=== PATIENT | male | born 1945 | race Caucasian/White ===

== ENCOUNTER → 2017-08-04 | Outpatient (CLI) | payer MEDICARE ==
--- NOTE | 2017-08-04 14:46 | CT ---
EXAMINATION TYPE: CT cervical spine wo con DATE OF EXAM: 08/04/2017 COMPARISON: 01/04/2016 HISTORY: Cervicalgia CT DLP: 1116 mGycm. Automated Exposure Control for Dose Reduction was Utilized. TECHNIQUE: CT scan of the cervical spine is obtained without contrast, axial images are obtained, sa gittal and coronal reformatted images are also reviewed. FINDINGS: Anterior cervical fusion device is in place from the C5-C7 vertebral levels with interverte bral disc spacer also seen at C4-C5. There is partial osseous bridging and fusion at these levels and straightening of usual cervical lordosis. Multilevel uncovertebral hypertrophy and mild facet arthro johnson are seen. There is no evidence of acute fracture or malalignment of the cervical spine. No prev ertebral soft tissue swelling is noted. At C2-C3 there is a left paracentral disc herniation creating mild spinal canal stenosis. No neural f oraminal narrowing. At C3-C4 there is uncovertebral hypertrophy and facet arthropathy creating moderate left neural loyd inal narrowing. Broad-based disc bulge also narrows the ventral subarachnoid space creating mild spin al canal stenosis. Right neuroforamen is patent. At C4-C5 the spinal canal is partially obscured by spray artifact from the intervertebral disc spacer uncovertebral hypertrophy and facet arthropathy are seen although the spinal canal and neural forame n appear grossly patent. At C5-C6 and C6-C7 there is moderate left and mild right neural foraminal narrowing from uncovertebra l hypertrophy and facet arthropathy. Spinal canal is somewhat limited secondary to postoperative rush ge but there appears to be mild spinal canal stenosis. At C7-T1 there is no gross evidence of final canal stenosis. Mild bilateral neural foraminal narrowin g is seen as a result of uncovertebral hypertrophy. IMPRESSION: 1. Postsurgical fusion of the cervical spine with no hardware fracture or new malalignment. 2. Left paracentral disc herniation at C2-C3 creating mild spinal canal stenosis. 3. Moderate degenerative disc disease of the cervical spine creating variable degrees of neural loyd inal stenosis and spinal canal stenosis as described above.
== END | disposition home or self-care (01) ==
LOC: RADCTMAIN 14:10
PROVIDERS: ATTEND Psychiatry & Neurology Neurology
DX: M54.2 Cervicalgia (principal); M48.02 Spinal stenosis, cervical region; M50.31 Other cervical disc degeneration, high cervical region
CPT/HCPCS: 72125

== ENCOUNTER → 2017-10-24 | Outpatient (CLI) | payer MEDICARE ==
--- NOTE | 2017-10-24 17:16 | PN ---
PROGRESS NOTE SLEEP CENTER PROGRESS NOTE: This is a 72-year-old male patient who is coming in for advice regarding GE treatment. The patient was diagnosed having obstructive sleep apnea back in 2014. At that time he was diagnosed having severe GE, and based on the sleep study the patient was found to have an AHI of 65. The patient was given CPAP at a pressure of 14 cm of water. Note that he failed to show up for a compliancy check, and I have not seen this patient since then. After using the CPAP for a few months, the patient quit the treatment, as the treatment was becoming uncomfortable. He was using a Simplus full-face mask and he was having leaks around the mask. Over the past 3 years the patient has become more symptomatic. He is having oozy moments and he is dropping things and has become forgetful, sleepy during the day and quite somnolent. His [place] score is 22. He is going to bed around 8:30 p.m., waking up at 5:30 a.m. in the morning. He is snoring excessively. He stops breathing. He wakes up choking and gasping for air. He has nocturia and dry mouth. For all these reasons, the patient is coming back for further advice. Obviously he will need to go back on his CPAP machine. His comorbidities include obesity, diabetes mellitus, coronary artery disease, previous DE, hypertension, peripheral neuropathy, restless legs syndrome, anxiety, depression and history of skin cancer that has been resected. As for his past surgical history, he has had cardiac catheterization with stenting, appendectomy, cervical fusion, right foot surgery. DRUG ALLERGIES: NOT KNOWN. OUTPATIENT MEDICATION LIST: 1. Aspirin 81 daily. 2. Lisinopril 20 daily. 3. Metoprolol 25 mg b.i.d. 4. Neurontin 300 mg 3 times a day. 5. Pamelor 1 tablet a day at bedtime. 6. Flexeril 5 mg at bedtime. 7. Zoloft 100 mg p.o. daily. 8. Lipitor 40 daily. 9. Triamterene twice a day. 10.Metformin 500 mg twice a day. 11.Glipizide 1 tablet a day. REVIEW OF SYSTEMS: Twelve-point review of systems was done. Positive findings are all mentioned above in the history of present illness. PHYSICAL EXAMINATION: BP is 124/70, pulse 74, respirations 16, temperature 97.8, saturation 94% on room air. Height is 5 feet 10 inches, weighs 291. Neck size is 20-3/4 inches. GENERAL APPEARANCE: Obese, calm, comfortable. Head is atraumatic, normocephalic. Neck is short, supple. Crowding in the posterior pharynx. There is no goiter or neck mass. LUNGS: Diminished breath sounds bilaterally. HEART: Sounds are regular rate and rhythm. Normal S1, S2. No S3. No murmurs. ABDOMEN: Obese, soft, nontender. No organomegaly. EXTREMITIES: No edema. No cyanosis or clubbing. NEUROLOGIC: Alert and oriented x3. No focal neurological deficits. PSYCHIATRIC: Appropriate mood and affect. SKIN: Negative for any wounds or ulceration. IMPRESSION: 1. Severe symptomatic obstructive sleep apnea. The patient has had difficulties with his CPAP at a pressure of 14 and currently he is coming in being quite symptomatic from his GE treatment, as the patient has not received the treatment for the past 3 years. His baseline AHI is 65. His CPAP titration pressure was 14. 2. Morbid obesity with a body mass index of 41.1. The patient has lost some weight since his original diagnosis with GE. 3. Excessive daytime sleepiness. [place] score 22. 4. Diabetes. 5. Hypertension. 6. Coronary artery disease. 7. Anxiety/depression. 8. Peripheral neuropathy. 9. Restless leg syndrome. PLAN: 1. Encourage further weight loss. 2. Reviewed the CPAP titration back in 2014. Based on that, I will lower the CPAP pressure down to 12 cm of water. I also gave the patient an AirFit F20 large-size full-face mask with a short-term followup to assess his clinical response. Will consider CPAP titration if he fails treatment. Will continue to follow. MMODL / IJN: [id number] /
== END | disposition home or self-care (01) ==
LOC: SLEEP 14:23
PROVIDERS: ATTEND Internal Medicine Critical Care Medicine
DX: G47.33 Obstructive sleep apnea (adult) (pediatric) (principal); E66.01 Morbid (severe) obesity due to excess calories; E11.9 Type 2 diabetes mellitus without complications; I10 Essential (primary) hypertension; I25.10 Atherosclerotic heart disease of native coronary artery without angina pectoris; F41.9 Anxiety disorder, unspecified; F32.9 Major depressive disorder, single episode, unspecified; G62.9 Polyneuropathy, unspecified; G25.81 Restless legs syndrome; Z68.41 Body mass index [BMI] 40.0-44.9, adult; Z99.89 Dependence on other enabling machines and devices; Z79.82 Long term (current) use of aspirin; Z79.899 Other long term (current) drug therapy; Z79.84 Long term (current) use of oral hypoglycemic drugs
CPT/HCPCS: 99211

== ENCOUNTER → 2017-12-12 | Outpatient (CLI) | payer MEDICARE ==
--- NOTE | 2017-12-12 19:02 | PN ---
PROGRESS NOTE This is a 72-year-old male patient coming in for a compliancy evaluation regarding obstructive sleep apnea. The patient was diagnosed having severe obstructive sleep apnea with AHI of 65 and the patient was offered a CPAP pressure of 14 cm of water. During his last visit I made some adjustments. I lowered the CPAP pressure down to 12 cm of water. The patient seems to be much more compliant at this point in time, and he is using the AirFit F20 full-face mask. He is doing well. He is averaging around 8.6 hours of CPAP use per night. His leak factor 28 L/minute. His AHI while on treatment is down to 0.2. No complaints. He is benefitting from treatment. No nocturnal chest pain. No nocturnal shortness of breath. No nocturnal snoring. PHYSICAL EXAMINATION: BP is 110/66, pulse 83, respirations 18, temperature 97.9, saturation 95% on room air. Weight is 290. Height is 5 feet 10 inches and BMI is 41.6. [place] score is 20. GENERAL APPEARANCE: Calm, comfortable. Head is atraumatic, normocephalic. Neck is supple. No JVD. No goiter or neck mass. LUNGS: Clear to auscultation. Heart sounds are regular rate and rhythm. Normal S1, S2. No S3, S4. No murmurs. Abdomen is soft, nontender. No organomegaly. EXTREMITIES: No edema. No cyanosis or clubbing. Neurologically alert and oriented x3. There is no focal neurological deficit. IMPRESSION: 1. Severe obstructive sleep apnea, currently on CPAP at a pressure of 12. Baseline AHI is 65. 2. Hypersomnia, recovered. 3. Morbid obesity. 4. Diabetes. 5. Hypertension. 6. Coronary artery disease. 7. Chronic anxiety/depression. 8. Peripheral neuropathy. 9. Restless leg syndrome. PLAN: 1. Continue CPAP therapy at the same level of pressure. 2. Keep the patient on an AirFit F20 full-face mask. 3. See me back in a year's time, earlier if needed. The treatment is successful for now. No need for any further adjustments at this point in time. MMODL / IJN: [id number] /
== END | disposition home or self-care (01) ==
LOC: SLEEP 13:14
PROVIDERS: ATTEND Internal Medicine Critical Care Medicine
DX: G47.33 Obstructive sleep apnea (adult) (pediatric) (principal); G25.81 Restless legs syndrome; E66.01 Morbid (severe) obesity due to excess calories; I10 Essential (primary) hypertension; I25.10 Atherosclerotic heart disease of native coronary artery without angina pectoris; F41.9 Anxiety disorder, unspecified; F32.9 Major depressive disorder, single episode, unspecified; E11.42 Type 2 diabetes mellitus with diabetic polyneuropathy; Z68.41 Body mass index [BMI] 40.0-44.9, adult; Z99.89 Dependence on other enabling machines and devices

== ENCOUNTER 2018-02-28 07:45 | Day surgery (SDC) | payer MEDICARE ==
[2018-02-23 14:42] VITALS: BMI 41.5
[~2018-02-28 07:45] MED LIST: DEXAMETHASONE SOD PHOSPHATE 10 MG/ML 1 ML VIAL IV ONE; HYDROmorphone 0.5 MG/0.5 ML SYRINGE IVP PRN; LACTATED RINGERS 1,000 ML IV SCH; LIDOCAINE 1% 20 ML VIAL (10MG/ML) FOR IV START INTRADERMA PRN; ONDANSETRON 4 MG/2 ML VIAL IVP ONE; SCOPOLAMINE 1.5MG/72HR PATCH TRANSDERM ONE
[2018-02-28] MEDS ORDERED: LACTATED RINGERS 1,000 ML IV ONE (07:56)
[2018-02-28 08:11] VITALS: TEMP 97.4
[2018-02-28 08:28] LABS: Glucose,Whole Blood 148 mg/dL (75-99)
[2018-02-28] MEDS ORDERED: PROPOFOL 10 MG/ML 20 ML VIAL IV ONE (08:32)
[2018-02-28] MEDS ORDERED: LIDOCAINE 1% INJ 10MG/ML (20 ML MDV) ONE (08:32)
--- NOTE | 2018-02-28 08:35 | P.GSHP ---
History of Present Illness H&P Date: 02/28/18 Chief Complaint: Colon cancer screening Patient here today for colonoscopy. Last colonoscopy over 5 years ago. Personal history of colon polyps. Patient has no bowel related symptoms. No family history colon cancer. Past Medical History Past Medical History: Cancer, Diabetes Mellitus, Hyperlipidemia, Hypertension, Myocardial Infarction (SD) Additional Past Medical History / Comment(s): RLS. SKIN CANCER ON BACK Last Myocardial Infarction Date:: 2002 History of Any Multi-Drug Resistant Organisms: None Reported Past Surgical History: Appendectomy, Heart Catheterization With Stent, Orthopedic Surgery Additional Past Surgical History / Comment(s): COLONOSCOPY, BILAT CATARACTS, RT ROTATOR CUFF REPAIR, RT EYE SX, BOWEL SX AT AGE 6, RT FOOT FUSION, CERVICAL FUSION X 2, SKIN CANCER ON BACK REMOVED Past Anesthesia/Blood Transfusion Reactions: Motion Sickness Date of Last Stent Placement:: 2002, 2012 Smoking Status: Never smoker - Past Family History Father Family Medical History: Cancer Sister(s) Family Medical History: Cancer Medications and Allergies Home Medications Medication Instructions Recorded Confirmed Type Aspirin EC [Ecotrin Low Dose] 81 mg PO DAILY 02/23/18 02/28/18 History Atorvastatin [Lipitor] 40 mg PO HS 02/23/18 02/28/18 History Cetirizine HCl [Zyrtec] 10 mg PO DAILY PRN 02/23/18 02/28/18 History Cholecalciferol (Vitamin D3) 2,000 unit PO DAILY 02/23/18 02/28/18 History [Vitamin D3] Cyclobenzaprine [Flexeril] 5 mg PO HS 02/23/18 02/28/18 History Gabapentin [Neurontin] 300 mg PO TID 02/23/18 02/28/18 History Insulin Glargine/Lixisenatide 60 units SQ DAILY 02/23/18 02/28/18 History [Soliqua 100 Unit-33 Mcg/ml Pen] Lisinopril 20 mg PO DAILY 02/23/18 02/28/18 History Nitroglycerin Sl Tabs [Nitrostat] 0.4 mg SL DIRECTED PRN 02/23/18 02/23/18 History Nortriptyline [Pamelor] 50 mg PO HS 02/23/18 02/28/18 History Pramipexole [Mirapex] 0.5 mg PO BID 02/23/18 02/28/18 History Pramipexole [Mirapex] 1 mg PO HS 02/23/18 02/28/18 History Sertraline [Zoloft] 100 mg PO DAILY 02/23/18 02/28/18 History Triamterene-Hctz 37.5-25Mg 1 tab PO DAILY 02/23/18 02/28/18 History [Maxzide 37.5-25] glipiZIDE [Glucotrol] 5 mg PO AC-BRKFST 02/23/18 02/28/18 History metFORMIN HCL [Glucophage] 500 mg PO BID 02/23/18 02/28/18 History Metoprolol Tartrate 25 mg PO BID 02/28/18 02/28/18 History Allergies Allergy/AdvReac Type Severity Reaction Status Date / Time No Known Allergies Allergy Verified 02/28/18 07:57 Surgical - Exam Vital Signs Temp Pulse Resp BP Pulse Ox 97.4 F L 73 16 127/76 93 L 02/28/18 08:09 02/28/18 08:09 02/28/18 08:09 02/28/18 08:09 02/28/18 08:09 Physical exam: General: Well-developed, well-nourished HEENT: Normocephalic, sclerae nonicteric Abdomen: Nontender, nondistended Extremities: No edema Neuro: Alert and oriented Assessment and Plan (1) Colon cancer screening Narrative/Plan: Will proceed with colonoscopy at this time Current Visit: Yes Status: Acute Code(s): Z12.11 - ENCOUNTER FOR SCREENING FOR MALIGNANT NEOPLASM OF COLON SNOMED Code(s): 816024930
--- NOTE | 2018-02-28 08:49 | P.PCN ---
Date of Procedure: 02/28/18 Procedure(s) Performed: PREOPERATIVE DIAGNOSIS: Colon cancer screening, history of polyps POSTOPERATIVE DIAGNOSIS: Mild diverticulosis PROCEDURE: Colonoscopy ANESTHESIA: MAC SURGEON: Heriberto Esquivel M.D. SPECIMENS: None ENDOSCOPIC PROCEDURE: The patient was placed on the endoscopy table in the left decubitus position. The Olympus colonoscope was inserted into the anus and passed under direct visualization to the base of the cecum. The appendiceal orifice was visualized. From that point the scope was slowly withdrawn inspecting all surfaces carefully. There were no neoplastic inflammatory or polypoid lesions throughout the cecum, ascending, transverse, descending, sigmoid and rectum. There was mild diverticulosis noted in the left colon. Digital rectal examination was normal. The patient was taken to the recovery room in stable condition per anesthesia guidelines. RECOMMENDATIONS: Increase fiber. Follow-up colonoscopy 5 years
[2018-02-28 09:09] VITALS: BP 105/64; PULSE 71; RESP 18
== END 2018-02-28 09:44 | disposition home or self-care (01) ==
LOC: ORWHC2ENDO 07:45
PROVIDERS: ATTEND Surgery
DX: Z12.11 Encounter for screening for malignant neoplasm of colon (principal); K57.30 Diverticulosis of large intestine without perforation or abscess without bleeding; Z86.010 Personal history of colon polyps; E11.9 Type 2 diabetes mellitus without complications; E78.5 Hyperlipidemia, unspecified; I10 Essential (primary) hypertension; G25.81 Restless legs syndrome; I25.119 Atherosclerotic heart disease of native coronary artery with unspecified angina pectoris; F32.9 Major depressive disorder, single episode, unspecified; G47.33 Obstructive sleep apnea (adult) (pediatric); K21.9 Gastro-esophageal reflux disease without esophagitis; I25.2 Old myocardial infarction; Z95.5 Presence of coronary angioplasty implant and graft; Z99.89 Dependence on other enabling machines and devices; Z79.82 Long term (current) use of aspirin; Z79.4 Long term (current) use of insulin; Z79.899 Other long term (current) drug therapy; Z85.828 Personal history of other malignant neoplasm of skin; Z98.1 Arthrodesis status
CPT/HCPCS: J2001; J2704; G0105

== ENCOUNTER → 2018-05-29 | Outpatient (CLI) | payer MEDICARE ==
--- NOTE | 2018-05-29 18:05 | PN ---
PROGRESS NOTE Placido is 72. He is coming in for a routine compliance check. The patient was diagnosed having obstructive sleep apnea, severe, with an AHI of 65, and the patient was offered CPAP therapy. The patient started on APAP, minimum of 10, maximum pressure of 16. He is using an AirFit F30 full-face mask. On today's evaluation, the patient reports marked improvement in his sleep quality. He is benefitting from the treatment. He is waking up much more refreshed and alert during the day. I checked his compliance data and I see some room for improvement. The patient has been averaging about 3.8 hours of CPAP use per night. His CPAP use for more than 4 hours is 16/30 and his average CPAP pressure is around 11.9 with a leak factor of 2 L/minutes. His AHI while on treatment is down to 1.4. No new complaints. He is very content and happy, although I see only limited hours of CPAP use per night. REVIEW OF SYSTEMS: Twelve-point review of systems was done. CONSTITUTIONAL: Negative for any weight gain or weight loss. No fever, chills or night sweats. No change in appetite. No sinus disease, nasal congestion or post-nasal drainage or sinus infection. No sore throat. No neck pain or stiffness. No cough, sputum production, chest tightness or wheezing. No angina or palpitation. No heartburn. No nausea, vomiting or diarrhea. No gaseous abdominal distention of flatus. No frequency or urgency. No falls. No skin rashes or ulcerations. No polyuria or polydipsia. No history of any motor vehicle accident because of feeling drowsy or sleepy. Overall his sleep quality is improved, and the patient, as mentioned, is feeling more energetic. He has no need to take any naps during the day. No sleep paralysis. No hallucinations. No restlessness in the lower extremities. PHYSICAL EXAMINATION: BP is 123/66, pulse 81, respirations 16, temperature 98.0. Weight 295. Saturation 96% on room air. GENERAL APPEARANCE: Calm, comfortable. Head is atraumatic, normocephalic. NECK: Supple. Mallampati class IV. There is no goiter or neck masses. LUNGS: Clear to auscultation. Heart sounds are regular rate and rhythm. Normal S1, S2. No S3, S4. No murmurs. ABDOMEN: Soft, nontender. No organomegaly. EXTREMITIES: No edema. No cyanosis or clubbing. Neurologically alert and oriented x3. No focal neurological deficits. PSYCHIATRIC: Negative for anxiety or depression. SKIN: Negative for any wounds or ulceration. IMPRESSION: 1. Symptomatic obstructive sleep apnea, severe, with an apnea/hypopnea index of 65, currently on APAP. 2. Morbid obesity. BMI of 41. 3. Hypersomnia. [place] score of 22. 4. Diabetes mellitus. 5. Hypertension. 6. Coronary artery disease. 7. Restless legs syndrome. 8. Peripheral neuropathy. 9. Chronic anxiety/depression. PLAN: 1. Encourage weight loss. 2. Continue APAP at the same level of pressure, minimum of 10, maximum of 16. 3. Despite his limited number of hours of APAP use, the patient is benefiting from the treatment. I would encourage him to increase his APAP use to at least 4 hours per night. He needs to be achieving more than 70% of the time, 4 hours or APAP use or more. He was made aware of this so that he can meet insurance guidelines. I am confident that the patient will be achieving this goal over the next month. He was offered a [employer]Wear full-face mask, medium size, which he likes and he was willing to use. He will contact me back if this is the mask of choice for him. I will encourage CPAP use. He will see me back in a year's time in followup, earlier if needed. MICHAEL / MARNIE: [id number] /
== END ==
LOC: SLEEP 14:24
PROVIDERS: ATTEND Internal Medicine Critical Care Medicine
DX: G47.33 Obstructive sleep apnea (adult) (pediatric) (principal); E66.01 Morbid (severe) obesity due to excess calories; E11.9 Type 2 diabetes mellitus without complications; I10 Essential (primary) hypertension; I25.10 Atherosclerotic heart disease of native coronary artery without angina pectoris; G62.9 Polyneuropathy, unspecified; F41.9 Anxiety disorder, unspecified; F32.9 Major depressive disorder, single episode, unspecified; G25.81 Restless legs syndrome; Z99.89 Dependence on other enabling machines and devices; Z68.41 Body mass index [BMI] 40.0-44.9, adult

== ENCOUNTER 2018-10-09 16:00 | Emergency (ER) | payer MEDICARE ==
[2018-10-09 16:10] VITALS: TEMP 98
[2018-10-09] MEDS ORDERED: SODIUM CHLORIDE 0.9% 1,000 ML IV ONE (16:29)
[2018-10-09] MEDS ORDERED: ONDANSETRON 4 MG/2 ML VIAL IVP STA (16:29)
--- NOTE | 2018-10-09 16:36 | ED ---
General Adult HPI - General Chief complaint: Weakness Stated complaint: WEAKNESS Time Seen by Provider: 10/09/18 16:13 Source: patient Mode of arrival: ambulatory Limitations: no limitations - History of Present Illness Initial comments: 72 yoM presenting with generalized malaise. He states yesterday he had a tooth pulled. He states they use local anesthesia for the extraction. Denies using Benzocaine. That evening he began to feel run down and more short of breath with minimal exertion. He states that he has a history of using a nebulizer PRN for s hortness of breath but denies a formal diagnoses of COPD. He denies any F/C, chest pain. He states he had a loose bowel movement this morning and feels mildly nauseous. Last colonoscopy was last month and was unremarkable. No history of inflammatory bowel diseases. He did not have another loose bowel movement today. - Related Data Home Medications Medication Instructions Recorded Confirmed Aspirin EC [Ecotrin Low Dose] 81 mg PO DAILY 02/23/18 10/09/18 Atorvastatin [Lipitor] 40 mg PO HS 02/23/18 10/09/18 Cetirizine HCl [Zyrtec] 10 mg PO DAILY PRN 02/23/18 10/09/18 Cyclobenzaprine [Flexeril] 5 mg PO HS 02/23/18 10/09/18 Insulin Glargine/Lixisenatide 60 units SQ DAILY 02/23/18 10/09/18 [Soliqua 100 Unit-33 Mcg/ml Pen] Lisinopril 20 mg PO DAILY 02/23/18 10/09/18 Nitroglycerin Sl Tabs [Nitrostat] 0.4 mg SL DIRECTED PRN 02/23/18 10/09/18 Nortriptyline [Pamelor] 50 mg PO HS 02/23/18 10/09/18 Pramipexole [Mirapex] 0.5 mg PO BID@0900,1700 02/23/18 10/09/18 Pramipexole [Mirapex] 1 mg PO HS 02/23/18 10/09/18 Sertraline [Zoloft] 100 mg PO DAILY 02/23/18 10/09/18 metFORMIN HCL [Glucophage] 500 mg PO BID 02/23/18 10/09/18 Metoprolol Tartrate 25 mg PO BID 02/28/18 10/09/18 Gabapentin [Neurontin] 400 mg PO TID 10/09/18 10/09/18 HYDROcodone/APAP 7.5-325MG [[place] 1 tab PO Q6HR PRN 10/09/18 10/09/18 7.5-325] INSULIN LISPRO (humaLOG) [humaLOG] 12 unit SQ AC-TID 10/09/18 10/09/18 Triamterene-Hctz 37.5-25Mg 1 tab PO BID 10/09/18 10/09/18 [Maxzide 37.5-25] Allergies Allergy/AdvReac Type Severity Reaction Status Date / Time Mushroom Allergy Diarrhea Verified 10/09/18 17:05 Review of Systems ROS Statement: Those systems with pertinent positive or pertinent negative responses have been documented in the HPI. Review of Systems Constitutional: Denies fever, chills. Positive malaise. Eyes: Denies change in vision, Denies pain Ears, nose, mouth, throat: Denies headaches, Denies sore throat Cardiovascular: Denies chest pain. Denies palpitations Respiratory: Positivve shortness of breath, Denies cough Gastrointestinal: Positive abdominal pain. Positive nausea. Denies vomiting, diarrhea. Genitourinary: Denies hematuria, Denies infections Musculoskeletal: Denies pain, Denies swelling Integumentary: Denies rash Neurological: Denies headache, focal weakness, focal numbness Psychiatric: Denies anxiety, Denies depression Hematologic/Lymphatic: Denies easy bleeding or bruising ROS Other: All systems not noted in ROS Statement are negative. Past Medical History Past Medical History: Cancer, Diabetes Mellitus, Hyperlipidemia, Hypertension, Myocardial Infarction ([place]) Additional Past Medical History / Comment(s): RLS. SKIN CANCER ON BACK Last Myocardial Infarction Date:: 2002 History of Any Multi-Drug Resistant Organisms: None Reported Past Surgical History: Appendectomy, Heart Catheterization With Stent, Orthopedic Surgery Additional Past Surgical History / Comment(s): COLONOSCOPY, BILAT CATARACTS, RT ROTATOR CUFF REPAIR, RT EYE SX, BOWEL SX AT AGE 6, RT FOOT FUSION, CERVICAL FUSION X 2, SKIN CANCER ON BACK REMOVED Past Anesthesia/Blood Transfusion Reactions: Motion Sickness Date of Last Stent Placement:: 2002, 2012 Past Psychological History: Anxiety Smoking Status: Never smoker - Past Family History Father Family Medical History: Cancer Sister(s) Family Medical History: Cancer General Exam - General Exam Comments Initial Comments: General: Awake, alert, No acute Distress HENT: Normocephalic. Atraumatic. Tooth 24 absent without any purulent drainage from site, surrounding erythema, or oropharyngeal swelling. Eyes: PERRL. EOMI. No scleral icterus. No injected conjunctiva Neck: Full ROM Chest/Lungs: Clear to auscultation bilaterally. No wheezing, rhonchi, or rales Cardiac: Regular rate, rhythm. No murmurs or rubs Abdomen/GI: Soft, nontender, nondistended. No rebound, guarding, or rigidity. Musculoskeletal: Full ROM Skin: Warm, dry, intact Neurologic: A/Ox3, no weakness, no sensory deficit, no abnormal gait, no coordination deficit Limitations: no limitations Course Vital Signs 10/09/18 10/09/18 10/09/18 16:07 18:14 20:59 Temperature 98.0 F Pulse Rate 72 84 79 Respiratory 16 18 Rate Blood Pressure 94/55 103/61 O2 Sat by Pulse 96 99 Oximetry 10/09/18 10/09/18 10/09/18 21:08 21:13 21:59 Temperature 98.0 F Pulse Rate 80 87 87 Respiratory 18 18 Rate Blood Pressure 112/66 132/67 O2 Sat by Pulse 97 97 Oximetry EKG Findings - EKG Comments: EKG Findings:: EKG shows normal sinus rhythm at a rate of 74 bpm. ID interval 162 ms. QRS duration 94 ms. QT/QTC 370/[address] segment elevation, depression. No prolonged QT/QTc or ID interval. No dysrythmia noted. Medical Decision Making - Medical Decision Making 72-year-old male presenting with generalized malaise. Initial exam the patient is awake, alert, no acute distress. VSS. Patient has no signs of oropharyngeal infection at the area of extraction. He is well-appearing and well-hydrated. He denied any chest pain or shortness of breath. He states he has felt this way before and uses DuoNeb's to relieve his symptoms. While in the department the patient was given breathing treatments and stated that he felt improved. Monitored for a period time no worsening of his symptoms. The remainder his l aboratory workup is imaging was negative for acute process. His unlikely that his malaise is secondary to any cardiac process. No focal neuro deficit to suggest a stroke. He had no headache or vision changes to warrant a head CT. A this time the patient is stable for outpatient follow up with his primary care physician. He was told to use his DuoNeb's every 4-6 hours for the next 2 days needed.No further emergent workup indicated. The patient was given return to ED instructions. They were instructed to follow up with their primary care provider. Stable for discharge at this time. - Lab Data Result diagrams: 10/09/18 17:04 10/09/18 17:04 Lab Results 10/09/18 10/09/18 10/09/18 Range/Units 17:04 17:04 17:04 WBC 11.5 H (3.8-10.6) k/uL RBC 4.60 (4.30-5.90) m/uL Hgb 13.5 (13.0-17.5) gm/dL Hct 41.8 (39.0-53.0) % MCV 90.8 (80.0-100.0) fL MCH 29.5 (25.0-35.0) pg MCHC 32.4 (31.0-37.0) g/dL RDW 14.0 (11.5-15.5) % Plt Count 220 (150-450) k/uL Neutrophils % 85 % Lymphocytes % 6 % Monocytes % 5 % Eosinophils % 1 % Basophils % 0 % Neutrophils # 9.8 H (1.3-7.7) k/uL Lymphocytes # 0.7 L (1.0-4.8) k/uL Monocytes # 0.6 (0-1.0) k/uL Eosinophils # 0.1 (0-0.7) k/uL Basophils # 0.0 (0-0.2) k/uL D-Dimer (<0.60) mg/L FEU VBG pH 7.35 (7.31-7.41) VBG pCO2 50 (37-51) mmHg VBG HCO3 27 (24-28) mmol/L Sodium 135 L (137-145) mmol/L Potassium 4.3 (3.5-5.1) mmol/L Chloride 100 (98-107) mmol/L Carbon Dioxide 25 (22-30) mmol/L Anion Gap 10 mmol/L BUN 50 H (9-20) mg/dL Creatinine 1.24 (0.66-1.25) mg/dL Est GFR (CKD-EPI)AfAm 68 (>60 ml/min/1.73 sqM) Est GFR (CKD-EPI)NonAf 59 (>60 ml/min/1.73 sqM) Glucose 136 H (74-99) mg/dL POC Glucose (mg/dL) (75-99) mg/dL POC Glu [employer] ID Plasma Lactic Acid Rafael (0.7-2.0) mmol/L Calcium 8.7 (8.4-10.2) mg/dL Total Bilirubin 0.7 (0.2-1.3) mg/dL Conjugated Bilirubin 0.0 (0.0-0.3) mg/dL Unconjugated Bilirubin 0.5 (0.0-1.1) mg/dL Delta Bilirubin 0.2 (0.0-0.2) mg/dL AST 34 (17-59) U/L ALT 36 (21-72) U/L Alkaline Phosphatase 101 (38-126) U/L Troponin I (0.000-0.034) ng/mL NT-Pro-B Natriuret Pep pg/mL Total Protein 6.2 L (6.3-8.2) g/dL Albumin 3.5 (3.5-5.0) g/dL Lipase 94 (23-300) U/L Urine Color Urine Appearance (Clear) Urine pH (5.0-8.0) Ur Specific [place] (1.001-1.035) Urine Protein (Negative) Urine Glucose (UA) (Negative) Urine Ketones (Negative) Urine Blood (Negative) Urine Nitrite (Negative) Urine Bilirubin (Negative) Urine Urobilinogen (<2.0) mg/dL Ur Leukocyte Esterase (Negative) 10/09/18 10/09/18 10/09/18 Range/Units 17:04 17:04 17:04 WBC (3.8-10.6) k/uL RBC (4.30-5.90) m/uL Hgb (13.0-17.5) gm/dL Hct (39.0-53.0) % MCV (80.0-100.0) fL MCH (25.0-35.0) pg MCHC (31.0-37.0) g/dL RDW (11.5-15.5) % Plt Count (150-450) k/uL Neutrophils % % Lymphocytes % % Monocytes % % Eosinophils % % Basophils % % Neutrophils # (1.3-7.7) k/uL Lymphocytes # (1.0-4.8) k/uL Monocytes # (0-1.0) k/uL Eosinophils # (0-0.7) k/uL Basophils # (0-0.2) k/uL D-Dimer 1.50 H (<0.60) mg/L FEU VBG pH (7.31-7.41) VBG pCO2 (37-51) mmHg VBG HCO3 (24-28) mmol/L Sodium (137-145) mmol/L Potassium (3.5-5.1) mmol/L Chloride (98-107) mmol/L Carbon Dioxide (22-30) mmol/L Anion Gap mmol/L BUN (9-20) mg/dL Creatinine (0.66-1.25) mg/dL Est GFR (CKD-EPI)AfAm (>60 ml/min/1.73 sqM) Est GFR (CKD-EPI)NonAf (>60 ml/min/1.73 sqM) Glucose (74-99) mg/dL POC Glucose (mg/dL) (75-99) mg/dL POC Glu [employer] ID Plasma Lactic Acid Rafael 1.2 (0.7-2.0) mmol/L Calcium (8.4-10.2) mg/dL Total Bilirubin (0.2-1.3) mg/dL Conjugated Bilirubin (0.0-0.3) mg/dL Unconjugated Bilirubin (0.0-1.1) mg/dL Delta Bilirubin (0.0-0.2) mg/dL AST (17-59) U/L ALT (21-72) U/L Alkaline Phosphatase (38-126) U/L Troponin I (0.000-0.034) ng/mL NT-Pro-B Natriuret Pep 174 pg/mL Total Protein (6.3-8.2) g/dL Albumin (3.5-5.0) g/dL Lipase (23-300) U/L Urine Color Urine Appearance (Clear) Urine pH (5.0-8.0) Ur Specific [place] (1.001-1.035) Urine Protein (Negative) Urine Glucose (UA) (Negative) Urine Ketones (Negative) Urine Blood (Negative) Urine Nitrite (Negative) Urine Bilirubin (Negative) Urine Urobilinogen (<2.0) mg/dL Ur Leukocyte Esterase (Negative) 10/09/18 10/09/18 10/09/18 Range/Units 17:04 19:03 Unknown WBC (3.8-10.6) k/uL RBC (4.30-5.90) m/uL Hgb (13.0-17.5) gm/dL Hct (39.0-53.0) % MCV (80.0-100.0) fL MCH (25.0-35.0) pg MCHC (31.0-37.0) g/dL RDW (11.5-15.5) % Plt Count (150-450) k/uL Neutrophils % % Lymphocytes % % Monocytes % % Eosinophils % % Basophils % % Neutrophils # (1.3-7.7) k/uL Lymphocytes # (1.0-4.8) k/uL Monocytes # (0-1.0) k/uL Eosinophils # (0-0.7) k/uL Basophils # (0-0.2) k/uL D-Dimer (<0.60) mg/L FEU VBG pH (7.31-7.41) VBG pCO2 (37-51) mmHg VBG HCO3 (24-28) mmol/L Sodium (137-145) mmol/L Potassium (3.5-5.1) mmol/L Chloride (98-107) mmol/L Carbon Dioxide (22-30) mmol/L Anion Gap mmol/L BUN (9-20) mg/dL Creatinine (0.66-1.25) mg/dL Est GFR (CKD-EPI)AfAm (>60 ml/min/1.73 sqM) Est GFR (CKD-EPI)NonAf (>60 ml/min/1.73 sqM) Glucose (74-99) mg/dL POC Glucose (mg/dL) 132 H (75-99) mg/dL POC Glu [employer] ID Raissa Aquino Plasma Lactic Acid Rafael (0.7-2.0) mmol/L Calcium (8.4-10.2) mg/dL Total Bilirubin (0.2-1.3) mg/dL Conjugated Bilirubin (0.0-0.3) mg/dL Unconjugated Bilirubin (0.0-1.1) mg/dL Delta Bilirubin (0.0-0.2) mg/dL AST (17-59) U/L ALT (21-72) U/L Alkaline Phosphatase (38-126) U/L Troponin I <0.012 (0.000-0.034) ng/mL NT-Pro-B Natriuret Pep pg/mL Total Protein (6.3-8.2) g/dL Albumin (3.5-5.0) g/dL Lipase (23-300) U/L Urine Color Yellow Urine Appearance Clear (Clear) Urine pH 5.5 (5.0-8.0) Ur Specific [place] 1.021 (1.001-1.035) Urine Protein Trace H (Negative) Urine Glucose (UA) Negative (Negative) Urine Ketones Negative (Negative) Urine Blood Negative (Negative) Urine Nitrite Negative (Negative) Urine Bilirubin Negative (Negative) Urine Urobilinogen <2.0 (<2.0) mg/dL Ur Leukocyte Esterase Negative (Negative) Disposition Clinical Impression: Malaise and fatigue Disposition: HOME SELF-CARE Condition: Good Instructions (If sedation given, give patient instructions): Weakness (ED), Fatigue (ED) Additional Instructions: use your nebulizer machine every 4 hours for the next 2 days. Is patient prescribed a controlled substance at d/c from ED?: No Referrals: Akiko Lynch MD [Primary Care Provider] - 1-2 days
[2018-10-09 17:16] LABS: VBG PH 7.35 (7.31-7.41)
[2018-10-09 17:21] LABS: Basophils % (A) 0 %; Eosinophils # (A) 0.1 k/uL (0-0.7); Eosinophils % (A) 1 %; HCT 41.8 % (39.0-53.0); HGB 13.5 gm/dL (13.0-17.5); Lymphocytes # (A) 0.7 k/uL (1.0-4.8); Lymphocytes % (A) 6 %; MCH 29.5 pg (25.0-35.0); MCHC 32.4 g/dL (31.0-37.0); MCV 90.8 fL (80.0-100.0); Mean Platelet Volume 7.2; Monocytes # (A) 0.6 k/uL (0-1.0); Monocytes % (A) 5 %; Neutrophils # (A) 9.8 k/uL (1.3-7.7); Neutrophils % (A) 85 %; Platelet Count 220 k/uL (150-450); WBC 11.5 k/uL (3.8-10.6)
[2018-10-09 17:27] LABS: Appearance,Urine Clear (Clear); Bilirubin,Urine Negative (Negative); Blood,Urine Negative (Negative); Color,Urine Yellow; Glucose,Urine (UA) Negative (Negative); Ketones,Urine Negative (Negative); Leukocyte Esterase,Urine Negative (Negative); Nitrite,Urine Negative (Negative); PH, Urine 5.5 (5.0-8.0); Protein,Urine Trace (Negative); Specific Gravity,Urine 1.021 (1.001-1.035); Urobilinogen,Urine <2.0 mg/dL (<2.0)
[2018-10-09 17:28] LABS: Albumin 3.5 g/dL (3.5-5.0); Bilirubin, Delta 0.2 mg/dL (0.0-0.2); Bilirubin,Unconjugated 0.5 mg/dL (0.0-1.1); Calcium 8.7 mg/dL (8.4-10.2); Potassium 4.3 mmol/L (3.5-5.1); Total Bilirubin 0.7 mg/dL (0.2-1.3); Total Protein 6.2 g/dL (6.3-8.2)
--- NOTE | 2018-10-09 17:37 | XR ---
EXAMINATION TYPE: XR chest 1V portable DATE OF EXAM: 10/09/2018 COMPARISON: 02/10/2016 HISTORY: Pain TECHNIQUE: Single frontal view of the chest is obtained. FINDINGS: Postsurgical change overlying the cervical spine. The heart is enlarged. There are subsegm ental changes at the left lung base. No pneumothorax. IMPRESSION: 1. Limitation with regard to the left lung base. Remaining portions of the lungs are clear. 2. Cardiomegaly.
--- NOTE | 2018-10-09 18:14 | CT ---
EXAMINATION TYPE: CT chest angio for PE DATE OF EXAM: 10/09/2018 COMPARISON: 10/15/2010 HISTORY: Shortness of breath after tooth pulled yesterday. CT DLP: 702.5 mGycm Automated exposure control for dose reduction was used. CONTRAST: CT Chest for pulmonary embolism performed with with IV Contrast, patient injected with 80 mL of Isovu e 370. FINDINGS: Postsurgical changes overlying the cervical spine. Biapical pleural thickening. Emphysemato us changes are noted. Subsegmental consolidation seen bilaterally most typical of atelectasis. No ple ural effusion. No pneumothorax. Aorta of normal caliber with mild atherosclerotic changes. Pulmonary arteries enhance normally with no diagnostic evidence of pulmonary embolism. Hypertrophic and degenerative change of the spine with slight curvature noted. Trace amount of fluid is seen in the upper mediastinum posteriorly. This is a nonspecific finding. IMPRESSION: 1. No diagnostic evidence of pulmonary embolism 2. COPD 3. Basilar atelectasis favored over infiltrate correlate clinically
[2018-10-09 18:15] VITALS: RESP 18
[2018-10-09 19:05] LABS: Glucose,Whole Blood 132 mg/dL (75-99)
[2018-10-09] MEDS ORDERED: IPRATROPIUM-ALBUTEROL 3 ML NEB INHALATION STA (19:26)
[2018-10-09 21:14] VITALS: PULSE 87
[2018-10-09 22:02] VITALS: BP 132/67
== END 2018-10-09 22:02 | disposition home or self-care (01) ==
LOC: EC 16:00
DX: R53.81 Other malaise (principal); R53.83 Other fatigue; K08.409 Partial loss of teeth, unspecified cause, unspecified class; R06.02 Shortness of breath; R11.0 Nausea; R19.5 Other fecal abnormalities; E11.9 Type 2 diabetes mellitus without complications; E78.5 Hyperlipidemia, unspecified; I10 Essential (primary) hypertension; I25.2 Old myocardial infarction; G25.81 Restless legs syndrome; F41.9 Anxiety disorder, unspecified; Z91.018 Allergy to other foods; Z79.4 Long term (current) use of insulin; Z79.82 Long term (current) use of aspirin; Z79.899 Other long term (current) drug therapy; Z85.828 Personal history of other malignant neoplasm of skin; Z95.5 Presence of coronary angioplasty implant and graft; Z90.49 Acquired absence of other specified parts of digestive tract; Z98.890 Other specified postprocedural states
CPT/HCPCS: 99285; 96374; 96361; 36415; 94640; 93005; 85379; 83880; 80048; 80076; 82803; 83605; 83690; 84484; 85025; 81003; 71045; 71275; J2405; Q9967

== ENCOUNTER 2018-10-12 12:42 | Inpatient (IN) | payer MEDICARE ==
[2018-10-12] MEDS ORDERED: SODIUM CHLORIDE 0.9% 1,000 ML IV ONE (13:20)
[2018-10-12] MEDS ORDERED: KETOROLAC 30 MG/ML 1 ML VIAL IVP STA (13:45)
[2018-10-12 14:08] LABS: Basophils % (A) 0 %; Eosinophils # (A) 0.3 k/uL (0-0.7); Eosinophils % (A) 1 %; HCT 36.5 % (39.0-53.0); HGB 11.8 gm/dL (13.0-17.5); Lymphocytes # (A) 0.9 k/uL (1.0-4.8); Lymphocytes % (A) 4 %; MCH 29.2 pg (25.0-35.0); MCHC 32.3 g/dL (31.0-37.0); MCV 90.3 fL (80.0-100.0); Mean Platelet Volume 7.1; Monocytes # (A) 1.2 k/uL (0-1.0); Monocytes % (A) 6 %; Neutrophils # (A) 18.2 k/uL (1.3-7.7); Neutrophils % (A) 86 %; Platelet Count 244 k/uL (150-450); RBC 4.04 m/uL (4.30-5.90); RDW 13.9 % (11.5-15.5); WBC 21.1 k/uL (3.8-10.6)
--- NOTE | 2018-10-12 14:12 | ED ---
ENT HPI - General Source: patient, RN notes reviewed Mode of arrival: wheelchair Limitations: no limitations <Marcus Acharya - Last Filed: 10/12/18 15:20> <Elliott Marte - Last Filed: 10/12/18 16:55> - General Chief complaint: Dental/Oral Stated complaint: needs IV abx Time Seen by Provider: 10/12/18 13:06 - History of Present Illness Initial comments: This a 72-year-old male presents emergency Department chief complaint of dental infection. Patient states her tooth pulled on Monday states his been on antibiotics last few days and states that he follow-up with dentist today who advised him to emergency from for IV antibiotics. They stated he had a seizure severe infection of his jaw. Patient states she has not felt well recently was recent emergency from for evaluation but states that swallowing was not this bad. Patient states that he has no other complaints other than discomfort in his jaw and neck region. (Marcus Acharya) - Related Data Home Medications Medication Instructions Recorded Confirmed Aspirin EC [Ecotrin Low Dose] 81 mg PO DAILY@0900 02/23/18 10/12/18 Atorvastatin [Lipitor] 40 mg PO HS@209902/23/18 10/12/18 Cetirizine HCl [Zyrtec] 10 mg PO DAILY PRN 02/23/18 10/12/18 Cyclobenzaprine [Flexeril] 5 mg PO HS@209902/23/18 10/12/18 Insulin Glargine/Lixisenatide 60 units SQ DAILY 02/23/18 10/12/18 [[place] 100 Unit-33 Mcg/ml Pen] Lisinopril 20 mg PO DAILY@0900 02/23/18 10/12/18 Nitroglycerin Sl Tabs [Nitrostat] 0.4 mg SL Q5M PRN 02/23/18 10/12/18 Nortriptyline [Pamelor] 50 mg PO HS@209902/23/18 10/12/18 Pramipexole [Mirapex] 0.5 mg PO BID@0900,1700 02/23/18 10/12/18 Pramipexole [Mirapex] 1 mg PO HS 02/23/18 10/12/18 Sertraline [Zoloft] 100 mg PO DAILY@0900 02/23/18 10/12/18 metFORMIN HCL [Glucophage] 500 mg PO BID@0900,1700 02/23/18 10/12/18 Metoprolol Tartrate 25 mg PO BID@0900,2100 02/28/18 10/12/18 Gabapentin [Neurontin] 400 mg PO TID@0900,1700,2100 10/09/18 10/12/18 HYDROcodone/APAP 7.5-325MG [[place] 1 tab PO Q6HR PRN 10/09/18 10/12/18 7.5-325] Clobetasol Propionate [Temovate 1 applic TOPICAL DAILY PRN 10/12/18 10/12/18 0.05% Cream] Insulin Aspart (Niacinamide) 10 unit SQ AC-TID 10/12/18 10/12/18 [Fiasp 100 Unit/ml Flextouch] Ipratropium-Albuterol Nebulize 3 ml INHALATION RT-QID PRN 10/12/18 10/12/18 [Duoneb 0.5 mg-3 mg/3 ml Soln] Nystatin 100,000Unit/gm Cream 1 applic TOPICAL DAILY PRN 10/12/18 10/12/18 [Mycostatin Cream] Sf 5000 Plus 1.1% Flouride 1 applic PO BID PRN 10/12/18 10/12/18 Tamsulosin [Flomax] 0.4 mg PO DAILY@0900 10/12/18 10/12/18 Triamcinolone 0.5% Cream [Kenalog 1 applic TOPICAL DAILY PRN 10/12/18 10/12/18 0.5% Cream] Triamterene-Hctz 37.5-25Mg 1 cap PO BID@0900,1700 10/12/18 10/12/18 [Dyazide 37.5-25 Capsule] Allergies Allergy/AdvReac Type Severity Reaction Status Date / Time Mushroom Allergy Diarrhea Verified 10/12/18 15:59 Review of Systems ROS Other: All systems not noted in ROS Statement are negative. <Marcus Acharya - Last Filed: 10/12/18 15:20> ROS Other: All systems not noted in ROS Statement are negative. <Elliott Marte - Last Filed: 10/12/18 16:55> ROS Statement: Those systems with pertinent positive or pertinent negative responses have been documented in the HPI. Past Medical History Past Medical History: Cancer, Diabetes Mellitus, Hyperlipidemia, Hypertension, Myocardial Infarction ([place]) Additional Past Medical History / Comment(s): RLS. SKIN CANCER ON BACK Last Myocardial Infarction Date:: 2002 History of Any Multi-Drug Resistant Organisms: None Reported Past Surgical History: Appendectomy, Heart Catheterization With Stent, Orthopedic Surgery Additional Past Surgical History / Comment(s): COLONOSCOPY, BILAT CATARACTS, RT ROTATOR CUFF REPAIR, RT EYE SX, BOWEL SX AT AGE 6, RT FOOT FUSION, CERVICAL FUSION X 2, SKIN CANCER ON BACK REMOVED Past Anesthesia/Blood Transfusion Reactions: Motion Sickness Date of Last Stent Placement:: 2002, 2012 Past Psychological History: Anxiety Smoking Status: Never smoker Past Alcohol Use History: None Reported Past Drug Use History: None Reported - Past Family History Father Family Medical History: Cancer Sister(s) Family Medical History: Cancer <Marcus Acharya - Last Filed: 10/12/18 15:20> General Exam Limitations: no limitations General appearance: alert, in no apparent distress Head exam: Present: atraumatic, normocephalic, normal inspection Eye exam: Present: normal appearance, PERRL, EOMI. Absent: scleral icterus, conjunctival injection, periorbital swelling ENT exam: Present: mucous membranes moist. Absent: normal exam, normal oropharynx (Recent tooth extraction and no lower front, moderate swelling noted of the chin in submandibular region) Neck exam: Present: normal inspection. Absent: tenderness, meningismus, lymphadenopathy Respiratory exam: Present: normal lung sounds bilaterally. Absent: respiratory distress, wheezes, rales, rhonchi, stridor Cardiovascular Exam: Present: regular rate, normal rhythm, normal heart sounds. Absent: systolic murmur, diastolic murmur, rubs, gallop, clicks <Marcus Acharya - Last Filed: 10/12/18 15:20> Course <Elliott Marte - Last Filed: 10/12/18 16:55> Vital Signs 10/12/18 10/12/18 13:01 16:50 Temperature 99.2 F 99.4 F Pulse Rate 90 93 Respiratory 18 16 Rate Blood Pressure 83/50 104/61 O2 Sat by Pulse 95 Oximetry - Reevaluation(s) Reevaluation #1: 10/12/18 16:53 PA supervision: I proceeded [id number] evaluation the patient was sent from his dentist office for evaluation of facial cellulitis status post tooth extraction. Patient does have evidence of cellulitis CAT scan shows no definite abscess. Case is discussed with Dr. Blackburn was on consult. Patient will be continued on Unasyn. Dr. Cervantes is the admitting physician (Elliott Marte) Medical Decision Making - Lab Data Result diagrams: 10/12/18 13:45 10/12/18 13:45 <Marcus Acharya - Last Filed: 10/12/18 15:20> - Lab Data Result diagrams: 10/12/18 13:45 10/12/18 13:45 <Elliott Marte - Last Filed: 10/12/18 16:55> - Medical Decision Making 72-year-old male present emergency from it for dental infection. Patient has facial cellulitis and dental infection. Patient was started on Unasyn. Patient be admitted for IV antibiotics, oral surgery evaluation. (Marcus Acharya) - Lab Data Lab Results 10/12/18 10/12/18 10/12/18 Range/Units 13:45 13:45 13:45 WBC 21.1 H (3.8-10.6) k/uL RBC 4.04 L (4.30-5.90) m/uL Hgb 11.8 L (13.0-17.5) gm/dL Hct 36.5 L (39.0-53.0) % MCV 90.3 (80.0-100.0) fL MCH 29.2 (25.0-35.0) pg MCHC 32.3 (31.0-37.0) g/dL RDW 13.9 (11.5-15.5) % Plt Count 244 (150-450) k/uL Neutrophils % 86 % Lymphocytes % 4 % Monocytes % 6 % Eosinophils % 1 % Basophils % 0 % Neutrophils # 18.2 H (1.3-7.7) k/uL Lymphocytes # 0.9 L (1.0-4.8) k/uL Monocytes # 1.2 H (0-1.0) k/uL Eosinophils # 0.3 (0-0.7) k/uL Basophils # 0.0 (0-0.2) k/uL Sodium 132 L (137-145) mmol/L Potassium 4.3 (3.5-5.1) mmol/L Chloride 98 (98-107) mmol/L Carbon Dioxide 24 (22-30) mmol/L Anion Gap 10 mmol/L BUN 44 H (9-20) mg/dL Creatinine 1.25 (0.66-1.25) mg/dL Est GFR (CKD-EPI)AfAm 68 (>60 ml/min/1.73 sqM) Est GFR (CKD-EPI)NonAf 58 (>60 ml/min/1.73 sqM) Glucose 111 H (74-99) mg/dL Plasma Lactic Acid Rafael 1.0 (0.7-2.0) mmol/L Calcium 8.7 (8.4-10.2) mg/dL Total Bilirubin 0.9 (0.2-1.3) mg/dL AST 33 (17-59) U/L ALT 28 (21-72) U/L Alkaline Phosphatase 104 (38-126) U/L Total Protein 5.9 L (6.3-8.2) g/dL Albumin 3.1 L (3.5-5.0) g/dL Disposition <Marcus Acharya - Last Filed: 10/12/18 15:20> <Elliott Marte - Last Filed: 10/12/18 16:55> Clinical Impression: Facial cellulitis, Dental infection Disposition: ADMITTED IP TO THIS HOSP Condition: Fair Referrals: Akiko Lynch MD [Primary Care Provider] - 1-2 days
[2018-10-12 14:21] LABS: Albumin 3.1 g/dL (3.5-5.0); Calcium 8.7 mg/dL (8.4-10.2); Potassium 4.3 mmol/L (3.5-5.1); Total Bilirubin 0.9 mg/dL (0.2-1.3); Total Protein 5.9 g/dL (6.3-8.2)
[2018-10-12] MEDS ORDERED: AMPICILLIN-SULBACTAM 3 GM in SODIUM CHLORIDE 0.9% 100 ML IVPB STA (14:42)
--- NOTE | 2018-10-12 15:11 | CT ---
EXAMINATION TYPE: CT soft tissue neck w con DATE OF EXAM: 10/12/2018 2:53 PM COMPARISON: Prior CT chest 10/09/2018 HISTORY: Chin swelling. CT DLP: 538.1 mGycm Automated exposure control for dose reduction was used. CONTRAST: CT scan of the neck is performed following with IV Contrast, patient injected with 80 mL of Isovue 30 0. Axial images are obtained, coronal and sagittal reformatted images are reviewed. FINDINGS: Emphysematous changes are present at the lung apices. Airway: No gross abnormality seen. At the tonsil pillars there is calcification on the left likely du e to chronic infection. Parotid/submandibular glands: No gross abnormality seen. Carotid/Vascular Structures: Adjacent to the left subclavian artery origin posteriorly there is a foc us of low attenuation measuring approximately 4 x 2 x 5.1 cm Osseous Structures: Patient shows anterior cervical fusion and discectomy change at C5-C7, there is i ntervertebral disc device between the C4-C5 vertebral bodies. There is degenerative disc change. Reve rsal the normal cervical lordosis. Spinal curvature. Other: There is edema within the soft tissues anterior to the mandible. IMPRESSION: Indeterminate low-attenuation in the posterior superior mediastinum could possibly repre sent fluid and was seen on prior chest CT. Correlate for cellulitis, no focal abscess along the ayaan ible. Additional findings above.
[2018-10-12] MEDS ORDERED: NALOXONE 0.4 MG/ML 1 ML VIAL IV PRN (15:21)
[2018-10-12] MEDS ORDERED: IBUPROFEN 400 MG TAB PO PRN (15:21)
[2018-10-12] MEDS ORDERED: ACETAMINOPHEN TAB 325 MG TAB PO PRN (15:21)
[2018-10-12] MEDS ORDERED: HYDROcodone/APAP 5-325MG 1 EACH TAB PO PRN (15:21)
[2018-10-12] MEDS ORDERED: ONDANSETRON 4 MG/2 ML VIAL IVP PRN (17:50)
[2018-10-12] MEDS ORDERED: MORPHINE SULFATE 4 MG/ML SYRINGE IV PRN (17:50)
[2018-10-12] MEDS ORDERED: MELATONIN 3 MG TABLET PO PRN (17:50)
[2018-10-12] MEDS ORDERED: CLOBETASOL PROP 0.05% CR 15GM TOPICAL PRN (17:52)
[2018-10-12] MEDS ORDERED: TRIAMCINOLONE ACET 0.5% CREAM 15 GM TUBE TOPICAL PRN (17:52)
[2018-10-12] MEDS ORDERED: LORATADINE 10 MG TAB PO PRN (17:52)
[2018-10-12] MEDS ORDERED: NYSTATIN 100,000UNIT/GM CREAM 30 GM TUBE TOPICAL PRN (17:52)
--- NOTE | 2018-10-12 17:55 | P.HPIM ---
History of Present Illness H&P Date: 10/12/18 Chief Complaint: facial swelling Patient is a 72-year-old male with a past medical history of hypertension, diabetes, dyslipidemia, BPH, and coronary artery disease who presented to the emergency department at the direction of his dentist Dr. An due to increased facial swelling. He had a tooth pulled on Monday and noticed some increased facial swelling on Monday presented to the ER was discharged home. Saw his dentist the next day and was placed on an antibiotic. Swelling got worse today and he went back to the dentist. He denies any injections of antibiotics for aspiration of the infected area by the dentist. In the ER here he underwent an extensive evaluation. On arrival he was found to be slightly hypotensive with a blood pressure of 83/58. Initial laboratory analysis was remarkable for white blood cell count of 21.1 and a sodium of 132. He underwent a CT soft tissue of the neck which showed fluid collection behind the left lewis bclavian. He was started on Unasyn and IV fluids. Arrangements were made for admission. Patient seen and examined at bedside in the emergency department. He recounts the above story is seeing his dentist. He reports significant swelling of his lower jaw on midline into the right. It is worse with chewing more movement and better with rest. He has been taking his antibiotics regularly. He reports decreased eating due to pain. He denies any difficulty in swallowing, difficulty with chewing, and difficulty controlling saliva. He denies any chills, fevers, or riders at home. He is not having any shortness of breath. He denies a sore throat. He does report a frontal headache. He denies any vision changes. He does have lower extremity edema which is chronic in nature per him and the . Review of Systems Pertinent positives and negatives as discussed in HPI, a complete review of systems was performed and all other systems are negative. Past Medical History Past Medical History: Coronary Artery Disease (CAD), Cancer, Diabetes Mellitus, Hyperlipidemia, Hypertension, Myocardial Infarction ([place]) Additional Past Medical History / Comment(s): RLS. 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 BPH. GERD Last Myocardial Infarction Date:: 2002 History of Any Multi-Drug Resistant Organisms: None Reported Past Surgical History: Appendectomy, Heart Catheterization With Stent, Orthopedic Surgery Additional Past Surgical History / Comment(s): COLONOSCOPY, BILAT CATARACTS, RT ROTATOR CUFF REPAIR, RT EYE SX, BOWEL SX AT AGE 6, RT FOOT FUSION, CERVICAL FUSION X 2, SKIN CANCER ON BACK REMOVED Past Anesthesia/Blood Transfusion Reactions: Motion Sickness Date of Last Stent Placement:: 2002, 2012 Past Psychological History: Anxiety Smoking Status: Never smoker Past Alcohol Use History: None Reported Past Drug Use History: None Reported Additional History: Lives with his uses a cane at baseline - Past Family History Father Family Medical History: Cancer Sister(s) Family Medical History: Cancer Medications and Allergies Home Medications Medication Instructions Recorded Confirmed Type Aspirin EC [Ecotrin Low Dose] 81 mg PO DAILY@0900 02/23/18 10/12/18 History Atorvastatin [Lipitor] 40 mg PO HS@209902/23/18 10/12/18 History Cetirizine HCl [Zyrtec] 10 mg PO DAILY PRN 02/23/18 10/12/18 History Cyclobenzaprine [Flexeril] 5 mg PO HS@209902/23/18 10/12/18 History Insulin Glargine/Lixisenatide 60 units SQ DAILY 02/23/18 10/12/18 History [Soliqua 100 Unit-33 Mcg/ml Pen] Lisinopril 20 mg PO DAILY@0900 02/23/18 10/12/18 History Nitroglycerin Sl Tabs [Nitrostat] 0.4 mg SL Q5M PRN 02/23/18 10/12/18 History Nortriptyline [Pamelor] 50 mg PO HS@209902/23/18 10/12/18 History Pramipexole [Mirapex] 0.5 mg PO BID@0900,1700 02/23/18 10/12/18 History Pramipexole [Mirapex] 1 mg PO HS 02/23/18 10/12/18 History Sertraline [Zoloft] 100 mg PO DAILY@0900 02/23/18 10/12/18 History metFORMIN HCL [Glucophage] 500 mg PO BID@0900,1700 02/23/18 10/12/18 History Metoprolol Tartrate 25 mg PO BID@0900,2100 02/28/18 10/12/18 History Gabapentin [Neurontin] 400 mg PO TID@0900,1700,209910/09/18 10/12/18 History HYDROcodone/APAP 7.5-325MG [[place] 1 tab PO Q6HR PRN 10/09/18 10/12/18 History 7.5-325] Clobetasol Propionate [Temovate 1 applic TOPICAL DAILY PRN 10/12/18 10/12/18 History 0.05% Cream] Insulin Aspart (Niacinamide) 10 unit SQ AC-TID 10/12/18 10/12/18 History [Fiasp 100 Unit/ml Flextouch] Ipratropium-Albuterol Nebulize 3 ml INHALATION RT-QID PRN 10/12/18 10/12/18 History [Duoneb 0.5 mg-3 mg/3 ml Soln] Nystatin 100,000Unit/gm Cream 1 applic TOPICAL DAILY PRN 10/12/18 10/12/18 History [Mycostatin Cream] Sf 5000 Plus 1.1% Flouride 1 applic PO BID PRN 10/12/18 10/12/18 History Tamsulosin [Flomax] 0.4 mg PO DAILY@0900 10/12/18 10/12/18 History Triamcinolone 0.5% Cream [Kenalog 1 applic TOPICAL DAILY PRN 10/12/18 10/12/18 History 0.5% Cream] Triamterene-Hctz 37.5-25Mg 1 cap PO BID@0900,1700 10/12/18 10/12/18 History [Dyazide 37.5-25 Capsule] Allergies Allergy/AdvReac Type Severity Reaction Status Date / Time Mushroom Allergy Diarrhea Verified 10/12/18 15:59 Physical Exam Osteopathic Statement: *. No significant issues noted on an osteopathic structural exam other than those noted in the History and Physical/Consult. Vitals: Vital Signs Temp Pulse Resp BP Pulse Ox 10/12/18 16:50 99.4 F 93 16 104/61 10/12/18 13:01 99.2 F 90 18 83/50 95 Intake and Output 10/12/18 10/12/18 10/12/18 06:59 14:59 22:59 Other: Weight 131.542 kg General: Ill-appearing, no distress, appears at stated age, obese Derm: Erythematous, of chin no unusual rashes/lesions no unusual ecchymoses, warm, dry Head: atraumatic, normocephalic, swelling and edema of chin with surrounding erythema Eyes: EOMI, no lid lag, anicteric sclera, pupils equal round reactive to light ENT: Nose and ears atraumatic, no thrush, no pharyngeal erythema Neck: No thyromegaly, no cervical lymphadenopathy, trachea midline, supple Mouth: no lip lesion, mucus membranes moist Cardiovascular: S1S2 reg, no murmur, positive posterior tibial pulse bilateral, 1+ edema, capillary refill less than 2 seconds Lungs: CTA bilateral, no rhonchi, no rales , no accessory muscle use Abdominal: soft, nontender to palpation, no guarding, no appreciable organomegaly, normal bowel sounds Ext: no gross muscle atrophy, muscle strength 5 out of 5 in all 4 extremities grossly, no contractures, Neuro: CN II-XI grossly intact, light touch intact all 4 extremities, finger to nose within normal limits, Psych: Alert, oriented, appropriate affect Results CBC & Chem 7: 10/12/18 13:45 10/12/18 13:45 Labs: Abnormal Lab Results - Last 24 Hours (Table) 10/12/18 10/12/18 Range/Units 13:45 13:45 WBC 21.1 H (3.8-10.6) k/uL RBC 4.04 L (4.30-5.90) m/uL Hgb 11.8 L (13.0-17.5) gm/dL Hct 36.5 L (39.0-53.0) % Neutrophils # 18.2 H (1.3-7.7) k/uL Lymphocytes # 0.9 L (1.0-4.8) k/uL Monocytes # 1.2 H (0-1.0) k/uL Sodium 132 L (137-145) mmol/L BUN 44 H (9-20) mg/dL Glucose 111 H (74-99) mg/dL Total Protein 5.9 L (6.3-8.2) g/dL Albumin 3.1 L (3.5-5.0) g/dL Thrombosis Risk Factor Assmnt - DVT/VTE Prophylaxis DVT/VTE Prophylaxis: Pharmacologic Prophylaxis ordered - Choose All That Apply Each Factor Represents 1 point: Obesity (BMI >25), Sepsis (< 1month), Swollen legs (current) Each Risk Factor Represents 2 Points: Age 61-74 years Thrombosis Risk Factor Assessment Total Risk Factor Score: 5 Thrombosis Risk Factor Assessment Level: High Risk Assessment and Plan Assessment: Dental infection with surrounding facial cellulitis with sepsis -Concern for possible [place] angina. Patient is not having any difficulty with swelling in the roof of his mouth or taking out his tongue -Continue with Unasyn -OMFS consult -Pain control -Nothing by mouth after midnight in case need for surgical drainage -Blood cultures -IV fluids Diabetes mellitus type 2 -Short acting, long-acting, and sliding scale insulin -Check A1c -Follow blood sugars -Hold metformin Hypertension, controlled and low currently -Hold metoprolol and lisinopril, continue with triamterene hydrochlorothiazide secondary Kallie Diaz edema -Follow blood pressures Dyslipidemia -Statin therapy BPH -Flomax Coronary artery disease -Continue with aspirin, statin -Continue outpatient follow-up The patient is admitted with an anticipated greater than 2 midnight stay for evaluation of facial cellulitis. Surrogate decision-maker: CODE STATUS: full, no prolonged mechanical ventilation DVT prophylaxis: Heparin Discussed with: patient, family, nursing, ED provider- asked them to notify OMFS Anticipated discharge date: 2-[address]: home A total of 70 minutes was spent on the care of this complex patient more than 50% of the time was spent in counseling and care coordination.
[2018-10-12] MEDS: SODIUM CHLORIDE 0.9% 1,000 ML IV SCH (18:20)
[2018-10-12] MEDS: HYDROcodone/APAP 7.5-325MG 1 EACH TAB PO PRN (18:20)
[2018-10-12] MEDS: IPRATROPIUM-ALBUTEROL 3 ML NEB INHALATION PRN (18:54)
[2018-10-12 20:14] LABS: Glucose,Whole Blood 137 mg/dL (75-99)
[2018-10-12] MEDS: INSULIN ASPART (NovoLOG) 100 UNIT/ML VIAL SQ SCH (20:35)
[2018-10-12] MEDS ORDERED: methylPREDNISolone SOD SUCCI 125 MG/2 ML VIAL IV STA (20:52)
[2018-10-12] MEDS ORDERED: diphenhydrAMINE 50 MG/ML 1 ML VIAL IVP STA (20:52)
[2018-10-12] MEDS: CYCLOBENZAPRINE 5 MG TAB PO SCH (22:36)
[2018-10-12] MEDS: GABAPENTIN 400 MG CAP PO SCH (22:36)
[2018-10-12] MEDS: NORTRIPTYLINE 25 MG CAP PO SCH (22:36)
[2018-10-12] MEDS: ATORVASTATIN 40 MG TAB PO SCH (22:36)
[2018-10-12] MEDS: PRAMIPEXOLE 0.5 MG TAB PO SCH (22:36)
[2018-10-12] MEDS: AMPICILLIN-SULBACTAM 3 GM in SODIUM CHLORIDE 0.9% 100 ML IVPB SCH (22:37)
[2018-10-12] MEDS: PANTOPRAZOLE 40 MG/10 ML VIAL IVP SCH (22:37)
[2018-10-12] MEDS: HEPARIN SODIUM,PORCINE 5,000 UNIT/ML 1 ML VIAL SQ SCH (23:04)
[2018-10-13] MEDS: AMPICILLIN-SULBACTAM 3 GM in SODIUM CHLORIDE 0.9% 100 ML IVPB SCH ×3 (05:36→21:52)
[2018-10-13] MEDS: SODIUM CHLORIDE 0.9% 1,000 ML IV SCH ×3 (05:36→21:52)
[2018-10-13 06:53] LABS: HCT 39.8 % (39.0-53.0); HGB 12.2 gm/dL (13.0-17.5); MCH 28.7 pg (25.0-35.0); MCHC 30.7 g/dL (31.0-37.0); MCV 93.5 fL (80.0-100.0); Mean Platelet Volume 7.4; Platelet Count 286 k/uL (150-450); RBC 4.25 m/uL (4.30-5.90); RDW 14.4 % (11.5-15.5); WBC 24.6 k/uL (3.8-10.6)
[2018-10-13 07:06] LABS: Glucose,Whole Blood 215 mg/dL (75-99)
[2018-10-13 07:19] LABS: Calcium 8.4 mg/dL (8.4-10.2); Potassium 4.8 mmol/L (3.5-5.1)
[2018-10-13] MEDS: INSULIN ASPART (NovoLOG) 100 UNIT/ML VIAL SQ SCH ×6 (07:27→20:25)
[2018-10-13] MEDS: GABAPENTIN 400 MG CAP PO SCH ×3 (07:28→20:24)
[2018-10-13] MEDS: HEPARIN SODIUM,PORCINE 5,000 UNIT/ML 1 ML VIAL SQ SCH ×3 (07:28→23:14)
[2018-10-13] MEDS: SERTRALINE 100 MG TAB PO SCH (07:29)
[2018-10-13] MEDS: PRAMIPEXOLE 0.5 MG TAB PO SCH ×3 (07:29→20:24)
[2018-10-13] MEDS: PANTOPRAZOLE 40 MG/10 ML VIAL IVP SCH (07:29)
[2018-10-13] MEDS: TRIAMTERENE-HCTZ 37.5-25MG 1 EACH CAP PO SCH ×2 (07:30→16:13)
[2018-10-13] MEDS ORDERED: INSULIN ASPART (NovoLOG) 100 UNIT/ML VIAL SQ SCH (07:30)
[2018-10-13] MEDS: TAMSULOSIN 0.4 MG CAP.ER.24H PO SCH (07:30)
[2018-10-13] MEDS: HYDROcodone/APAP 7.5-325MG 1 EACH TAB PO PRN ×2 (07:44→16:37)
[2018-10-13] MEDS ORDERED: [UNRECOGNIZED DRUG - OTHER] SQ SCH (09:00)
[2018-10-13] MEDS: INSULIN DETEMIR (LEVEMIR) 100 UNIT/ML SYR SQ SCH (10:39)
[2018-10-13] MEDS ORDERED: VANCOMYCIN IV PER PHARMACY 1 EACH MISC MISCELLANE PRN (11:35)
[2018-10-13] MEDS ORDERED: DEXAMETHASONE SOD PHOSPHATE 4 MG/ML 1 ML VIAL IV PRN (11:36)
--- NOTE | 2018-10-13 11:43 | P.PN ---
Subjective Progress Note Date: 10/13/18 Principal diagnosis: facial pain and swelling Patient is a 72-year-old male with a past medical history of hypertension, diabetes, dyslipidemia, BPH, and coronary artery disease who presented to the emergency department at the direction of his dentist Dr. Sung due to increased facial swelling. He had a tooth pulled on Monday and noticed some increased facial swelling on Monday presented to the ER was discharged home. Saw his dentist the next day and was placed on an antibiotic. Swelling got worse today and he went back to the dentist. He denies any injections of antibiotics or aspiration of the infected area by the dentist. In the ER here he underwent an extensive evaluation. On arrival he was found to be slightly hypotensive with a blood pressure of 83/58. Initial laboratory analysis was remarkable for white blood cell count of 21.1 and a sodium of 132. He underwent a CT soft tissue of the neck which showed fluid collection behind the left subclavian. He was started on Unasyn and IV fluids. Arrangements were made for admission. Facial surgery was consulted. He was continued on unasyn. Patient seen and examined at bedside. He reports that his facial swelling is slightly better on the one side, still no difficulty with swallowing or drooling. No shortness of breath. No nausea or vomiting. Had some loose stools. Objective - Vital Signs Vital signs: Vital Signs Temp 98.5 F 10/13/18 07:00 Pulse 73 10/13/18 07:00 Resp 16 10/13/18 07:00 BP 152/61 10/13/18 07:00 Pulse Ox 93 L 10/13/18 07:27 Intake & Output 10/12/18 10/13/18 10/13/18 18:59 06:59 18:59 Intake Total 180 1100 240 Output Total 1200 Balance 180 -100 240 Weight 131.542 kg Intake: Intake, IV Titration 1100 Amount Ampicillin-Sulbactam 3 gm 200 In Sodium Chloride 0.9% 100 ml @ 200 mls/hr IVPB Q8H JAMSHID Rx#:[id number] Sodium Chloride 0.9% 1, 900 000 ml @ 125 mls/hr IV . Q8H JAMSHID Rx#:[id number] Oral 180 240 Output: Urine 1200 - Exam General: Ill-appearing, no distress, appears at stated age, obese Derm: warm, dry Head: atraumatic, normocephalic, swelling over chair and greater on right than left with erythema and warmth, no swelling over her anterior neck, no palpable cervical lymphadenopathy Eyes: EOMI, no lid lag, anicteric sclera Mouth: no lip lesion, mucus membranes moist Cardiovascular: S1S2 reg, no murmur, positive posterior tibial pulse bilateral, Lungs: Decreased breath sounds bilateral, no rhonchi, no rales , no accessory muscle use Abdominal: soft, nontender to palpation, no guarding, no appreciable organomegaly Ext: no gross muscle atrophy, 1+ edema bilateral lower extremities, no contractures Neuro: CN II-XI grossly intact, no focal neuro deficits Psych: Alert, oriented, appropriate affect - Labs CBC & Chem 7: 10/13/18 06:21 10/13/18 06:21 Labs: Abnormal Lab Results - Last 24 Hours (Table) 10/12/18 10/12/18 10/12/18 Range/Units 13:45 13:45 20:13 WBC 21.1 H (3.8-10.6) k/uL RBC 4.04 L (4.30-5.90) m/uL Hgb 11.8 L (13.0-17.5) gm/dL Hct 36.5 L (39.0-53.0) % MCHC (31.0-37.0) g/dL Neutrophils # 18.2 H (1.3-7.7) k/uL Lymphocytes # 0.9 L (1.0-4.8) k/uL Monocytes # 1.2 H (0-1.0) k/uL Sodium 132 L (137-145) mmol/L BUN 44 H (9-20) mg/dL Glucose 111 H (74-99) mg/dL POC Glucose (mg/dL) 137 H (75-99) mg/dL Total Protein 5.9 L (6.3-8.2) g/dL Albumin 3.1 L (3.5-5.0) g/dL 10/13/18 10/13/18 10/13/18 Range/Units 06:21 06:21 07:05 WBC 24.6 H (3.8-10.6) k/uL RBC 4.25 L (4.30-5.90) m/uL Hgb 12.2 L (13.0-17.5) gm/dL Hct (39.0-53.0) % MCHC 30.7 L (31.0-37.0) g/dL Neutrophils # (1.3-7.7) k/uL Lymphocytes # (1.0-4.8) k/uL Monocytes # (0-1.0) k/uL Sodium 134 L (137-145) mmol/L BUN 35 H (9-20) mg/dL Glucose 234 H (74-99) mg/dL POC Glucose (mg/dL) 215 H (75-99) mg/dL Total Protein (6.3-8.2) g/dL Albumin (3.5-5.0) g/dL Assessment and Plan Assessment: Dental infection with surrounding facial cellulitis with sepsis -Continue with Unasyn, discussed with oral surgery will add vancomycin for MRSA coverage -Pain control -Blood cultures pending -IV fluids -Await infectious disease consultation -Start Decadron Diabetes mellitus type 2 with hyperglycemia -Short acting, long-acting, and sliding scale insulin -A1c pending -Follow blood sugars -Hold metformin Hypertension, increasing -Hold lisinopril, resume metoprolol, continue with triamterene hydrochlorothiazide secondary lower extremity edema -Follow blood pressures Dyslipidemia -Statin therapy BPH -Flomax Coronary artery disease -Continue with aspirin, statin -Continue outpatient follow-up Morbid obesity, BMI 41.6 - structured outpatient weight loss DVT prophylaxis: Heparin Discussed with: patient, nursing, Dr. Blackburn Anticipated discharge date: 2-[address]: home A total of 35 minutes was spent on the care of this complex patient more than 50% of the time was spent in counseling and care coordination.
[2018-10-13 11:45] LABS: Glucose,Whole Blood 248 mg/dL (75-99)
[2018-10-13] MEDS: LACTOBACILLUS ACIDOPH & BULGAR 1 EACH PACKET PO SCH ×3 (12:48→21:52)
[2018-10-13] MEDS ORDERED: VANCOMYCIN 2,250 MG in SODIUM CHLORIDE 0.9% 500 ML 500 ML IVPB ONE (13:00)
--- NOTE | 2018-10-13 14:08 | P.GSCN ---
History of Present Illness Consult date: 10/13/18 Reason for Consult: Evaluate dental abscess in the patient's chin History of present illness: Patient is a 72-year-old male with a past medical history of hypertension, diabetes, dyslipidemia, BPH, and coronary artery disease who pres ented to the emergency department at the direction of his dentist Dr. Sung due to increased facial swelling. He had a tooth pulled on Monday and noticed some increased facial swelling on Monday presented to the ER was discharged home. Saw his dentist the next day and was placed on an Penicillin. Swelling got worse Monday he went back to the dentist. He denies any injections of antibiotics or aspiration of the infected area by the dentist. In the ER here he underwent an extensive evaluation. On arrival he was found to be slightly hypotensive with a blood pressure of 83/58. Initial laboratory analysis was remarkable for white blood cell count of 21.1 and a sodium of 132. He underwent a CT soft tissue of the neck which showed fluid collection behind the left subclavian. He was started on Unasyn and IV fluids. Arrangements were made for admission. Oral surgery was consulted. He was continued on unasyn. Patient seen and examined at bedside. He reports that his facial swelling is slightly better on the one side, still no difficulty with swallowing or drooling. No shortness of breath. No pain and near the extraction. Denies any numbness in the chin or lip Review of Systems see HPI Past Medical History Past Medical History: Coronary Artery Disease (CAD), Cancer, Diabetes Mellitus, Hyperlipidemia, Hypertension, Myocardial Infarction ([place]) Additional Past Medical History / Comment(s): RLS. 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 BPH. GERD Last Myocardial Infarction Date:: 2002 History of Any Multi-Drug Resistant Organisms: None Reported Past Surgical History: Appendectomy, Heart Catheterization With Stent, Orthopedic Surgery Additional Past Surgical History / Comment(s): COLONOSCOPY, BILAT CATARACTS, RT ROTATOR CUFF REPAIR, RT EYE SX, BOWEL SX AT AGE 6, RT FOOT FUSION, CERVICAL FUSION X 2, SKIN CANCER ON BACK REMOVED Past Anesthesia/Blood Transfusion Reactions: Motion Sickness Date of Last Stent Placement:: 2002, 2012 Past Psychological History: Anxiety Smoking Status: Never smoker Past Alcohol Use History: None Reported Past Drug Use History: None Reported - Past Family History Father Family Medical History: Cancer Sister(s) Family Medical History: Cancer Medications and Allergies Home Medications Medication Instructions Recorded Confirmed Type Aspirin EC [Ecotrin Low Dose] 81 mg PO DAILY@0900 02/23/18 10/12/18 History Atorvastatin [Lipitor] 40 mg PO HS@209902/23/18 10/12/18 History Cetirizine HCl [Zyrtec] 10 mg PO DAILY PRN 02/23/18 10/12/18 History Cyclobenzaprine [Flexeril] 5 mg PO HS@209902/23/18 10/12/18 History Insulin Glargine/Lixisenatide 60 units SQ DAILY 02/23/18 10/12/18 History [Soliqua 100 Unit-33 Mcg/ml Pen] Lisinopril 20 mg PO DAILY@0900 02/23/18 10/12/18 History Nitroglycerin Sl Tabs [Nitrostat] 0.4 mg SL Q5M PRN 02/23/18 10/12/18 History Nortriptyline [Pamelor] 50 mg PO HS@209902/23/18 10/12/18 History Pramipexole [Mirapex] 0.5 mg PO BID@0900,1700 02/23/18 10/12/18 History Pramipexole [Mirapex] 1 mg PO HS 02/23/18 10/12/18 History Sertraline [Zoloft] 100 mg PO DAILY@0900 02/23/18 10/12/18 History metFORMIN HCL [Glucophage] 500 mg PO BID@0900,1700 02/23/18 10/12/18 History Metoprolol Tartrate 25 mg PO BID@0900,209902/28/18 10/12/18 History Gabapentin [Neurontin] 400 mg PO TID@0900,1700,2100 10/09/18 10/12/18 History HYDROcodone/APAP 7.5-325MG [[place] 1 tab PO Q6HR PRN 10/09/18 10/12/18 History 7.5-325] Clobetasol Propionate [Temovate 1 applic TOPICAL DAILY PRN 10/12/18 10/12/18 History 0.05% Cream] Insulin Aspart (Niacinamide) 10 unit SQ AC-TID 10/12/18 10/12/18 History [Fiasp 100 Unit/ml Flextouch] Ipratropium-Albuterol Nebulize 3 ml INHALATION RT-QID PRN 10/12/18 10/12/18 Hist ory [Duoneb 0.5 mg-3 mg/3 ml Soln] Nystatin 100,000Unit/gm Cream 1 applic TOPICAL DAILY PRN 10/12/18 10/12/18 History [Mycostatin Cream] Sf 5000 Plus 1.1% Flouride 1 applic PO BID PRN 10/12/18 10/12/18 History Tamsulosin [Flomax] 0.4 mg PO DAILY@0900 10/12/18 10/12/18 History Triamcinolone 0.5% Cream [Kenalog 1 applic TOPICAL DAILY PRN 10/12/18 10/12/18 History 0.5% Cream] Triamterene-Hctz 37.5-25Mg 1 cap PO BID@0900,1700 10/12/18 10/12/18 History [Dyazide 37.5-25 Capsule] Allergies Allergy/AdvReac Type Severity Reaction Status Date / Time Mushroom Allergy Diarrhea Verified 10/12/18 15:59 Surgical - Exam Vital Signs Temp Pulse Resp BP Pulse Ox 99.2 F 90 18 83/50 95 10/12/18 13:01 10/12/18 13:01 10/12/18 13:01 10/12/18 13:01 10/12/18 13:01 Patient has a erythematous swelling on the chin slightly more swollen on the right than the left. Extending from the lower lip to the right commissure down past the mental glossal angle of the chin of the left chin anterior to the commissure by approximately 1 cm. He reports this is slightly improved from yesterday. No floor of mouth swelling or lymphadenopathy noted. No skin wounds. No ingrown hairs. No bug bites.. There is no focal fluctuance palpable and the swelling still appears to be cellulitic at this time. Results - Labs 10/13/18 06:21 10/13/18 06:21 Abnormal Lab Results - Last 24 Hours (Table) 10/12/18 10/12/18 10/12/18 Range/Units 13:45 13:45 20:13 WBC 21.1 H (3.8-10.6) k/uL RBC 4.04 L (4.30-5.90) m/uL Hgb 11.8 L (13.0-17.5) gm/dL Hct 36.5 L (39.0-53.0) % MCHC (31.0-37.0) g/dL Neutrophils # 18.2 H (1.3-7.7) k/uL Lymphocytes # 0.9 L (1.0-4.8) k/uL Monocytes # 1.2 H (0-1.0) k/uL Sodium 132 L (137-145) mmol/L BUN 44 H (9-20) mg/dL Glucose 111 H (74-99) mg/dL POC Glucose (mg/dL) 137 H (75-99) mg/dL Total Protein 5.9 L (6.3-8.2) g/dL Albumin 3.1 L (3.5-5.0) g/dL 10/13/18 10/13/18 10/13/18 Range/Units 06:21 06:21 07:05 WBC 24.6 H (3.8-10.6) k/uL RBC 4.25 L (4.30-5.90) m/uL Hgb 12.2 L (13.0-17.5) gm/dL Hct (39.0-53.0) % MCHC 30.7 L (31.0-37.0) g/dL Neutrophils # (1.3-7.7) k/uL Lymphocytes # (1.0-4.8) k/uL Monocytes # (0-1.0) k/uL Sodium 134 L (137-145) mmol/L BUN 35 H (9-20) mg/dL Glucose 234 H (74-99) mg/dL POC Glucose (mg/dL) 215 H (75-99) mg/dL Total Protein (6.3-8.2) g/dL Albumin (3.5-5.0) g/dL 10/13/18 Range/Units 11:42 WBC (3.8-10.6) k/uL RBC (4.30-5.90) m/uL Hgb (13.0-17.5) gm/dL Hct (39.0-53.0) % MCHC (31.0-37.0) g/dL Neutrophils # (1.3-7.7) k/uL Lymphocytes # (1.0-4.8) k/uL Monocytes # (0-1.0) k/uL Sodium (137-145) mmol/L BUN (9-20) mg/dL Glucose (74-99) mg/dL POC Glucose (mg/dL) 248 H (75-99) mg/dL Total Protein (6.3-8.2) g/dL Albumin (3.5-5.0) g/dL Diabetes panel 10/12/18 10/13/18 Range/Units 13:45 06:21 Sodium 132 L 134 L (137-145) mmol/L Potassium 4.3 4.8 (3.5-5.1) mmol/L Chloride 98 100 (98-107) mmol/L Carbon Dioxide 24 25 (22-30) mmol/L BUN 44 H 35 H (9-20) mg/dL Creatinine 1.25 1.16 (0.66-1.25) mg/dL Glucose 111 H 234 H (74-99) mg/dL Calcium 8.7 8.4 (8.4-10.2) mg/dL AST 33 (17-59) U/L ALT 28 (21-72) U/L Alkaline Phosphatase 104 (38-126) U/L Total Protein 5.9 L (6.3-8.2) g/dL Albumin 3.1 L (3.5-5.0) g/dL Calcium panel 10/12/18 10/13/18 Range/Units 13:45 06:21 Calcium 8.7 8.4 (8.4-10.2) mg/dL Albumin 3.1 L (3.5-5.0) g/dL Pituitary panel 10/12/18 10/13/18 Range/Units 13:45 06:21 Sodium 132 L 134 L (137-145) mmol/L Potassium 4.3 4.8 (3.5-5.1) mmol/L Chloride 98 100 (98-107) mmol/L Carbon Dioxide 24 25 (22-30) mmol/L BUN 44 H 35 H (9-20) mg/dL Creatinine 1.25 1.16 (0.66-1.25) mg/dL Glucose 111 H 234 H (74-99) mg/dL Calcium 8.7 8.4 (8.4-10.2) mg/dL Adrenal panel 10/12/18 10/13/18 Range/Units 13:45 06:21 Sodium 132 L 134 L (137-145) mmol/L Potassium 4.3 4.8 (3.5-5.1) mmol/L Chloride 98 100 (98-107) mmol/L Carbon Dioxide 24 25 (22-30) mmol/L BUN 44 H 35 H (9-20) mg/dL Creatinine 1.25 1.16 (0.66-1.25) mg/dL Glucose 111 H 234 H (74-99) mg/dL Calcium 8.7 8.4 (8.4-10.2) mg/dL Total Bilirubin 0.9 (0.2-1.3) mg/dL AST 33 (17-59) U/L ALT 28 (21-72) U/L Alkaline Phosphatase 104 (38-126) U/L Total Protein 5.9 L (6.3-8.2) g/dL Albumin 3.1 L (3.5-5.0) g/dL - Imaging Additional studies: Soft tissue neck CT reviewed Assessment and Plan Assessment: cellulitic abscess of the chin. Due to the timing of the tooth extraction and the presentation of the abscess, the tooth is the most likely culprit but the presentation does appear similar to staph infection of the skin possibly MRSA related. Plan: Continue current antibiotic therapy with possible empiric addition of MRSA coverage. Agree with infectious disease consult. Steroids to assist with comfort and swelling. Culture any fluctuance if it presents. Time with Patient: Greater than 30
[2018-10-13] MEDS: DEXAMETHASONE SOD PHOSPHATE 4 MG/ML 1 ML VIAL IV SCH ×3 (14:19→23:14)
[2018-10-13 16:57] LABS: Glucose,Whole Blood 209 mg/dL (75-99)
[2018-10-13] MEDS: IPRATROPIUM-ALBUTEROL 3 ML NEB INHALATION PRN (17:41)
[2018-10-13 19:30] LABS: Hemoglobin A1C 8.2 % (4.0-6.0)
[2018-10-13 20:08] LABS: Glucose,Whole Blood 201 mg/dL (75-99)
[2018-10-13] MEDS: CYCLOBENZAPRINE 5 MG TAB PO SCH (20:24)
[2018-10-13] MEDS: NORTRIPTYLINE 25 MG CAP PO SCH (20:24)
[2018-10-13] MEDS: ATORVASTATIN 40 MG TAB PO SCH (20:24)
--- NOTE | 2018-10-13 21:49 | P.CONS ---
History of Present Illness - Reason for Consult Consult date: 10/13/18 - Chief Complaint Swelling to the jaw - History of Present Illness 72-year-old male who is having difficulties recently with the lower jaw related to an infected tooth. He relates about 5 days ago he was seen by his dentist the tooth was extracted. Since the site of infection was removed the patient was not placed on antibiotic therapy and was given [id number] analgesics for some control of pain. The next day the patient had developed some increasing swelling and pain or discomfort lower jaw as well as the chin. He was seen by his dentist and placed on penicillin, 2 with the first dose then 1 every 6 hours. Over the next 48 hours he had very little improvement and was again seen by the dentist. There was now a significant increase in the amount of difficulty with the lower jaw and the chin. The patient was directed to hospital. He is undergone imaging studies that Kevin evidence of any significant abscess but have the extensive swelling to the region. He has been seen by oral surgery with no evidence of any significant intraoral abscess or mandibular abscess or infection. For the significant cellulitis to the face the chin consult was requested. The patient did have fever and chill is feeling slightly better this afternoon. Does have discomfort and difficulty with eating but is not having any difficulty swallowing. She does not have any drooling. He denies any sensation of constriction into his throat while he is swallowing. He is having no significant discomfort into his neck. Review of Systems HEENT:Denies headache or acute visual change. Denies sinus Discomforts. As per the HPI is having the difficulty with the tooth extraction in the pain and swelling to the chin. Lungs: Denies significant shortness of breath, cough, sputum production, or hemoptysis. Cardiovascular: Denies significant shortness of breath, chest pain, chest wall pain, orthopnea, dyspnea on exertion, syncope Gastrointestinal:Denies nausea, vomiting, diarrhea, constipation, hematemesis, melena, hematochezia. No no significant change of bowel habit noticed. Musculoskeletal: denies significant myalgias or arthralgias. No new joint swelling. Denies new back pain. Skin: Denies new rash or lesions. No new ulcers or wounds are related.. Neuro: Denies headache or visual change. Denies any new onset weakness or difficulty with ambulation. Denies falls or seizures. Psychiatric:Denies anxiety or depression. Endocrine: Denies significant fatigue, denies significant weight loss or weight gain. Past Medical History Past Medical History: Coronary Artery Disease (CAD), Cancer, Diabetes Mellitus, Hyperlipidemia, Hypertension, Myocardial Infarction (HI) Additional Past Medical History / Comment(s): RLS. 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 BPH. GERD Last Myocardial Infarction Date:: 2002 History of Any Multi-Drug Resistant Organisms: None Reported Past Surgical History: Appendectomy, Heart Catheterization With Stent, Orthopedic Surgery Additional Past Surgical History / Comment(s): COLONOSCOPY, BILAT CATARACTS, RT ROTATOR CUFF REPAIR, RT EYE SX, BOWEL SX AT AGE 6, RT FOOT FUSION, CERVICAL FUSION X 2, SKIN CANCER ON BACK REMOVED Past Anesthesia/Blood Transfusion Reactions: Motion Sickness Date of Last Stent Placement:: 2012 Past Psychological History: Anxiety Additional Psychological History / Comment(s): and lives with his and family home. Is not a current tobacco smokerand alcohol use. Retired director engineering. No recent international travel. No illnesses while in service. No animals in the home Smoking Status: Never smoker Past Alcohol Use History: None Reported Past Drug Use History: None Reported - Past Family History Father Family Medical History: Cancer Sister(s) Family Medical History: Cancer Medications and Allergies Home Medications and Allergies Comment(s): Current Medications Acetaminophen (Tylenol Tab) 650 mg PO Q6HR PRN PRN Reason: Mild Pain or Fever > 100.5 Hydrocodone Bitart/Acetaminophen ([place] 7.5-325) 1 each PO Q6HR PRN PRN Reason: Pain Last Admin: 10/13/18 16:37 Dose: 1 each Documented by: Albuterol/Ipratropium (Duoneb 0.5 Mg-3 Mg/3 Ml Soln) 3 ml INHALATION RT-QID PRN PRN Reason: Shortness Of Breath Last Admin: 10/13/18 17:41 Dose: 3 ml Documented by: Atorvastatin Calcium (Lipitor) 40 mg PO HS@2100 [facility] Last Admin: 10/13/18 20:24 Dose: 40 mg Documented by: Clobetasol Propionate (Temovate) 1 applic TOPICAL DAILY PRN PRN Reason: Skin Irritation Cyclobenzaprine HCl (Flexeril) 5 mg PO HS@2100 [facility] Last Admin: 10/13/18 20:24 Dose: 5 mg Documented by: Dexamethasone Sodium Phosphate (Decadron) 4 mg IV Q6HR [facility] Last Admin: 10/13/18 17:55 Dose: 4 mg Documented by: Gabapentin (Neurontin) 400 mg PO TID@0900,1700,2100 [facility] Last Admin: 10/13/18 20:24 Dose: 400 mg Documented by: Heparin Sodium (Porcine) (Heparin) 5,000 unit SQ Q8HR [facility] Last Admin: 10/13/18 16:13 Dose: 5,000 unit Documented by: Ampicillin Sodium/Sulbactam (Sodium 3 gm/ Sodium Chloride) 100 mls @ 200 mls/hr IVPB Q8H [facility] Last Admin: 10/13/18 16:14 Dose: 200 mls/hr Documented by: Sodium Chloride (Saline 0.9%) 1,000 mls @ 125 mls/hr IV .Q8H [facility] Last Admin: 10/13/18 11:09 Dose: Not Given Documented by: Vancomycin HCl 2,000 mg/ (Sodium Chloride) 500 mls @ 167 mls/hr IVPB Q16H [facility] Ibuprofen (Motrin) 400 mg PO Q6HR PRN PRN Reason: Mild Pain or Fever > 100.5 Last Admin: 10/12/18 22:36 Dose: 400 mg Documented by: Insulin Aspart (Novolog) 0 unit SQ ACHS [facility]; Protocol Last Admin: 10/13/18 20:25 Dose: 4 unit Documented by: Insulin Aspart (Novolog) 14 unit SQ AC-TID [facility] Last Admin: 10/13/18 17:41 Dose: 14 unit Documented by: Insulin Detemir (Levemir) 60 unit SQ DAILY@0700 [facility] Last Admin: 10/13/18 10:39 Dose: 60 unit Documented by: Lactobacillus Acidoph/Bulgaricus (Lactinex) 1 each PO QID [facility] Last Admin: 10/13/18 17:55 Dose: 1 each Documented by: Loratadine (Claritin) 10 mg PO DAILY PRN PRN Reason: allergies Melatonin (Melatonin) 3 mg PO HS PRN PRN Reason: Insomnia Morphine Sulfate (Morphine Sulfate (Inj)) 4 mg IV Q4HR PRN PRN Reason: Severe Pain Naloxone HCl (Narcan) 0.2 mg IV Q2M PRN PRN Reason: Opioid Reversal Nortriptyline HCl (Pamelor) 50 mg PO HS@2100 [facility] Last Admin: 10/13/18 20:24 Dose: 50 mg Documented by: Nystatin (Mycostatin Cream) 1 applic TOPICAL DAILY PRN PRN Reason: Skin Irritation Ondansetron HCl (Zofran) 4 mg IVP Q8HR PRN PRN Reason: Nausea And Vomiting Pantoprazole Sodium (Protonix) 40 mg IVP DAILY [facility] Last Admin: 10/13/18 07:29 Dose: 40 mg Documented by: Pramipexole Dihydrochloride (Mirapex) 0.5 mg PO BID@0900,1700 [facility] Last Admin: 10/13/18 16:13 Dose: 0.5 mg Documented by: Pramipexole Dihydrochloride (Mirapex) 1 mg PO [facility] Last Admin: 10/13/18 20:24 Dose: 1 mg Documented by: Sertraline HCl (Zoloft) 100 mg PO DAILY@0900 [facility] Last Admin: 10/13/18 07:29 Dose: 100 mg Documented by: Tamsulosin HCl (Flomax) 0.4 mg PO DAILY@0900 [facility] Last Admin: 10/13/18 07:30 Dose: 0.4 mg Documented by: Triamcinolone Acetonide (Kenalog 0.5% Cream) 1 applic TOPICAL DAILY PRN PRN Reason: Skin Irritation Triamterene/HCTZ (Dyazide) 1 each PO BID@0900,1700 [facility] Last Admin: 10/13/18 16:13 Dose: 1 each Documented by: Home Medications Medication Instructions Recorded Confirmed Type Aspirin EC [Ecotrin Low Dose] 81 mg PO DAILY@0900 02/23/18 10/12/18 History Atorvastatin [Lipitor] 40 mg PO @209902/23/18 10/12/18 History Cetirizine HCl [Zyrtec] 10 mg PO DAILY PRN 02/23/18 10/12/18 History Cyclobenzaprine [Flexeril] 5 mg PO @209902/23/18 10/12/18 History Insulin Glargine/Lixisenatide 60 units SQ DAILY 02/23/18 10/12/18 History [Soliqua 100 Unit-33 Mcg/ml Pen] Lisinopril 20 mg PO DAILY@0900 02/23/18 10/12/18 History Nitroglycerin Sl Tabs [Nitrostat] 0.4 mg SL Q5M PRN 02/23/18 10/12/18 History Nortriptyline [Pamelor] 50 mg PO HS@2100 02/23/18 10/12/18 History Pramipexole [Mirapex] 0.5 mg PO BID@0900,1700 02/23/18 10/12/18 History Pramipexole [Mirapex] 1 mg PO HS 02/23/18 10/12/18 History Sertraline [Zoloft] 100 mg PO DAILY@0900 02/23/18 10/12/18 History metFORMIN HCL [Glucophage] 500 mg PO BID@0900,1700 02/23/18 10/12/18 History Metoprolol Tartrate 25 mg PO BID@0900,2100 02/28/18 10/12/18 History Gabapentin [Neurontin] 400 mg PO TID@0900,1700,2100 10/09/18 10/12/18 History HYDROcodone/APAP 7.5-325MG [[place] 1 tab PO Q6HR PRN 10/09/18 10/12/18 History 7.5-325] Clobetasol Propionate [Temovate 1 applic TOPICAL DAILY PRN 10/12/18 10/12/18 History 0.05% Cream] Insulin Aspart (Niacinamide) 10 unit SQ AC-TID 10/12/18 10/12/18 History [Fiasp 100 Unit/ml Flextouch] Ipratropium-Albuterol Nebulize 3 ml INHALATION RT-QID PRN 10/12/18 10/12/18 History [Duoneb 0.5 mg-3 mg/3 ml Soln] Nystatin 100,000Unit/gm Cream 1 applic TOPICAL DAILY PRN 10/12/18 10/12/18 H istory [Mycostatin Cream] Sf 5000 Plus 1.1% Flouride 1 applic PO BID PRN 10/12/18 10/12/18 History Tamsulosin [Flomax] 0.4 mg PO DAILY@0900 10/12/18 10/12/18 History Triamcinolone 0.5% Cream [Kenalog 1 applic TOPICAL DAILY PRN 10/12/18 10/12/18 History 0.5% Cream] Triamterene-Hctz 37.5-25Mg 1 cap PO BID@0900,1700 10/12/18 10/12/18 History [Dyazide 37.5-25 Capsule] Allergies Allergy/AdvReac Type Severity Reaction Status Date / Time Mushroom Allergy Diarrhea Verified 10/12/18 15:59 Physical Exam Vitals: Vital Signs Temp Pulse Pulse Resp BP BP Pulse Ox 10/13/18 19:20 98.2 F 79 20 106/58 96 10/13/18 17:52 73 16 10/13/18 17:42 71 16 10/13/18 15:00 98.2 F 82 16 109/66 91 L 10/13/18 07:27 93 L 10/13/18 07:00 98.5 F 73 16 152/61 95 10/13/18 01:30 98.7 F 77 20 98/59 92 L Intake and Output 10/13/18 10/13/18 10/13/18 06:59 14:59 22:59 Intake Total 1100 480 Output Total 800 Balance 300 480 Intake: Intake, IV Titration 1100 Amount Ampicillin-Sulbactam 3 gm 200 In Sodium Chloride 0.9% 100 ml @ 200 mls/hr IVPB Q8H [facility] Rx#:[id number] Sodium Chloride 0.9% 1, 900 000 ml @ 125 mls/hr IV . Q8H [facility] Rx#:[id number] Oral 480 Output: Urine 800 Other: # Voids 3 HEENT: Anicteric conjunctiva are pink and moist nasal mucosa grossly intact without significant lesions, the REVEALS evidence of the recently extracted tooth lower jaw middle position without expressible purulence is being seen. There is no thrush cavity. There is some minimal swelling to the lower lip but there is much more impressive swelling to the chin in the tissue in that region. There is mild warmth and erythema to this tissue. It is quite tender to touch. It is not fluctuant but it is somewhat firm in nature. There is evidence of minimal tenderness to the neck but there is no palpable mass. There is minimal shotty lymphadenopathy in the neck no large nodes are noted. Parotid glands are nontender. Neck: The neck is supple without significant thyromegaly. Lungs: Good bilateral air entry without significant crackles or wheezing. There is no significant bronchial sounds. There is no egophony or dullness. Heart: Regular rate and rhythm with an audible S1-S2, no S3 no S4. There is no significant murmur click or rub, PMI was nondisplaced. Abdomen: Positive bowel sounds soft and nontender without palpable masses or organomegaly. There was no guarding or rebound. Extremities: The upper extremities have excellent pulses they are symmetric, no significant petechiae or telangiectasia. No splinter hemorrhages were noted. The lower extremities are free from significant edema. The peripheral pulses were 2+ and symmetric. Neuro: Awake alert oriented to person place and time. There are no acute new gross focal sensory motor deficits. Results CBC & Chem 7: 10/13/18 06:21 10/13/18 06:21 Labs: Abnormal Lab Results - Last 24 Hours (Table) 10/13/18 10/13/18 10/13/18 Range/Units 06:21 06:21 06:21 WBC 24.6 H (3.8-10.6) k/uL RBC 4.25 L (4.30-5.90) m/uL Hgb 12.2 L (13.0-17.5) gm/dL MCHC 30.7 L (31.0-37.0) g/dL Sodium 134 L (137-145) mmol/L BUN 35 H (9-20) mg/dL Glucose 234 H (74-99) mg/dL POC Glucose (mg/dL) (75-99) mg/dL Hemoglobin A1c 8.2 H (4.0-6.0) % 10/13/18 10/13/18 10/13/18 Range/Units 07:05 11:42 16:55 WBC (3.8-10.6) k/uL RBC (4.30-5.90) m/uL Hgb (13.0-17.5) gm/dL MCHC (31.0-37.0) g/dL Sodium (137-145) mmol/L BUN (9-20) mg/dL Glucose (74-99) mg/dL POC Glucose (mg/dL) 215 H 248 H 209 H (75-99) mg/dL Hemoglobin A1c (4.0-6.0) % 10/13/18 Range/Units 20:06 WBC (3.8-10.6) k/uL RBC (4.30-5.90) m/uL Hgb (13.0-17.5) gm/dL MCHC (31.0-37.0) g/dL Sodium (137-145) mmol/L BUN (9-20) mg/dL Glucose (74-99) mg/dL POC Glucose (mg/dL) 201 H (75-99) mg/dL Hemoglobin A1c (4.0-6.0) % Microbiology - Last 24 Hours (Table) 10/12/18 13:45 Blood Culture - Preliminary Blood No Growth after 24 hours Laboratory Results WBC 24.6 k/uL (3.8-10.6) H 10/13/18 06:21 RBC 4.25 m/uL (4.30-5.90) L 10/13/18 06:21 Hgb 12.2 gm/dL (13.0-17.5) L 10/13/18 06:21 Hct 39.8 % (39.0-53.0) 10/13/18 06:21 MCV 93.5 fL (80.0-100.0) 10/13/18 06:21 MCH 28.7 pg (25.0-35.0) 10/13/18 06:21 MCHC 30.7 g/dL (31.0-37.0) L 10/13/18 06:21 RDW 14.4 % (11.5-15.5) 10/13/18 06:21 Plt Count 286 k/uL (150-450) 10/13/18 06:21 Neutrophils % 86 % 10/12/18 13:45 Lymphocytes % 4 % 10/12/18 13:45 Monocytes % 6 % 10/12/18 13:45 Eosinophils % 1 % 10/12/18 13:45 Basophils % 0 % 10/12/18 13:45 Neutrophils # 18.2 k/uL (1.3-7.7) H 10/12/18 13:45 Lymphocytes # 0.9 k/uL (1.0-4.8) L 10/12/18 13:45 Monocytes # 1.2 k/uL (0-1.0) H 10/12/18 13:45 Eosinophils # 0.3 k/uL (0-0.7) 10/12/18 13:45 Basophils # 0.0 k/uL (0-0.2) 10/12/18 13:45 Sodium 134 mmol/L (137-145) L 10/13/18 06:21 Potassium 4.8 mmol/L (3.5-5.1) 10/13/18 06:21 Chloride 100 mmol/L (98-107) 10/13/18 06:21 Carbon Dioxide 25 mmol/L (22-30) 10/13/18 06:21 Anion Gap 9 mmol/L 10/13/18 06:21 BUN 35 mg/dL (9-20) H 10/13/18 06:21 Creatinine 1.16 mg/dL (0.66-1.25) 10/13/18 06:21 Est GFR (CKD-EPI)AfAm 74 (>60 ml/min/1.73 sqM) 10/13/18 06:21 Est GFR (CKD-EPI)NonAf 64 (>60 ml/min/1.73 sqM) 10/13/18 06:21 Glucose 234 mg/dL (74-99) H 10/13/18 06:21 POC Glucose (mg/dL) 201 mg/dL (75-99) H 10/13/18 20:06 POC Glu [employer] Marketing Manager ID May Evans 10/13/18 20:[address] Glu mg/dL 189 10/13/18 06:21 Hemoglobin A1c 8.2 % (4.0-6.0) H 10/13/18 06:21 Plasma Lactic Acid Rafael 1.0 mmol/L (0.7-2.0) 10/12/18 13:45 Calcium 8.4 mg/dL (8.4-10.2) 10/13/18 06:21 Total Bilirubin 0.9 mg/dL (0.2-1.3) 10/12/18 13:45 AST 33 U/L (17-59) 10/12/18 13:45 ALT 28 U/L (21-72) 10/12/18 13:45 Alkaline Phosphatase 104 U/L (38-126) 10/12/18 13:45 Total Protein 5.9 g/dL (6.3-8.2) L 10/12/18 13:45 Albumin 3.1 g/dL (3.5-5.0) L 10/12/18 13:45 Microbiology 10/12/18 13:45 Blood Blood Culture - Preliminary No Growth after [address] Scan - head: report reviewed (Soft tissue swelling without abscess seen no bony infection noted) Assessment and Plan (1) Facial cellulitis Narrative/Plan: 72-year-old male who has a history of recent difficulty in his oral cavity and had an infected tooth. The tooth was extracted and it was felt the patient would rapidly recover. However sure thereafter the patient had difficulties with some infection at the site was placed on oral antibiotic therapy with penicillin. Despite antibiotic therapy and some local care the patient had no skin obtained improvement and constantly was sent to hospital for further inte rvention. Patient is evidence of an extensive cellulitis to his chin and it is not appear to be a direct connection to the oral cavity. There does not appear to be an oral abscess and there is not appear to be any infection in the bony structure of the jaw at this time. With the oral infection Unasyn was initiated and because this is more of a skin and soft tissue difficulty case is discussed with the hospitalist and vancomycin is added. Local wound care to be applied to the chin by applying some antibiotic ointment to try to soften the skin. It is likely in the next short period of time the phlegmon that is present we'll organize and will require incision and drainage. Patient is offered warm or cool compresses for his discomfort he can use him as he sees fit. Leukocytosis is related to the significant infection of the chin. And will be monitored. Multivitamin is added to his regimen. Current Visit: Yes Status: Acute Code(s): L03.211 - CELLULITIS OF FACE SNOMED Code(s): 056161680 (2) Dental infection Current Visit: Yes Status: Acute Code(s): K04.7 - PERIAPICAL ABSCESS WITHOUT SINUS SNOMED Code(s): 741419331 (3) Leukocytosis Current Visit: Yes Status: Acute Code(s): D72.829 - ELEVATED WHITE BLOOD CELL COUNT, UNSPECIFIED SNOMED Code(s): 751522706
[2018-10-14] MEDS: VANCOMYCIN 2,000 MG in SODIUM CHLORIDE 0.9% 500 ML 500 ML IVPB SCH ×2 (06:08→20:02)
[2018-10-14] MEDS: AMPICILLIN-SULBACTAM 3 GM in SODIUM CHLORIDE 0.9% 100 ML IVPB SCH ×3 (06:08→23:59)
[2018-10-14] MEDS: DEXAMETHASONE SOD PHOSPHATE 4 MG/ML 1 ML VIAL IV SCH ×3 (06:09→17:54)
[2018-10-14] MEDS: SODIUM CHLORIDE 0.9% 1,000 ML IV SCH ×4 (06:14→18:01)
[2018-10-14 06:56] LABS: Glucose,Whole Blood 193 mg/dL (75-99)
[2018-10-14 07:47] LABS: HGB 12.6 gm/dL (13.0-17.5); MCH 29.6 pg (25.0-35.0); MCHC 31.5 g/dL (31.0-37.0); MCV 94.1 fL (80.0-100.0); Mean Platelet Volume 7.7; Platelet Count 324 k/uL (150-450); RBC 4.25 m/uL (4.30-5.90); RDW 14.5 % (11.5-15.5); WBC 27.8 k/uL (3.8-10.6)
[2018-10-14 08:16] LABS: Calcium 8.9 mg/dL (8.4-10.2); Magnesium 2.5 mg/dL (1.6-2.3); Potassium 5.1 mmol/L (3.5-5.1)
[2018-10-14] MEDS: INSULIN DETEMIR (LEVEMIR) 100 UNIT/ML SYR SQ SCH (08:18)
[2018-10-14] MEDS: INSULIN ASPART (NovoLOG) 100 UNIT/ML VIAL SQ SCH ×7 (08:19→21:13)
[2018-10-14] MEDS: SERTRALINE 100 MG TAB PO SCH (08:19)
[2018-10-14] MEDS: GABAPENTIN 400 MG CAP PO SCH ×3 (08:19→20:04)
[2018-10-14] MEDS: HEPARIN SODIUM,PORCINE 5,000 UNIT/ML 1 ML VIAL SQ SCH ×2 (08:19→15:08)
[2018-10-14] MEDS: MULTIVITAMINS, THERA 1 EACH TAB PO SCH (08:19)
[2018-10-14] MEDS: TAMSULOSIN 0.4 MG CAP.ER.24H PO SCH (08:19)
[2018-10-14] MEDS: PANTOPRAZOLE 40 MG/10 ML VIAL IVP SCH (08:20)
[2018-10-14] MEDS: LACTOBACILLUS ACIDOPH & BULGAR 1 EACH PACKET PO SCH ×3 (08:20→17:52)
[2018-10-14] MEDS: PRAMIPEXOLE 0.5 MG TAB PO SCH ×3 (08:20→20:02)
[2018-10-14] MEDS: TRIAMTERENE-HCTZ 37.5-25MG 1 EACH CAP PO SCH ×2 (08:20→17:53)
[2018-10-14 11:48] LABS: Glucose,Whole Blood 120 mg/dL (75-99)
[2018-10-14] MEDS: HYDROcodone/APAP 7.5-325MG 1 EACH TAB PO PRN (12:28)
--- NOTE | 2018-10-14 13:40 | P.PN ---
Subjective Progress Note Date: 10/14/18 Principal diagnosis: Abscess anterior mandible Patient is a 72-year-old male with a past medical history of hypertension, diabetes, dyslipidemia, BPH, and coronary artery disease who presented to the emergency department at the direction of his dentist Dr. Sung due to increased facial swelling. He had a tooth pulled on Monday and noticed some increased facial swelling on Monday presented to the ER was discharged home. Saw his dentist the next day and was placed on an Penicillin. Swelling got worse Monday he went back to the dentist. He denies any injections of antibiotics or aspiration of the infected area by the dentist. Patient has been on IV antibiotics on the hospital. Infectious diseases on consult. and 2 sons at the bedside. Family and patient agree that the swelling has become more localized to the anterior mandible minimal swelling anywhere else. Objective - Vital Signs Vital signs: Vital Signs Temp 97.8 F 10/14/18 09:16 Pulse 64 10/14/18 07:40 Resp 17 10/14/18 07:40 BP 103/63 10/14/18 07:40 Pulse Ox 95 10/14/18 07:40 Intake & Output 10/13/18 10/14/18 10/14/18 18:59 06:59 18:59 Intake Total 480 740 240 Balance 480 740 240 Intake: Oral 480 740 240 Other: # Voids 3 2 3 # Bowel Movements 2 - Exam Patient has 1 cm thick by 3 cm along the chin portion of the mandible. The swelling appears to be confined to the chin area. Denies numbness. Upon intraoral exam and palpation spontaneous released proximately 10 mL of dark yellow very foul odor pus into the left vestibule near the canine tooth. This was cultured both aerobic and anaerobically. A 3 cm by half a centimeter Nu Gauze packing was placed into the open fistula in an effort to maintain patency and encourage further drainage. - Labs CBC & Chem 7: 10/14/18 07:06 10/14/18 07:06 Labs: Abnormal Lab Results - Last 24 Hours (Table) 10/13/18 10/13/18 10/13/18 Range/Units 06:21 16:55 20:06 WBC (3.8-10.6) k/uL RBC (4.30-5.90) m/uL Hgb (13.0-17.5) gm/dL Chloride (98-107) mmol/L Carbon Dioxide (22-30) mmol/L BUN (9-20) mg/dL Creatinine (0.66-1.25) mg/dL Glucose (74-99) mg/dL POC Glucose (mg/dL) 209 H 201 H (75-99) mg/dL Hemoglobin A1c 8.2 H (4.0-6.0) % Magnesium (1.6-2.3) mg/dL 10/14/18 10/14/18 10/14/18 Range/Units 06:55 07:06 07:06 WBC 27.8 H (3.8-10.6) k/uL RBC 4.25 L (4.30-5.90) m/uL Hgb 12.6 L (13.0-17.5) gm/dL Chloride 108 H (98-107) mmol/L Carbon Dioxide 20 L (22-30) mmol/L BUN 49 H (9-20) mg/dL Creatinine 1.29 H (0.66-1.25) mg/dL Glucose 191 H (74-99) mg/dL POC Glucose (mg/dL) 193 H (75-99) mg/dL Hemoglobin A1c (4.0-6.0) % Magnesium 2.5 H (1.6-2.3) mg/dL 10/14/18 Range/Units 11:46 WBC (3.8-10.6) k/uL RBC (4.30-5.90) m/uL Hgb (13.0-17.5) gm/dL Chloride (98-107) mmol/L Carbon Dioxide (22-30) mmol/L BUN (9-20) mg/dL Creatinine (0.66-1.25) mg/dL Glucose (74-99) mg/dL POC Glucose (mg/dL) 120 H (75-99) mg/dL Hemoglobin A1c (4.0-6.0) % Magnesium (1.6-2.3) mg/dL Microbiology - Last 24 Hours (Table) 10/12/18 13:45 Blood Culture - Preliminary Blood No Growth after 24 hours Assessment and Plan Assessment: Mandibular abscess that spontaneously draining. Plan: Packing into the anterior fistula should maintain patency and encourage further drainage. Recommend heat to the chin. Time with Patient: Less than 30
--- NOTE | 2018-10-14 15:51 | P.PN ---
Subjective Progress Note Date: 10/14/18 Patient reports that he is feeling slightly better as his pulse is coming out from his the right jaw and the pressure is improving. Patient denies fever or chills, shortness of breath, palpitation, diaphoresis, nausea, vomiting, constipation, and denies rest of the review system. Patient stated that he is not drinking enough fluid as he was supposed to. In review of labs noted patient white blood count is getting higher despite of treatment and today it is 27,000. Patient is currently on Unasyn and vancomycin. Patient BUN is 49 creatinine 1.29 which is worse from before. Patient's C. diff toxin was done on liquid stools which came back negative. Nurses report no other issues with him. Objective - Vital Signs Vital signs: Vital Signs Temp 98.9 F 10/14/18 14:46 Pulse 95 10/14/18 14:47 Resp 17 10/14/18 14:47 BP 120/66 10/14/18 14:46 Pulse Ox 93 L 10/14/18 14:46 Intake & Output 10/13/18 10/14/18 10/14/18 18:59 06:59 18:59 Intake Total 480 740 240 Balance 480 740 240 Intake: Oral 480 740 240 Other: Voiding Method Urinal # Voids 3 2 3 # Bowel Movements 2 - Constitutional General appearance: Present: cooperative, no acute distress - EENT EENT Comment(s): Patient is a swelling of the right lower jaw some erythema is noted no point tenderness detected. No fluctuation noted. On mouth examination patient does have some pus coming out from the affected tooth area. - Neck Neck: Present: normal ROM. Absent: lymphadenopathy, rigidity, stridor - Respiratory Respiratory: bilateral: CTA, negative: rales, rhonchi, wheezing - Cardiovascular Rhythm: regular Heart sounds: normal: S1, S2 Abnormal Heart Sounds: Absent: systolic murmur, diastolic murmur, S3 Gallop, S4 Gallop - Gastrointestinal General gastrointestinal: Present: normal bowel sounds, soft. Absent: dist ended, rigid, tenderness - Neurologic Neurologic: Present: CNII-XII intact. Absent: focal deficits - Psychiatric Psychiatric: Present: A&O x's 3, appropriate affect, intact judgment & insight - Allied health notes Allied health notes reviewed: nursing - Labs CBC & Chem 7: 10/14/18 07:06 10/14/18 07:06 Labs: Abnormal Lab Results - Last 24 Hours (Table) 10/13/18 10/13/18 10/13/18 Range/Units 06:21 16:55 20:06 WBC (3.8-10.6) k/uL RBC (4.30-5.90) m/uL Hgb (13.0-17.5) gm/dL Chloride (98-107) mmol/L Carbon Dioxide (22-30) mmol/L BUN (9-20) mg/dL Creatinine (0.66-1.25) mg/dL Glucose (74-99) mg/dL POC Glucose (mg/dL) 209 H 201 H (75-99) mg/dL Hemoglobin A1c 8.2 H (4.0-6.0) % Magnesium (1.6-2.3) mg/dL 10/14/18 10/14/18 10/14/18 Range/Units 06:55 07:06 07:06 WBC 27.8 H (3.8-10.6) k/uL RBC 4.25 L (4.30-5.90) m/uL Hgb 12.6 L (13.0-17.5) gm/dL Chloride 108 H (98-107) mmol/L Carbon Dioxide 20 L (22-30) mmol/L BUN 49 H (9-20) mg/dL Creatinine 1.29 H (0.66-1.25) mg/dL Glucose 191 H (74-99) mg/dL POC Glucose (mg/dL) 193 H (75-99) mg/dL Hemoglobin A1c (4.0-6.0) % Magnesium 2.5 H (1.6-2.3) mg/dL 10/14/18 Range/Units 11:46 WBC (3.8-10.6) k/uL RBC (4.30-5.90) m/uL Hgb (13.0-17.5) gm/dL Chloride (98-107) mmol/L Carbon Dioxide (22-30) mmol/L BUN (9-20) mg/dL Creatinine (0.66-1.25) mg/dL Glucose (74-99) mg/dL POC Glucose (mg/dL) 120 H (75-99) mg/dL Hemoglobin A1c (4.0-6.0) % Magnesium (1.6-2.3) mg/dL Microbiology - Last 24 Hours (Table) 10/12/18 13:45 Blood Culture - Preliminary Blood No Growth after 24 hours Assessment and Plan (1) Dehydration Current Visit: Yes Status: Acute Priority: High Code(s): E86.0 - DEHYDRATION SNOMED Code(s): 27876233 (2) Dental infection Current Visit: Yes Status: Acute Priority: High Code(s): K04.7 - PERIAPICAL ABSCESS WITHOUT SINUS SNOMED Code(s): 934899885 (3) Facial cellulitis Current Visit: Yes Status: Acute Priority: High Code(s): L03.211 - CELLULITIS OF FACE SNOMED Code(s): 641984406 (4) Leukocytosis Current Visit: Yes Status: Acute Priority: High Code(s): D72.829 - ELEVATED WHITE BLOOD CELL COUNT, UNSPECIFIED SNOMED Code(s): 182536403 (5) Malaise and fatigue Current Visit: Yes Status: Acute Priority: High Code(s): R53.81 - OTHER MALAISE; R53.83 - OTHER FATIGUE SNOMED Code(s): 709025070 Plan: Patient medication were reviewed and I will continue the current medication as it is including antibiotics. Patient will be given IV hydration with the 100 mL/h and day district I's and O's will be monitored for next 24 hours, basic panel will be checked in the morning and if patient to start making good urine and renal function improved than it will be continued as it is otherwise we will consult nephrology in the morning for further evaluation and management of his renal failure. I will check CBC in the morning and reassess him after abscess drainage today that might improve white blood counts. Patient's renal function will be monitored. And white blood count will be monitored via CBC assessment and morning. Time with Patient: Less than 30
[2018-10-14] MEDS ORDERED: MINERAL OIL-WHITE PETROLATUM 120 GM JAR TOPICAL PRN (16:03)
[2018-10-14 16:56] LABS: Glucose,Whole Blood 109 mg/dL (75-99)
[2018-10-14] MEDS: NORTRIPTYLINE 25 MG CAP PO SCH (20:02)
[2018-10-14] MEDS: CYCLOBENZAPRINE 5 MG TAB PO SCH (20:03)
[2018-10-14] MEDS: ATORVASTATIN 40 MG TAB PO SCH (20:03)
[2018-10-14 20:58] LABS: Glucose,Whole Blood 173 mg/dL (75-99)
--- NOTE | 2018-10-14 22:53 | P.PN ---
Subjective Progress Note Date: 10/14/18 72-year-old male who is having difficulties recently with the lower jaw related to an infected tooth. He relates about 5 days ago he was seen by his dentist the tooth was extracted. Since the site of infection was removed the patient was not placed on antibiotic therapy and was given [id number] analgesics for some control of pain. The next day the patient had developed some increasing swelling and pain or discomfort lower jaw as well as the chin. He was seen by his dentist and placed on penicillin, 2 with the first dose then 1 every 6 hours. Over the next 48 hours he had very little improvement and was again seen by the dentist. There was now a significant increase in the amount of difficulty with the lower jaw and the chin. The patient was directed to hospital. He is undergone imaging studies that Kevin evidence of any significant abscess but have the extensive swelling to the region. He has been seen by oral surgery with no evidence of any significant intraoral abscess or mandibular abscess or infection. For the significant cellulitis to the face the chin consult was requested. The patient did have fever and chill is feeling slightly better this afternoon. Does have discomfort and difficulty with eating but is not having any difficulty swallowing. he does not have any drooling. He denies any sensation of constriction into his throat while he is swallowing. He is having no significant discomfort into his neck. 10/14/2018 the patient has had some improvement today. The patient was seen by the surgeon and there appeared to be a small opening that formed and surgeon helped open is a bit further. Since appointment tenders. A copious amount of the grossly purulent and distinctly foul drainage from the site in the oral cavity to the left lower aspect. Since the drainage has been occurring the fullness to the chin, swelling to the chin warmth and redness of the children have all been improving. Objective - Vital Signs Vital signs: Vital Signs Temp 98.1 F 10/14/18 19:47 Pulse 75 10/14/18 19:47 Resp 20 10/14/18 21:21 BP 138/57 10/14/18 19:47 Pulse Ox 96 10/14/18 19:47 Intake & Output 10/14/18 10/14/18 10/15/18 06:59 18:59 06:59 Intake Total 740 720 Output Total 475 Balance 740 245 Intake: Oral 740 720 Output: Urine 475 Other: Voiding Method Urinal Urinal # Voids 2 3 0 # Bowel Movements 2 - Exam HEENT: Anicteric conjunctiva are pink and moist nasal mucosa grossly intact without significant lesions, the REVEALS evidence of the recently extracted too th lower jaw middle position without expressible purulence t that site, however on the inner aspect of the lower lip at the lowest aspect of the gumline this draining a copious amount of very foul purulent material. There is no thrush cavity. There is some minimal swelling to the lower lip but there is much more impressive swelling to the chin in the tissue in that region. There is mild warmth and erythema to this tissue. It is quite tender to touch. It is not fluctuant but it is somewhat firm in nature. There is evidence of minimal tenderness to the neck but there is no palpable mass. There is minimal shotty lymphadenopathy in the neck no large nodes are noted. Parotid glands are non tender. Neck: The neck is supple without significant thyromegaly. Lungs: Good bilateral air entry without significant crackles or wheezing. There is no significant bronchial sounds. There is no egophony or dullness. Heart: Regular rate and rhythm with an audible S1-S2, no S3 no S4. There is no significant murmur click or rub, PMI was nondisplaced. Abdomen: Positive bowel sounds soft and nontender without palpable masses or organomegaly. There was no guarding or rebound. Extremities: The upper extremities have excellent pulses they are symmetric, no significant petechiae or telangiectasia. No splinter hemorrhages were noted. The lower extremities are free from significant edema. The peripheral pulses were 2+ and symmetric. Neuro: Awake alert oriented to person place and time. There are no acute new gross focal sensory motor deficits. - Labs CBC & Chem 7: 10/14/18 07:06 10/14/18 07:06 Labs: Abnormal Lab Results - Last 24 Hours (Table) 10/14/18 10/14/18 10/14/18 Range/Units 06:55 07:06 07:06 WBC 27.8 H (3.8-10.6) k/uL RBC 4.25 L (4.30-5.90) m/uL Hgb 12.6 L (13.0-17.5) gm/dL Chloride 108 H (98-107) mmol/L Carbon Dioxide 20 L (22-30) mmol/L BUN 49 H (9-20) mg/dL Creatinine 1.29 H (0.66-1.25) mg/dL Glucose 191 H (74-99) mg/dL POC Glucose (mg/dL) 193 H (75-99) mg/dL Magnesium 2.5 H (1.6-2.3) mg/dL 10/14/18 10/14/18 10/14/18 Range/Units 11:46 16:55 20:56 WBC (3.8-10.6) k/uL RBC (4.30-5.90) m/uL Hgb (13.0-17.5) gm/dL Chloride (98-107) mmol/L Carbon Dioxide (22-30) mmol/L BUN (9-20) mg/dL Creatinine (0.66-1.25) mg/dL Glucose (74-99) mg/dL POC Glucose (mg/dL) 120 H 109 H 173 H (75-99) mg/dL Magnesium (1.6-2.3) mg/dL Microbiology - Last 24 Hours (Table) 10/14/18 13:17 Anaerobic Culture - Preliminary Mouth 10/14/18 13:17 Wound Culture - Preliminary Mouth 10/12/18 13:45 Blood Culture - Preliminary Blood No Growth after 48 hours Laboratory Results WBC 27.8 k/uL (3.8-10.6) H 10/14/18 07:06 RBC 4.25 m/uL (4.30-5.90) L 10/14/18 07:06 Hgb 12.6 gm/dL (13.0-17.5) L 10/14/18 07:06 Hct 40.0 % (39.0-53.0) 10/14/18 07:06 MCV 94.1 fL (80.0-100.0) 10/14/18 07:06 MCH 29.6 pg (25.0-35.0) 10/14/18 07:06 MCHC 31.5 g/dL (31.0-37.0) 10/14/18 07:06 RDW 14.5 % (11.5-15.5) 10/14/18 07:06 Plt Count 324 k/uL (150-450) 10/14/18 07:06 Neutrophils % 86 % 10/12/18 13:45 Lymphocytes % 4 % 10/12/18 13:45 Monocytes % 6 % 10/12/18 13:45 Eosinophils % 1 % 10/12/18 13:45 Basophils % 0 % 10/12/18 13:45 Neutrophils # 18.2 k/uL (1.3-7.7) H 10/12/18 13:45 Lymphocytes # 0.9 k/uL (1.0-4.8) L 10/12/18 13:45 Monocytes # 1.2 k/uL (0-1.0) H 10/12/18 13:45 Eosinophils # 0.3 k/uL (0-0.7) 10/12/18 13:45 Basophils # 0.0 k/uL (0-0.2) 10/12/18 13:45 Sodium 140 mmol/L (137-145) 10/14/18 07:06 Potassium 5.1 mmol/L (3.5-5.1) 10/14/18 07:06 Chloride 108 mmol/L (98-107) H 10/14/18 07:06 Carbon Dioxide 20 mmol/L (22-30) L 10/14/18 07:06 Anion Gap 12 mmol/L 10/14/18 07:06 BUN 49 mg/dL (9-20) H 10/14/18 07:06 Creatinine 1.29 mg/dL (0.66-1.25) H 10/14/18 07:06 Est GFR (CKD-EPI)AfAm 65 (>60 ml/min/1.73 sqM) 10/14/18 07:06 Est GFR (CKD-EPI)NonAf 56 (>60 ml/min/1.73 sqM) 10/14/18 07:06 Glucose 191 mg/dL (74-99) H 10/14/18 07:06 POC Glucose (mg/dL) 173 mg/dL (75-99) H 10/14/18 20:56 POC Glu Survey [employer] TOBY May Evans 10/14/18 20:[address] Glu mg/dL 189 10/13/18 06:21 Hemoglobin A1c 8.2 % (4.0-6.0) H 10/13/18 06:21 Plasma Lactic Acid Rafael 1.0 mmol/L (0.7-2.0) 10/12/18 13:45 Calcium 8.9 mg/dL (8.4-10.2) 10/14/18 07:06 Magnesium 2.5 mg/dL (1.6-2.3) H 10/14/18 07:06 Total Bilirubin 0.9 mg/dL (0.2-1.3) 10/12/18 13:45 AST 33 U/L (17-59) 10/12/18 13:45 ALT 28 U/L (21-72) 10/12/18 13:45 Alkaline Phosphatase 104 U/L (38-126) 10/12/18 13:45 Total Protein 5.9 g/dL (6.3-8.2) L 10/12/18 13:45 Albumin 3.1 g/dL (3.5-5.0) L 10/12/18 13:45 C. difficile (EIA) Intrp Negative (Negative) 10/14/18 13:11 Microbiology 10/14/18 13:17 Mouth Anaerobic Culture - Preliminary 10/14/18 13:17 Mouth Wound Culture - Preliminary 10/12/18 13:45 Blood Blood Culture - Preliminary No Growth after 48 hours Assessment and Plan (1) Facial cellulitis Narrative/Plan: 72-year-old male who has a history of recent difficulty in his oral cavity and had an infected tooth. The tooth was extracted and it was felt the patient would rapidly recover. However sure thereafter the patient had difficulties with some infection at the site was placed on oral antibiotic therapy with penicillin. Despite antibiotic therapy and some local care the patient had no skin obtained improvement and constantly was sent to hospital for further intervention. Patient is evidence of an extensive cellulitis to his chin and it is not appear to be a direct connection to the oral cavity. There does not appear to be an oral abscess and there is not appear to be any infection in the bony structure of the jaw at this time. With the oral infection Unasyn was initiated and because this is more of a skin and soft tissue difficulty case is discussed with the hospitalist and vancomycin is added. Local wound care to be applied to the chin by applying some antibiotic ointment to try to soften the skin. It is likely in the next short period of time the phlegmon that is present we'll organize and will require incision and drainage. Patient is offered warm or cool compresses for his discomfort he can use him as he sees fit. Leukocytosis is related to the significant infection of the chin. And will be monitored. Multivitamin is added to his regimen. 10/14/2018 the patient is now showing some improvement since there has been a spontaneous opening in the oral cavity. This allowed drainage of the grossly purulent material that is quite putrid in nature. Highly likely to be a staphylococcal infection since staph is a odor free infection usually. The polymicrobial and anaerobic nature of oral-based infections are often quite putrid in nature and consistent with the current findings. Fortunately with the drainage is allowed a significant reduction of swelling firmness and tenderness to the chin. Patient is continue to manipulate the chin to have the drainage continued to occur. He has to spit out the drainage the past as well as abilities. He is eating chewing and swallowing without difficulty. We'll continue with the antibiotic therapy of Unasyn and follow with the oral surgeon also. Current Visit: Yes Status: Acute Priority: High Code(s): L03.211 - CELLULITIS OF FACE SNOMED Code(s): 623605088 (2) Dental infection Current Visit: Yes Status: Acute Priority: High Code(s): K04.7 - PERIAPICAL ABSCESS WITHOUT SINUS SNOMED Code(s): 896904182 (3) Leukocytosis Current Visit: Yes Status: Acute Priority: High Code(s): D72.829 - ELEVATED WHITE BLOOD CELL COUNT, UNSPECIFIED SNOMED Code(s): 481407133
[2018-10-15] MEDS: HEPARIN SODIUM,PORCINE 5,000 UNIT/ML 1 ML VIAL SQ SCH ×3 (00:02→15:34)
[2018-10-15] MEDS: LACTOBACILLUS ACIDOPH & BULGAR 1 EACH PACKET PO SCH ×5 (00:02→21:22)
[2018-10-15] MEDS: DEXAMETHASONE SOD PHOSPHATE 4 MG/ML 1 ML VIAL IV SCH ×5 (00:02→23:28)
[2018-10-15] MEDS: SODIUM CHLORIDE 0.9% 1,000 ML IV SCH ×3 (00:03→19:31)
[2018-10-15] MEDS: AMPICILLIN-SULBACTAM 3 GM in SODIUM CHLORIDE 0.9% 100 ML IVPB SCH ×3 (05:38→21:21)
[2018-10-15 07:01] LABS: Glucose,Whole Blood 69 mg/dL (75-99)
[2018-10-15 07:15] LABS: Calcium 8.6 mg/dL (8.4-10.2); Potassium 4.8 mmol/L (3.5-5.1)
[2018-10-15 07:21] LABS: Glucose,Whole Blood 74 mg/dL (75-99)
[2018-10-15] MEDS: INSULIN ASPART (NovoLOG) 100 UNIT/ML VIAL SQ SCH ×7 (07:30→21:21)
[2018-10-15] MEDS: IPRATROPIUM-ALBUTEROL 3 ML NEB INHALATION PRN ×4 (08:17→21:03)
[2018-10-15] MEDS: GABAPENTIN 400 MG CAP PO SCH ×3 (08:18→21:21)
[2018-10-15] MEDS: PANTOPRAZOLE 40 MG/10 ML VIAL IVP SCH (08:18)
[2018-10-15] MEDS: SERTRALINE 100 MG TAB PO SCH (08:18)
[2018-10-15] MEDS: TRIAMTERENE-HCTZ 37.5-25MG 1 EACH CAP PO SCH ×2 (08:18→17:04)
[2018-10-15] MEDS: PRAMIPEXOLE 0.5 MG TAB PO SCH ×3 (08:18→21:21)
[2018-10-15] MEDS: MULTIVITAMINS, THERA 1 EACH TAB PO SCH (08:18)
[2018-10-15] MEDS: TAMSULOSIN 0.4 MG CAP.ER.24H PO SCH (08:19)
[2018-10-15] MEDS: INSULIN DETEMIR (LEVEMIR) 100 UNIT/ML SYR SQ SCH (10:19)
[2018-10-15] MEDS ORDERED: INSULIN DETEMIR (LEVEMIR) 100 UNIT/ML SYR SQ ONE (11:00)
[2018-10-15 11:40] LABS: Glucose,Whole Blood 145 mg/dL (75-99)
[2018-10-15] MEDS: VANCOMYCIN 2,000 MG in SODIUM CHLORIDE 0.9% 500 ML 500 ML IVPB SCH (11:57)
[2018-10-15] MEDS: HYDROcodone/APAP 7.5-325MG 1 EACH TAB PO PRN ×2 (14:14→19:34)
--- NOTE | 2018-10-15 15:22 | P.PN ---
Subjective Progress Note Date: 10/15/18 Patient reports that he still have some brownish to yellowish foul smelling and bad tasting secretions coming out from the right lower jaw area, although it has improved as compared to yesterday. Patient denies fever, chills, cough, phlegm production. Stated that he is able to take food more easily and his right side of the face swelling is much improved with improvement in the jaw movement. Patient requested prescription of insulin needles at the time of discharge as he ran out of it. Objective - Vital Signs Vital signs: Vital Signs Temp 97.5 F L 10/15/18 06:35 Pulse 76 10/15/18 11:32 Resp 20 10/15/18 06:35 BP 110/68 10/15/18 06:35 Pulse Ox 97 10/15/18 06:35 Intake & Output 10/14/18 10/15/18 10/15/18 18:59 06:59 18:59 Intake Total 720 1100 Output Total 475 1400 1225 Balance 245 -300 -1225 Intake: Intake, IV Titration 1000 Amount Ampicillin-Sulbactam 3 gm 100 In Sodium Chloride 0.9% 100 ml @ 200 mls/hr IVPB Q8H [facility] Rx#:[id number] Sodium Chloride 0.9% 1, 400 000 ml @ 100 mls/hr IV . Q10H [facility] Rx#:[id number] Vancomycin 2,000 mg In 500 Sodium Chloride 0.9% 500 ml 500 ml @ 167 mls/hr IVPB Q16H J[facility] Rx#: [id number] Oral 720 100 Output: Urine 475 1400 1225 Other: Voiding Method Urinal Urinal # Voids 3 0 # Bowel Movements 2 - Constitutional General appearance: Present: cooperative, no acute distress - EENT EENT Comment(s): Minimal swelling of the right lower jaw area is noted with minimum tenderness but some erythema is still present. No loculated fluid were palpated around that affected area. Eyes: Present: EOMI, normal appearance ENT: Present: hearing grossly normal, NA/AT - Neck Neck: Present: normal ROM. Absent: lymphadenopathy, rigidity - Respiratory Respiratory: bilateral: CTA, negative: rales, rhonchi, wheezing - Cardiovascular Rhythm: regular Heart sounds: normal: S1, S2 Abnormal Heart Sounds: Absent: systolic murmur, diastolic murmur, S3 Gallop, S4 Gallop - Gastrointestinal General gastrointestinal: Present: normal bowel sounds, soft. Absent: distended, rigid, tenderness - Neurologic Neurologic: Present: CNII-XII intact. Absent: focal deficits - Psychiatric Psychiatric: Present: A&O x's 3, appropriate affect, intact judgment & insight - Allied health notes Allied health notes reviewed: nursing - Labs CBC & Chem 7: 10/14/18 07:06 10/15/18 06:20 Labs: Abnormal Lab Results - Last 24 Hours (Table) 10/14/18 10/14/18 10/15/18 Range/Units 16:55 20:56 06:20 BUN 45 H (9-20) mg/dL Glucose 64 L (74-99) mg/dL POC Glucose (mg/dL) 109 H 173 H (75-99) mg/dL 10/15/18 10/15/18 10/15/18 Range/Units 06:41 07:19 11:39 BUN (9-20) mg/dL Glucose (74-99) mg/dL POC Glucose (mg/dL) 69 L 74 L 145 H (75-99) mg/dL Microbiology - Last 24 Hours (Table) 10/14/18 13:17 Gram Stain - Preliminary Mouth Wound Culture - Preliminary 10/14/18 13:17 Anaerobic Culture - Preliminary Mouth 10/12/18 13:45 Blood Culture - Preliminary Blood No Growth after 48 hours Assessment and Plan (1) Dehydration Current Visit: Yes Status: Acute Priority: High Code(s): E86.0 - D EHYDRATION SNOMED Code(s): 01432019 (2) Dental infection Current Visit: Yes Status: Acute Priority: High Code(s): K04.7 - PERIAPICAL ABSCESS WITHOUT SINUS SNOMED Code(s): 344751097 (3) Facial cellulitis Current Visit: Yes Status: Acute Priority: High Code(s): L03.211 - CELLULITIS OF FACE SNOMED Code(s): 284720595 (4) Leukocytosis Current Visit: Yes Status: Acute Priority: High Code(s): D72.829 - ELEVATED WHITE BLOOD CELL COUNT, UNSPECIFIED SNOMED Code(s): 620356951 (5) Malaise and fatigue Current Visit: Yes Status: Acute Priority: High Code(s): R53.81 - OTHER MALAISE; R53.83 - OTHER FATIGUE SNOMED Code(s): 128880327 Plan: Patient's infection is getting better will continue IV Unasyn for now and will discuss with Dr. Ji regarding conversion to oral antibiotics at the time of discharge. Patient white count was high will check CBC now and in the morning. Patient renal function has been stable I will continue to monitor him closely I will check basic panel in the morning. Patient blood sugar was running low this morning and insulin dose was decreased to insulin Glargine 40 units SQ daily. Patient sliding scale will be continued. Patient schedule insulin Aspart dose will also be decreased. Patient will need prescription of insulin needles at the time of discharge. Possible discharge in next 24-48 hours. Proceed Time with Patient: Less than 30
[2018-10-15 15:27] LABS: Basophils % (A) 0 %; Eosinophils # (A) 0.1 k/uL (0-0.7); Eosinophils % (A) 0 %; HCT 37.6 % (39.0-53.0); HGB 12.1 gm/dL (13.0-17.5); Hypochromasia Moderate; Lymphocytes # (A) 1.1 k/uL (1.0-4.8); Lymphocytes % (A) 6 %; MCH 30.2 pg (25.0-35.0); MCHC 32.2 g/dL (31.0-37.0); MCV 93.9 fL (80.0-100.0); Monocytes # (A) 1.1 k/uL (0-1.0); Monocytes % (A) 6 %; Neutrophils # (A) 14.7 k/uL (1.3-7.7); Neutrophils % (A) 86 %; Platelet Count 331 k/uL (150-450); RBC 4.01 m/uL (4.30-5.90); RDW 13.9 % (11.5-15.5); WBC 17.2 k/uL (3.8-10.6)
[2018-10-15 17:35] LABS: Glucose,Whole Blood 128 mg/dL (75-99)
--- NOTE | 2018-10-15 18:38 | P.PN ---
Progress Note - Text Progress Note Date: 10/15/18 Patient up in bed resting comfortably noted to be taking orals without difficulty. Reports that the swelling is gone down on the rest of his face. I did note that there is still some swelling on the right mandible. Patient reports that the packing came out of the spontaneous fistula intraorally. On exam there was no discharge and the suspicion was still open. Replaced the packing intraorally. Palpated the swelling and appear fluctuant on palpation but when I firmly pushed on it I got another 3-4 mL of light brown watery discharge with the same fetid odor. Recommend that the patient manipulate his swelling himself every [address] to place heat on it every 6 hours.
[2018-10-15 20:50] LABS: Glucose,Whole Blood 178 mg/dL (75-99)
[2018-10-15] MEDS: NORTRIPTYLINE 25 MG CAP PO SCH (21:21)
[2018-10-15] MEDS: CYCLOBENZAPRINE 5 MG TAB PO SCH (21:21)
[2018-10-15] MEDS: ATORVASTATIN 40 MG TAB PO SCH (21:21)
[2018-10-16] MEDS: HEPARIN SODIUM,PORCINE 5,000 UNIT/ML 1 ML VIAL SQ SCH ×4 (00:16→23:27)
[2018-10-16] MEDS: AMPICILLIN-SULBACTAM 3 GM in SODIUM CHLORIDE 0.9% 100 ML IVPB SCH ×3 (05:35→21:35)
[2018-10-16] MEDS: VANCOMYCIN 2,000 MG in SODIUM CHLORIDE 0.9% 500 ML 500 ML IVPB SCH ×2 (05:35→21:36)
[2018-10-16] MEDS: SODIUM CHLORIDE 0.9% 1,000 ML IV SCH ×2 (05:38→17:04)
[2018-10-16] MEDS: DEXAMETHASONE SOD PHOSPHATE 4 MG/ML 1 ML VIAL IV SCH ×4 (05:38→23:25)
[2018-10-16 06:41] LABS: Glucose,Whole Blood 92 mg/dL (75-99)
[2018-10-16] MEDS ORDERED: INSULIN DETEMIR (LEVEMIR) 100 UNIT/ML SYR SQ SCH ×2 (07:00)
[2018-10-16] MEDS: INSULIN ASPART (NovoLOG) 100 UNIT/ML VIAL SQ SCH ×7 (07:10→21:31)
[2018-10-16] MEDS: INSULIN DETEMIR (LEVEMIR) 100 UNIT/ML SYR SQ SCH (07:27)
[2018-10-16] MEDS: PANTOPRAZOLE 40 MG TABLET PO SCH (07:28)
[2018-10-16] MEDS: LACTOBACILLUS ACIDOPH & BULGAR 1 EACH PACKET PO SCH ×4 (07:28→21:36)
[2018-10-16] MEDS: GABAPENTIN 400 MG CAP PO SCH ×3 (07:28→21:36)
[2018-10-16] MEDS: PRAMIPEXOLE 0.5 MG TAB PO SCH ×3 (07:29→21:36)
[2018-10-16] MEDS: TRIAMTERENE-HCTZ 37.5-25MG 1 EACH CAP PO SCH ×2 (07:29→17:07)
[2018-10-16] MEDS: SERTRALINE 100 MG TAB PO SCH (07:29)
[2018-10-16] MEDS: TAMSULOSIN 0.4 MG CAP.ER.24H PO SCH (07:29)
[2018-10-16] MEDS: IPRATROPIUM-ALBUTEROL 3 ML NEB INHALATION PRN ×3 (07:30→18:56)
[2018-10-16 07:51] LABS: Basophils # (A) 0.1 k/uL (0-0.2); Basophils % (A) 1 %; Eosinophils # (A) 0.1 k/uL (0-0.7); Eosinophils % (A) 1 %; HCT 38.9 % (39.0-53.0); HGB 12.4 gm/dL (13.0-17.5); Hypochromasia Slight; Lymphocytes # (A) 1.5 k/uL (1.0-4.8); Lymphocytes % (A) 14 %; MCH 29.8 pg (25.0-35.0); Mean Platelet Volume 7.2; Monocytes # (A) 0.7 k/uL (0-1.0); Monocytes % (A) 7 %; Neutrophils # (A) 8.3 k/uL (1.3-7.7); Neutrophils % (A) 77 %; Platelet Count 363 k/uL (150-450); RBC 4.18 m/uL (4.30-5.90); WBC 10.8 k/uL (3.8-10.6)
[2018-10-16 07:55] LABS: Calcium 8.3 mg/dL (8.4-10.2); Potassium 4.2 mmol/L (3.5-5.1)
[2018-10-16] MEDS: HYDROcodone/APAP 7.5-325MG 1 EACH TAB PO PRN (11:25)
[2018-10-16 11:30] LABS: Glucose,Whole Blood 139 mg/dL (75-99)
[2018-10-16] MEDS ORDERED: MORPHINE ORAL SOLN 10 MG/5 ML CUP PO PRN (12:40)
[2018-10-16] MEDS ORDERED: LIDOCAINE 2%-EPI 1:100,000 20 ML VIAL ONE (13:00)
--- NOTE | 2018-10-16 13:13 | P.PCN ---
Date of Procedure: 10/16/18 Preoperative Diagnosis: Abscess of the chin Postoperative Diagnosis: Abcess Chin Procedure(s) Performed: Extraoral incision and drainage Implants: 2 quarter-inch Mustapha drains Anesthesia: local Surgeon: Isaías Blackburn Estimated Blood Loss (ml): 5 Urine output (ml): 0 Pathology: none sent Condition: stable Disposition: no change Indications for Procedure: Patient is a 72-year-old male with a past medical history of hypertension, diabetes, dyslipidemia, BPH, and coronary artery disease who presented to the emergency department at the direction of his dentist Dr. Sung due to increased facial swelling. He had a tooth pulled on Monday and noticed some increased facial swelling on Monday presented to the ER was discharged home. Saw his dentist the next day and was placed on an Penicillin. Swelling got worse Monday he went back to the dentist. He denies any injections of antibiotics or aspiration of the infected area by the dentist. His hospital course involved multimodal IV antibiotic therapy with some spontaneous draining intraorally. Unfortunately the spontaneous draining was not sufficient in order to allow for the swelling in his chin to go down. In fact on exam this morning it was noted that the swelling on the right to the chin and increased slightly. The decision was made to perform an bedside extraoral incision and drainage. Operative Findings: none Description of Procedure: After obtaining consent including but not limited to bleeding pain infection swelling need for additional procedures patient was prepped and draped in the usual fashion for extraoral incision and drainage. 15 mL of 2% lidocaine with epinephrine was administered into the area. And after waiting appropriate time a 1 cm incision was made on the midline underneath the mental cervical fold and blunt dissection was used to go up to the left and the right side of the patient's mandible in the chin area. Approximately 5 mL of pus was then expressed from the right side and 2 mL of posterolateral left side. It was noted that there is too separate loculations on either side of the mentalis muscle. A 2 inch by quarter-inch Mustapha drain was placed into each area and sutured to the skin separately. The instructions given to the nurse included heat and dressing changes.
[2018-10-16 16:04] LABS: Glucose,Whole Blood 214 mg/dL (75-99)
--- NOTE | 2018-10-16 16:27 | P.PN ---
Subjective Progress Note Date: 10/16/18 Patient reported that his pain and due to abscess is getting better. She underwent local incision and drainage on both sides under the mental area and day from the right side 5 mL plus was drained and from the left side 2 mL pus was drained and bilateral Mustapha drain was placed by the ENT and patient will be continued on IV antibiotics for now. Patient states overall he is feeling better day by day. Patient denies fever, chills, headache, dizziness, chest pain, palpitation and denies rest of the review system. Objective - Vital Signs Vital signs: Vital Signs Temp 98.7 F 10/16/18 14:09 Pulse 61 10/16/18 14:09 Resp 16 10/16/18 14:09 BP 115/64 10/16/18 14:09 Pulse Ox 94 L 10/16/18 14:09 Intake & Output 10/15/18 10/16/18 10/16/18 18:59 06:59 18:59 Intake Total 1214 Output Total 1600 Balance -386 Intake: Oral 1214 Output: Urine 1600 Other: Voiding Method Urinal - Constitutional General appearance: Present: cooperative, no acute distress - Neck Details: Mustapha drain is in place and local areas dressed and covered with disposable mask. Neck: Present: normal ROM. Absent: rigidity, stridor - Respiratory Respiratory: bilateral: CTA, negative: rales, rhonchi, wheezing - Cardiovascular Rhythm: regular Heart sounds: normal: S1, S2 Abnormal Heart Sounds: Absent: systolic murmur, diastolic murmur, S3 Gallop, S4 Gallop - Gastrointestinal General gastrointestinal: Present: normal bowel sounds, soft. Absent: distended, rigid, tenderness - Psychiatric Psychiatric: Present: A&O x's 3, appropriate affect - Allied health notes Allied health notes reviewed: nursing - Labs CBC & Chem 7: 10/16/18 06:50 10/16/18 06:50 Labs: Abnormal Lab Results - Last 24 Hours (Table) 10/15/18 10/15/18 10/16/18 Range/Units 17:33 20:49 06:50 WBC 10.8 H (3.8-10.6) k/uL RBC 4.18 L (4.30-5.90) m/uL Hgb 12.4 L (13.0-17.5) gm/dL Hct 38.9 L (39.0-53.0) % Neutrophils # 8.3 H (1.3-7.7) k/uL BUN (9-20) mg/dL POC Glucose (mg/dL) 128 H 178 H (75-99) mg/dL Calcium (8.4-10.2) mg/dL 10/16/18 10/16/18 10/16/18 Range/Units 06:50 11:28 16:03 WBC (3.8-10.6) k/uL RBC (4.30-5.90) m/uL Hgb (13.0-17.5) gm/dL Hct (39.0-53.0) % Neutrophils # (1.3-7.7) k/uL BUN 33 H (9-20) mg/dL POC Glucose (mg/dL) 139 H 214 H (75-99) mg/dL Calcium 8.3 L (8.4-10.2) mg/dL Microbiology - Last 24 Hours (Table) 10/12/18 13:45 Blood Culture - Preliminary Blood No Growth after 96 hours 10/14/18 13:17 Gram Stain - Final Mouth Wound Culture - Final 10/14/18 13:17 Anaerobic Culture - Preliminary Mouth Farideh albicans Assessment and Plan (1) Dehydration Current Visit: Yes Status: Acute Priority: High Code(s): E86.0 - DEHYDRATION SNOMED Code(s): 90010341 (2) Dental infection Current Visit: Yes Status: Acute Priority: High Code(s): K04.7 - PERIAPICAL ABSCESS WITHOUT SINUS SNOMED Code(s): 158578626 (3) Facial cellulitis Current Visit: Yes Status: Acute Priority: High Code(s): L03.211 - CELLULITIS OF FACE SNOMED Code(s): 403578674 (4) Leukocytosis Current Visit: Yes Status: Acute Priority: High Code(s): D72.829 - ELEVATED WHITE BLOOD CELL COUNT, UNSPECIFIED SNOMED Code(s): 355141295 (5) Malaise and fatigue Current Visit: Yes Status: Acute Priority: High Code(s): R53.81 - OTHER MALAISE; R53.83 - OTHER FATIGUE SNOMED Code(s): 040216253 Plan: Overall patient condition is improving he is afebrile for more than 24 hours he is the feeling better clinically is improving I will continue IV antibiotics for the 24-hour as patient just had surgical procedure done and there once more stable and divided scan be changed to oral and he could be discharged home in next 24-48 hours. Patient will be needing follow-up with infectious disease and ENT specialist along with his PCP. Noted that patient has Farideh oral cultures positive not sure its contamination from oral colonization or a true culture. We'll check with infectious disease Dr. Ji about these reports. The fact that patient is clinically improving with antibiotics and not with antifungal more point towards the presence of bacterial infection and abscess rather than fungal infection. Although patient has incision and drainage done earlier today but culture and sensitivity was not performed. We will continue to monitor c linical status and follow patient's response to the antibiotics clinically. Time with Patient: Less than 30
[2018-10-16] MEDS ORDERED: VANCOMYCIN TROUGH DUE 1 EACH MISC MISCELLANE ONE (20:00)
[2018-10-16 21:21] LABS: Glucose,Whole Blood 122 mg/dL (75-99)
[2018-10-16] MEDS: CYCLOBENZAPRINE 5 MG TAB PO SCH (21:36)
[2018-10-16] MEDS: NORTRIPTYLINE 25 MG CAP PO SCH (21:36)
[2018-10-16] MEDS: ATORVASTATIN 40 MG TAB PO SCH (21:36)
[2018-10-17] MEDS: HYDROcodone/APAP 7.5-325MG 1 EACH TAB PO PRN ×2 (01:59→18:15)
[2018-10-17] MEDS: SODIUM CHLORIDE 0.9% 1,000 ML IV SCH ×3 (03:00→23:43)
[2018-10-17] MEDS: DEXAMETHASONE SOD PHOSPHATE 4 MG/ML 1 ML VIAL IV SCH ×2 (05:35→14:33)
[2018-10-17] MEDS: AMPICILLIN-SULBACTAM 3 GM in SODIUM CHLORIDE 0.9% 100 ML IVPB SCH ×3 (05:36→22:32)
[2018-10-17 06:36] LABS: Glucose,Whole Blood 154 mg/dL (75-99)
[2018-10-17] MEDS: INSULIN DETEMIR (LEVEMIR) 100 UNIT/ML SYR SQ SCH (07:28)
[2018-10-17] MEDS: INSULIN ASPART (NovoLOG) 100 UNIT/ML VIAL SQ SCH ×7 (07:28→22:10)
[2018-10-17] MEDS: HEPARIN SODIUM,PORCINE 5,000 UNIT/ML 1 ML VIAL SQ SCH ×2 (07:29→17:44)
[2018-10-17] MEDS: IPRATROPIUM-ALBUTEROL 3 ML NEB INHALATION PRN ×3 (08:07→21:11)
[2018-10-17] MEDS: LACTOBACILLUS ACIDOPH & BULGAR 1 EACH PACKET PO SCH ×4 (09:55→22:13)
[2018-10-17] MEDS: MULTIVITAMINS, THERA 1 EACH TAB PO SCH (09:55)
[2018-10-17] MEDS: PRAMIPEXOLE 0.5 MG TAB PO SCH ×3 (09:55→22:14)
[2018-10-17] MEDS: TAMSULOSIN 0.4 MG CAP.ER.24H PO SCH (09:55)
[2018-10-17] MEDS: PANTOPRAZOLE 40 MG TABLET PO SCH (09:55)
[2018-10-17] MEDS: SERTRALINE 100 MG TAB PO SCH (09:55)
[2018-10-17] MEDS: GABAPENTIN 400 MG CAP PO SCH ×3 (09:55→22:14)
[2018-10-17] MEDS: TRIAMTERENE-HCTZ 37.5-25MG 1 EACH CAP PO SCH ×2 (09:56→17:46)
[2018-10-17 11:58] LABS: Glucose,Whole Blood 112 mg/dL (75-99)
[2018-10-17] MEDS ORDERED: VANCOMYCIN 1,750 MG in SODIUM CHLORIDE 0.9% 500 ML 500 ML IVPB SCH (13:00)
--- NOTE | 2018-10-17 13:34 | P.PN ---
Progress Note - Text Progress Note Date: 10/17/18 Patient up in bed watching TV comfortable no apparent distress. Reports eating and drinking well. took shower without difficulty. Looked at old drain dressing and still had significant output as of noon today. Soft tissue swelling greatly reduced in the chin area. Intraoral drain had fallen out. Patient opening his mouth well without difficulty. Drain still in place and sutured to skin. Cultures reviewed normal oral cecilia as well as Farideh. Irrigated wounds wounds with saline and peroxide. Assessment abscess resolving, continued drainage output. Recommend heat every 6 hours and dressing changes when necessary If the patient discharged can be seen in the office for drain removal.
[2018-10-17] MEDS ORDERED: FLUCONAZOLE 100 MG TAB PO ONE (13:38)
--- NOTE | 2018-10-17 13:41 | P.PN ---
Subjective Progress Note Date: 10/17/18 Principal diagnosis: Dental abscess Patient was seen and examined. No acute events overnight. Patient reports minimal drainage from the drain placed by ENT. Patient denies any difficulty swallowing or shortness of breath. He denies any chest pain, or palpitations. No nausea or vomiting. No fever or chills. Objective - Vital Signs Vital signs: Vital Signs Temp 97.8 F 10/17/18 07:00 Pulse 76 10/17/18 12:35 Resp 15 10/17/18 07:00 BP 130/69 10/17/18 07:00 Pulse Ox 97 10/17/18 07:00 Intake & Output 10/16/18 10/17/18 10/17/18 18:59 06:59 18:59 Intake Total 236 Balance 236 Intake: Oral 236 Other: Voiding Method Toilet Toilet Urinal Urinal - Exam General: [non toxic], [no distress], [appears at stated age] Derm: [warm], [dry] Head: [atraumatic], [normocephalic], [symmetric] Eyes: [EOMI], [no lid lag], [anicteric sclera] Mouth: Drain in place, tenderness to palpation over the chin and submental area with surrounding erythema Cardiovascular: [S1S2 reg], [no murmur], [positive DP pulse bilateral] Lungs: [CTA bilateral], [no rhonchi, no rales] , [no accessory muscle use] Ext: [no gross muscle atrophy], [no edema], [no contractures] Neuro: [no focal neuro deficits] Psych: [Alert], [oriented], [appropriate affect] - Labs CBC & Chem 7: 10/16/18 06:50 10/16/18 06:50 Labs: Abnormal Lab Results - Last 24 Hours (Table) 10/16/18 10/16/18 10/17/18 Range/Units 16:03 21:20 06:34 POC Glucose (mg/dL) 214 H 122 H 154 H (75-99) mg/dL 10/17/18 Range/Units 11:57 POC Glucose (mg/dL) 112 H (75-99) mg/dL Microbiology - Last 24 Hours (Table) 10/12/18 13:45 Blood Culture - Preliminary Blood No Growth after 96 hours 10/14/18 13:17 Gram Stain - Final Mouth Wound Culture - Final 10/14/18 13:17 Anaerobic Culture - Preliminary Mouth Farideh albicans Assessment and Plan Assessment: Dental infection with surrounding facial cellulitis, sepsis resolved Prerenal azotemia, improving Type 2 diabetes mellitus Hypertension Hyperlipidemia BPH CAD Repeat I&D performed 10/16/[address] shows facial cellulitis and no abscess. Plans: We'll follow ENT recommendations. ID consulted for antibiotic choice. Continue vancomycin and Unasyn in the meantime. Discontinue Decadron at this time. Tylenol as needed for fever. Tylenol or morphine as needed for pain. Start Diflucan. BUN improving. Likely secondary to dehydration. Plans: Encourage hydration by mouth. Repeat BMP within 3 days. [id number] glucose 112. Plans: Insulin sliding scale. Regular checks. Hypoglycemic precautions. BP 115/64. Plans: On lisinopril and metoprolol at home. Hold while in house due to hypotension. Plans: Continue Lipitor. Plans: Continue Flomax. Plans: Continue Lipitor and aspirin. Discussed with Dr. Blackburn, plans to leave drain and one more day for reevaluation tomorrow while cultures are pending. Patient shows considerable improvement. We'll follow ID and ENT recommendations regarding antibiotic choice and any further surgical intervention regarding facial cellulitis. Plans on DC in 1-2 days.
[2018-10-17 16:51] LABS: Glucose,Whole Blood 121 mg/dL (75-99)
[2018-10-17 20:52] LABS: Glucose,Whole Blood 131 mg/dL (75-99)
[2018-10-17] MEDS: ATORVASTATIN 40 MG TAB PO SCH (22:13)
[2018-10-17] MEDS: NORTRIPTYLINE 25 MG CAP PO SCH (22:13)
[2018-10-17] MEDS: CYCLOBENZAPRINE 5 MG TAB PO SCH (22:14)
--- NOTE | 2018-10-17 22:49 | P.PN ---
Subjective Progress Note Date: 10/17/18 72-year-old male who is having difficulties recently with the lower jaw related to an infected tooth. He relates about 5 days ago he was seen by his dentist the tooth was extracted. Since the site of infection was removed the patient was not placed on antibiotic therapy and was given [id number] analgesics for some control of pain. The next day the patient had developed some increasing swelling and pain or discomfort lower jaw as well as the chin. He was seen by his dentist and placed on penicillin, 2 with the first dose then 1 every 6 hours. Over the next 48 hours he had very little improvement and was again seen by the dentist. There was now a significant increase in the amount of difficulty with the lower jaw and the chin. The patient was directed to hospital. He is undergone imaging studies that Kevin evidence of any significant abscess but have the extensive swelling to the region. He has been seen by oral surgery with no evidence of any significant intraoral abscess or mandibular abscess or infection. For the significant cellulitis to the face the chin consult was requested. The patient did have fever and chill is feeling slightly better this afternoon. Does have discomfort and difficulty with eating but is not having any difficulty swallowing. he does not have any drooling. He denies any sensation of constriction into his throat while he is swallowing. He is having no significant discomfort into his neck. 10/14/2018 the patient has had some improvement today. The patient was seen by the surgeon and there appeared to be a small opening that formed and surgeon helped open is a bit further. Since appointment tenders. A copious amount of the grossly purulent and distinctly foul drainage from the site in the oral cavity to the left lower aspect. Since the drainage has been occurring the fullness to the chin, swelling to the chin warmth and redness of the children have all been improving. 10/17/2018 since last being seen the patient has been evaluated by oral surgery and a incision and drainage and [place] drain was placed. This is now allowed further drainage of the significant amount of purulent material from within the tissue to the chin and lower jaw area. With drainage and antibiotic therapy there is no marked improvement of the swelling and tenderness. The putrid nature is starting to resolve. Objective - Vital Signs Vital signs: Vital Signs Temp 97.9 F 10/17/18 19:11 Pulse 64 10/17/18 21:29 Resp 17 08/07/19 19:11 BP 149/75 10/17/18 19:11 Pulse Ox 95 10/17/18 21:12 Intake & Output 10/17/18 10/17/18 10/18/18 06:59 18:59 06:59 Intake Total 894 Balance 894 Intake: Oral 894 Other: Voiding Method Toilet Toilet Toilet Urinal Urinal Urinal # Voids 2 2 - Exam HEENT: Anicteric conjunctiva are pink and moist nasal mucosa grossly intact without significant lesions, the REVEALS evidence of the recently extracted tooth lower jaw middle position without expressible purulence t that site, however on the inner aspect of the lower lip at the lowest aspect of the gumline this draining a copious amount of very foul purulent material. There is no thrush cavity. There is some minimal swelling to the lower lip but there is much more impressive swelling to the chin in the tissue in that region. There is mild warmth and erythema to this tissue. It is quite tender to touch. It is not fluctuant but it is somewhat firm in nature. There is evidence of minimal tenderness to the neck but there is no palpable mass. There is minimal shotty lymphadenopathy in the neck no large nodes are noted. Parotid glands are nontender. Neck: The neck is supple without significant thyromegaly. Lungs: Good bilateral air entry without significant crackles or wheezing. There is no significant bronchial sounds. There is no egophony or dullness. Heart: Regular rate and rhythm with an audible S1-S2, no S3 no S4. There is no significant murmur click or rub, PMI was nondisplaced. Abdomen: Positive bowel sounds soft and nontender without palpable masses or organomegaly. There was no guarding or rebound. Extremities: The upper extremities have excellent pulses they are symmetric, no significant petechiae or telangiectasia. No splinter hemorrhages were noted. The lower extremities are free from significant edema. The peripheral pulses were 2+ and symmetric. Neuro: Awake alert oriented to person place and time. There are no acute new gross focal sensory motor deficits. - Labs CBC & Chem 7: 10/16/18 06:50 10/16/18 06:50 Labs: Abnormal Lab Results - Last 24 Hours (Table) 10/17/18 10/17/18 10/17/18 Range/Units 06:34 11:57 16:50 POC Glucose (mg/dL) 154 H 112 H 121 H (75-99) mg/dL 10/17/18 Range/Units 20:50 POC Glucose (mg/dL) 131 H (75-99) mg/dL Microbiology - Last 24 Hours (Table) 10/12/18 13:45 Blood Culture - Preliminary Blood No Growth after 120 hours 10/14/18 13:17 Anaerobic Culture - Preliminary Mouth Anaerobic Gm Negative Bacilli Anaerobic Gm Negative Bacilli#2 Farideh albicans Laboratory Results WBC 10.8 k/uL (3.8-10.6) H 10/16/18 06:50 RBC 4.18 m/uL (4.30-5.90) L 10/16/18 06:50 Hgb 12.4 gm/dL (13.0-17.5) L 10/16/18 06:50 Hct 38.9 % (39.0-53.0) L 10/16/18 06:50 MCV 93.0 fL (80.0-100.0) 10/16/18 06:50 MCH 29.8 pg (25.0-35.0) 10/16/18 06:50 MCHC 32.0 g/dL (31.0-37.0) 10/16/18 06:50 RDW 14.0 % (11.5-15.5) 10/16/18 06:50 Plt Count 363 k/uL (150-450) 10/16/18 06:50 Neutrophils % 77 % 10/16/18 06:50 Lymphocytes % 14 % 10/16/18 06:50 Monocytes % 7 % 10/16/18 06:50 Eosinophils % 1 % 10/16/18 06:50 Basophils % 1 % 10/16/18 06:50 Neutrophils # 8.3 k/uL (1.3-7.7) H 10/16/18 06:50 Lymphocytes # 1.5 k/uL (1.0-4.8) 10/16/18 06:50 Monocytes # 0.7 k/uL (0-1.0) 10/16/18 06:50 Eosinophils # 0.1 k/uL (0-0.7) 10/16/18 06:50 Basophils # 0.1 k/uL (0-0.2) 10/16/18 06:50 Hypochromasia Slight 10/16/18 06:50 Sodium 139 mmol/L (137-145) 10/16/18 06:50 Potassium 4.2 mmol/L (3.5-5.1) 10/16/18 06:50 Chloride 102 mmol/L (98-107) 10/16/18 06:50 Carbon Dioxide 28 mmol/L (22-30) 10/16/18 06:50 Anion Gap 9 mmol/L 10/16/18 06:50 BUN 33 mg/dL (9-20) H 10/16/18 06:50 Creatinine 1.19 mg/dL (0.66-1.25) 10/16/18 06:50 Est GFR (CKD-EPI)AfAm 71 (>60 ml/min/1.73 sqM) 10/16/18 06:50 Est GFR (CKD-EPI)NonAf 62 (>60 ml/min/1.73 sqM) 10/16/18 06:50 Glucose 95 mg/dL (74-99) 10/16/18 06:50 POC Glucose (mg/dL) 131 mg/dL (75-99) H 10/17/18 20:50 POC Glu Lockstitch Cup Setter ID Elliott Serrato 10/17/18 20:[address] Glu mg/dL 189 10/13/18 06:21 Hemoglobin A1c 8.2 % (4.0-6.0) H 10/13/18 06:21 Plasma Lactic Acid Rafael 1.0 mmol/L (0.7-2.0) 10/12/18 13:45 Calcium 8.3 mg/dL (8.4-10.2) L 10/16/18 06:50 Magnesium 2.5 mg/dL (1.6-2.3) H 10/14/18 07:06 Total Bilirubin 0.9 mg/dL (0.2-1.3) 10/12/18 13:45 AST 33 U/L (17-59) 10/12/18 13:45 ALT 28 U/L (21-72) 10/12/18 13:45 Alkaline Phosphatase 104 U/L (38-126) 10/12/18 13:45 Total Protein 5.9 g/dL (6.3-8.2) L 10/12/18 13:45 Albumin 3.1 g/dL (3.5-5.0) L 10/12/18 13:45 Vancomycin Trough 16.9 ug/mL 10/16/18 20:14 C. difficile (EIA) Intrp Negative (Negative) 10/14/18 13:11 Microbiology 10/12/18 13:45 Blood Blood Culture - Preliminary No Growth after 120 hours 10/14/18 13:17 Mouth Anaerobic Culture - Preliminary Anaerobic Gm Negative Bacilli Anaerobic Gm Negative Bacilli#2 Farideh albicans 10/14/18 13:17 Mouth Gram Stain - Final 10/14/18 13:17 Mouth Wound Culture - Final Assessment and Plan (1) Facial cellulitis Narrative/Plan: 72-year-old male who has a history of recent difficulty in his oral cavity and had an infected tooth. The tooth was extracted and it was felt the patient would rapidly recover. However sure thereafter the patient had difficulties with some infection at the site was placed on oral antibiotic therapy with penicillin. Despite antibiotic therapy and some local care the patient had no skin obtained improvement and constantly was sent to hospital for further intervention. Patient is evidence of an extensive cellulitis to his chin and it is not appear to be a direct connection to the oral cavity. There does not appear to be an oral abscess and there is not appear to be any infection in the bony structure of the jaw at this time. With the oral infection Unasyn was initiated and because this is more of a skin and soft tissue difficulty case is discussed with the hospitalist and vancomycin is added. Local wound care to be applied to the chin by applying some antibiotic ointment to try to soften the skin. It is likely in the next short period of time the phlegmon that is present we'll organize and will require incision and drainage. Patient is offered warm or cool compresses for his discomfort he can use him as he sees fit. Leukocytosis is related to the significant infection of the chin. And will be monitored. Multivitamin is added to his regimen. 10/14/2018 the patient is now showing some improvement since there has been a spontaneous opening in the oral cavity. This allowed drainage of the grossly purulent material that is quite putrid in nature. Highly likely to be a staphylococcal infection since staph is a odor free infection usually. The polymicrobial and anaerobic nature of oral-based infections are often quite putrid in nature and consistent with the current findings. Fortunately with the drainage is allowed a significant reduction of swelling firmness and tenderness to the chin. Patient is continue to manipulate the chin to have the drainage continued to occur. He has to spit out the drainage the past as well as abili ties. He is eating chewing and swallowing without difficulty. We'll continue with the antibiotic therapy of Unasyn and follow with the oral surgeon also. 10/17/2018 the patient has had now further improvement status post incision and drainage and Mustapha drain placement to the lower chin and jaw area. With manipulation there is still drainage of a result amount of seropurulent material, it is now much less putrid in nature. With manipulation the drainage allows for the reduction in the swelling to the chin area. He is eating without difficulties. Continuous high-protein diet and antibiotic therapy. Drain removal when oral surgery believes it is safe. Current Visit: Yes Status: Acute Priority: High Code(s): L03.211 - CELLULITIS OF FACE SNOMED Code(s): 439466091 (2) Dental infection Current Visit: Yes Status: Acute Priority: High Code(s): K04.7 - PERIAPICAL ABSCESS WITHOUT SINUS SNOMED Code(s): 995133078 (3) Leukocytosis Current Visit: Yes Status: Acute Priority: High Code(s): D72.829 - ELEVATED WHITE BLOOD CELL COUNT, UNSPECIFIED SNOMED Code(s): 005989959
[2018-10-18] MEDS: HEPARIN SODIUM,PORCINE 5,000 UNIT/ML 1 ML VIAL SQ SCH ×3 (00:30→14:48)
[2018-10-18] MEDS: AMPICILLIN-SULBACTAM 3 GM in SODIUM CHLORIDE 0.9% 100 ML IVPB SCH ×3 (05:12→22:04)
[2018-10-18 06:41] LABS: Glucose,Whole Blood 113 mg/dL (75-99)
[2018-10-18] MEDS: INSULIN ASPART (NovoLOG) 100 UNIT/ML VIAL SQ SCH ×7 (06:44→20:18)
[2018-10-18] MEDS: INSULIN DETEMIR (LEVEMIR) 100 UNIT/ML SYR SQ SCH (06:48)
[2018-10-18] MEDS: IPRATROPIUM-ALBUTEROL 3 ML NEB INHALATION PRN ×4 (08:11→18:58)
[2018-10-18] MEDS: PANTOPRAZOLE 40 MG TABLET PO SCH (08:30)
[2018-10-18] MEDS: TAMSULOSIN 0.4 MG CAP.ER.24H PO SCH (08:30)
[2018-10-18] MEDS: TRIAMTERENE-HCTZ 37.5-25MG 1 EACH CAP PO SCH ×2 (08:30→17:46)
[2018-10-18] MEDS: LACTOBACILLUS ACIDOPH & BULGAR 1 EACH PACKET PO SCH ×4 (08:30→20:17)
[2018-10-18] MEDS: FLUCONAZOLE 100 MG TAB PO SCH (08:30)
[2018-10-18] MEDS: MULTIVITAMINS, THERA 1 EACH TAB PO SCH (08:30)
[2018-10-18] MEDS: PRAMIPEXOLE 0.5 MG TAB PO SCH ×3 (08:30→20:18)
[2018-10-18] MEDS: SERTRALINE 100 MG TAB PO SCH (08:30)
[2018-10-18] MEDS: GABAPENTIN 400 MG CAP PO SCH ×3 (08:30→20:17)
[2018-10-18] MEDS: SODIUM CHLORIDE 0.9% 1,000 ML IV SCH ×2 (08:31→20:13)
[2018-10-18 08:52] LABS: Basophils # (A) 0.1 k/uL (0-0.2); Basophils % (A) 1 %; Eosinophils # (A) 0.4 k/uL (0-0.7); Eosinophils % (A) 4 %; HCT 41.5 % (39.0-53.0); HGB 12.8 gm/dL (13.0-17.5); Hypochromasia Slight; Lymphocytes # (A) 1.9 k/uL (1.0-4.8); Lymphocytes % (A) 18 %; MCH 28.6 pg (25.0-35.0); MCHC 30.7 g/dL (31.0-37.0); MCV 93.1 fL (80.0-100.0); Mean Platelet Volume 6.6; Monocytes # (A) 0.5 k/uL (0-1.0); Monocytes % (A) 4 %; Neutrophils # (A) 7.7 k/uL (1.3-7.7); Neutrophils % (A) 72 %; Platelet Count 351 k/uL (150-450); RBC 4.46 m/uL (4.30-5.90); RDW 14.1 % (11.5-15.5); WBC 10.7 k/uL (3.8-10.6)
[2018-10-18 09:42] LABS: Albumin 3.1 g/dL (3.5-5.0); Calcium 8.6 mg/dL (8.4-10.2); Potassium 4.6 mmol/L (3.5-5.1); Total Bilirubin 0.4 mg/dL (0.2-1.3)
[2018-10-18 12:10] LABS: Glucose,Whole Blood 108 mg/dL (75-99)
--- NOTE | 2018-10-18 13:50 | P.PN ---
Progress Note - Text Progress Note Date: 10/18/18 Patient up in chair resting comfortably. Easily arousable and states that he is feeling much better. Upon exam the chin swelling has improved markedly as has the foul order. The drains are still putting out approximately 5-10 mL over the course of the last 6 hours. This seemed a bit high to remove them at this time. Assessment facial cellulitis and dental abscess. Plan due to the continued output from the drains. No removal of the drains at this time. I did irrigate the drains with 20 mL of saline mixed with peroxide. And redressed the wound. I recommend drain removal tomorrow. If discharge the patient's drains can be removed in the office and we're in the office until 12:00 on Monday.
[2018-10-18] MEDS ORDERED: VANCOMYCIN 1,750 MG in SODIUM CHLORIDE 0.9% 500 ML 500 ML IVPB SCH (15:00)
--- NOTE | 2018-10-18 15:22 | P.PN ---
Subjective Progress Note Date: 10/18/18 Patient seen and examined at bedside, reports some coughing but denies any shortness of breath, still has a Mustapha drain in reported and some drainage but states that it is not as swollen and that the amount has diminished. Afebrile overnight Objective - Vital Signs Vital signs: Vital Signs Temp 98.8 F 10/18/18 14:33 Pulse 59 L 10/18/18 14:33 Resp 16 10/18/18 14:33 BP 134/77 10/18/18 14:33 Pulse Ox 96 10/18/18 14:33 Intake & Output 10/17/18 10/18/18 10/18/18 18:59 06:59 18:59 Intake Total 894 776 Balance 894 776 Intake: Oral 894 776 Other: Voiding Method Toilet Toilet Toilet Urinal Urinal Urinal # Voids 2 2 - Exam Constitutional: No acute distress, conversant, pleasant Eyes: Anicteric sclerae, moist conjunctiva, no lid-lag, PERRLA ENMT: NC/AT,Oropharynx clear, no erythema, exudates Neck:Supple, FROM, no masses, or JVD, No carotid bruits; No thyromegaly Lungs: Clear to auscultation, Clear to percussion, Normal respiratory effort, no accessory muscle use Cardiovascular: Heart regular in rate and rhythm, No murmurs, gallops, or rubs no peripheral edema Abdominal: Soft Nontender, nom distended, no guarding, no rebound or rigidity, Normoactive bowel sounds No hepatomegaly, No splenomegaly, No palpable mass No abdominal wall hernia noted Skin: Mustapha drain and chin tenderness to palpation of the chin and submental area with surrounding erythema Extremities:No digital cyanosis No clubbing, Pedal pulses intact and symmetrical Radial pulses intact and symmetrical Normal gait and station, No calf tenderness Psychiatric: Alert and oriented to person, place and time, Appropriate affect Intact judgement Neuro: Muscles Strength 5/5 in all 4 extremities, Sensation to light touch grossly present throughout, Cranial nerves II-XII grossly intact. No focal sensory deficits - Labs CBC & Chem 7: 10/18/18 08:14 10/18/18 08:14 Labs: Abnormal Lab Results - Last 24 Hours (Table) 10/17/18 10/17/18 10/18/18 Range/Units 16:50 20:50 06:39 WBC (3.8-10.6) k/uL Hgb (13.0-17.5) gm/dL MCHC (31.0-37.0) g/dL BUN (9-20) mg/dL Glucose (74-99) mg/dL POC Glucose (mg/dL) 121 H 131 H 113 H (75-99) mg/dL ALT (21-72) U/L Alkaline Phosphatase (38-126) U/L Total Protein (6.3-8.2) g/dL Albumin (3.5-5.0) g/dL 10/18/18 10/18/18 10/18/18 Range/Units 08:14 08:14 12:09 WBC 10.7 H (3.8-10.6) k/uL Hgb 12.8 L (13.0-17.5) gm/dL MCHC 30.7 L (31.0-37.0) g/dL BUN 22 H (9-20) mg/dL Glucose 137 H (74-99) mg/dL POC Glucose (mg/dL) 108 H (75-99) mg/dL ALT 73 H (21-72) U/L Alkaline Phosphatase 128 H (38-126) U/L Total Protein 6.0 L (6.3-8.2) g/dL Albumin 3.1 L (3.5-5.0) g/dL Microbiology - Last 24 Hours (Table) 10/14/18 13:17 Anaerobic Culture - Final Mouth Anaerobic Gm Negative Bacilli Anaerobic Gm Negative Bacilli#2 Farideh albicans 10/12/18 13:45 Blood Culture - Preliminary Blood No Growth after 120 hours Assessment and Plan (1) Sepsis Narrative/Plan: * Secondary to facial cultures cellulitis and dental infection/ abscess * Patient continues to be afebrile leukocytosis continues to trend down was 21 on admission and there is currently down to 10.7 * Appreciate ID recommendations patient's continues on Unasyn and vancomycin Current Visit: Yes Status: Resolved Code(s): A41.9 - SEPSIS, UNSPECIFIED ORGANISM SNOMED Code(s): 69492376 (2) Cellulitis and abscess of face Narrative/Plan: * Treatment as above * We'll have patient seen by ENT Mustapha drain placed continues to have some purulent malodorous output * Planning to remove drain tomorrow Current Visit: Yes Status: Acute Code(s): L03.211 - CELLULITIS OF FACE; L02.01 - CUTANEOUS ABSCESS OF FACE SNOMED Code(s): 760304089 (3) Dental infection Current Visit: Yes Status: Acute Priority: High Code(s): K04.7 - PERIAPICAL ABSCESS WITHOUT SINUS SNOMED Code(s): 208086953 (4) Essential hypertension Narrative/Plan: * Blood pressure stable and controlled * continue home regimen Current Visit: Yes Status: Chronic Code(s): I10 - ESSENTIAL (PRIMARY) HYPERTENSION SNOMED Code(s): 05946281 (5) Type 2 diabetes mellitus with hyperglycemia Narrative/Plan: * Blood sugars appear relatively stable continue current insulin regimen * Continue Levemir 40 units subcu daily and NovoLog 10 units subcu every before meals with correctional scale insulin coverage Current Visit: Yes Status: Acute Code(s): E11.65 - TYPE 2 DIABETES MELLITUS WITH HYPERGLYCEMIA SNOMED Code(s): 833896578163675 Plan: Disposition * Patient doing well * anticipated discharge tomorrow * continue to follow
[2018-10-18 16:16] LABS: Glucose,Whole Blood 143 mg/dL (75-99)
[2018-10-18 20:11] LABS: Glucose,Whole Blood 110 mg/dL (75-99)
[2018-10-18] MEDS: NORTRIPTYLINE 25 MG CAP PO SCH (20:17)
[2018-10-18] MEDS: ATORVASTATIN 40 MG TAB PO SCH (20:17)
[2018-10-18] MEDS: CYCLOBENZAPRINE 5 MG TAB PO SCH (20:17)
[2018-10-18] MEDS: HYDROcodone/APAP 7.5-325MG 1 EACH TAB PO PRN (20:22)
[2018-10-18] MEDS ORDERED: ERTAPENEM 1 GM VIAL IM SCH ×2 (21:15→22:30)
[2018-10-18] MEDS ORDERED: ERTAPENEM 1 GM in SODIUM CHLORIDE 0.9% 50 ML IVPB SCH (22:00)
[2018-10-19] MEDS: HEPARIN SODIUM,PORCINE 5,000 UNIT/ML 1 ML VIAL SQ SCH ×2 (00:26→07:39)
[2018-10-19] MEDS: SODIUM CHLORIDE 0.9% 1,000 ML IV SCH (00:28)
[2018-10-19 04:25] VITALS: RESP 18
[2018-10-19 07:07] LABS: Glucose,Whole Blood 173 mg/dL (75-99)
[2018-10-19] MEDS: IPRATROPIUM-ALBUTEROL 3 ML NEB INHALATION PRN ×2 (07:07→12:52)
[2018-10-19] MEDS: INSULIN ASPART (NovoLOG) 100 UNIT/ML VIAL SQ SCH ×4 (07:38→12:18)
[2018-10-19] MEDS: TAMSULOSIN 0.4 MG CAP.ER.24H PO SCH (07:39)
[2018-10-19] MEDS: TRIAMTERENE-HCTZ 37.5-25MG 1 EACH CAP PO SCH (07:39)
[2018-10-19] MEDS: FLUCONAZOLE 100 MG TAB PO SCH (07:39)
[2018-10-19] MEDS: INSULIN DETEMIR (LEVEMIR) 100 UNIT/ML SYR SQ SCH (07:39)
[2018-10-19] MEDS: GABAPENTIN 400 MG CAP PO SCH (07:40)
[2018-10-19] MEDS: LACTOBACILLUS ACIDOPH & BULGAR 1 EACH PACKET PO SCH (07:40)
[2018-10-19] MEDS: SERTRALINE 100 MG TAB PO SCH (07:40)
[2018-10-19] MEDS: MULTIVITAMINS, THERA 1 EACH TAB PO SCH (07:40)
[2018-10-19] MEDS: PANTOPRAZOLE 40 MG TABLET PO SCH (07:40)
[2018-10-19] MEDS: PRAMIPEXOLE 0.5 MG TAB PO SCH (07:40)
--- NOTE | 2018-10-19 08:09 | P.PN ---
Progress Note - Text Progress Note Date: 10/19/18 Patient's up in bed watching TV. Tolerating meals without difficulty. Recently lost IV access with inability to restart. Patient's been receiving antibiotic via the IM route. Patient reports one dressing knife changer the night, he has retained the pad, minimal discharge from the drains overnight. No intraoral fistula noted. Maximum incisal opening within normal limits. Cultures reviewed with gram-negative organisms present as well as Farideh. White count continues to trending down. Assessment cellulitis and abscess of face is improving. Dental infection has improved. Plan due to the decreased output from the extraoral drains and his children plan to remove the drains. Patient should follow-up beginning to middle of next week in my office. Any questions or concerns please reconsult.
[2018-10-19 08:10] VITALS: BP 142/70; TEMP 98.1
[2018-10-19 11:20] VITALS: BMI 41.5
[2018-10-19 11:51] LABS: Glucose,Whole Blood 133 mg/dL (75-99)
[2018-10-19 13:02] VITALS: PULSE 80
--- NOTE | 2018-10-19 13:19 | P.DS ---
Providers Date of admission: 10/12/18 16:53 Expected date of discharge: 10/19/18 Attending physician: Mathew Brooks MD Consults: 10/12/18 15:21 Consult Physician Routine Consulting Provider: Isaías Blackburn Consult Reason/Comments: Dental infection Do you want consulting provider notified?: Yes 10/13/18 10:02 Consult Physician Routine Consulting Provider: Chi Ji Consult Reason/Comments: facial cellulitis, sepsis Do you want consulting provider notified?: Yes Primary care physician: Akiko Lynch - Discharge Diagnosis(es) (1) Sepsis Current Visit: Yes Status: Resolved (2) Cellulitis and abscess of face Current Visit: Yes Status: Acute (3) Dental infection Current Visit: Yes Status: Acute Priority: High (4) Essential hypertension Current Visit: Yes Status: Chronic (5) Type 2 diabetes mellitus with hyperglycemia Current Visit: Yes Status: Acute Hospital Course: The patient is a 73-year-old obese male that was admitted with sepsis due to facial cellulitis and abscess secondary to a dental infection after presenting with a history of lower jaw pain secondary to infected tooth and after being seen by his dentist and placed on penicillin. On admission the patient was noted to have a severe leukocytosis and that got as high as 27.8 and the patient was initiated on empiric IV antibiotic therapy with Unasyn and vancomycin, ENT was consulted and Dr. Blackburn performed extraoral I&D in placed a Mustapha drain, wound cultures indicated anaerobic gram-negative bacilli and Farideh. The patient continued to have some purulent putrid drainage from his drain which progressively improved and the drain was removed after no intraoral fistula was noted. The patient was subsequently discharged home in stable condition with antibiotics per ID recommendations. This discharge process took approximately 35 minutes. Focused exam derm: Resolving erythema without any significant drainage, improvement of facial cellulitis and abscess Patient Condition at Discharge: Good Plan - Discharge Summary Discharge Rx Participant: Yes New Discharge Prescriptions: New Amoxic-Pot Clav 875-125Mg [Augmentin 875-125] 1 tab PO Q12HR #28 tablet Continue Nortriptyline [Pamelor] 50 mg PO HS@2100 Cyclobenzaprine [Flexeril] 5 mg PO HS@2100 Cetirizine HCl [Zyrtec] 10 mg PO DAILY PRN PRN Reason: allergies Sertraline [Zoloft] 100 mg PO DAILY@0900 Pramipexole [Mirapex] 0.5 mg PO BID@0900,1700 Pramipexole [Mirapex] 1 mg PO HS metFORMIN HCL [Glucophage] 500 mg PO BID@0900,1700 Lisinopril 20 mg PO DAILY@0900 Atorvastatin [Lipitor] 40 mg PO HS@2100 Aspirin EC [Ecotrin Low Dose] 81 mg PO DAILY@0900 Nitroglycerin Sl Tabs [Nitrostat] 0.4 mg SL Q5M PRN PRN Reason: Chest Pain Insulin Glargine/Lixisenatide [Soliqua 100 Unit-33 Mcg/ml Pen] 60 units SQ DAILY Metoprolol Tartrate 25 mg PO BID@0900,2100 Gabapentin [Neurontin] 400 mg PO TID@0900,1700,2099 HYDROcodone/APAP 7.5-325MG [[place] 7.5-325] 1 tab PO Q6HR PRN PRN Reason: Pain Tamsulosin [Flomax] 0.4 mg PO DAILY@0900 Triamcinolone 0.5% Cream [Kenalog 0.5% Cream] 1 applic TOPICAL DAILY PRN PRN Reason: Skin Irritation Nystatin 100,000Unit/gm Cream [Mycostatin Cream] 1 applic TOPICAL DAILY PRN PRN Reason: Skin Irritation Ipratropium-Albuterol Nebulize [Duoneb 0.5 mg-3 mg/3 ml Soln] 3 ml INHALATION RT-QID PRN PRN Reason: Shortness Of Breath Clobetasol Propionate [Temovate 0.05% Cream] 1 applic TOPICAL DAILY PRN PRN Reason: Skin Irritation Insulin Aspart (Niacinamide) [Fiasp 100 Unit/ml Flextouch] 10 unit SQ AC-TID Triamterene-Hctz 37.5-25Mg [Dyazide 37.5-25 Capsule] 1 cap PO BID@0900,1700 Sf 5000 Plus 1.1% Flouride 1 applic PO BID PRN PRN Reason: CAVITIES Discharge Medication List Aspirin EC [Ecotrin Low Dose] 81 mg PO DAILY@0900 02/23/18 [History] Atorvastatin [Lipitor] 40 mg PO HS@2100 02/23/18 [History] Cetirizine HCl [Zyrtec] 10 mg PO DAILY PRN 02/23/18 [History] Cyclobenzaprine [Flexeril] 5 mg PO HS@209902/23/18 [History] Insulin Glargine/Lixisenatide [Soliqua 100 Unit-33 Mcg/ml Pen] 60 units SQ DAILY 02/23/18 [History] Lisinopril 20 mg PO DAILY@0900 02/23/18 [History] Nitroglycerin Sl Tabs [Nitrostat] 0.4 mg SL Q5M PRN 02/23/18 [History] Nortriptyline [Pamelor] 50 mg PO HS@209902/23/18 [History] Pramipexole [Mirapex] 0.5 mg PO BID@0900,1700 02/23/18 [History] Pramipexole [Mirapex] 1 mg PO HS 02/23/18 [History] Sertraline [Zoloft] 100 mg PO DAILY@0900 02/23/18 [History] metFORMIN HCL [Glucophage] 500 mg PO BID@0900,1700 02/23/18 [History] Metoprolol Tartrate 25 mg PO BID@0900,209902/28/18 [History] Gabapentin [Neurontin] 400 mg PO TID@0900,1700,209910/09/18 [History] HYDROcodone/APAP 7.5-325MG [[place] 7.5-325] 1 tab PO Q6HR PRN 10/09/18 [History] Clobetasol Propionate [Temovate 0.05% Cream] 1 applic TOPICAL DAILY PRN 10/12/18 [History] Insulin Aspart (Niacinamide) [Fiasp 100 Unit/ml Flextouch] 10 unit SQ AC-TID 10/12/18 [History] Ipratropium-Albuterol Nebulize [Duoneb 0.5 mg-3 mg/3 ml Soln] 3 ml INHALATION RT-QID PRN 10/12/18 [History] Nystatin 100,000Unit/gm Cream [Mycostatin Cream] 1 applic TOPICAL DAILY PRN 10/12/18 [History] Sf 5000 Plus 1.1% Flouride 1 applic PO BID PRN 10/12/18 [History] Tamsulosin [Flomax] 0.4 mg PO DAILY@0900 10/12/18 [History] Triamcinolone 0.5% Cream [Kenalog 0.5% Cream] 1 applic TOPICAL DAILY PRN 10/12/18 [History] Triamterene-Hctz 37.5-25Mg [Dyazide 37.5-25 Capsule] 1 cap PO BID@0900,1700 10/12/18 [History] Amoxic-Pot Clav 875-125Mg [Augmentin 875-125] 1 tab PO Q12HR #28 tablet 10/19/18 [Rx] Follow up Appointment(s)/Referral(s): Isaías Blackburn DDS [STAFF PHYSICIAN] - 10/22/18 9:45 am () [facility], [NON-STAFF] - Akiko Lynch MD [Primary Care Provider] - 1-2 days Discharge Disposition: HOME WITH HOME HEALTH SERVICES
== END 2018-10-19 13:55 | disposition home health service (06) | DRG 872 ==
LOC: EC 12:42 → 4SSUR 16:53
PROVIDERS: ADMIT Internal Medicine; ATTEND Internal Medicine
PROC: 0J9100Z Drainage of Face Subcutaneous Tissue and Fascia with Drainage Device, Open Approach (ICD-10-PCS; principal; 2018-10-16)
DX: A41.9 Sepsis, unspecified organism (principal); Z68.41 Body mass index [BMI] 40.0-44.9, adult; L02.01 Cutaneous abscess of face; L03.211 Cellulitis of face; E11.65 Type 2 diabetes mellitus with hyperglycemia; E66.01 Morbid (severe) obesity due to excess calories; E78.5 Hyperlipidemia, unspecified; E86.0 Dehydration; F41.9 Anxiety disorder, unspecified; G25.81 Restless legs syndrome; I10 Essential (primary) hypertension; I25.10 Atherosclerotic heart disease of native coronary artery without angina pectoris; I25.2 Old myocardial infarction; K04.7 Periapical abscess without sinus; K21.9 Gastro-esophageal reflux disease without esophagitis; M27.2 Inflammatory conditions of jaws; N40.0 Benign prostatic hyperplasia without lower urinary tract symptoms; Z79.4 Long term (current) use of insulin; Z79.82 Long term (current) use of aspirin; Z79.899 Other long term (current) drug therapy; Z85.828 Personal history of other malignant neoplasm of skin; Z79.891 Long term (current) use of opiate analgesic; Z91.018 Allergy to other foods; Z95.5 Presence of coronary angioplasty implant and graft; Z98.42 Cataract extraction status, left eye; Z98.41 Cataract extraction status, right eye; Z98.1 Arthrodesis status
CPT/HCPCS: 36415; 70491; 71045; 71275; 80048; 80053; 80076; 80202; 81003; 82803; 83036; 83605; 83690; 83735; 83880; 84484; 85025; 85027; 85379; 87040; 87070; 87075; 87205; 87324; 93005; 94640; 94660; 94760; 96361; 96365; 96374; 96375; 99284; 99285

== ENCOUNTER 2018-10-27 14:05 | Emergency (ER) | payer MEDICARE ==
[2018-10-27 14:17] VITALS: RESP 18
--- NOTE | 2018-10-27 15:37 | XR ---
EXAMINATION TYPE: XR foot complete RT DATE OF EXAM: 10/27/2018 COMPARISON: 07/05/2011 HISTORY: Pain TECHNIQUE: 3 views FINDINGS: There are multiple screws at the talonavicular joint. There are healing fractures of the di stal second and third metatarsals with callus formation. Fracture lines are still visible. There is p lantar calcaneal spurring. There is small Achilles calcaneal spur. I see no acute fracture. There is mild soft tissue swelling of the forefoot. IMPRESSION: Healing distal second and third metatarsal fractures. Previous surgery at the talonavicul ar joint. Joint spaces still visible. Hypertrophic spurring at the talonavicular joint has progressed compared to old exam. No definite evidence of osteomyelitis.
--- NOTE | 2018-10-27 15:38 | XR ---
EXAMINATION TYPE: XR ankle complete RT DATE OF EXAM: 10/27/2018 COMPARISON: NONE HISTORY: Pain TECHNIQUE: 3 views FINDINGS: Ankle mortise is anatomic. I see no fracture nor dislocation. There is some calcaneal spurr ing. There is fusion surgery at the talonavicular joint with sclerosis and spur formation. Joint spac es still visible. IMPRESSION: Previous surgery. No fracture seen. Mild soft tissue swelling around the ankle.
--- NOTE | 2018-10-27 15:46 | ED ---
General Adult HPI - General Chief complaint: Dizziness Stated complaint: Foot injury Time Seen by Provider: 10/27/18 14:28 Source: patient Mode of arrival: ambulatory Limitations: no limitations - History of Present Illness Initial comments: Patient is 73-year-old diabetic male presents to the emergency Department with a chief complaint of bruising around the toe. Patient reports last night he was in the garage when he pulled out a toolbox and lightheaded and caused him to drop the box on his right foot. Patient denies loss of consciousness at time of incident. Patient reports limited sensation in bilateral feet due to his diabetic neuropathy. Patient states that he developed edema in the right foot after the incident but denies any erythema. Patient is concerned about the ecchymosis surrounding the first MTP joint. Patient reports minimal pain. Patient had a diabetic ulcer on the tip of the right hallux that has been healing without problems. Patient is seen by a home nurse 3 times a week for wound check. Patient denies calf tenderness bilaterally. Patient reports orthostatic hypotension and states that is his baseline. Patient denies any chest pain, chest tightness, shortness of breath, dizziness or lightheadedness. Patient uses a potassium sparing diuretic. - Related Data Home Medications Medication Instructions Recorded Confirmed Aspirin EC [Ecotrin Low Dose] 81 mg PO DAILY@0900 02/23/18 10/12/18 Atorvastatin [Lipitor] 40 mg PO HS@2100 02/23/18 10/12/18 Cetirizine HCl [Zyrtec] 10 mg PO DAILY PRN 02/23/18 10/12/18 Cyclobenzaprine [Flexeril] 5 mg PO HS@209902/23/18 10/12/18 Insulin Glargine/Lixisenatide 60 units SQ DAILY 02/23/18 10/12/18 [Soliqua 100 Unit-33 Mcg/ml Pen] Lisinopril 20 mg PO DAILY@0900 02/23/18 10/12/18 Nitroglycerin Sl Tabs [Nitrostat] 0.4 mg SL Q5M PRN 02/23/18 10/12/18 Nortriptyline [Pamelor] 50 mg PO HS@2100 02/23/18 10/12/18 Pramipexole [Mirapex] 0.5 mg PO BID@0900,1700 02/23/18 10/12/18 Pramipexole [Mirapex] 1 mg PO HS 02/23/18 10/12/18 Sertraline [Zoloft] 100 mg PO DAILY@0900 02/23/18 10/12/18 metFORMIN HCL [Glucophage] 500 mg PO BID@0900,1700 02/23/18 10/12/18 Metoprolol Tartrate 25 mg PO BID@0900,2100 02/28/18 10/12/18 Gabapentin [Neurontin] 400 mg PO TID@0900,1700,2100 10/09/18 10/12/18 HYDROcodone/APAP 7.5-325MG [[place] 1 tab PO Q6HR PRN 10/09/18 10/12/18 7.5-325] Clobetasol Propionate [Temovate 1 applic TOPICAL DAILY PRN 10/12/18 10/12/18 0.05% Cream] Insulin Aspart (Niacinamide) 10 unit SQ AC-TID 10/12/18 10/12/18 [Fiasp 100 Unit/ml Flextouch] Ipratropium-Albuterol Nebulize 3 ml INHALATION RT-QID PRN 10/12/18 10/12/18 [Duoneb 0.5 mg-3 mg/3 ml Soln] Nystatin 100,000Unit/gm Cream 1 applic TOPICAL DAILY PRN 10/12/18 10/12/18 [Mycostatin Cream] Sf 5000 Plus 1.1% Flouride 1 applic PO BID PRN 10/12/18 10/12/18 Tamsulosin [Flomax] 0.4 mg PO DAILY@0900 10/12/18 10/12/18 Triamcinolone 0.5% Cream [Kenalog 1 applic TOPICAL DAILY PRN 10/12/18 10/12/18 0.5% Cream] Triamterene-Hctz 37.5-25Mg 1 cap PO BID@0900,1700 10/12/18 10/12/18 [Dyazide 37.5-25 Capsule] Previous Rx's Medication Instructions Recorded Amoxic-Pot Clav 875-125Mg 1 tab PO Q12HR #28 tablet 10/19/18 [Augmentin 875-125] Allergies Allergy/AdvReac Type Severity Reaction Status Date / Time Mushroom Allergy Diarrhea Verified 10/27/18 14:11 Review of Systems ROS Statement: Those systems with pertinent positive or pertinent negative responses have been documented in the HPI. ROS Other: All systems not noted in ROS Statement are negative. Past Medical History Past Medical History: Coronary Artery Disease (CAD), Cancer, Diabetes Mellitus, Hyperlipidemia, Hypertension, Myocardial Infarction (NH) Additional Past Medical History / Comment(s): RLS. 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 BPH. GERD Last Myocardial Infarction Date:: 2002 History of Any Multi-Drug Resistant Organisms: None Reported Past Surgical History: Appendectomy, Heart Catheterization With Stent, Orthopedic Surgery Additional Past Surgical History / Comment(s): COLONOSCOPY, BILAT CATARACTS, RT ROTATOR CUFF REPAIR, RT EYE SX, BOWEL SX AT AGE 6, RT FOOT FUSION, CERVICAL FUSION X 2, SKIN CANCER ON BACK REMOVED Past Anesthesia/Blood Transfusion Reactions: Motion Sickness Date of Last Stent Placement:: 2002, 2012 Past Psychological History: Anxiety Smoking Status: Never smoker Past Alcohol Use History: None Reported Past Drug Use History: None Reported - Past Family History Father Family Medical History: Cancer Sister(s) Family Medical History: Cancer General Exam Limitations: no limitations General appearance: alert, in no apparent distress Head exam: Present: atraumatic, normocephalic, normal inspection Eye exam: Present: normal appearance, PERRL, EOMI Pupils: Present: normal accommodation ENT exam: Present: normal exam, mucous membranes moist, normal external ear exam Neck exam: Present: normal inspection Respiratory exam: Present: normal lung sounds bilaterally Cardiovascular Exam: Present: regular rate, normal rhythm, normal heart sounds Extremities exam: Present: normal capillary refill (+2 dorsalis pedis and posterior tibialis bilaterally), pedal edema (+1). Absent: normal inspection (Right foot and ankle swelling. Ecchymosis on the first right MTP joint. Healing abrasion on the distal end of the first right hallux.), full ROM (Limited range of motion due to previous procedure), tenderness, calf tenderness Back exam: Present: normal inspection, full ROM Neurological exam: Present: alert, oriented X3 Psychiatric exam: Present: normal affect, normal mood Skin exam: Present: warm, intact, normal color Course Vital Signs 10/27/18 14:12 Temperature 98.1 F Pulse Rate 81 Respiratory 18 Rate Blood Pressure 101/67 O2 Sat by Pulse 96 Oximetry Medical Decision Making - Medical Decision Making Patient is a 73-year-old male presenting to emergency Department with a chief complaint of bruising around the big toe. X-ray of the ankle is indicative of a previous procedure. X-ray of the foot is indicative of a healing distal second and third metatarsal fractures. Hypertrophic spurring at the talonavicular joint has progressed compared to an old exam. In this point I will suspicion for DVT. Patient does not appear to have an infection of the foot. The ecchymosis is most likely due trauma to the foot caused by the toolbox that fell on it. Patient advised to follow-up with his linux kernel engineer. Strict return parameters were thoroughly discussed the patient was understanding and agreeable. Case discussed with physician. Disposition Clinical Impression: Traumatic ecchymosis of toe of right foot Disposition: HOME SELF-CARE Condition: Stable Instructions (If sedation given, give patient instructions): Crush Injury (ED) Additional Instructions: Please follow up with a linux kernel engineer. Please follow-up with your health care coordinator regarding the dizzy spells. Please return to emergency department if the symptoms worsen. Is patient prescribed a controlled substance at d/c from ED?: No Referrals: Akiko Lynch MD [Primary Care Provider] - 1-2 days Time of Disposition: 16:40
[2018-10-27 16:54] VITALS: BP 113/63; PULSE 70; TEMP 98.2
== END 2018-10-27 16:54 | disposition home or self-care (01) ==
LOC: EC 14:05
DX: S90.111A Contusion of right great toe without damage to nail, initial encounter (principal); R42 Dizziness and giddiness; I25.10 Atherosclerotic heart disease of native coronary artery without angina pectoris; I10 Essential (primary) hypertension; I25.2 Old myocardial infarction; E78.5 Hyperlipidemia, unspecified; F41.9 Anxiety disorder, unspecified; E11.40 Type 2 diabetes mellitus with diabetic neuropathy, unspecified; Z79.4 Long term (current) use of insulin; Z79.82 Long term (current) use of aspirin; Z79.899 Other long term (current) drug therapy; Z91.018 Allergy to other foods; Z85.828 Personal history of other malignant neoplasm of skin; Z95.5 Presence of coronary angioplasty implant and graft; W20.8XXA Other cause of strike by thrown, projected or falling object, initial encounter; Y92.59 Other trade areas as the place of occurrence of the external cause
CPT/HCPCS: 99284

== ENCOUNTER → 2018-11-02 | Outpatient (CLI) | payer MEDICARE ==
[2018-11-02 15:36] LABS: Basophils % (A) 0 %; Eosinophils # (A) 0.4 k/uL (0-0.7); Eosinophils % (A) 6 %; HGB 13.6 gm/dL (13.0-17.5); Lymphocytes # (A) 1.3 k/uL (1.0-4.8); Lymphocytes % (A) 19 %; MCH 28.8 pg (25.0-35.0); MCHC 31.7 g/dL (31.0-37.0); MCV 91.1 fL (80.0-100.0); Mean Platelet Volume 7.2; Monocytes # (A) 0.4 k/uL (0-1.0); Monocytes % (A) 6 %; Neutrophils # (A) 4.5 k/uL (1.3-7.7); Neutrophils % (A) 67 %; Platelet Count 265 k/uL (150-450); RBC 4.73 m/uL (4.30-5.90); RDW 14.4 % (11.5-15.5); WBC 6.6 k/uL (3.8-10.6)
[2018-11-02 16:52] LABS: Erythrocyte Sedimentation Rate 30 mm/hr (0-15)
[2018-11-02 23:23] LABS: Rheumatoid Factor 5 IU/mL (0-15)
[2018-11-02 23:34] LABS: C Reactive Protein 1.1 mg/dL (0.0-0.8); Uric Acid 6.1 mg/dL (3.7-8.7)
== END | disposition home or self-care (01) ==
LOC: LABWHC1 15:11
PROVIDERS: ATTEND Podiatrist Foot & Ankle Surgery
DX: M10.9 Gout, unspecified (principal); B99.9 Unspecified infectious disease
CPT/HCPCS: 36415; 84550; 85025; 85652; 86038; 86140; 86431

== ENCOUNTER 2018-12-13 14:06 | Emergency (ER) | payer MEDICARE ==
[2018-12-13 14:13] VITALS: TEMP 97.8
[2018-12-13] MEDS ORDERED: SODIUM CHLORIDE 0.9% 1,000 ML IV STA (14:23)
--- NOTE | 2018-12-13 14:39 | ED ---
General Adult HPI - General Chief complaint: Abdominal Pain Stated complaint: Flank pain Time Seen by Provider: 12/13/18 14:16 Source: patient, RN notes reviewed, old records reviewed Mode of arrival: ambulatory Limitations: no limitations - History of Present Illness Initial comments: 73-year-old male patient in the chief complaint of 3 days of left flank pain. Patient was that this pain has been waxing and waning for 3 days. Describes it as a sharp pain. Patient works at a has at times radiated down into his left lower quadrant region. Patient denies any hematuria, denies any urinary symptoms. Patient denies any other complaints at this time. Denies any fevers chills, symptoms of infection. Systemic: Pt denies fatigue, fever/chills, rash. Pt denies weakness, night sweats, weight loss. Neuro: Pt denies headache, visual disturbances, syncope or pre-syncope. HEENT: Pt denies ocular discharge or irritation, otalgia, rhinorrhea, pharyngiti s or notable lymphadenopathy. Cardiopulmonary: Pt denies chest pain, SOB, heart palpitations, dyspnea on exertion. Abdominal/GI: Pt denies abdominal pain, n/v/d. : Pt denies dysuria, burning w/ urination, frequency/urgency. Denies new onset urinary or bowel incontinence. MSK: Pt denies loss of strength or function in extremities. Neuro: Pt denies new onset weakness, paresthesias. - Related Data Home Medications Medication Instructions Recorded Confirmed Aspirin EC [Ecotrin Low Dose] 81 mg PO DAILY@0900 02/23/18 10/12/18 Atorvastatin [Lipitor] 40 mg PO HS@209902/23/18 10/12/18 Cetirizine HCl [Zyrtec] 10 mg PO DAILY PRN 02/23/18 10/12/18 Cyclobenzaprine [Flexeril] 5 mg PO HS@2100 02/23/18 10/12/18 Insulin Glargine/Lixisenatide 60 units SQ DAILY 02/23/18 10/12/18 [[place] 100 Unit-33 Mcg/ml Pen] Lisinopril 20 mg PO DAILY@0900 02/23/18 10/12/18 Nitroglycerin Sl Tabs [Nitrostat] 0.4 mg SL Q5M PRN 02/23/18 10/12/18 Nortriptyline [Pamelor] 50 mg PO HS@209902/23/18 10/12/18 Pramipexole [Mirapex] 0.5 mg PO BID@0900,1700 02/23/18 10/12/18 Pramipexole [Mirapex] 1 mg PO HS 02/23/18 10/12/18 Sertraline [Zoloft] 100 mg PO DAILY@0900 02/23/18 10/12/18 metFORMIN HCL [Glucophage] 500 mg PO BID@0900,1700 02/23/18 10/12/18 Metoprolol Tartrate 25 mg PO BID@0900,2100 02/28/18 10/12/18 Gabapentin [Neurontin] 400 mg PO TID@0900,1700,209910/09/18 10/12/18 HYDROcodone/APAP 7.5-325MG [[place] 1 tab PO Q6HR PRN 10/09/18 10/12/18 7.5-325] Clobetasol Propionate [Temovate 1 applic TOPICAL DAILY PRN 10/12/18 10/12/18 0.05% Cream] Insulin Aspart (Niacinamide) 10 unit SQ AC-TID 10/12/18 10/12/18 [Fiasp 100 Unit/ml Flextouch] Ipratropium-Albuterol Nebulize 3 ml INHALATION RT-QID PRN 10/12/18 10/12/18 [Duoneb 0.5 mg-3 mg/3 ml Soln] Nystatin 100,000Unit/gm Cream 1 applic TOPICAL DAILY PRN 10/12/18 10/12/18 [Mycostatin Cream] Sf 5000 Plus 1.1% Flouride 1 applic PO BID PRN 10/12/18 10/12/18 Tamsulosin [Flomax] 0.4 mg PO DAILY@0900 10/12/18 10/12/18 Triamcinolone 0.5% Cream [Kenalog 1 applic TOPICAL DAILY PRN 10/12/18 10/12/18 0.5% Cream] Triamterene-Hctz 37.5-25Mg 1 cap PO BID@0900,1700 10/12/18 10/12/18 [Dyazide 37.5-25 Capsule] Previous Rx's Medication Instructions Recorded Amoxic-Pot Clav 875-125Mg 1 tab PO Q12HR #28 tablet 10/19/18 [Augmentin 875-125] Allergies Allergy/AdvReac Type Severity Reaction Status Date / Time Mushroom Allergy Diarrhea Verified 12/13/18 14:13 Review of Systems ROS Statement: Those systems with pertinent positive or pertinent negative responses have been documented in the HPI. ROS Other: All systems not noted in ROS Statement are negative. Past Medical History Past Medical History: Coronary Artery Disease (CAD), Cancer, Diabetes Mellitus, Hyperlipidemia, Hypertension, Myocardial Infarction ([place]) Additional Past Medical History / Comment(s): RLS. 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 BPH. GERD Last Myocardial Infarction Date:: 2002 History of Any Multi-Drug Resistant Organisms: None Reported Past Surgical History: Appendectomy, Heart Catheterization With Stent, Orthopedic Surgery Additional Past Surgical History / Comment(s): COLONOSCOPY, BILAT CATARACTS, RT ROTATOR CUFF REPAIR, RT EYE SX, BOWEL SX AT AGE 6, RT FOOT FUSION, CERVICAL FUSION X 2, SKIN CANCER ON BACK REMOVED Past Anesthesia/Blood Transfusion Reactions: Motion Sickness Date of Last Stent Placement:: 2002, 2012 Past Psychological History: Anxiety Smoking Status: Never smoker Past Alcohol Use History: None Reported Past Drug Use History: None Reported - Past Family History Father Family Medical History: Cancer Sister(s) Family Medical History: Cancer General Exam - General Exam Comments Initial Comments: Constitutional: NAD, AOX3, Pt has pleasant affect. HEENT: NC/AT, trachea midline, neck supple, no lymphadenopathy. Posterior pharynx non erythematous, without exudates. External ears appear normal, without discharge. Mucous membranes moist. Eyes PERRLA, EOM intact. There is no scleral icterus. No pallor noted. Cardiopulmonary: RRR, no murmurs, rubs or gallops, no JVD noted. Lungs CTAB in anterior and posterior stern. No peripheral edema. Abdominal exam: Abdomen soft and non-distended. Abdomen non-tender to palpation in all 4 quadrants. Bowel sounds active in LLQ. No hepatosplenomegaly. No ecchymosis. Left lower flank region mildly tender to palpation. No CVA tenderness bilaterally. Neuro: CN II-XII grossly intact. No nuchal rigidity. No raccon eyes, no huerta sign, no hemotympanum. No cervical spinal tenderness. MSK: No posterior calf tenderness bilaterally, homans sign negative bilaterally. Posterior tibialis and radial pulse +2 bilaterally. Sensation intact in upper and lower extremities. Full active ROM in upper and lower extremities, 5/5 stregnth. Limitations: no limitations Course Vital Signs 12/13/18 14:11 Temperature 97.8 F Pulse Rate 75 Respiratory 20 Rate Blood Pressure 118/80 O2 Sat by Pulse 99 Oximetry Medical Decision Making - Medical Decision Making 73-year-old male patient in the chief complaint of 3 days of left flank pain. Patient was that this pain has been waxing and waning for 3 days. Describes it as a sharp pain. Patient works at a has at times radiated down into his left lower quadrant region. Patient denies any hematuria, denies any urinary symptoms. Patient denies any other complaints at this time. Denies any fevers chills, symptoms of infection. Patient will signs stable, afebrile. Physical exam displayed: Abdomen soft and non-distended. Abdomen non-tender to palpation in all 4 quadrants. Bowel sounds active in LLQ. No hepatosplenomegaly. No ecchymosis. Left lower flank region mildly tender to palpation. No CVA tenderness bilaterally. Investigations revealed mild hyperglycemia, otherwise non-impressive. Lactic acid 1.7. CT abdomen and pelvis without contrast did not display any nephrolithiasis or hydronephrosis. The reticulosis without diverticulitis. Mild. Umbilical fat stranding and subcutaneous, correlate for possible cellulitis. Moderate to severe sequential bladder wall thickening may represent chronic bilateral hypertrophy or cystitis. Hepatomegaly. Patient not have any cellulitic changes on the abdomen region. He is reproducible by twisting motions, likely muscular in nature. Patient will discharge, please, Motrin for pain. Patient will follow with primary care provider for no acute CT findings. Will return to ER if condition worsens. Case discussed with Dr. Clemente. - Lab Data Result diagrams: 12/13/18 14:47 12/13/18 14:47 Lab Results 12/13/18 12/13/18 12/13/18 Range/Units 14:47 14:47 14:47 WBC 8.2 (3.8-10.6) k/uL RBC 4.68 (4.30-5.90) m/uL Hgb 13.8 (13.0-17.5) gm/dL Hct 42.5 (39.0-53.0) % MCV 90.9 (80.0-100.0) fL MCH 29.5 (25.0-35.0) pg MCHC 32.4 (31.0-37.0) g/dL RDW 14.2 (11.5-15.5) % Plt Count 144 L (150-450) k/uL Neutrophils % 74 % Lymphocytes % 15 % Monocytes % 6 % Eosinophils % 4 % Basophils % 1 % Neutrophils # 6.1 (1.3-7.7) k/uL Lymphocytes # 1.3 (1.0-4.8) k/uL Monocytes # 0.5 (0-1.0) k/uL Eosinophils # 0.3 (0-0.7) k/uL Basophils # 0.0 (0-0.2) k/uL Sodium 136 L (137-145) mmol/L Potassium 4.3 (3.5-5.1) mmol/L Chloride 99 (98-107) mmol/L Carbon Dioxide 26 (22-30) mmol/L Anion Gap 11 mmol/L BUN 20 (9-20) mg/dL Creatinine 0.83 (0.66-1.25) mg/dL Est GFR (CKD-EPI)AfAm >90 (>60 ml/min/1.73 sqM) Est GFR (CKD-EPI)NonAf 89 (>60 ml/min/1.73 sqM) Glucose 268 H (74-99) mg/dL Plasma Lactic Acid Rafael 1.7 (0.7-2.0) mmol/L Calcium 9.1 (8.4-10.2) mg/dL Total Bilirubin 0.4 (0.2-1.3) mg/dL AST 26 (17-59) U/L ALT 29 (21-72) U/L Alkaline Phosphatase 130 H (38-126) U/L Total Protein 6.6 (6.3-8.2) g/dL Albumin 3.7 (3.5-5.0) g/dL Lipase 114 (23-300) U/L Urine Color Urine Appearance (Clear) Urine pH (5.0-8.0) Ur Specific [place] (1.001-1.035) Urine Protein (Negative) Urine Glucose (UA) (Negative) Urine Ketones (Negative) Urine Blood (Negative) Urine Nitrite (Negative) Urine Bilirubin (Negative) Urine Urobilinogen (<2.0) mg/dL Ur Leukocyte Esterase (Negative) 12/13/18 Range/Units 14:47 WBC (3.8-10.6) k/uL RBC (4.30-5.90) m/uL Hgb (13.0-17.5) gm/dL Hct (39.0-53.0) % MCV (80.0-100.0) fL MCH (25.0-35.0) pg MCHC (31.0-37.0) g/dL RDW (11.5-15.5) % Plt Count (150-450) k/uL Neutrophils % % Lymphocytes % % Monocytes % % Eosinophils % % Basophils % % Neutrophils # (1.3-7.7) k/uL Lymphocytes # (1.0-4.8) k/uL Monocytes # (0-1.0) k/uL Eosinophils # (0-0.7) k/uL Basophils # (0-0.2) k/uL Sodium (137-145) mmol/L Potassium (3.5-5.1) mmol/L Chloride (98-107) mmol/L Carbon Dioxide (22-30) mmol/L Anion Gap mmol/L BUN (9-20) mg/dL Creatinine (0.66-1.25) mg/dL Est GFR (CKD-EPI)AfAm (>60 ml/min/1.73 sqM) Est GFR (CKD-EPI)NonAf (>60 ml/min/1.73 sqM) Glucose (74-99) mg/dL Plasma Lactic Acid Rafael (0.7-2.0) mmol/L Calcium (8.4-10.2) mg/dL Total Bilirubin (0.2-1.3) mg/dL AST (17-59) U/L ALT (21-72) U/L Alkaline Phosphatase (38-126) U/L Total Protein (6.3-8.2) g/dL Albumin (3.5-5.0) g/dL Lipase (23-300) U/L Urine Color Light Yellow Urine Appearance Clear (Clear) Urine pH 6.5 (5.0-8.0) Ur Specific [place] 1.009 (1.001-1.035) Urine Protein Negative (Negative) Urine Glucose (UA) 3+ H (Negative) Urine Ketones Negative (Negative) Urine Blood Negative (Negative) Urine Nitrite Negative (Negative) Urine Bilirubin Negative (Negative) Urine Urobilinogen <2.0 (<2.0) mg/dL Ur Leukocyte Esterase Negative (Negative) Disposition Clinical Impression: Flank pain Disposition: HOME SELF-CARE Condition: Stable Instructions (If sedation given, give patient instructions): Flank Pain (ED) Additional Instructions: Patient to adhere to previously discussed treatment plan and will take medication(s) as directed. Patient to follow up with PCP in 1-2 days. Patient to return to ED if symptoms do not improve. Follow-up with primary care provider tomorrow. Return to ER immediately if condition worsens in any way. Is patient prescribed a controlled substance at d/c from ED?: No Referrals: Akiko Lynch MD [Primary Care Provider] - 1-2 days
[2018-12-13 14:58] LABS: Appearance,Urine Clear (Clear); Bilirubin,Urine Negative (Negative); Blood,Urine Negative (Negative); Color,Urine Light Yellow; Ketones,Urine Negative (Negative); Leukocyte Esterase,Urine Negative (Negative); Nitrite,Urine Negative (Negative); PH, Urine 6.5 (5.0-8.0); Protein,Urine Negative (Negative); Specific Gravity,Urine 1.009 (1.001-1.035); Urobilinogen,Urine <2.0 mg/dL (<2.0)
[2018-12-13 15:09] LABS: ALT 29 U/L (21-72); AST 26 U/L (17-59); African American GFR (CKD) >90 (>60 ml/min/1.73 sqM); Albumin 3.7 g/dL (3.5-5.0); Alkaline Phosphatase 130 U/L (38-126); Anion Gap 11 mmol/L; Blood Urea Nitrogen 20 mg/dL (9-20); Calcium 9.1 mg/dL (8.4-10.2); Carbon Dioxide 26 mmol/L (22-30); Chloride 99 mmol/L (98-107); Glucose 268 mg/dL (74-99); Potassium 4.3 mmol/L (3.5-5.1); Sodium 136 mmol/L (137-145); Total Bilirubin 0.4 mg/dL (0.2-1.3); Total Protein 6.6 g/dL (6.3-8.2)
[2018-12-13 15:17] LABS: Basophils % (A) 1 %; Eosinophils # (A) 0.3 k/uL (0-0.7); Eosinophils % (A) 4 %; HCT 42.5 % (39.0-53.0); HGB 13.8 gm/dL (13.0-17.5); Lymphocytes # (A) 1.3 k/uL (1.0-4.8); Lymphocytes % (A) 15 %; MCH 29.5 pg (25.0-35.0); MCHC 32.4 g/dL (31.0-37.0); MCV 90.9 fL (80.0-100.0); Mean Platelet Volume 7.5; Monocytes # (A) 0.5 k/uL (0-1.0); Monocytes % (A) 6 %; Neutrophils # (A) 6.1 k/uL (1.3-7.7); Neutrophils % (A) 74 %; Platelet Count 144 k/uL (150-450); RBC 4.68 m/uL (4.30-5.90); RDW 14.2 % (11.5-15.5); WBC 8.2 k/uL (3.8-10.6)
[2018-12-13 15:22] LABS: Glucose,Urine (UA) 3+ (Negative)
--- NOTE | 2018-12-13 16:15 | CT ---
EXAMINATION TYPE: CT abdomen pelvis wo con DATE OF EXAM: 12/13/2018 COMPARISON: None HISTORY: 73-year-old male Left sided flank pain CT DLP: 1284 mGycm. Automated exposure control for dose reduction was used. TECHNIQUE: Contiguous axial scanning of the abdomen and pelvis without IV contrast. Coronal and sagit padmini reconstructions performed. FINDINGS: Heart upper limits of normal in size without pericardial effusion. Coronary vessel calcifications are present. Some patchy density basilar right middle lobe and inferior lingula likely atelectasis or scarring. No pleural effusion. Liver enlarged at 19.9 cm. Noncontrast appearance of the liver, gallbladder, adrenal glands, kidneys, spleen with anterior splenules, and pancreas show no gross abnormality. Mild/moderate atherosclerotic calcifications abdominal aorta and iliac arteries. Mild periumbilical fat stranding within the subcutaneous adipose. Kidneys show no nephrolithiasis or hydronephrosis. No dilated small bowel, free fluid, or free air. No mesenteric or retroperitoneal lymphadenopathy. Mild to moderate stool. Proximal sigmoid diverticulosis. Moderate to severe circumferential wall thickening of the bladder. Prostate gland measures 5.1 cm wid e. No abnormal fluid collection in the pelvis. Skeletal mildly enlarged external iliac chain lymph no renay measure up to 1.1 cm, probably reactive/post inflammatory. Bones: Mild degenerative changes at the hips. Moderate to advanced degenerative disc disease througho ut the lumbar spine. Facet arthropathy lower lumbar spine. No osseous destructive process. IMPRESSION: 1. No nephrolithiasis or hydronephrosis. 2. Proximal sigmoid diverticulosis without evidence for acute diverticulitis. 3. Mild periumbilical fat stranding within the subcutaneous adipose. Correlate for possible cellulit is. 4. Moderate to severe circumferential bladder wall thickening may represent chronic bladder wall hyp ertrophy or cystitis. 5. Hepatomegaly (19.9 cm).
[2018-12-13 17:01] VITALS: BP 147/82; PULSE 81; RESP 16
== END 2018-12-13 17:01 | disposition home or self-care (01) ==
LOC: EC 14:06
DX: R10.32 Left lower quadrant pain (principal); E11.65 Type 2 diabetes mellitus with hyperglycemia; N32.89 Other specified disorders of bladder; R16.0 Hepatomegaly, not elsewhere classified; I25.10 Atherosclerotic heart disease of native coronary artery without angina pectoris; E78.5 Hyperlipidemia, unspecified; I10 Essential (primary) hypertension; K21.9 Gastro-esophageal reflux disease without esophagitis; I25.2 Old myocardial infarction; N40.0 Benign prostatic hyperplasia without lower urinary tract symptoms; F41.9 Anxiety disorder, unspecified; Z91.018 Allergy to other foods; Z79.4 Long term (current) use of insulin; Z79.82 Long term (current) use of aspirin; Z79.899 Other long term (current) drug therapy; Z85.828 Personal history of other malignant neoplasm of skin; Z90.49 Acquired absence of other specified parts of digestive tract; Z95.5 Presence of coronary angioplasty implant and graft; Z98.890 Other specified postprocedural states
CPT/HCPCS: 36415; 74176; 80053; 81003; 83605; 83690; 85025; 96360; 99284

== ENCOUNTER → 2019-01-22 | Outpatient (CLI) | payer MEDICARE ==
--- NOTE | 2019-01-23 07:22 | US ---
EXAMINATION TYPE: US carotid duplex BILAT DATE OF EXAM: 01/22/2019 COMPARISON: No previous ultrasound CLINICAL HISTORY: R42 Dizziness, Altered mental status R41.82. Dizziness, altered mental status. HTN. Previous smoker. EXAM MEASUREMENTS: RIGHT: Peak Systolic Velocity (PSV) cm/sec ----- Right CCA: 101.1 ----- Right ICA: 122.1 ----- Right ECA: 123.7 ICA/CCA ratio: 1.2 RIGHT: End Diastole cm/sec ----- Right CCA: 20.4 ----- Right ICA: 20.4 ----- Right ECA: 22.0 LEFT: Peak Systolic Velocity (PSV) cm/sec ----- Left CCA: 90.1 ----- Left ICA: 81.0 ----- Left ECA: 141.0 ICA/CCA ratio: 0.9 LEFT: End Diastole cm/sec ----- Left CCA: 22.8 ----- Left ICA: 29.2 ----- Left ECA: 21.5 VERTEBRALS (direction of flow): Right Vertebral: Antegrade Left Vertebral: Antegrade Rhythm: Normal Elevated velocity left ECA. Intimal thickening seen bilaterally. Minimal hyperechoic plaque seen bila teral carotid bifurcations and left CCA. Nonenlarged lymph node seen of the right neck measurin.3 x 0.7 x 0.4 cm. IMPRESSION: Peak systolic velocity within the right internal carotid artery approaches criteria for 50-69% stenos is however criteria are not met at this time and overall there is no hemodynamically significant sten osis within either internal carotid artery or common carotid artery. Elevated velocity is seen within the left external carotid artery suggesting mild degree stenosis (50-69%). Criteria for Assigning % of Stenosis / Diameter reduction (Estimation based on the indirect measurements of the internal carotid artery velocities (ICA PSV). 1. Normal (no stenosis)=ICA PSV < 125 cm/s: ratio < 2.0: ICA EDV<40 cm/s. 2. Less than 50% stenosis=ICA PSV < 125 cm/s: ratio < 2.0: ICA EDV<40 cm/s. 3. 50 to 69% stenosis=ICA PSV of 125 to 230 cm/s: ration 2.0 ? 4.0: ICA EDV 40-100 cm/s. 4. Greater than 70% stenosis to near occlusion= ICA PSV > 230 cm/s: ratio > 4.0: ICA EDV > 100 cm/s. 5. Near occlusion= ICA PSV velocities may be low or undetectable: variable ratio and ICA EDV. 6. Total occlusion=unable to detect flow.
== END | disposition home or self-care (01) ==
LOC: RADUSMAIN 17:57
PROVIDERS: ATTEND Psychiatry & Neurology Neurology
DX: I65.23 Occlusion and stenosis of bilateral carotid arteries (principal)
CPT/HCPCS: 93880

== ENCOUNTER → 2020-04-01 | Outpatient (CLI) | payer MEDICARE ==
--- NOTE | 2020-04-02 07:22 | US ---
EXAMINATION TYPE: US venous doppler duplex LE LT DATE OF EXAM: 04/01/2020 5:00 PM COMPARISON: NONE CLINICAL HISTORY: R22.42 swelling, M79.662 Left leg. Left leg swelling SIDE PERFORMED: Left TECHNIQUE: The lower extremity deep venous system is examined utilizing real time linear array sonog corazon with graded compression, doppler sonography and color-flow sonography. VESSELS IMAGED: Common Femoral Vein Deep Femoral Vein Greater Saphenous Vein * Femoral Vein Popliteal Vein Small Saphenous Vein * Proximal Calf Veins (* superficial vessels) Left Leg: Appears negative for DVT IMPRESSION: 1. Left lower extremity ultrasound negative for deep venous thrombosis.
== END | disposition home or self-care (01) ==
LOC: RADUSWWP 16:40
PROVIDERS: ATTEND Internal Medicine
DX: R22.42 Localized swelling, mass and lump, left lower limb (principal)

== ENCOUNTER → 2020-12-12 | Outpatient (CLI) | payer MEDICARE ==
--- NOTE | 2020-12-12 12:14 | XR ---
EXAMINATION TYPE: XR lumbar spine with bend/flex DATE OF EXAM: 12/12/2020 CLINICAL HISTORY: Low back pain and lower extremity numbness TECHNIQUE: Frontal, lateral, flexion and extension lateral, and oblique images of the lumbar spine ar e obtained. COMPARISON: Lumbar spine x-ray December 05, 2016 FINDINGS: There are 5 lumbar type vertebral bodies redemonstrated. Persistent slight dextroconvex sc oliosis centered lower lumbar spine. Loss of normal lumbar lordosis on lateral images similar to prio r. Slight grade 1 retrolisthesis L5 on S1 with moderate disc space narrowing and anterior spurring si milar to prior. Mild to moderate disc space narrowing and moderate anterior spurring L2-L3 level rede monstrated. Moderate anterior spurring L1-L2 level again seen. Dynamic images show limited flexion wi thout more prominent subluxation or disc space narrowing at any lumbar level. Oblique images appear w ithin normal limits. Overlying insulin pump is suspected. Additional mild/moderate multilevel lateral spurring again seen. [id number] vascular calcification of the overlying abdominal aorta redemo nstrated IMPRESSION: As above. No significant change from prior.
--- NOTE | 2020-12-12 12:16 | XR ---
EXAMINATION TYPE: XR cervical spine w flex/ext DATE OF EXAM: 12/12/2020 TECHNIQUE: Frontal, lateral, dynamic flexion and extension lateral, oblique, swimmers, and open mouth view of the cervical spine are obtained. HISTORY: M54.2 M54.5 COMPARISON: CT cervical spine August 04, 2017 FINDINGS: The cervical spine is not well visualized in lower cervical levels due to large body habit us even on swimmer's view. There is redemonstration anterior fusion plate with ossific fusion C5-C7 l evels. There is additional fixating change C4-C5 level. Some ossific fusion at this level is present. Vertebral body heights and disc space heights above C4 level are satisfactory. Dynamic images show l imited flexion without focal subluxation in the upper cervical spine. C1-C2 articulation remains sati sfactory on the open mouth frontal view. Overlying soft tissue is unremarkable. IMPRESSION: As above. No significant change from 2018 CT.
== END | disposition home or self-care (01) ==
LOC: RADXRMAIN 11:09
PROVIDERS: ATTEND Psychiatry & Neurology Pain Medicine
DX: M41.86 Other forms of scoliosis, lumbar region (principal); M51.36 Other intervertebral disc degeneration, lumbar region; M43.5X2 Other recurrent vertebral dislocation, cervical region
CPT/HCPCS: 72052; 72114

== ENCOUNTER → 2021-05-04 | Outpatient (CLI) | payer MEDICARE ==
--- NOTE | 2021-05-04 17:30 | US ---
EXAMINATION TYPE: US venous doppler duplex LE LT DATE OF EXAM: 05/04/2021 5:12 PM COMPARISON: 2020 CLINICAL HISTORY: M79.662 R22.42. Left leg swelling and pain SIDE PERFORMED: Left TECHNIQUE: The lower extremity deep venous system is examined utilizing real time linear array sonog corazon with graded compression, doppler sonography and color-flow sonography. VESSELS IMAGED: Common Femoral Vein Deep Femoral Vein Greater Saphenous Vein * Femoral Vein Popliteal Vein Small Saphenous Vein * Proximal Calf Veins (* superficial vessels) Left Leg: Negative for DVTGrayscale, color doppler, spectral doppler imaging performed of the deep v eins of the lower extremities. There is normal flow, compressibility, vascular waveforms. IMPRESSION: No evidence of deep vein thrombosis of the left lower extremity.
== END | disposition home or self-care (01) ==
LOC: RADUSWWP 16:56
PROVIDERS: ATTEND Internal Medicine
DX: M79.662 Pain in left lower leg (principal); R22.42 Localized swelling, mass and lump, left lower limb

== ENCOUNTER → 2021-05-24 | Outpatient (CLI) | payer MEDICARE ==
--- NOTE | 2021-05-24 15:32 | XR ---
EXAMINATION TYPE: XR ankle complete LT DATE OF EXAM: 05/24/2021 COMPARISON: NONE HISTORY: Pain TECHNIQUE: 3 views of the left ankle are submitted for evaluation. FINDINGS: There is no evidence for fracture or dislocation. Ankle mortise is intact. There is evidenc e of soft tissue swelling both medially and laterally. IMPRESSION: 1. No evidence for acute fracture.
== END | disposition home or self-care (01) ==
LOC: LABWHC1 13:39
PROVIDERS: ATTEND Internal Medicine
DX: H53.2 Diplopia (principal)
CPT/HCPCS: 36415

== ENCOUNTER → 2021-06-22 | Outpatient (CLI) | payer MEDICARE ==
--- NOTE | 2021-06-24 06:29 | MR ---
EXAMINATION TYPE: MR ankle LT wo con DATE OF EXAM: 06/22/2021 COMPARISON: None HISTORY: Left ankle pain and swelling for 2 months Multiplanar multi echo imaging of the left ankle without contrast. The Achilles tendon is intact. Plantar fascia is intact. Ankle mortise is anatomic. There is extensiv e subcutaneous edema around the lower leg and ankle. The talus appears intact. The medial and lateral collateral ligaments are intact. Subtalar joint is intact. No evidence of focal bone destruction. No evidence of a fracture. There is small plantar calcaneal spurring. The medial and lateral flexor ten dons appear intact. IMPRESSION: Mild calcaneal spurring. No evidence of ligament or tendon tear. No fracture seen. Subcutaneous edema around the leg and ankle.
== END | disposition home or self-care (01) ==
LOC: RADMRIMAIN 14:24
PROVIDERS: ATTEND Internal Medicine
DX: M77.32 Calcaneal spur, left foot (principal); R60.0 Localized edema

== ENCOUNTER 2022-06-01 12:52 | Observation (INO) | payer MEDICARE, OTHER ==
[2022-06-01] MEDS ORDERED: SODIUM CHLORIDE 0.9% 1,000 ML IV STA (13:20)
[2022-06-01 13:43] LABS: HGB 17.9 gm/dL (13.0-17.5); MCH 29.6 pg (25.0-35.0); MCHC 31.5 g/dL (31.0-37.0); MCV 93.8 fL (80.0-100.0); Mean Platelet Volume 8.3; Platelet Count 230 k/uL (150-450); RBC 6.05 m/uL (4.30-5.90); RDW 13.5 % (11.5-15.5)
[2022-06-01 13:58] LABS: HCT 56.8 % (39.0-53.0)
[2022-06-01] MEDS ORDERED: SODIUM CHLORIDE 0.9% 1,000 ML IV ONE (14:09)
--- NOTE | 2022-06-01 14:13 | ED ---
General Adult HPI - General Chief complaint: Weakness Stated complaint: weakness Time Seen by Provider: 06/01/22 12:58 Source: patient, EMS, RN notes reviewed, old records reviewed Mode of arrival: EMS Limitations: no limitations - History of Present Illness Initial comments: 36-year-old male presenting from home for evaluation of vomiting, diarrhea, ge neralized weakness. Patient states over the past 24 hours she's had multiple episodes of vomiting followed by diarrhea. No chest pain or abdominal pain. No fever. With these episodes has come weakness and he required assistance by paramedics. He had been noted to have a blood pressure of 90 systolic. - Related Data Home Medications Medication Instructions Recorded Confirmed Aspirin EC [Ecotrin Low Dose] 81 mg PO DAILY@0900 02/23/18 10/12/18 Atorvastatin [Lipitor] 40 mg PO HS@2100 02/23/18 10/12/18 Cetirizine HCl [Zyrtec] 10 mg PO DAILY PRN 02/23/18 10/12/18 Cyclobenzaprine [Flexeril] 5 mg PO HS@2100 02/23/18 10/12/18 Insulin Glargine/Lixisenatide 60 units SQ DAILY 02/23/18 10/12/18 [Soliqua 100 Unit-33 Mcg/ml Pen] Nitroglycerin Sl Tabs [Nitrostat] 0.4 mg SL Q5M PRN 02/23/18 10/12/18 Nortriptyline [Pamelor] 50 mg PO HS@2100 02/23/18 10/12/18 Pramipexole [Mirapex] 0.5 mg PO BID@0900,1700 02/23/18 10/12/18 Pramipexole [Mirapex] 1 mg PO HS 02/23/18 10/12/18 Sertraline [Zoloft] 100 mg PO DAILY@0900 02/23/18 10/12/18 lisinopriL 20 mg PO DAILY@0900 02/23/18 10/12/18 metFORMIN HCL [Glucophage] 500 mg PO BID@0900,1700 02/23/18 10/12/18 Metoprolol Tartrate 25 mg PO BID@0900,2100 02/28/18 10/12/18 Gabapentin [Neurontin] 400 mg PO TID@0900,1700,2100 10/09/18 10/12/18 HYDROcodone/APAP 7.5-325MG [[place] 1 tab PO Q6HR PRN 10/09/18 10/12/18 7.5-325] Clobetasol Propionate [Temovate 1 applic TOPICAL DAILY PRN 10/12/18 10/12/18 0.05% Cream] Insulin Aspart (Niacinamide) 10 unit SQ AC-TID 10/12/18 10/12/18 [Fiasp 100 Unit/ml Flextouch Pen] Ipratropium-Albuterol Nebulize 3 ml INHALATION RT-QID PRN 10/12/18 10/12/18 [Duoneb 0.5 mg-3 mg/3 ml Soln] Nystatin 100,000Unit/gm Cream 1 applic TOPICAL DAILY PRN 10/12/18 10/12/18 [Mycostatin Cream] Sf 5000 Plus 1.1% Flouride 1 applic PO BID PRN 10/12/18 10/12/18 Tamsulosin [Flomax] 0.4 mg PO DAILY@0900 10/12/18 10/12/18 Triamcinolone 0.5% Cream [Kenalog 1 applic TOPICAL DAILY PRN 10/12/18 10/12/18 0.5% Cream] Triamterene-Hctz 37.5-25Mg 1 cap PO BID@0900,1700 10/12/18 10/12/18 [Dyazide 37.5-25 Capsule] Previous Rx's Medication Instructions Recorded Amoxic-Pot Clav 875-125Mg 1 tab PO Q12HR #28 tablet 10/19/18 [Augmentin 875-125] Allergies Allergy/AdvReac Type Severity Reaction Status Date / Time Mushroom Allergy Diarrhea Verified 12/13/18 14:13 Review of Systems ROS Statement: Those systems with pertinent positive or pertinent negative responses have been documented in the HPI. ROS Other: All systems not noted in ROS Statement are negative. Past Medical History Past Medical History: Coronary Artery Disease (CAD), Cancer, Diabetes Mellitus, Hyperlipidemia, Hypertension, Myocardial Infarction (AL) Additional Past Medical History / Comment(s): RLS. 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 BPH. GERD Last Myocardial Infarction Date:: 2002 History of Any Multi-Drug Resistant Organisms: None Reported Past Surgical History: Appendectomy, Heart Catheterization With Stent, Orthopedic Surgery Additional Past Surgical History / Comment(s): COLONOSCOPY, BILAT CATARACTS, RT ROTATOR CUFF REPAIR, RT EYE SX, BOWEL SX AT AGE 6, RT FOOT FUSION, CERVICAL FUSION X 2, SKIN CANCER ON BACK REMOVED Past Anesthesia/Blood Transfusion Reactions: Motion Sickness Date of Last Stent Placement:: 2002, 2012 Past Psychological History: Anxiety Past Alcohol Use History: None Reported Past Drug Use History: None Reported - Past Family History Father Family Medical History: Cancer Sister(s) Family Medical History: Cancer General Exam General appearance: alert, in no apparent distress Head exam: Present: atraumatic, normocephalic Eye exam: Present: normal appearance, PERRL ENT exam: Present: mucous membranes dry Neck exam: Present: normal inspection Respiratory exam: Present: normal lung sounds bilaterally. Absent: respiratory distress, wheezes Cardiovascular Exam: Present: regular rate, normal rhythm GI/Abdominal exam: Present: soft, distended. Absent: tenderness, guarding, rebound Extremities exam: Present: normal inspection, normal capillary refill Neurological exam: Present: alert, oriented X3, CN II-XII intact. Absent: motor sensory deficit Psychiatric exam: Present: normal affect, normal mood Skin exam: Present: warm, dry, intact. Absent: cyanosis, diaphoretic Course Vital Signs 06/01/22 06/01/22 06/01/22 13:46 14:26 14:42 Pulse Rate 84 91 91 Respiratory 18 18 14 Rate Blood Pressure 93/60 106/63 106/63 O2 Sat by Pulse 95 96 98 Oximetry EKG Findings - EKG Comments: EKG Findings:: EKG: Sinus rhythm rate of 78, [place] interval 168, QRS duration 84, QTC [address] segment elevation. Medical Decision Making - Medical Decision Making Was pt. sent in by a medical professional or institution (, PA, RELIGIOUS HEALER, urgent care, hospital, or halfway...) When possible be specific @ -No Did you speak to anyone other than the patient for history (EMS, parent, family, police, friend...)? What history was obtained from this source @ -Spoke to paramedics Did you review nursing and triage notes (agree or disagree)? Why? @ -I reviewed and agree with nursing and triage notes Were old charts reviewed (outside hosp., previous admission, EMS record, old EKG, old radiological studies, urgent care reports/EKG's, halfway records)? Report findings @ -Reviewed previous visits and laboratory testing Differential Diagnosis (chest pain, altered mental status, abdominal pain women, abdominal pain men, vaginal bleeding, weakness, fever, dyspnea, syncope, headache, dizziness, GI bleed, back pain, seizure, CVA, palpatations, mental health, musculoskeletal)? @ -Differential Weakness: Hypoglycemia, shock, sepsis, hyponatremia, anemia, infection, AL, ETOH, adverse medicine reaction, overdose, stroke, this is not meant to be an all-inclusive list. EKG interpreted by me (3pts min.). @ -As above X-rays interpreted by me (1pt min.). @ -Chest x-ray reviewed no acute findings CT interpreted by me (1pt min.). @ -None done U/S interpreted by me (1pt. min.). @ -None done What testing was considered but not performed or refused? (CT, X-rays, U/S, labs)? Why? @ -None What meds were considered but not given or refused? Why? @ -None Did you discuss the management of the patient with other professionals (professionals i.e. , PA, RELIGIOUS HEALER, lab, RT, psych nurse, school social worker, sand mixer, teacher, v/stol landing signal officer, patient case manager)? Give summary @ -No Was smoking cessation discussed for >3mins.? @ -No Was critical care preformed (if so, how long)? @ -No Were there social determinants of health that impacted care today? How? (Homelessness, low income, unemployed, alcoholism, drug addiction, transportation, low edu. Level, literacy, decrease access to med. care, group home, re hab)? @ -No Was there de-escalation of care discussed even if they declined (Discuss DNR or withdrawal of care, Hospice)? DNR status @ -No What co-morbidities impacted this encounter? (DM, HTN, Smoking, COPD, CAD, Cancer, CVA, ARF, Chemo, Hep., AIDS, mental health diagnosis, sleep apnea, morbid obesity)? @ -None Was patient admitted / discharged? Hospital course, mention meds given and route, prescriptions, significant lab abnormalities, going to OR and other pertinent info. @ -76-year-old male presenting with weakness, vomiting and diarrhea. CBC showing mild leukocytosis and hemoglobin 17 likely from concentration. Given 2 L of IV fluid in the emergency department. He has a lactic acid of 5.1 which I suspect is from dehydration and not sepsis. His CMP is pending. He will be observed overnight on IV fluids. He is hungry currently without any abdominal pain no chest pain. No fever. Blood pressure response in the emergency department of fluids. Undiagnosed new problem with uncertain prognosis? @ -No Drug Therapy requiring intensive monitoring for toxicity (Heparin, Nitro, Insulin, Cardizem)? @ -No Were any procedures done? @ -No Diagnosis/symptom? @ -Dehydration, vomiting and diarrhea Acute, or Chronic, or Acute on Chronic? @ -Acute Uncomplicated (without systemic symptoms) or Complicated (systemic symptoms)? @ -Uncomplicated Side effects of treatment? @ -No Exacerbation, Progression, or Severe Exacerbation? @ -No Poses a threat to life or bodily function? How? (Chest pain, USA, AL, pneumonia, PE, COPD, DKA, ARF, appy, cholecystitis, CVA, Diverticulitis, Homicidal, Suicidal, threat to staff... and all critical care pts) @ -No - Lab Data Result diagrams: 06/01/22 13:32 Lab Results 06/01/22 06/01/22 06/01/22 Range/Units 13:32 13:32 13:32 WBC 11.0 H (3.8-10.6) k/uL RBC 6.05 H (4.30-5.90) m/uL Hgb 17.9 H (13.0-17.5) gm/dL Hct 56.8 H (39.0-53.0) % MCV 93.8 (80.0-100.0) fL MCH 29.6 (25.0-35.0) pg MCHC 31.5 (31.0-37.0) g/dL RDW 13.5 (11.5-15.5) % Plt Count 230 (150-450) k/uL MPV 8.3 Neutrophils % (Manual) 76 % Band Neuts % (Manual) 14 % Lymphocytes % (Manual) 4 % Monocytes % (Manual) 5 % Basophils % (Manual) 1 % Neutrophils # (Manual) 9.90 H (1.3-7.7) k/uL Lymphocytes # (Manual) 0.44 L (1.0-4.8) k/uL Monocytes # (Manual) 0.55 (0-1.0) k/uL Basophils # (Manual) 0.11 (0-0.2) k/uL Nucleated RBCs 0 (0-0) /100 WBC Manual Slide Review Performed Toxic Vacuolation Present RBC Morphology Normal Plasma Lactic Acid Rafael 5.1 H* (0.7-2.0) mmol/L Influenza Type A (PCR) Not Detected (Not Detectd) Influenza Type B (PCR) Not Detected (Not Detectd) RSV (PCR) Not Detected (Not Detectd) SARS-CoV-2 (PCR) Not Detected (Not Detectd) Disposition Clinical Impression: Lactic acid acidosis, Dehydration Disposition: ADMITTED IP TO THIS [facility] Condition: Stable Is patient prescribed a controlled substance at d/c from ED?: No Referrals: Akiko Lynch MD [Primary Care Provider] - 1-2 days Time of Disposition: 15:06
--- NOTE | 2022-06-01 14:24 | XR ---
EXAMINATION TYPE: XR chest 1V portable DATE OF EXAM: 06/01/2022 COMPARISON: Chest x-ray October 09, 2018 HISTORY: Weakness. TECHNIQUE: Single AP portable frontal upright view of the chest is obtained. FINDINGS: There is chronic parenchymal change particularly left lung base without suspicious new foc al air space opacity, pleural effusion, or pneumothorax seen. The cardiac silhouette size is stable and mildly enlarged. Anterior fusion plate in the cervical spine is partially imaged. IMPRESSION: Mild cardiomegaly and chronic parenchymal changes without acute pulmonary process.
[2022-06-01] MEDS: SODIUM CHLORIDE 0.9% 1,000 ML IV SCH (14:49)
[2022-06-01] MEDS ORDERED: NALOXONE 0.4 MG/ML 1 ML VIAL IV PRN (14:52)
[2022-06-01 14:53] LABS: Band Neutrophils % 14 %; Basophils # (M) 0.11 k/uL (0-0.2); Lymphocytes # (M) 0.44 k/uL (1.0-4.8); Monocytes # (M) 0.55 k/uL (0-1.0); Neutrophils % (M) 76 %; Nucleated Red Blood Cells 0 /100 WBC (0-0); Total Cells Counted 100
[2022-06-01 14:55] LABS: RBC Morphology Normal; Toxic Vacuolation Present
--- NOTE | 2022-06-01 15:19 | P.HPIM ---
History of Present Illness H&P Date: 06/01/22 Chief Complaint: Diarrhea generalized weakness Placido Cota is a 76-year-old male patient presented with concerns of vomiting diarrhea and generalized weakness. Patient reports started yesterday with multiple episodes of diarrhea and vomiting. Patient has past medical h istory of coronary artery disease, diabetes mellitus, hyperlipidemia, hypertension, myocardial infarction, heart catheterization with previous stent and anxiety. Chest x-ray completed showing mild cardiomegaly and chronic parenchymal changes without acute pulmonary process. Influenza negative, neg ative COVID-19 negative. Patient's lactic acid elevated at 5.1, WBC 11.0, CMP currently pending. Urinalysis ordered. Blood culture ordered. Abdomen ultrasound ordered. Amylase and lipase levels ordered. Current vital signs heart rate 91, respiratory rate 14, blood pressure 106/63 the pulse ox of 98% on room air. Patient given IV fluid bolus. ER protocol. Patient started on clear liquid diet awaiting further testing results Review of Systems Please refer to HPI otherwise unremarkable Past Medical History Past Medical History: Coronary Artery Disease (CAD), Cancer, Diabetes Mellitus, Hyperlipidemia, Hypertension, Myocardial Infarction (AL) Additional Past Medical History / Comment(s): RLS. 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 BPH. GERD Last Myocardial Infarction Date:: 2002 History of Any Multi-Drug Resistant Organisms: None Reported Past Surgical History: Appendectomy, Heart Catheterization With Stent, Orthopedic Surgery Additional Past Surgical History / Comment(s): COLONOSCOPY, BILAT CATARACTS, RT ROTATOR CUFF REPAIR, RT EYE SX, BOWEL SX AT AGE 6, RT FOOT FUSION, CERVICAL FUSION X 2, SKIN CANCER ON BACK REMOVED Past Anesthesia/Blood Transfusion Reactions: Motion Sickness Date of Last Stent Placement:: 2012 Past Psychological History: Anxiety Past Alcohol Use History: None Reported Past Drug Use History: None Reported - Past Family History Father Family Medical History: Cancer Sister(s) Family Medical History: Cancer Medications and Allergies Home Medications Medication Instructions Recorded Confirmed Type Aspirin EC [Ecotrin Low Dose] 81 mg PO DAILY@0900 02/23/18 10/12/18 History Atorvastatin [Lipitor] 40 mg PO HS@2100 02/23/18 10/12/18 History Cetirizine HCl [Zyrtec] 10 mg PO DAILY PRN 02/23/18 10/12/18 History Cyclobenzaprine [Flexeril] 5 mg PO HS@2100 18 08/02/19 History Insulin Glargine/Lixisenatide 60 units SQ DAILY 02/23/18 10/12/18 History [Soliqua 100 Unit-33 Mcg/ml Pen] Nitroglycerin Sl Tabs [Nitrostat] 0.4 mg SL Q5M PRN 02/23/18 10/12/18 History Nortriptyline [Pamelor] 50 mg PO HS@209902/23/18 10/12/18 History Pramipexole [Mirapex] 0.5 mg PO BID@0900,1700 02/23/18 10/12/18 History Pramipexole [Mirapex] 1 mg PO HS 02/23/18 10/12/18 History Sertraline [Zoloft] 100 mg PO DAILY@0900 02/23/18 10/12/18 History lisinopriL 20 mg PO DAILY@0900 02/23/18 10/12/18 History metFORMIN HCL [Glucophage] 500 mg PO BID@0900,1700 02/23/18 10/12/18 History Metoprolol Tartrate 25 mg PO BID@0900,2100 02/28/18 10/12/18 History Gabapentin [Neurontin] 400 mg PO TID@0900,1700,2100 10/09/18 10/12/18 History HYDROcodone/APAP 7.5-325MG [[place] 1 tab PO Q6HR PRN 10/09/18 10/12/18 History 7.5-325] Clobetasol Propionate [Temovate 1 applic TOPICAL DAILY PRN 10/12/18 10/12/18 History 0.05% Cream] Insulin Aspart (Niacinamide) 10 unit SQ AC-TID 10/12/18 10/12/18 History [Fiasp 100 Unit/ml Flextouch Pen] Ipratropium-Albuterol Nebulize 3 ml INHALATION RT-QID PRN 10/12/18 10/12/18 History [Duoneb 0.5 mg-3 mg/3 ml Soln] Nystatin 100,000Unit/gm Cream 1 applic TOPICAL DAILY PRN 10/12/18 10/12/18 History [Mycostatin Cream] Sf 5000 Plus 1.1% Flouride 1 applic PO BID PRN 10/12/18 10/12/18 History Tamsulosin [Flomax] 0.4 mg PO DAILY@0900 10/12/18 10/12/18 History Triamcinolone 0.5% Cream [Kenalog 1 applic TOPICAL DAILY PRN 10/12/18 10/12/18 History 0.5% Cream] Triamterene-Hctz 37.5-25Mg 1 cap PO BID@0900,1700 10/12/18 10/12/18 History [Dyazide 37.5-25 Capsule] Amoxic-Pot Clav 875-125Mg 1 tab PO Q12HR #28 tablet 10/19/18 Rx [Augmentin 875-125] Allergies Allergy/AdvReac Type Severity Reaction Status Date / Time Mushroom Allergy Diarrhea Verified 12/13/18 14:13 Physical Exam Vitals: Vital Signs Pulse Resp BP Pulse Ox 06/01/22 14:42 91 14 106/63 98 06/01/22 14:26 91 18 106/63 96 06/01/22 13:46 84 18 93/60 95 Intake and Output 06/01/22 06/01/22 06/01/22 06:59 14:59 22:59 Other: Weight 127.006 kg Head normocephalic Neck supple Lungs clear to auscultation bilaterally no wheezing or crackles Heart regular rate and rhythm S1-S2, no rub or gallop Abdomen is soft nontender nondistended positive bowel sounds no hepatosplenomegaly Extremities no edema Neuro alert and orientated to 3 Results CBC & Chem 7: 06/01/22 13:32 Labs: Abnormal Lab Results - Last 24 Hours (Table) 06/01/22 06/01/22 Range/Units 13:32 13:32 WBC 11.0 H (3.8-10.6) k/uL RBC 6.05 H (4.30-5.90) m/uL Hgb 17.9 H (13.0-17.5) gm/dL Hct 56.8 H (39.0-53.0) % Neutrophils # (Manual) 9.90 H (1.3-7.7) k/uL Lymphocytes # (Manual) 0.44 L (1.0-4.8) k/uL Plasma Lactic Acid Rafael 5.1 H* (0.7-2.0) mmol/L Assessment and Plan Assessment: Nausea vomiting and diarrhea Elevated lactic acid Diabetes mellitus type 2 History of essential hypertension History of hyperlipidemia Coronary artery disease with previous heart cath and stent Abdomen ultrasound ordered Continue IV bolus Awaiting CMP results Urine and blood cultures ordered Amylase and lipase levels ordered Repeat labs Time with Patient: Greater than 30 (Greater than 60% of the total time spent in counseling and coordination of care)
[2022-06-01 15:47] LABS: Albumin 3.9 g/dL (3.5-5.0); Magnesium 1.7 mg/dL (1.6-2.3); Potassium 5.1 mmol/L (3.5-5.1); Total Bilirubin 0.6 mg/dL (0.2-1.3); Total Protein 6.8 g/dL (6.3-8.2)
[2022-06-01 16:12] LABS: Amylase 94 U/L (30-110); Lipase 150 U/L (23-300)
[2022-06-01 16:38] LABS: Partial Thromboplastin Time 22.2 sec (22.0-30.0); Prothrombin Time 10.5 sec (9.0-12.0)
--- NOTE | 2022-06-01 18:22 | US ---
EXAMINATION TYPE: US abdomen complete DATE OF EXAM: 06/01/2022 COMPARISON: CT:12/13/18 CLINICAL HISTORY: n/v diarrhea. N/V x 3 days TECHNIQUE: Multiple sonographic images of the abdomen are obtained. FINDINGS: EXAM MEASUREMENTS: Liver Length: 19.2 cm Gallbladder Wall: 0.2 cm CBD: 0.40 cm Spleen: 11.5 cm Right Kidney: 11.1 x 5.5 x 6.2 cm Left Kidney: 11.2 x 4.8 x 5.5 cm Pancreas: Obscured by bowel gas Liver: Heterogeneous with increased attenuation Gallbladder: wnl Evidence for sonographic Westbrook's sign: No CBD: wnl Spleen: wnl Right Kidney: wnl Left Kidney: Dromedary hump vs mass seen on lateral left kidney prominent column of [place]. Upper IVC: Obscured by overlying bowel gas Abd Aorta: Limited due to bowel gas. Parts visualized appear wnl The liver is heterogenous with increased echotexture. No suspicious masses.. The intrahepatic portio n of the IVC and proximal abdominal aorta are within normal limits. There is no evidence of cholelit hiasis. Common bile duct is unremarkable. The visualized portions of the pancreas are homogenous. The spleen is unremarkable. Kidneys are symmetric and free of hydronephrosis. IMPRESSION: 1. Hepatic steatosis. 2. Left kidney dromedary hump versus mass. This can be further evaluated with MRI or CT renal mass p rotocol. No mass was seen on prior CT.
[2022-06-01 18:52] LABS: Glucose,Whole Blood 172 mg/dL (70-110)
[2022-06-01 20:55] LABS: Glucose,Whole Blood 147 mg/dL (70-110)
[2022-06-01] MEDS ORDERED: DEXTROSE 50% SYRINGE 50 ML IVP PRN ×2 (21:43)
[2022-06-01] MEDS: INSULIN ASPART (NovoLOG) 100 UNIT/ML VIAL SQ SCH (22:57)
[2022-06-01] MEDS: ATORVASTATIN 40 MG TAB PO SCH (23:17)
[2022-06-01] MEDS: PRAMIPEXOLE 1 MG TAB PO SCH (23:17)
[2022-06-01] MEDS: METOPROLOL TARTRATE 25 MG TAB PO SCH (23:17)
[2022-06-01] MEDS: GABAPENTIN 400 MG CAP PO SCH (23:17)
[2022-06-02 00:05] LABS: Amorphous Sediment,Urine Rare /hpf; Appearance,Urine Cloudy (Clear); Bacteria,Urine Rare /hpf; Bilirubin,Urine 1+ (Negative); Blood,Urine Negative (Negative); Color,Urine Yellow; Glucose,Urine (UA) Negative (Negative); Hyaline Casts,Urine 1 /lpf (0-2); Ketones,Urine Negative (Negative); Leukocyte Esterase,Urine Negative (Negative); Mucus,Urine Rare /hpf; Nitrite,Urine Negative (Negative); Protein,Urine 1+ (Negative); RBC,Urine 1 /hpf (0-5); Specific Gravity,Urine 1.022 (1.001-1.035); Squamous Epithelial Cell,Urine <1 /hpf (0-4); Urobilinogen,Urine <2.0 mg/dL (<2.0); WBC,Urine 3 /hpf (0-5)
[2022-06-02] MEDS: SODIUM CHLORIDE 0.9% 1,000 ML IV SCH ×2 (04:05→16:29)
[2022-06-02 07:55] LABS: Glucose,Whole Blood 188 mg/dL (70-110)
[2022-06-02] MEDS: lisinopriL 20 MG TAB PO SCH (08:23)
[2022-06-02] MEDS: METOPROLOL TARTRATE 25 MG TAB PO SCH ×2 (08:23→20:56)
[2022-06-02] MEDS: INSULIN DETEMIR (LEVEMIR) 100 UNIT/ML SYR SQ SCH (08:29)
[2022-06-02] MEDS: INSULIN ASPART (NovoLOG) 100 UNIT/ML VIAL SQ SCH ×4 (08:30→20:56)
[2022-06-02] MEDS: CHOLECALCIFEROL 25 MCG (1000 IU) TABLET PO SCH (08:30)
[2022-06-02] MEDS: GABAPENTIN 400 MG CAP PO SCH ×3 (08:30→20:57)
[2022-06-02] MEDS: SERTRALINE 100 MG TAB PO SCH (08:31)
[2022-06-02] MEDS: ONDANSETRON 4 MG/2 ML VIAL IVP PRN ×2 (08:32→21:10)
[2022-06-02] MEDS: PRAMIPEXOLE 0.5 MG TAB PO SCH ×2 (08:32→16:29)
[2022-06-02] MEDS ORDERED: TRIAMTERENE-HCTZ 37.5-25MG 1 EACH CAP PO SCH (09:00)
[2022-06-02 11:47] LABS: Glucose,Whole Blood 136 mg/dL (70-110)
[2022-06-02] MEDS ORDERED: SODIUM CHLORIDE 0.9% 500 ML 500 ML IV ONE (14:29)
[2022-06-02 15:17] LABS: ALT 27 U/L (4-49); AST 30 U/L (17-59); African American GFR (CKD) 62 (>60 ml/min/1.73 sqM); Albumin 2.8 g/dL (3.5-5.0); Albumin/Globulin Ratio 1.2; Alkaline Phosphatase 56 U/L (38-126); Anion Gap 6 mmol/L; Blood Urea Nitrogen 47 mg/dL (9-20); Calcium 7.1 mg/dL (8.4-10.2); Carbon Dioxide 27 mmol/L (22-30); Chloride 105 mmol/L (98-107); Globulin 2.4 g/dL; Glucose 154 mg/dL (74-99); Non-African American GFR(CKD) 54 (>60 ml/min/1.73 sqM); Potassium 4.1 mmol/L (3.5-5.1); Sodium 138 mmol/L (137-145); Total Bilirubin 0.5 mg/dL (0.2-1.3); Total Protein 5.2 g/dL (6.3-8.2)
--- NOTE | 2022-06-02 15:44 | XR ---
EXAMINATION TYPE: XR abdomen 2V DATE OF EXAM: 06/02/2022 CLINICAL HISTORY: Abdominal pain, nausea, vomiting TECHNIQUE: Supine and upright views of the abdomen are obtained COMPARISON: None. FINDINGS: Examination is limited due to body habitus. There is moderate colonic distention with gas and stool at least to the sigmoid. There are no dilated small bowel loops or air-fluid levels. No lucrecia e intraperitoneal air. No obvious acute osseous abnormality. The visualized lung bases are clear. IMPRESSION: Moderate gas and stool throughout the colon at least to the sigmoid, but no evidence of obstruction.
--- NOTE | 2022-06-02 16:55 | P.PN ---
Subjective Progress Note Date: 06/02/22 Placido Cota is a 76-year-old male patient presented with concerns of vomiting diarrhea and generalized weakness. Patient reports started yesterday with multiple episodes of diarrhea and vomiting. Patient has past medical history of coronary artery disease, diabetes mellitus, hyperlipidemia, hyperte nsion, myocardial infarction, heart catheterization with previous stent and anxiety. Chest x-ray completed showing mild cardiomegaly and chronic parenchymal changes without acute pulmonary process. Influenza negative, negative COVID-19 negative. Patient's lactic acid elevated at 5.1, WBC 11.0, C MP currently pending. Urinalysis ordered. Blood culture ordered. Abdomen ultrasound ordered. Amylase and lipase levels ordered. Current vital signs heart rate 91, respiratory rate 14, blood pressure 106/63 the pulse ox of 98% on room air. Patient given IV fluid bolus. ER protocol. Patient started on clear liquid diet awaiting further testing results On 06/02/2022 patient was seen and examined on the medical floor he is alert and oriented 3 in no apparent distress he is feeling somewhat better diarrhea stopped last night he had 1 episode of vomiting this morning he is still having some abdominal discomfort but better than yesterday otherwise he denies any complaints there is no fever or chills no headache or dizziness no chest pain no shortness of breath no cough and no urinary symptoms. Objective - Vital Signs Vital signs: Vital Signs Temp 98.1 F 06/02/22 07:00 Pulse 78 06/02/22 07:00 Resp 20 06/02/22 07:00 BP 93/50 06/02/22 07:00 Pulse Ox 96 06/02/22 07:00 FiO2 Intake & Output 06/01/22 06/02/22 06/02/22 18:59 06:59 18:59 Intake Total 240 Output Total 300 300 Balance -300 -60 Weight 127.006 kg 127.006 kg Intake: Oral 240 Output: Urine 300 300 Other: # Voids 1 # Bowel Movements 1 - Exam In general patient is alert and oriented 3 in no apparent distress Head normocephalic and atraumatic Neck supple no JVD no goiter Lungs clear to auscultation bilaterally no wheezing or crackles Heart regular rate and rhythm S1-S2, no rub or gallop Abdomen is soft nontender nondistended positive bowel sounds no hepatosplenomegaly Extremities no edema no cyanosis or clubbing Neuro no gross focal deficit - Labs CBC & Chem 7: 06/01/22 13:32 06/02/22 14:21 Labs: Abnormal Lab Results - Last 24 Hours (Table) 06/01/22 06/01/22 06/01/22 Range/Units 13:32 13:32 13:32 WBC 11.0 H (3.8-10.6) k/uL RBC 6.05 H (4.30-5.90) m/uL Hgb 17.9 H (13.0-17.5) gm/dL Hct 56.8 H (39.0-53.0) % Neutrophils # (Manual) 9.90 H (1.3-7.7) k/uL Lymphocytes # (Manual) 0.44 L (1.0-4.8) k/uL BUN (9-20) mg/dL Creatinine (0.66-1.25) mg/dL Glucose (74-99) mg/dL POC Glucose (mg/dL) (70-110) mg/dL Hemoglobin A1c 9.1 H (0.0-6.0) % Plasma Lactic Acid Rafael 5.1 H* (0.7-2.0) mmol/L Calcium (8.4-10.2) mg/dL Urine Protein (Negative) Urine Bilirubin (Negative) Amorphous Sediment (None) /hpf Urine Bacteria (None) /hpf Urine Mucus (None) /hpf 06/01/22 06/01/22 06/01/22 Range/Units 15:06 17:31 18:50 WBC (3.8-10.6) k/uL RBC (4.30-5.90) m/uL Hgb (13.0-17.5) gm/dL Hct (39.0-53.0) % Neutrophils # (Manual) (1.3-7.7) k/uL Lymphocytes # (Manual) (1.0-4.8) k/uL BUN 50 H (9-20) mg/dL Creatinine 2.33 H (0.66-1.25) mg/dL Glucose 195 H (74-99) mg/dL POC Glucose (mg/dL) 172 H (70-110) mg/dL Hemoglobin A1c (0.0-6.0) % Plasma Lactic Acid Rafael 3.3 H* (0.7-2.0) mmol/L Calcium 8.0 L (8.4-10.2) mg/dL Urine Protein (Negative) Urine Bilirubin (Negative) Amorphous Sediment (None) /hpf Urine Bacteria (None) /hpf Urine Mucus (None) /hpf 06/01/22 06/01/22 06/02/22 Range/Units 20:53 23:30 07:53 WBC (3.8-10.6) k/uL RBC (4.30-5.90) m/uL Hgb (13.0-17.5) gm/dL Hct (39.0-53.0) % Neutrophils # (Manual) (1.3-7.7) k/uL Lymphocytes # (Manual) (1.0-4.8) k/uL BUN (9-20) mg/dL Creatinine (0.66-1.25) mg/dL Glucose (74-99) mg/dL POC Glucose (mg/dL) 147 H 188 H (70-110) mg/dL Hemoglobin A1c (0.0-6.0) % Plasma Lactic Acid Rafael (0.7-2.0) mmol/L Calcium (8.4-10.2) mg/dL Urine Protein 1+ H (Negative) Urine Bilirubin 1+ H (Negative) Amorphous Sediment Rare H (None) /hpf Urine Bacteria Rare H (None) /hpf Urine Mucus Rare H (None) /hpf Assessment and Plan Assessment: Nausea vomiting and diarrhea, likely viral gastroenteritis Acute kidney injury likely related to dehydration, BUN on admission 50 creatinine 2.33, baseline creatinine 1.2 Leukocytosis Elevated lactic acid Diabetes mellitus type 2 History of essential hypertension History of hyperlipidemia Coronary artery disease with previous heart cath and stent Abdomen ultrasound ordered Continue IV bolus Awaiting CMP results Urine and blood cultures ordered Amylase and lipase levels ordered Repeat labs
[2022-06-02 17:23] LABS: Glucose,Whole Blood 130 mg/dL (70-110)
[2022-06-02 20:28] LABS: Glucose,Whole Blood 178 mg/dL (70-110)
[2022-06-02] MEDS: ATORVASTATIN 40 MG TAB PO SCH (20:56)
[2022-06-02] MEDS: PRAMIPEXOLE 1 MG TAB PO SCH (20:56)
[2022-06-03] MEDS: INSULIN ASPART (NovoLOG) 100 UNIT/ML VIAL SQ SCH ×4 (05:46→20:05)
[2022-06-03 05:47] LABS: Glucose,Whole Blood 121 mg/dL (70-110)
[2022-06-03] MEDS: SODIUM CHLORIDE 0.9% 1,000 ML IV SCH ×2 (08:43→20:01)
[2022-06-03] MEDS: INSULIN DETEMIR (LEVEMIR) 100 UNIT/ML SYR SQ SCH ×2 (08:43→08:44)
[2022-06-03] MEDS: PANTOPRAZOLE 40 MG/10 ML VIAL IVP SCH (08:44)
[2022-06-03] MEDS: SERTRALINE 100 MG TAB PO SCH (08:44)
[2022-06-03] MEDS: CHOLECALCIFEROL 25 MCG (1000 IU) TABLET PO SCH (08:44)
[2022-06-03] MEDS: PRAMIPEXOLE 0.5 MG TAB PO SCH ×2 (08:44→16:08)
[2022-06-03] MEDS: METOPROLOL TARTRATE 25 MG TAB PO SCH ×2 (08:44→21:35)
[2022-06-03] MEDS: GABAPENTIN 400 MG CAP PO SCH ×3 (08:44→21:36)
[2022-06-03] MEDS: ONDANSETRON 4 MG/2 ML VIAL IVP PRN (08:44)
[2022-06-03 08:48] LABS: Basophils # (A) 0.01 X 10*3/uL (0.00-0.10); Basophils % (A) 0.1 %; Eosinophils # (A) 0.01 X 10*3/uL (0.04-0.35); Eosinophils % (A) 0.1 %; HGB 13.3 g/dL (13.0-17.0); Immature Grans, Automated 0.6 %; Lymphocytes # (A) 0.89 X 10*3/uL (0.90-5.00); MCH 29.1 pg (27.0-32.0); MCHC 30.2 g/dL (32.0-37.0); MCV 96.3 fL (80.0-97.0); Mean Platelet Volume 10.8 fL (9.5-12.2); Monocytes # (A) 0.89 X 10*3/uL (0.20-1.00); NRBC Per 100 WBC 0 /100 WBCS (0.0-0.0); Neutrophils # (A) 8.04 X 10*3/uL (1.80-7.70); Neutrophils % (A) 81.2 %; Platelet Count 175 X 10*3/uL (140-440); RBC 4.57 X 10*6/uL (4.40-5.60); RDW 13.4 % (11.5-14.5)
[2022-06-03 09:00] LABS: African American GFR (CKD) 68.6 (60.0-200.0); Albumin 3.1 g/dL (3.8-4.9); Albumin/Globulin Ratio 1.48 (1.60-3.17); Anion Gap 6.6 mmol/L (10.00-18.00); Blood Urea Nitrogen 33.6 mg/dL (9.0-27.0); Calcium 7.4 mg/dL (8.7-10.3); Carbon Dioxide 26.4 mmol/L (20.0-27.5); Globulin 2.1 g/dL (1.6-3.3); Non-African American GFR(CKD) 59.2 (60.0-200.0); Total Bilirubin 0.3 mg/dL (0.30-1.20); Total Protein 5.2 g/dL (6.2-8.2)
--- NOTE | 2022-06-03 09:43 | P.PN ---
Subjective Progress Note Date: 06/03/22 Placido Cota is a 76-year-old male patient presented with concerns of vomiting diarrhea and generalized weakness. Patient reports started yesterday with multiple episodes of diarrhea and vomiting. Patient has past medical history of coronary artery disease, diabetes mellitus, hyperlipidemia, hyperte nsion, myocardial infarction, heart catheterization with previous stent and anxiety. Chest x-ray completed showing mild cardiomegaly and chronic parenchymal changes without acute pulmonary process. Influenza negative, negative COVID-19 negative. Patient's lactic acid elevated at 5.1, WBC 11.0, C MP currently pending. Urinalysis ordered. Blood culture ordered. Abdomen ultrasound ordered. Amylase and lipase levels ordered. Current vital signs heart rate 91, respiratory rate 14, blood pressure 106/63 the pulse ox of 98% on room air. Patient given IV fluid bolus. ER protocol. Patient started on clear liquid diet awaiting further testing results On 06/02/2022 patient was seen and examined on the medical floor he is alert and oriented 3 in no apparent distress he is feeling somewhat better diarrhea stopped last night he had 1 episode of vomiting this morning he is still having some abdominal discomfort but better than yesterday otherwise he denies any complaints there is no fever or chills no headache or dizziness no chest pain no shortness of breath no cough and no urinary symptoms. On 06/03/2022 patient is alert and oriented x 3. patient reports he had a couple episodes of vomiting throughout the night. awaiting surgical consult. Denies any chest pain or shortness of breath. Denies any urinary burning or frequency. creat improving to 1.2. patient afebrile Objective - Vital Signs Vital signs: Vital Signs Temp 98.7 F 06/03/22 07:00 Pulse 72 06/03/22 07:00 Resp 18 06/03/22 07:00 BP 129/72 06/03/22 07:00 Pulse Ox 98 06/03/22 07:00 FiO2 Intake & Output 06/02/22 06/03/22 06/03/22 18:59 06:59 18:59 Intake Total 450 Output Total 900 Balance -450 Intake: Oral 450 Output: Urine 900 Other: # Voids 1 # Bowel Movements 1 - Exam In general patient is alert and oriented 3 in no apparent distress Head normocephalic and atraumatic Neck supple no JVD no goiter Lungs clear to auscultation bilaterally no wheezing or crackles Heart regular rate and rhythm S1-S2, no rub or gallop Abdomen is soft nontender nondistended positive bowel sounds no hepatosplenomegaly Extremities no edema no cyanosis or clubbing Neuro no gross focal deficit - Labs CBC & Chem 7: 06/03/22 04:18 06/03/22 04:18 Labs: Abnormal Lab Results - Last 24 Hours (Table) 06/01/22 06/02/22 06/02/22 Range/Units 13:32 11:41 14:21 MCHC (32.0-37.0) g/dL Immature Gran # (0.00-0.04) X 10*3/uL Neutrophils # (1.80-7.70) X 10*3/uL Lymphocytes # (0.90-5.00) X 10*3/uL Eosinophils # (0.04-0.35) X 10*3/uL BUN 47 H (9-20) mg/dL Creatinine 1.30 H (0.66-1.25) mg/dL Glucose 154 H (74-99) mg/dL POC Glucose (mg/dL) 136 H (70-110) mg/dL Hemoglobin A1c 9.1 H (0.0-6.0) % Calcium 7.1 L (8.4-10.2) mg/dL Total Protein 5.2 L (6.3-8.2) g/dL Albumin 2.8 L (3.5-5.0) g/dL 06/02/22 06/02/22 06/03/22 Range/Units 17:07 20:27 04:18 MCHC 30.2 L (32.0-37.0) g/dL Immature Gran # 0.06 H (0.00-0.04) X 10*3/uL Neutrophils # 8.04 H (1.80-7.70) X 10*3/uL Lymphocytes # 0.89 L (0.90-5.00) X 10*3/uL Eosinophils # 0.01 L (0.04-0.35) X 10*3/uL BUN (9-20) mg/dL Creatinine (0.66-1.25) mg/dL Glucose (74-99) mg/dL POC Glucose (mg/dL) 130 H 178 H (70-110) mg/dL Hemoglobin A1c (0.0-6.0) % Calcium (8.4-10.2) mg/dL Total Protein (6.3-8.2) g/dL Albumin (3.5-5.0) g/dL 06/03/22 Range/Units 05:43 MCHC (32.0-37.0) g/dL Immature Gran # (0.00-0.04) X 10*3/uL Neutrophils # (1.80-7.70) X 10*3/uL Lymphocytes # (0.90-5.00) X 10*3/uL Eosinophils # (0.04-0.35) X 10*3/uL BUN (9-20) mg/dL Creatinine (0.66-1.25) mg/dL Glucose (74-99) mg/dL POC Glucose (mg/dL) 121 H (70-110) mg/dL Hemoglobin A1c (0.0-6.0) % Calcium (8.4-10.2) mg/dL Total Protein (6.3-8.2) g/dL Albumin (3.5-5.0) g/dL Microbiology - Last 24 Hours (Table) 06/01/22 17:30 Blood Culture - Preliminary Blood No Growth after 24 hours Assessment and Plan Assessment: Nausea vomiting and diarrhea, likely viral gastroenteritis Acute kidney injury likely related to dehydration, BUN on admission 50 creatinine 2.33, baseline creatinine 1.2 Leukocytosis Elevated lactic acid. improved Diabetes mellitus type 2 History of essential hypertension History of hyperlipidemia Coronary artery disease with previous heart cath and stent Abdomen ultrasound ordered abdominal xray completed surgical services consulted Repeat labs ordered
[2022-06-03] MEDS: IOPAMIDOL CONTRAST (ORAL USE) VIAL PO PRN ×2 (11:38→12:50)
--- NOTE | 2022-06-03 11:55 | P.GSCN ---
History of Present Illness Consult date: 06/03/22 History of present illness: CHIEF COMPLAINT: Abdominal pain HISTORY OF PRESENT ILLNESS: This is a 76-year-old male who presented to the hospital with complaints of lower abdominal pain with nausea, vomiting and diarrhea 2 days. He also complains of feeling very weak. He feels bloated. Patient did have a fever of 101.1 on admission white count elevated at 11. He did have elevated lactic acid well. Evidence of dehydration creatinine 2.3 on admission. Blood pressures of the lower side. He reports no blood in the stool or emesis. No prior history of colitis. He's never had EGD. Patient did have a colonoscopy in 2018 had shown evidence of mild diverticulosis. Past abdominal surgical history includes appendectomy and bowel resection at age 6. He denies any sick contacts. PAST MEDICAL HISTORY: See below PAST SURGICAL HISTORY: See below MEDICATIONS: See below ALLERGIES: See below SOCIAL HISTORY: No illicit drug use. REVIEW OF SYSTEMS: CONSTITUTIONAL: Denies fever or chills. HEENT: Denies blurred vision, vision changes, or eye pain. Denies hemoptysis CARDIOVASCULAR: Denies chest pain or pressure. RESPIRATORY: No shortness of breath. GASTROINTESTINAL: See HPI for pertinent findings HEMATOLOGIC: Denies bleeding disorders. GENITOURINARY: Denies any blood in urine or increased urinary frequency. SKIN: Denies pruitis. Denies rash. PHYSICAL EXAM: VITAL SIGNS: Reviewed GENERAL: Well-developed in no acute distress. HEENT: No sclera icterus. Extraocular movements grossly intact. Moist buccal mucosa. Head is atraumatic, normocephalic. No nasal drainage. ABDOMEN: Abdomen is distended. Tenderness in the lower abdomen as well as upper abdomen with palpation NEUROLOGIC: Alert and oriented. Cranial nerves II through XII grossly intact. LABORATORY DATA: WBC 11-9.9 Hgb 13.3 plts 175 729 potassium 4.0 creatinine 2.33 down to 1.2 IMAGING: Abdominal x-ray showing moderate gas and stool throughout colon at least to the sigmoid, no evidence of obstruction Abdominal ultrasound hepatic steatosis. Left kidney dromedary hump vs mass. This can be further evaluated with MRI or CT renal mass protocol. No mass was seen on prior CT. Chest x-ray mild cardiomegaly and chronic parenchymal changes without acute pulmonary process ASSESSMENT: 1. Abdominal pain with nausea, vomiting and diarrhea 2. Lactic acidosis 3. Leukocytosis 4. Acute kidney injury PLAN: -Check computed tomography scan abdomen and pelvis with oral contrast for further evaluation of abdominal pain -Continue IV fluids -Continue clear liquid diet -Continue supportive care -Further recommendations forthcoming per surgeon Thank you for this consultation Physician Hides Soaker note has been reviewed by physician. Signing provider agrees with the documented findings, assessment, and plan of care. I have personally seen and examined the patient, reviewed the EMERY GRINDER /PAs history, exam and MDM and agree with the assessment and plan as written. Based on total visit time, I have performed more than 50% of the visit. As above: Patient with upper abdominal pain associated with diarrhea. The patient's CAT scan reviewed and demonstrates findings consistent with duodenitis involving the second and third portion of the duodenum. Recent amylase and l ipase was normal. Etiology unclear. Continue supportive care and clear liquids. Will follow. Past Medical History Past Medical History: Coronary Artery Disease (CAD), Cancer, COPD, Diabetes Mellitus, GERD/Reflux, Hyperlipidemia, Hypertension, Myocardial Infarction ([place]), Pneumonia, Prostate Disorder Additional Past Medical History / Comment(s): RLS. 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 BPH Last Myocardial Infarction Date:: 2002 History of Any Multi-Drug Resistant Organisms: None Reported Past Surgical History: Appendectomy, Heart Catheterization With Stent, O rthopedic Surgery Additional Past Surgical History / Comment(s): COLONOSCOPY, BILAT CATARACTS, RT ROTATOR CUFF REPAIR, RT EYE SX, BOWEL SX AT AGE 6, RT FOOT FUSION, CERVICAL F USION X 2, SKIN CANCER ON BACK REMOVED. heart cath twice with 4 stents Past Anesthesia/Blood Transfusion Reactions: Motion Sickness Date of Last Stent Placement:: 2012 Past Psychological History: Anxiety, Depression Additional Psychological History / Comment(s): and lives with his who he takes care of. Is not a current tobacco smokerand alcohol use. Retired chief engineer research. No recent international travel. No illnesses while in service. No animals in the home Smoking Status: Former smoker Past Alcohol Use History: None Reported Past Drug Use History: None Reported - Past Family History Father Family Medical History: Cancer Sister(s) Family Medical History: Cancer Medications and Allergies Home Medications Medication Instructions Recorded Confirmed Type Atorvastatin [Lipitor] 40 mg PO HS 02/23/18 06/01/22 History Pramipexole [Mirapex] 0.5 mg PO BID@0900,1700 02/23/18 06/01/22 History Pramipexole [Mirapex] 1 mg PO HS 02/23/18 06/01/22 History Sertraline [Zoloft] 100 mg PO DAILY 02/23/18 06/01/22 History lisinopriL 20 mg PO DAILY 02/23/18 06/01/22 History Metoprolol Tartrate 25 mg PO BID 02/28/18 06/01/22 History Gabapentin [Neurontin] 400 mg PO TID 10/09/18 06/01/22 History Triamterene-Hctz 37.5-25Mg 1 cap PO DAILY 10/12/18 06/01/22 History [Dyazide 37.5-25 Capsule] Cholecalciferol [Vitamin D3 (25 25 mcg PO DAILY 06/01/22 06/01/22 History Mcg = 1000 Iu)] Insulin Aspart [NovoLOG Flexpen] 17 units SQ AC-TID 06/01/22 06/01/22 History Insulin Glargine,Hum.rec.anlog 100 units SQ DAILY 06/01/22 06/01/22 History [Touchristopher Grewal Solostar] Allergies Allergy/AdvReac Type Severity Reaction Status Date / Time Mushroom Allergy Diarrhea Verified 06/01/22 16:54 Surgical - Exam Vital Signs Pulse Resp BP Pulse Ox 84 18 93/60 95 06/01/22 13:46 06/01/22 13:46 06/01/22 13:46 06/01/22 13:46 Results - Labs 06/03/22 04:18 06/03/22 04:18 Abnormal Lab Results - Last 24 Hours (Table) 06/02/22 06/02/22 06/02/22 Range/Units 11:41 14:21 17:07 MCHC (32.0-37.0) g/dL Immature Gran # (0.00-0.04) X 10*3/uL Neutrophils # (1.80-7.70) X 10*3/uL Lymphocytes # (0.90-5.00) X 10*3/uL Eosinophils # (0.04-0.35) X 10*3/uL Anion Gap (10.00-18.00) mmol/L BUN 47 H (9-20) mg/dL Creatinine 1.30 H (0.66-1.25) mg/dL Est GFR (CKD-EPI)NonAf (60.0-200.0) BUN/Creatinine Ratio (12.00-20.00) Ratio Glucose 154 H (74-99) mg/dL POC Glucose (mg/dL) 136 H 130 H (70-110) mg/dL Calcium 7.1 L (8.4-10.2) mg/dL Total Protein 5.2 L (6.3-8.2) g/dL Albumin 2.8 L (3.5-5.0) g/dL Albumin/Globulin Ratio (1.60-3.17) g/dL 06/02/22 06/03/22 06/03/22 Range/Units 20:27 04:18 04:18 MCHC 30.2 L (32.0-37.0) g/dL Immature Gran # 0.06 H (0.00-0.04) X 10*3/uL Neutrophils # 8.04 H (1.80-7.70) X 10*3/uL Lymphocytes # 0.89 L (0.90-5.00) X 10*3/uL Eosinophils # 0.01 L (0.04-0.35) X 10*3/uL Anion Gap 6.60 L (10.00-18.00) mmol/L BUN 33.6 H (9-20) mg/dL Creatinine (0.66-1.25) mg/dL Est GFR (CKD-EPI)NonAf 59.2 L (60.0-200.0) BUN/Creatinine Ratio 28.00 H (12.00-20.00) Ratio Glucose 125 H (74-99) mg/dL POC Glucose (mg/dL) 178 H (70-110) mg/dL Calcium 7.4 L (8.4-10.2) mg/dL Total Protein 5.2 L (6.3-8.2) g/dL Albumin 3.1 L (3.5-5.0) g/dL Albumin/Globulin Ratio 1.48 L (1.60-3.17) g/dL 06/03/22 Range/Units 05:43 MCHC (32.0-37.0) g/dL Immature Gran # (0.00-0.04) X 10*3/uL Neutrophils # (1.80-7.70) X 10*3/uL Lymphocytes # (0.90-5.00) X 10*3/uL Eosinophils # (0.04-0.35) X 10*3/uL Anion Gap (10.00-18.00) mmol/L BUN (9-20) mg/dL Creatinine (0.66-1.25) mg/dL Est GFR (CKD-EPI)NonAf (60.0-200.0) BUN/Creatinine Ratio (12.00-20.00) Ratio Glucose (74-99) mg/dL POC Glucose (mg/dL) 121 H (70-110) mg/dL Calcium (8.4-10.2) mg/dL Total Protein (6.3-8.2) g/dL Albumin (3.5-5.0) g/dL Albumin/Globulin Ratio (1.60-3.17) g/dL Microbiology - Last 24 Hours (Table) 06/01/22 17:30 Blood Culture - Preliminary Blood No Growth after 24 hours Diabetes panel 06/02/22 06/03/22 Range/Units 14:21 04:18 Sodium 138 139 (137-145) mmol/L Potassium 4.1 4.0 (3.5-5.1) mmol/L Chloride 105 106 (98-107) mmol/L Carbon Dioxide 27 26.4 (22-30) mmol/L BUN 47 H 33.6 H (9-20) mg/dL Creatinine 1.30 H 1.2 (0.66-1.25) mg/dL Glucose 154 H 125 H (74-99) mg/dL Calcium 7.1 L 7.4 L (8.4-10.2) mg/dL AST 30 26 (17-59) U/L ALT 27 24 (4-49) U/L Alkaline Phosphatase 56 59 (38-126) U/L Total Protein 5.2 L 5.2 L (6.3-8.2) g/dL Albumin 2.8 L 3.1 L (3.5-5.0) g/dL Calcium panel 06/02/22 06/03/22 Range/Units 14:21 04:18 Calcium 7.1 L 7.4 L (8.4-10.2) mg/dL Albumin 2.8 L 3.1 L (3.5-5.0) g/dL Pituitary panel 06/02/22 06/03/22 Range/Units 14:21 04:18 Sodium 138 139 (137-145) mmol/L Potassium 4.1 4.0 (3.5-5.1) mmol/L Chloride 105 106 (98-107) mmol/L Carbon Dioxide 27 26.4 (22-30) mmol/L BUN 47 H 33.6 H (9-20) mg/dL Creatinine 1.30 H 1.2 (0.66-1.25) mg/dL Glucose 154 H 125 H (74-99) mg/dL Calcium 7.1 L 7.4 L (8.4-10.2) mg/dL Adrenal panel 06/02/22 06/03/22 Range/Units 14:21 04:18 Sodium 138 139 (137-145) mmol/L Potassium 4.1 4.0 (3.5-5.1) mmol/L Chloride 105 106 (98-107) mmol/L Carbon Dioxide 27 26.4 (22-30) mmol/L BUN 47 H 33.6 H (9-20) mg/dL Creatinine 1.30 H 1.2 (0.66-1.25) mg/dL Glucose 154 H 125 H (74-99) mg/dL Calcium 7.1 L 7.4 L (8.4-10.2) mg/dL Total Bilirubin 0.5 0.30 (0.2-1.3) mg/dL AST 30 26 (17-59) U/L ALT 27 24 (4-49) U/L Alkaline Phosphatase 56 59 (38-126) U/L Total Protein 5.2 L 5.2 L (6.3-8.2) g/dL Albumin 2.8 L 3.1 L (3.5-5.0) g/dL
[2022-06-03 12:26] VITALS: BMI 40.1
[2022-06-03 13:05] LABS: Glucose,Whole Blood 119 mg/dL (70-110)
[2022-06-03] MEDS: lisinopriL 20 MG TAB PO SCH (13:09)
--- NOTE | 2022-06-03 14:52 | CT ---
EXAMINATION TYPE: CT abdomen pelvis wo con CT DLP: 1363.7 mGycm, Automated exposure control for dose reduction was used. DATE OF EXAM: 06/03/2022 1:57 PM COMPARISON: Abdominal radiograph 06/02/2022 CT abdomen pelvis most recent from 12/13/2018. CLINICAL INDICATION:Male, 76 years old with history of abdominal pain; abdominal pain, vomiting TECHNIQUE: Standard CT of the abdomen and pelvis following the administration of oral contrast. Cor onal and sagittal reformats were performed. FINDINGS: Evaluation is limited due to lack of IV contrast. LOWER CHEST: Trace left pleural effusion with associated atelectasis. Mildly prominent heart. No lenard cardial effusion. ABDOMEN LIVER: Diffusely hypoattenuating parenchyma. GALLBLADDER AND BILE DUCTS: Unremarkable. PANCREAS: Fatty infiltration of the pancreas. SPLEEN: Unremarkable noncontrast appearance. ADRENAL GLANDS: Unremarkable noncontrast appearance. KIDNEYS AND URETERS: No evidence of hydronephrosis or renal calculus. The ureters are unremarkable. PELVIS BLADDER: Incompletely distended but grossly unremarkable. REPRODUCTIVE: Unremarkable. ABDOMEN & PELVIS STOMACH AND BOWEL: Stomach appears unremarkable. There is circumferential wall thickening with fat st randing involving the duodenum. The stranding extends inferiorly anterior to the IVC. Enteric contras t reaches the descending colon. No pneumatosis identified. The appendix is within normal limits. No e vidence of bowel obstruction. PERITONEUM: No evidence of pneumoperitoneum or free fluid. VASCULATURE: No evidence of aortic aneurysm. MUSCULOSKELETAL: Age-indeterminate anterior wedge compression deformity of the L1 vertebral body with sclerosis identified. There is approximately 10% height loss with no retropulsion. Mild retrolisthes is of L5 on S1. Multilevel degenerative changes of the visualized spine. LYMPH NODES: No gross evidence for lymphadenopathy. SOFT TISSUE/ABDOMINAL WALL: Right lateral thigh soft tissue fluid collection measuring 4.0 x 2.4 cm a t the level of the greater trochanter. IMPRESSION: 1. Findings suggestive of duodenitis. 2. Nonspecific right lateral thigh soft tissue fluid collection measuring 4.0 x 2.4 cm. This could r epresent a seroma versus hematoma. Abscess is not entirely excluded. Clinical correlation is recommen ded. 3. Trace left pleural effusion with associated atelectasis. 4. Age-indeterminate anterior wedge compression deformity of the L1 vertebral body with approximatel y 10% height loss and no retropulsion. Correlation with point tenderness is recommended.
[2022-06-03 17:16] LABS: Glucose,Whole Blood 108 mg/dL (70-110)
[2022-06-03 20:06] LABS: Glucose,Whole Blood 108 mg/dL (70-110)
[2022-06-03] MEDS: ATORVASTATIN 40 MG TAB PO SCH (21:36)
[2022-06-03] MEDS: PRAMIPEXOLE 1 MG TAB PO SCH (21:36)
[2022-06-03] MEDS: ACETAMINOPHEN TAB 325 MG TAB PO PRN (21:45)
[2022-06-04] MEDS: INSULIN DETEMIR (LEVEMIR) 100 UNIT/ML SYR SQ SCH (05:49)
[2022-06-04] MEDS: INSULIN ASPART (NovoLOG) 100 UNIT/ML VIAL SQ SCH ×4 (05:49→21:04)
[2022-06-04 05:50] LABS: Glucose,Whole Blood 85 mg/dL (70-110)
[2022-06-04] MEDS: METOPROLOL TARTRATE 25 MG TAB PO SCH ×2 (08:28→21:04)
[2022-06-04] MEDS: lisinopriL 20 MG TAB PO SCH (08:28)
[2022-06-04] MEDS: PRAMIPEXOLE 0.5 MG TAB PO SCH ×2 (08:28→16:08)
[2022-06-04] MEDS: PANTOPRAZOLE 40 MG/10 ML VIAL IVP SCH (08:28)
[2022-06-04] MEDS: SERTRALINE 100 MG TAB PO SCH (08:29)
[2022-06-04] MEDS: CHOLECALCIFEROL 25 MCG (1000 IU) TABLET PO SCH (08:29)
[2022-06-04] MEDS: GABAPENTIN 400 MG CAP PO SCH ×3 (08:35→21:04)
[2022-06-04] MEDS: SODIUM CHLORIDE 0.9% 1,000 ML IV SCH ×2 (08:36→22:45)
[2022-06-04 09:23] LABS: Basophils # (A) 0.02 X 10*3/uL (0.00-0.10); Basophils % (A) 0.2 %; Eosinophils # (A) 0.05 X 10*3/uL (0.04-0.35); Eosinophils % (A) 0.6 %; HCT 43.2 % (39.6-50.0); HGB 13.2 g/dL (13.0-17.0); Immature Grans, Automated 0.3 %; Lymphocytes # (A) 1.48 X 10*3/uL (0.90-5.00); Lymphocytes % (A) 16.9 %; MCH 29.2 pg (27.0-32.0); MCHC 30.6 g/dL (32.0-37.0); MCV 95.6 fL (80.0-97.0); Mean Platelet Volume 10.7 fL (9.5-12.2); Monocytes # (A) 0.77 X 10*3/uL (0.20-1.00); Monocytes % (A) 8.8 %; NRBC Per 100 WBC 0 /100 WBCS (0.0-0.0); Neutrophils # (A) 6.39 X 10*3/uL (1.80-7.70); Neutrophils % (A) 73.2 %; Platelet Count 177 X 10*3/uL (140-440); RBC 4.52 X 10*6/uL (4.40-5.60); RDW 13.4 % (11.5-14.5); WBC 8.74 X 10*3/uL (4.50-10.00)
--- NOTE | 2022-06-04 09:51 | P.PN ---
Subjective Progress Note Date: 06/04/22 Principal diagnosis: Duodenitis 76-year-old male with complaints of abdominal pain. CAT scan performed yesterday shows evidence of duodenitis involving the second through fourth portion of the duodenum. Pancreas itself appears fairly normal. Recent amylase and lipase was normal. States he feels somewhat better today. His CBC on admission does reveal significant bandemia now. White blood cell count is normal today. He is afebrile. Objective - Vital Signs Vital signs: Vital Signs Temp 98.0 F 06/04/22 07:00 Pulse 64 06/04/22 07:00 Resp 18 06/04/22 07:00 BP 145/78 06/04/22 07:00 Pulse Ox 98 06/04/22 07:45 FiO2 Intake & Output 06/03/22 06/04/22 06/04/22 18:59 06:59 18:59 Intake Total 1508 Output Total 500 1750 Balance 1008 -1750 Weight 127.006 kg Intake: Oral 1508 Output: Urine 500 1750 Other: Voiding Method Toilet Toilet Urinal Urinal # Voids 2 - Exam Abdomen: Soft, mild distention, mild upper abdominal tenderness - Labs CBC & Chem 7: 06/04/22 05:45 06/03/22 04:18 Labs: Abnormal Lab Results - Last 24 Hours (Table) 06/03/22 06/04/22 Range/Units 13:03 05:45 MCHC 30.6 L (32.0-37.0) g/dL POC Glucose (mg/dL) 119 H (70-110) mg/dL Microbiology - Last 24 Hours (Table) 06/01/22 17:30 Blood Culture - Preliminary Blood No Growth after 48 hours Assessment and Plan (1) Duodenitis Narrative/Plan: 76-year-old male with abdominal pain related to duodenitis. Etiology for duodenitis unclear. We will plan upper endoscopy on Monday. Potential etiologies would include autoimmune disease, H. pylori, chronic ischemia, atypical malignancy. Continue supportive care for now. Continue liquid diet. Current Visit: Yes Status: Acute Code(s): K29.80 - DUODENITIS WITHOUT BLEEDING SNOMED Code(s): 34955541
[2022-06-04 09:53] LABS: African American GFR (CKD) 76.2 (60.0-200.0); Albumin 3.2 g/dL (3.8-4.9); Albumin/Globulin Ratio 1.39 (1.60-3.17); Anion Gap 5.6 mmol/L (10.00-18.00); BUN/Creat Ratio 18.82 Ratio (12.00-20.00); Blood Urea Nitrogen 20.7 mg/dL (9.0-27.0); Calcium 7.9 mg/dL (8.7-10.3); Carbon Dioxide 28.6 mmol/L (20.0-27.5); Globulin 2.3 g/dL (1.6-3.3); Non-African American GFR(CKD) 65.8 (60.0-200.0); Potassium 4.1 mmol/L (3.5-5.5); Total Bilirubin 0.4 mg/dL (0.30-1.20); Total Protein 5.5 g/dL (6.2-8.2)
--- NOTE | 2022-06-04 10:36 | P.PN ---
Subjective Progress Note Date: 06/04/22 Placido Cota is a 76-year-old male patient presented with concerns of vomiting diarrhea and generalized weakness. Patient reports started yesterday with multiple episodes of diarrhea and vomiting. Patient has past medical history of coronary artery disease, diabetes mellitus, hyperlipidemia, hyperte nsion, myocardial infarction, heart catheterization with previous stent and anxiety. Chest x-ray completed showing mild cardiomegaly and chronic parenchymal changes without acute pulmonary process. Influenza negative, negative COVID-19 negative. Patient's lactic acid elevated at 5.1, WBC 11.0, C MP currently pending. Urinalysis ordered. Blood culture ordered. Abdomen ultrasound ordered. Amylase and lipase levels ordered. Current vital signs heart rate 91, respiratory rate 14, blood pressure 106/63 the pulse ox of 98% on room air. Patient given IV fluid bolus. ER protocol. Patient started on clear liquid diet awaiting further testing results On 06/02/2022 patient was seen and examined on the medical floor he is alert and oriented 3 in no apparent distress he is feeling somewhat better diarrhea stopped last night he had 1 episode of vomiting this morning he is still having some abdominal discomfort but better than yesterday otherwise he denies any complaints there is no fever or chills no headache or dizziness no chest pain no shortness of breath no cough and no urinary symptoms. On 06/03/2022 patient is alert and oriented x 3. patient reports he had a couple episodes of vomiting throughout the night. awaiting surgical consult. Denies any chest pain or shortness of breath. Denies any urinary burning or frequency. creat improving to 1.2. patient afebrile. On 06/04/2022 patient was seen and examined on the medical floor, he is alert and oriented x 3 in no distress, complaining of abdominal pain in the epigastric and right upper quadrant area, otherwise he denies any complaints there is no fever or chills no headache or dizziness no chest pain no shortness of breath no cough no nausea or vomiting no diarrhea or blood in the stool no burning with urination frequency or urgency no hematuria, computed tomography scan of the abdomen and pelvis was reviewed with evidence of acute duodenitis patient was evaluated by surgery Dr. Esquivel plan is for EGD on Monday. Objective - Vital Signs Vital signs: Vital Signs Temp 98.0 F 06/04/22 07:00 Pulse 64 06/04/22 07:00 Resp 18 06/04/22 07:00 BP 145/78 06/04/22 07:00 Pulse Ox 98 06/04/22 07:45 FiO2 Intake & Output 06/03/22 06/04/22 06/04/22 18:59 06:59 18:59 Intake Total 1508 Output Total 500 1750 Balance 1008 -1750 Weight 127.006 kg Intake: Oral 1508 Output: Urine 500 1750 Other: Voiding Method Toilet Toilet Urinal Urinal # Voids 2 - Exam In general patient is alert and oriented 3 in no apparent distress Head normocephalic and atraumatic Neck supple no JVD no goiter Lungs clear to auscultation bilaterally no wheezing or crackles Heart regular rate and rhythm S1-S2, no rub or gallop Abdomen is soft nontender nondistended positive bowel sounds no hepatosplenomegaly Extremities no edema no cyanosis or clubbing Neuro no gross focal deficit - Labs CBC & Chem 7: 06/04/22 05:45 06/04/22 05:45 Labs: Abnormal Lab Results - Last 24 Hours (Table) 06/03/22 06/04/22 06/04/22 Range/Units 13:03 05:45 05:45 MCHC 30.6 L (32.0-37.0) g/dL Carbon Dioxide 28.6 H (20.0-27.5) mmol/L Anion Gap 5.60 L (10.00-18.00) mmol/L POC Glucose (mg/dL) 119 H (70-110) mg/dL Calcium 7.9 L (8.7-10.3) mg/dL Total Protein 5.5 L (6.2-8.2) g/dL Albumin 3.2 L (3.8-4.9) g/dL Albumin/Globulin Ratio 1.39 L (1.60-3.17) g/dL Microbiology - Last 24 Hours (Table) 06/01/22 17:30 Blood Culture - Preliminary Blood No Growth after 48 hours Assessment and Plan Assessment: Nausea vomiting and diarrhea, likely viral gastroenteritis Acute kidney injury likely related to dehydration, BUN on admission 50 creatinine 2.33, baseline creatinine 1.2 Leukocytosis Elevated lactic acid. improved Diabetes mellitus type 2 History of essential hypertension History of hyperlipidemia Coronary artery disease with previous heart cath and stent Abdomen ultrasound ordered abdominal xray completed surgical services consulted Repeat labs ordered
[2022-06-04 12:44] LABS: Glucose,Whole Blood 175 mg/dL (70-110)
[2022-06-04 17:38] LABS: Glucose,Whole Blood 141 mg/dL (70-110)
[2022-06-04 20:26] LABS: Glucose,Whole Blood 188 mg/dL (70-110)
[2022-06-04] MEDS: ATORVASTATIN 40 MG TAB PO SCH (21:04)
[2022-06-04] MEDS: PRAMIPEXOLE 1 MG TAB PO SCH (21:04)
[2022-06-05 05:52] LABS: Glucose,Whole Blood 151 mg/dL (70-110)
[2022-06-05] MEDS: INSULIN DETEMIR (LEVEMIR) 100 UNIT/ML SYR SQ SCH (05:59)
[2022-06-05] MEDS: INSULIN ASPART (NovoLOG) 100 UNIT/ML VIAL SQ SCH ×4 (05:59→20:29)
[2022-06-05] MEDS: SERTRALINE 100 MG TAB PO SCH (08:38)
[2022-06-05] MEDS: PANTOPRAZOLE 40 MG/10 ML VIAL IVP SCH (08:38)
[2022-06-05] MEDS: PRAMIPEXOLE 0.5 MG TAB PO SCH ×2 (08:39→16:03)
[2022-06-05] MEDS: lisinopriL 20 MG TAB PO SCH (08:39)
[2022-06-05] MEDS: METOPROLOL TARTRATE 25 MG TAB PO SCH ×2 (08:39→21:09)
[2022-06-05] MEDS: CHOLECALCIFEROL 25 MCG (1000 IU) TABLET PO SCH (08:39)
--- NOTE | 2022-06-05 08:42 | P.PN ---
Subjective Progress Note Date: 06/05/22 Placido Cota is a 76-year-old male patient presented with concerns of vomiting diarrhea and generalized weakness. Patient reports started yesterday with multiple episodes of diarrhea and vomiting. Patient has past medical history of coronary artery disease, diabetes mellitus, hyperlipidemia, hyperte nsion, myocardial infarction, heart catheterization with previous stent and anxiety. Chest x-ray completed showing mild cardiomegaly and chronic parenchymal changes without acute pulmonary process. Influenza negative, negative COVID-19 negative. Patient's lactic acid elevated at 5.1, WBC 11.0, C MP currently pending. Urinalysis ordered. Blood culture ordered. Abdomen ultrasound ordered. Amylase and lipase levels ordered. Current vital signs heart rate 91, respiratory rate 14, blood pressure 106/63 the pulse ox of 98% on room air. Patient given IV fluid bolus. ER protocol. Patient started on clear liquid diet awaiting further testing results On 06/02/2022 patient was seen and examined on the medical floor he is alert and oriented 3 in no apparent distress he is feeling somewhat better diarrhea stopped last night he had 1 episode of vomiting this morning he is still having some abdominal discomfort but better than yesterday otherwise he denies any complaints there is no fever or chills no headache or dizziness no chest pain no shortness of breath no cough and no urinary symptoms. On 06/03/2022 patient is alert and oriented x 3. patient reports he had a couple episodes of vomiting throughout the night. awaiting surgical consult. Denies any chest pain or shortness of breath. Denies any urinary burning or frequency. creat improving to 1.2. patient afebrile. On 06/04/2022 patient was seen and examined on the medical floor, he is alert and oriented x 3 in no distress, complaining of abdominal pain in the epigastric and right upper quadrant area, otherwise he denies any complaints there is no fever or chills no headache or dizziness no chest pain no shortness of breath no cough no nausea or vomiting no diarrhea or blood in the stool no burning with urination frequency or urgency no hematuria, computed tomography scan of the abdomen and pelvis was reviewed with evidence of acute duodenitis patient was evaluated by surgery Dr. Esquivel plan is for EGD on Monday. On 06/05/2022 patient is alert and oriented x 3 in no distress, still complaining of abdominal pain in the epigastric and right upper quadrant area, otherwise he denies any complaints there is no fever or chills no headache or dizziness no chest pain no shortness of breath no cough no nausea or vomiting no diarrhea or blood in the stool no burning with urination frequency or urgency no hematuria, computed tomography scan of the abdomen and pelvis was reviewed with evidence of acute duodenitis patient was evaluated by surgery Dr. Esquivel plan is for EGD tomorrow. Objective - Vital Signs Vital signs: Vital Signs Temp 97.7 F 06/05/22 02:00 Pulse 59 L 06/05/22 02:00 Resp 15 06/05/22 02:00 BP 125/83 06/05/22 02:00 Pulse Ox 96 06/05/22 02:00 FiO2 Intake & Output 06/04/22 06/05/22 06/05/22 18:59 06:59 18:59 Intake Total 118 Output Total 450 0 Balance -332 -2049 Intake: Oral 118 Output: Urine 450 2049 Other: Voiding Method Toilet Toilet Urinal Urinal # Voids 2 - Exam In general patient is alert and oriented 3 in no apparent distress Head normocephalic and atraumatic Neck supple no JVD no goiter Lungs clear to auscultation bilaterally no wheezing or crackles Heart regular rate and rhythm S1-S2, no rub or gallop Abdomen is soft nontender nondistended positive bowel sounds no hepatosplenomegaly Extremities no edema no cyanosis or clubbing Neuro no gross focal deficit - Labs CBC & Chem 7: 06/04/22 05:45 06/04/22 05:45 Labs: Abnormal Lab Results - Last 24 Hours (Table) 06/04/22 06/04/22 06/04/22 Range/Units 05:45 05:45 12:43 MCHC 30.6 L (32.0-37.0) g/dL Carbon Dioxide 28.6 H (20.0-27.5) mmol/L Anion Gap 5.60 L (10.00-18.00) mmol/L POC Glucose (mg/dL) 175 H (70-110) mg/dL Calcium 7.9 L (8.7-10.3) mg/dL Total Protein 5.5 L (6.2-8.2) g/dL Albumin 3.2 L (3.8-4.9) g/dL Albumin/Globulin Ratio 1.39 L (1.60-3.17) g/dL 06/04/22 06/04/22 06/05/22 Range/Units 17:37 20:25 05:50 MCHC (32.0-37.0) g/dL Carbon Dioxide (20.0-27.5) mmol/L Anion Gap (10.00-18.00) mmol/L POC Glucose (mg/dL) 141 H 188 H 151 H (70-110) mg/dL Calcium (8.7-10.3) mg/dL Total Protein (6.2-8.2) g/dL Albumin (3.8-4.9) g/dL Albumin/Globulin Ratio (1.60-3.17) g/dL Microbiology - Last 24 Hours (Table) 06/01/22 17:30 Blood Culture - Preliminary Blood No Growth after 72 hours Assessment and Plan Assessment: Nausea vomiting and diarrhea, likely viral gastroenteritis Acute kidney injury likely related to dehydration, BUN on admission 50 creati nine 2.33, baseline creatinine 1.2 Leukocytosis Elevated lactic acid. improved Diabetes mellitus type 2 History of essential hypertension History of hyperlipidemia Coronary artery disease with previous heart cath and stent Abdomen ultrasound ordered abdominal xray completed surgical services consulted Repeat labs ordered
[2022-06-05] MEDS: GABAPENTIN 400 MG CAP PO SCH ×3 (08:47→21:09)
--- NOTE | 2022-06-05 09:14 | P.PN ---
Subjective Progress Note Date: 06/05/22 Principal diagnosis: Duodenitis Patient doing better today. He is sitting up at the side of the bed. Says his pain is improved. Tolerating liquid diet. No nausea or vomiting. He is afebrile. Objective - Vital Signs Vital signs: Vital Signs Temp 97.9 F 06/05/22 07:00 Pulse 70 06/05/22 07:00 Resp 17 06/05/22 07:00 BP 138/79 06/05/22 07:00 Pulse Ox 98 06/05/22 07:00 FiO2 Intake & Output 06/04/22 06/05/22 06/05/22 18:59 06:59 18:59 Intake Total 118 Output Total 450 0 Balance - Intake: Oral 118 Output: Urine 450 2049 Other: Voiding Method Toilet Toilet Urinal Urinal # Voids 2 - Exam Abdomen: Soft, mild distention, mild epigastric tenderness - Labs CBC & Chem 7: 06/04/22 05:45 06/04/22 05:45 Labs: Abnormal Lab Results - Last 24 Hours (Table) 06/04/22 06/04/22 06/04/22 Range/Units 05:45 05:45 12:43 MCHC 30.6 L (32.0-37.0) g/dL Carbon Dioxide 28.6 H (20.0-27.5) mmol/L Anion Gap 5.60 L (10.00-18.00) mmol/L POC Glucose (mg/dL) 175 H (70-110) mg/dL Calcium 7.9 L (8.7-10.3) mg/dL Total Protein 5.5 L (6.2-8.2) g/dL Albumin 3.2 L (3.8-4.9) g/dL Albumin/Globulin Ratio 1.39 L (1.60-3.17) g/dL 06/04/22 06/04/22 06/05/22 Range/Units 17:37 20:25 05:50 MCHC (32.0-37.0) g/dL Carbon Dioxide (20.0-27.5) mmol/L Anion Gap (10.00-18.00) mmol/L POC Glucose (mg/dL) 141 H 188 H 151 H (70-110) mg/dL Calcium (8.7-10.3) mg/dL Total Protein (6.2-8.2) g/dL Albumin (3.8-4.9) g/dL Albumin/Globulin Ratio (1.60-3.17) g/dL Microbiology - Last 24 Hours (Table) 06/01/22 17:30 Blood Culture - Preliminary Blood No Growth after 72 hours Assessment and Plan (1) Duodenitis Narrative/Plan: Patient doing better at this time. Advance diet to full liquids. Will proceed with EGD tomorrow. Current Visit: Yes Status: Acute Code(s): K29.80 - DUODENITIS WITHOUT BLEEDING SNOMED Code(s): 45292105
[2022-06-05 12:43] LABS: Glucose,Whole Blood 141 mg/dL (70-110)
[2022-06-05] MEDS: SODIUM CHLORIDE 0.9% 1,000 ML IV SCH (14:21)
[2022-06-05 17:33] LABS: Glucose,Whole Blood 160 mg/dL (70-110)
[2022-06-05 20:25] LABS: Glucose,Whole Blood 109 mg/dL (70-110)
[2022-06-05] MEDS: PRAMIPEXOLE 1 MG TAB PO SCH (21:09)
[2022-06-05] MEDS: ATORVASTATIN 40 MG TAB PO SCH (21:09)
[2022-06-05] MEDS: ALBUTEROL NEBULIZED 2.5 MG/3 ML INHALATION PRN (23:35)
[2022-06-06] MEDS: SODIUM CHLORIDE 0.9% 1,000 ML IV SCH ×2 (04:50→16:43)
[2022-06-06 05:44] LABS: Glucose,Whole Blood 139 mg/dL (70-110)
[2022-06-06] MEDS: INSULIN DETEMIR (LEVEMIR) 100 UNIT/ML SYR SQ SCH (05:45)
[2022-06-06] MEDS: INSULIN ASPART (NovoLOG) 100 UNIT/ML VIAL SQ SCH ×4 (05:45→21:40)
[2022-06-06] MEDS: IPRATROPIUM 0.5 MG/2.5 ML NEBU INHALATION PRN ×4 (07:48→18:41)
[2022-06-06] MEDS: ALBUTEROL NEBULIZED 2.5 MG/3 ML INHALATION PRN ×4 (07:48→18:41)
[2022-06-06] MEDS: HEPARIN SODIUM,PORCINE/PF 5,000 UNIT/0.5 ML SYRINGE SQ SCH ×2 (08:24→21:43)
[2022-06-06] MEDS: PANTOPRAZOLE 40 MG/10 ML VIAL IVP SCH (08:27)
[2022-06-06] MEDS: lisinopriL 20 MG TAB PO SCH (08:27)
[2022-06-06] MEDS: PRAMIPEXOLE 0.5 MG TAB PO SCH ×2 (08:27→16:43)
[2022-06-06] MEDS: CHOLECALCIFEROL 25 MCG (1000 IU) TABLET PO SCH (08:27)
[2022-06-06] MEDS: GABAPENTIN 400 MG CAP PO SCH ×3 (08:27→21:43)
[2022-06-06] MEDS: SERTRALINE 100 MG TAB PO SCH (08:27)
[2022-06-06 09:20] LABS: Basophils # (A) 0.02 X 10*3/uL (0.00-0.10); Basophils % (A) 0.2 %; Eosinophils # (A) 0.16 X 10*3/uL (0.04-0.35); Eosinophils % (A) 1.9 %; HCT 38.9 % (39.6-50.0); HGB 12.2 g/dL (13.0-17.0); Immature Grans, Automated 0.6 %; Lymphocytes # (A) 1.36 X 10*3/uL (0.90-5.00); MCH 29.2 pg (27.0-32.0); MCHC 31.4 g/dL (32.0-37.0); MCV 93.1 fL (80.0-97.0); Mean Platelet Volume 10.8 fL (9.5-12.2); Monocytes # (A) 0.77 X 10*3/uL (0.20-1.00); NRBC Per 100 WBC 0 /100 WBCS (0.0-0.0); Neutrophils # (A) 6.15 X 10*3/uL (1.80-7.70); Neutrophils % (A) 72.3 %; Platelet Count 159 X 10*3/uL (140-440); RBC 4.18 X 10*6/uL (4.40-5.60); RDW 13.2 % (11.5-14.5); WBC 8.51 X 10*3/uL (4.50-10.00)
[2022-06-06 09:36] LABS: African American GFR (CKD) 97.2 (60.0-200.0); Albumin 3.4 g/dL (3.8-4.9); Albumin/Globulin Ratio 1.55 (1.60-3.17); Anion Gap 9.7 mmol/L (10.00-18.00); BUN/Creat Ratio 11.33 Ratio (12.00-20.00); Blood Urea Nitrogen 10.2 mg/dL (9.0-27.0); Calcium 8.6 mg/dL (8.7-10.3); Carbon Dioxide 26.3 mmol/L (20.0-27.5); Globulin 2.2 g/dL (1.6-3.3); Non-African American GFR(CKD) 83.8 (60.0-200.0); Potassium 4.7 mmol/L (3.5-5.5); Total Bilirubin 0.7 mg/dL (0.30-1.20); Total Protein 5.6 g/dL (6.2-8.2)
[2022-06-06 11:42] LABS: Glucose,Whole Blood 160 mg/dL (70-110)
[2022-06-06] MEDS: METOPROLOL TARTRATE 25 MG TAB PO SCH ×2 (12:15→21:43)
[2022-06-06] MEDS ORDERED: IV FLUID CONTINUATION 1,000 ML IV ONE ×2 (12:56)
[2022-06-06] MEDS ORDERED: PROPOFOL 10 MG/ML 20 ML VIAL IV ONE (12:56)
[2022-06-06] MEDS ORDERED: LIDOCAINE 2% INJ 20 MG/ML (2 ML VIAL) ONE (12:56)
--- NOTE | 2022-06-06 13:31 | P.PCN ---
Date of Procedure: 06/06/22 Procedure(s) Performed: Preoperative Dx: Duodenitis Postoperative Dx: Duodenitis with multiple superficial erosions, mild gastritis Procedure: EGD with Bx Anesthesia: Sedation Endoscopist: Dr. Esquivel Specimens: Duodenum, antrum Endoscopic Procedure: The patient was on the endoscopy table in the left decubitus position. The Olympus gastroscope was inserted into the oropharynx and passed under direct visualization to the region of the third portion of the duodenum. From that point the scope was slowly withdrawn inspecting all surfaces carefully. In the second and third portion of the duodenum there were noted to be inflammatory changes with superficial plaque-like erosions. No bleeding was seen. No neoplastic changes were evident. The pylorus was widely patent. The stomach was carefully inspected. There was mild gastritis present as well. A biopsy of the antrum took place to rule out H. pylori. Retroflexion revealed a normal hiatus. The esophagus was then carefully examined. There were no neoplastic inflammatory or polypoid lesions throughout the visualized esophagus. The patient was then taken to the recovery room in stable condition per anesthesia guidelines. Recommendations: Will order a CT mesenteric angiogram at this time. Resume diet. Continue antiacids.
--- NOTE | 2022-06-06 15:47 | CT ---
EXAMINATION TYPE: CT angio abdomen pelvis DATE OF EXAM: 06/06/2022 COMPARISON: Noncontrast CT 3 days ago HISTORY: SMA vasculature. Pain and vomiting. Duodenitis. CT DLP: 5873.2 mGycm, Automated Exposure Control for Dose Reduction was Utilized. CONTRAST: CTA scan of the abdomen and pelvis is performed without oral and without and with IV Contrast, patien t injected with 100ml mL of Isovue 370. Vascular protocol with map images created on CT scanner. FINDINGS: Vasculature: Evto-[id number] peripheral calcified plaque of the aorta extends into branch vessels. T here are 2 right renal arteries which are patent. Patent SMA and RICARDO are seen. Celiac artery shows no significant narrowing sagittal image 80. LUNG BASES: Small to tiny bilateral pleural effusions on current study with associated compressive at electasis. Calcification in the RCA distribution. Rectangular hyperdensity possible calcification soumya r level of the anterior mitral valve axial image 4 of uncertain etiology. Correlate clinically and/or with echo. LIVER/GB: Liver is diffusely low dense on noncontrast images consistent with fatty infiltration. PANCREAS: Ostn-mg-xdkdlygi fat replaced atrophy of the pancreatic head. SPLEEN: No significant abnormality is seen. ADRENALS: No significant abnormality is seen. KIDNEYS: No significant abnormality is seen. BOWEL:. Residual contrast in the distal bowel. No suspicious small or large bowel dilatation. There i s persistent ill-defined fluid and fat stranding surrounding the second and third portion of the duod enum. Some areas of mild wall thickening in the sigmoid colon are redemonstrated.. PROSTATE/SEMINAL VESICLES: Mildly enlarged prostate consistent with BPH redemonstrated. LYMPH NODES: No greater than 1cm abdominal or pelvic lymph nodes are appreciated. OSSEOUS STRUCTURES: Multilevel vacuum disc phenomenon and disc space narrowing in the lumbar spine. T here is sclerosis involving the anterior superior L1 vertebra which has mild height loss similar to p rior. There is grade 1 retrolisthesis L5 on S1 with moderate to severe disc space narrowing and vacuu m disc phenomenon. OTHER: No significant additional abnormality is seen. IMPRESSION: No suspicious narrowing in the celiac artery or SMA. Findings consistent with acute duode nitis remain present similar to prior. No bowel obstruction. No significant new or acute findings.
[2022-06-06 17:27] LABS: Glucose,Whole Blood 171 mg/dL (70-110)
--- NOTE | 2022-06-06 19:05 | P.PN ---
Subjective Progress Note Date: 06/06/22 Placido Cota is a 76-year-old male patient presented with concerns of vomiting diarrhea and generalized weakness. Patient reports started yesterday with multiple episodes of diarrhea and vomiting. Patient has past medical history of coronary artery disease, diabetes mellitus, hyperlipidemia, hyperte nsion, myocardial infarction, heart catheterization with previous stent and anxiety. Chest x-ray completed showing mild cardiomegaly and chronic parenchymal changes without acute pulmonary process. Influenza negative, negative COVID-19 negative. Patient's lactic acid elevated at 5.1, WBC 11.0, C MP currently pending. Urinalysis ordered. Blood culture ordered. Abdomen ultrasound ordered. Amylase and lipase levels ordered. Current vital signs heart rate 91, respiratory rate 14, blood pressure 106/63 the pulse ox of 98% on room air. Patient given IV fluid bolus. ER protocol. Patient started on clear liquid diet awaiting further testing results On 06/02/2022 patient was seen and examined on the medical floor he is alert and oriented 3 in no apparent distress he is feeling somewhat better diarrhea stopped last night he had 1 episode of vomiting this morning he is still having some abdominal discomfort but better than yesterday otherwise he denies any complaints there is no fever or chills no headache or dizziness no chest pain no shortness of breath no cough and no urinary symptoms. On 06/03/2022 patient is alert and oriented x 3. patient reports he had a couple episodes of vomiting throughout the night. awaiting surgical consult. Denies any chest pain or shortness of breath. Denies any urinary burning or frequency. creat improving to 1.2. patient afebrile. On 06/04/2022 patient was seen and examined on the medical floor, he is alert and oriented x 3 in no distress, complaining of abdominal pain in the epigastric and right upper quadrant area, otherwise he denies any complaints there is no fever or chills no headache or dizziness no chest pain no shortness of breath no cough no nausea or vomiting no diarrhea or blood in the stool no burning with urination frequency or urgency no hematuria, computed tomography scan of the abdomen and pelvis was reviewed with evidence of acute duodenitis patient was evaluated by surgery Dr. Esquivel plan is for EGD on Monday. On 06/05/2022 patient is alert and oriented x 3 in no distress, still complaining of abdominal pain in the epigastric and right upper quadrant area, otherwise he denies any complaints there is no fever or chills no headache or dizziness no chest pain no shortness of breath no cough no nausea or vomiting no diarrhea or blood in the stool no burning with urination frequency or urgency no hematuria, computed tomography scan of the abdomen and pelvis was reviewed with evidence of acute duodenitis patient was evaluated by surgery Dr. Esquivel plan is for EGD tomorrow. On 06/06/2022 patient was seen and examined on the medical floor he is alert and oriented 3 in no apparent distress he is complaining of epigastric pain otherwise he denies any complaints there is no fever or chills no headache or dizziness no chest pain no shortness of breath no cough no nausea or vomiting no abdominal pain no diarrhea and no urinary symptoms, he is scheduled for EGD today Objective - Vital Signs Vital signs: Vital Signs Temp 98.0 F 06/06/22 00:21 Pulse 63 06/06/22 00:21 Resp 15 06/06/22 00:21 BP 129/68 06/06/22 00:21 Pulse Ox 95 06/06/22 00:21 FiO2 Intake & Output 06/05/22 06/06/22 06/06/22 18:59 06:59 18:59 Intake Total 538 Output Total 500 900 Balance 38 -900 Intake: Oral 538 Output: Urine 500 900 Other: Voiding Method Toilet Toilet Urinal Urinal - Exam In general patient is alert and oriented 3 in no apparent distress Head normocephalic and atraumatic Neck supple no JVD no goiter Lungs clear to auscultation bilaterally no wheezing or crackles Heart regular rate and rhythm S1-S2, no rub or gallop Abdomen is soft nontender nondistended positive bowel sounds no hepatosplenomegaly Extremities no edema no cyanosis or clubbing Neuro no gross focal deficit - Labs CBC & Chem 7: 06/06/22 05:28 06/06/22 05:28 Labs: Abnormal Lab Results - Last 24 Hours (Table) 06/05/22 06/05/22 06/06/22 Range/Units 12:40 17:10 05:43 POC Glucose (mg/dL) 141 H 160 H 139 H (70-110) mg/dL Microbiology - Last 24 Hours (Table) 06/01/22 17:30 Blood Culture - Preliminary Blood No Growth after 96 hours Assessment and Plan Assessment: Nausea vomiting and diarrhea, likely viral gastroenteritis Acute kidney injury likely related to dehydration, BUN on admission 50 creatinine 2.33, baseline creatinine 1.2 Leukocytosis Elevated lactic acid. improved Diabetes mellitus type 2 History of essential hypertension History of hyperlipidemia Coronary artery disease with previous heart cath and stent Abdomen ultrasound ordered abdominal xray completed surgical services consulted Repeat labs ordered
[2022-06-06 21:40] LABS: Glucose,Whole Blood 131 mg/dL (70-110)
[2022-06-06] MEDS: ATORVASTATIN 40 MG TAB PO SCH (21:43)
[2022-06-06] MEDS: PRAMIPEXOLE 1 MG TAB PO SCH (21:43)
[2022-06-07] MEDS ORDERED: ONDANSETRON 4 MG TAB PO PRN (00:04)
[2022-06-07] MEDS: SODIUM CHLORIDE 0.9% 1,000 ML IV SCH (00:05)
[2022-06-07 05:44] LABS: Glucose,Whole Blood 109 mg/dL (70-110)
[2022-06-07] MEDS: INSULIN ASPART (NovoLOG) 100 UNIT/ML VIAL SQ SCH ×2 (05:44→12:34)
[2022-06-07] MEDS: lisinopriL 20 MG TAB PO SCH (08:29)
[2022-06-07] MEDS: CHOLECALCIFEROL 25 MCG (1000 IU) TABLET PO SCH (08:29)
[2022-06-07] MEDS: GABAPENTIN 400 MG CAP PO SCH ×2 (08:29→16:10)
[2022-06-07] MEDS: PRAMIPEXOLE 0.5 MG TAB PO SCH (08:29)
[2022-06-07] MEDS: HEPARIN SODIUM,PORCINE/PF 5,000 UNIT/0.5 ML SYRINGE SQ SCH (08:30)
[2022-06-07] MEDS: METOPROLOL TARTRATE 25 MG TAB PO SCH (08:30)
[2022-06-07] MEDS: SERTRALINE 100 MG TAB PO SCH (08:30)
[2022-06-07] MEDS ORDERED: PANTOPRAZOLE 40 MG TABLET PO SCH (09:00)
[2022-06-07] MEDS: IPRATROPIUM 0.5 MG/2.5 ML NEBU INHALATION PRN ×2 (09:21→12:23)
[2022-06-07] MEDS: ALBUTEROL NEBULIZED 2.5 MG/3 ML INHALATION PRN ×2 (09:21→12:23)
[2022-06-07 09:28] LABS: Basophils # (A) 0.02 X 10*3/uL (0.00-0.10); Basophils % (A) 0.2 %; Eosinophils # (A) 0.11 X 10*3/uL (0.04-0.35); Eosinophils % (A) 1.2 %; HCT 38.8 % (39.6-50.0); HGB 12.4 g/dL (13.0-17.0); Immature Grans, Automated 0.6 %; Lymphocytes # (A) 1.23 X 10*3/uL (0.90-5.00); Lymphocytes % (A) 13.3 %; MCH 29.2 pg (27.0-32.0); MCV 91.3 fL (80.0-97.0); Monocytes # (A) 0.72 X 10*3/uL (0.20-1.00); Monocytes % (A) 7.8 %; NRBC Per 100 WBC 0 /100 WBCS (0.0-0.0); Neutrophils # (A) 7.13 X 10*3/uL (1.80-7.70); Neutrophils % (A) 76.9 %; Platelet Count 179 X 10*3/uL (140-440); RBC 4.25 X 10*6/uL (4.40-5.60); RDW 13.2 % (11.5-14.5); WBC 9.27 X 10*3/uL (4.50-10.00)
[2022-06-07 09:42] LABS: Carbon Dioxide 26.1 mmol/L (20.0-27.5); Potassium 3.8 mmol/L (3.5-5.5)
[2022-06-07 09:43] LABS: African American GFR (CKD) 97.2 (60.0-200.0); Albumin 3.2 g/dL (3.8-4.9); Albumin/Globulin Ratio 1.33 (1.60-3.17); Anion Gap 7.9 mmol/L (10.00-18.00); Blood Urea Nitrogen 10.8 mg/dL (9.0-27.0); Calcium 8.4 mg/dL (8.7-10.3); Globulin 2.4 g/dL (1.6-3.3); Non-African American GFR(CKD) 83.8 (60.0-200.0); Total Bilirubin 0.7 mg/dL (0.30-1.20); Total Protein 5.6 g/dL (6.2-8.2)
--- NOTE | 2022-06-07 11:34 | P.PN ---
Subjective Progress Note Date: 06/07/22 CHIEF COMPLAINT: Duodenitis HISTORY OF PRESENT ILLNESS: Patient sitting up at bedside chair. Patient rep orts having 4 episodes of diarrhea through the night and into the morning. He reports the stool color is dark. He denies any nausea or vomiting. Abdominal pain has resolved. EGD had shown duodenitis with multiple superficial erosions and mild gastritis. Patient currently on Protonix. CTA of the abdomen and pelvis shows no suspicious narrowing of the celiac artery or SMA. Findings consistent with acute duodenitis. No bowel obstruction. No significant new or acute findings. Afebrile. WBC is 9.27 hgb stable at 12.4 platelets 179 symptoms 137 potassium 3.8 creatinine 0.9 PHYSICAL EXAM: VITAL SIGNS: Reviewed. GENERAL: Well-developed in no acute distress. HEENT: No sclera icterus. Extraocular movements grossly intact. Moist buccal mucosa. Head is atraumatic, normocephalic. ABDOMEN: Soft. Mildly distended. Nontender. NEUROLOGIC: Alert and oriented. Cranial nerves II through XII grossly intact. ASSESSMENT: 1. Duodenitis with multiple superficial erosions and mild gastritis noted on EGD 2. Elevated lactic acid level improved PLAN: -Continue full liquid diet -Continue PPI -Continue supportive Physician Biomedical Repair Technician note has been reviewed by physician. Signing provider agrees with the documented findings, assessment, and plan of care. I have personally seen and examined the patient, reviewed the SPOR[employer] BOOK BOARD ATTENDANT /PAs history, exam and MDM and agree with the assessment and plan as written. Based on total visit time, I have performed more than 50% of the visit. As above: Patient is doing better today. His pain is less. CAT scan reviewed. No evidence of SMA stenosis. Inflammatory changes at the duodenum are improved. He had some black stools yesterday but brownish colored today. May discharge. Slowly advance diet. Follow-up as outpatient. Objective - Vital Signs Vital signs: Vital Signs Temp 97.6 F 06/07/22 07:00 Pulse 60 06/07/22 09:40 Resp 17 06/07/22 08:04 BP 171/74 06/07/22 07:00 Pulse Ox 94 L 06/07/22 07:00 FiO2 21 06/06/22 07:48 Intake & Output 06/06/22 06/07/22 06/07/22 18:59 06:59 18:59 Intake Total 218 Output Total 300 Balance 218 -300 Weight 127.006 kg Intake: IV 100 Oral 118 Output: Urine 300 Other: Voiding Method Toilet Toilet Bedside Commode Urinal Urinal Urinal # Voids 4 1 # Bowel Movements 2 - Labs CBC & Chem 7: 06/07/22 05:48 06/07/22 05:48 Labs: Abnormal Lab Results - Last 24 Hours (Table) 06/06/22 06/06/22 06/06/22 Range/Units 11:41 17:26 21:39 RBC (4.40-5.60) X 10*6/uL Hgb (13.0-17.0) g/dL Hct (39.6-50.0) % Immature Gran # (0.00-0.04) X 10*3/uL Anion Gap (10.00-18.00) mmol/L Glucose (70-110) mg/dL POC Glucose (mg/dL) 160 H 171 H 131 H (70-110) mg/dL Calcium (8.7-10.3) mg/dL Total Protein (6.2-8.2) g/dL Albumin (3.8-4.9) g/dL Albumin/Globulin Ratio (1.60-3.17) g/dL 06/07/22 06/07/22 Range/Units 05:48 05:48 RBC 4.25 L (4.40-5.60) X 10*6/uL Hgb 12.4 L (13.0-17.0) g/dL Hct 38.8 L (39.6-50.0) % Immature Gran # 0.06 H (0.00-0.04) X 10*3/uL Anion Gap 7.90 L (10.00-18.00) mmol/L Glucose 119 H (70-110) mg/dL POC Glucose (mg/dL) (70-110) mg/dL Calcium 8.4 L (8.7-10.3) mg/dL Total Protein 5.6 L (6.2-8.2) g/dL Albumin 3.2 L (3.8-4.9) g/dL Albumin/Globulin Ratio 1.33 L (1.60-3.17) g/dL Microbiology - Last 24 Hours (Table) 06/01/22 17:30 Blood Culture - Preliminary Blood No Growth after 120 hours
[2022-06-07 12:33] LABS: Glucose,Whole Blood 142 mg/dL (70-110)
[2022-06-07] MEDS: INSULIN DETEMIR (LEVEMIR) 100 UNIT/ML SYR SQ SCH (12:33)
[2022-06-07 15:08] VITALS: BP 179/78; PULSE 72; RESP 16; TEMP 98.3
[2022-06-07] MEDS: ACETAMINOPHEN TAB 325 MG TAB PO PRN (16:10)
--- NOTE | 2022-06-07 16:18 | P.DS ---
Providers Date of admission: 06/01/22 15:08 Expected date of discharge: 06/07/22 Attending physician: Akiko Lynch Consults: 06/02/22 16:50 Consult Physician Routine Consulting Provider: Heriberto Esquivel Consult Reason/Comments: Abdominal pain, vomiting Do you want consulting provider notified?: Yes Primary care physician: Akiko Cris [facility] Course: Diagnosis on discharge: Nausea vomiting and diarrhea, with evidence of duodenitis on computed tomography scan and EGD, biopsy taken await pathology results Acute kidney injury likely related to dehydration, BUN on admission 50 creatinine 2.33, baseline creatinine 1.2 Leukocytosis Elevated lactic acid. improved Diabetes mellitus type 2 History of essential hypertension History of hyperlipidemia Coronary artery disease with previous heart cath and stent Hospital course: Placido Ctoa is a 76-year-old male patient presented with concerns of vomiting diarrhea and generalized weakness. Patient reports started yesterday with multiple episodes of diarrhea and vomiting. Patient has past medical history of coronary artery disease, diabetes mellitus, hyperlipidemia, hypertension, myocardial infarction, heart catheterization with previous stent and anxiety. Chest x-ray completed showing mild cardiomegaly and chronic parenchymal changes without acute pulmonary process. Influenza negative, negative COVID-19 negative. Patient's lactic acid elevated at 5.1, WBC 11.0, CMP currently pending. Urinalysis ordered. Blood culture ordered. Abdomen ult rasound ordered. Amylase and lipase levels ordered. Current vital signs heart rate 91, respiratory rate 14, blood pressure 106/63 the pulse ox of 98% on room air. Patient given IV fluid bolus. ER protocol. Patient started on clear liquid diet awaiting further testing results On 06/02/2022 patient was seen and examined on the medical floor he is alert and oriented 3 in no apparent distress he is feeling somewhat better diarrhea stopped last night he had 1 episode of vomiting this morning he is still having some abdominal discomfort but better than yesterday otherwise he denies any complaints there is no fever or chills no headache or dizziness no chest pain no shortness of breath no cough and no urinary symptoms. On 06/03/2022 patient is alert and oriented x 3. patient reports he had a couple episodes of vomiting throughout the night. awaiting surgical consult. Denies any chest pain or shortness of breath. Denies any urinary burning or frequency. creat improving to 1.2. patient afebrile. On 06/04/2022 patient was seen and examined on the medical floor, he is alert and oriented x 3 in no distress, complaining of abdominal pain in the epigastric and right upper quadrant area, otherwise he denies any complaints there is no fever or chills no headache or dizziness no chest pain no shortness of breath no cough no nausea or vomiting no diarrhea or blood in the stool no burning with urination frequency or urgency no hematuria, computed tomography scan of the abdomen and pelvis was reviewed with evidence of acute duodenitis patient was evaluated by surgery Dr. Esquivel plan is for EGD on Monday. On 06/05/2022 patient is alert and oriented x 3 in no distress, still complaining of abdominal pain in the epigastric and right upper quadrant area, otherwise he denies any complaints there is no fever or chills no headache or dizziness no chest pain no shortness of breath no cough no nausea or vomiting no diarrhea or blood in the stool no burning with urination frequency or urgency no hematuria, computed tomography scan of the abdomen and pelvis was reviewed with evidence of acute duodenitis patient was evaluated by surgery Dr. Esquivel plan is for EGD tomorrow. On 06/06/2022 patient was seen and examined on the medical floor he is alert and oriented 3 in no apparent distress he is complaining of epigastric pain otherwise he denies any complaints there is no fever or chills no headache or dizziness no chest pain no shortness of breath no cough no nausea or vomiting no abdominal pain no diarrhea and no urinary symptoms, he is scheduled for EGD today On 06/07 2022 patient was seen and examined on the medical floor he is alert and oriented 3 in no apparent distress he is still having some abdominal discomfort otherwise he denies any complaints results of EGD discussed patient will be discharged home today he was given a prescription for Protonix 40 mg by mouth twice daily. Patient has mild cellulitis in the left forearm site of an old IV, he was given a prescription for Keflex and Mupirocin cream. Follow-up in the office within 1 week Patient Condition at Discharge: Stable Plan - Discharge Summary New Discharge Prescriptions: New Pantoprazole [Protonix] 40 mg PO BID tab Continue Sertraline [Zoloft] 100 mg PO DAILY Pramipexole [Mirapex] 0.5 mg PO BID@0900,1700 Pramipexole [Mirapex] 1 mg PO HS lisinopriL 20 mg PO DAILY Atorvastatin [Lipitor] 40 mg PO HS Metoprolol Tartrate 25 mg PO BID Gabapentin [Neurontin] 400 mg PO TID Triamterene-Hctz 37.5-25Mg [Dyazide 37.5-25 Capsule] 1 cap PO DAILY Cholecalciferol [Vitamin D3 (25 Mcg = 1000 Iu)] 25 mcg PO DAILY Insulin Glargine,Hum.rec.anlog [Toujeo Max Solostar] 100 units SQ DAILY Insulin Aspart [NovoLOG Flexpen] 17 units SQ AC-TID Discharge Medication List Atorvastatin [Lipitor] 40 mg PO HS 02/23/18 [History] Pramipexole [Mirapex] 0.5 mg PO BID@0900,1700 02/23/18 [History] Pramipexole [Mirapex] 1 mg PO HS 02/23/18 [History] Sertraline [Zoloft] 100 mg PO DAILY 02/23/18 [History] lisinopriL 20 mg PO DAILY 02/23/18 [History] Metoprolol Tartrate 25 mg PO BID 02/28/18 [History] Gabapentin [Neurontin] 400 mg PO TID 10/09/18 [History] Triamterene-Hctz 37.5-25Mg [Dyazide 37.5-25 Capsule] 1 cap PO DAILY 10/12/18 [History] Cholecalciferol [Vitamin D3 (25 Mcg = 1000 Iu)] 25 mcg PO DAILY 06/01/22 [History] Insulin Aspart [NovoLOG Flexpen] 17 units SQ AC-TID 06/01/22 [History] Insulin Glargine,Hum.rec.anlog [Toujeo Max Solostar] 100 units SQ DAILY 06/01/22 [History] Pantoprazole [Protonix] 40 mg PO BID tab 06/07/22 [Rx] Follow up Appointment(s)/Referral(s): Heriberto Esquivel MD [Medical Doctor] - 06/30/22 10:45 am [facility], [NON-STAFF] - 1 Week Akiko Lynch MD [Primary Care Provider] - 1-2 days Patient Instructions/Handouts: Gastritis (DC)
== END 2022-06-07 17:01 ==
LOC: EC 12:52 → 6NMEDSUR 15:08
PROVIDERS: ADMIT Internal Medicine; ATTEND Internal Medicine
DX: K29.80 Duodenitis without bleeding (principal); K29.50 Unspecified chronic gastritis without bleeding; I25.10 Atherosclerotic heart disease of native coronary artery without angina pectoris; E11.9 Type 2 diabetes mellitus without complications; E78.5 Hyperlipidemia, unspecified; I10 Essential (primary) hypertension; Z20.822 Contact with and (suspected) exposure to COVID-19; I25.2 Old myocardial infarction; Z85.828 Personal history of other malignant neoplasm of skin; N40.0 Benign prostatic hyperplasia without lower urinary tract symptoms; F32.A Depression, unspecified; Z97.2 Presence of dental prosthetic device (complete) (partial); K21.9 Gastro-esophageal reflux disease without esophagitis; Z87.891 Personal history of nicotine dependence; Z95.5 Presence of coronary angioplasty implant and graft; Z98.49 Cataract extraction status, unspecified eye; Z98.1 Arthrodesis status; F41.9 Anxiety disorder, unspecified; Z80.9 Family history of malignant neoplasm, unspecified; Z79.84 Long term (current) use of oral hypoglycemic drugs; Z79.82 Long term (current) use of aspirin; Z79.4 Long term (current) use of insulin; Z79.899 Other long term (current) drug therapy; Z91.018 Allergy to other foods
CPT/HCPCS: 96376 ×5; 96374; 96375; 96361; 99285; 36415; 94640 ×5; 94760 ×2; 93005; 97530 ×3; 97166; 88305; 80053 ×6; 82150; 83605; 83690; 83735; 85025 ×5; 85610; 85730; 81001; 87040; 83036; 87635; 87636; 71045; 74019; 76700; 74176; 74174; 43239; G0378 ×7; J2405 ×2; J2704; C9113 ×4; Q9967; J1644 ×2; J2001

== ENCOUNTER → 2022-08-15 | Outpatient (CLI) | payer MEDICARE ==
[2022-08-15 12:22] LABS: African American GFR (CKD) 72 (>60 ml/min/1.73 sqM); Blood Urea Nitrogen 24 mg/dL (9-20); Non-African American GFR(CKD) 62 (>60 ml/min/1.73 sqM)
--- NOTE | 2022-08-15 13:43 | CT ---
EXAMINATION TYPE: CT abdomen w con DATE OF EXAM: 08/15/2022 COMPARISON: CTA abdomen June 06, 2022 HISTORY: bowel inflammation CT DLP: 2608.9 mGycm Automated exposure control for dose reduction was used. TECHNIQUE: Helical acquisition of images was performed from the lung bases through the top of iliac crest to include entire abdomen. CONTRAST: Performed with Oral Contrast and with IV Contrast, patient injected with 100 mL of Isovue 300. FINDINGS: LUNG BASES: Coronary artery calcification and/or stents are redemonstrated. LIVER/GB: Liver is heterogeneous hypodense consistent with diffuse fatty infiltration. PANCREAS: Mild to moderate atrophy in the pancreatic head. SPLEEN: No significant abnormality is seen. ADRENALS: No significant abnormality is seen. KIDNEYS: Symmetric cortical uptake and excretion without hydronephrosis seen bilaterally. BOWEL: Oral contrast does not reach level of the terminal ileum making evaluation of distal ball sub optimal. No suspicious small or large bowel dilatation. Resolved fluid and fat stranding near the duo denal sweep noted. LYMPH NODES: No significant abnormality is seen. OSSEOUS STRUCTURES: Multilevel vacuum disc phenomenon and mild to moderate disc space narrowing. Mor e severe disc space narrowing of lumbosacral junction redemonstrated. Multilevel mild to moderate spu rring. FREE AIR: No free air is visualized. OTHER: No significant abnormality. IMPRESSION: No bowel obstruction. No acute findings are evident. Resolved inflammatory change in the region of duodenal sweep noted.
== END | disposition home or self-care (01) ==
LOC: RADCTMAIN 11:44
PROVIDERS: ATTEND Surgery
DX: K29.80 Duodenitis without bleeding (principal)
CPT/HCPCS: 82565; 84520; 74160; 36415; Q9967

== ENCOUNTER → 2022-10-21 | Outpatient (CLI) | payer MEDICARE ==
--- NOTE | 2022-10-22 08:41 | MR ---
EXAMINATION TYPE: MR brain and iac wo/w con DATE OF EXAM: 10/21/2022 7:01 PM COMPARISON: NONE HISTORY: Hearing loss TECHNIQUE: Multiplanar and multispin-echo imaging of the brain was performed both before and after the administr ation of contrast. High-resolution images are obtained of the internal auditory canals performed uti lizing 13 mL intravenous Gadavist contrast. The ventricles, basal cisterns and sulci overlying the cerebral convexities are within normal limits. There is no evidence for midline shift or mass effect. Acute intracranial hemorrhage or extra-axial collection is not evident. There is mild periventricular white matter ischemic demyelination and a few scattered foci of increas ed signal within the deep white matter of both cerebral hemispheres felt to reflect chronic small ves traci ischemic change. High-resolution imaging of the internal auditory canals fails demonstrate evidence for an enhancing a coustic schwannoma or cerebellopontine cistern angle mass. Following contrast administration, there is no evidence for pathologic enhancement or enhancing mass. The paranasal sinuses and mastoid air cells are well-aerated. IMPRESSION: 1. No evidence of acoustic schwannoma or cerebellopontine angle mass.
== END | disposition home or self-care (01) ==
LOC: RADMRIMAIN 17:54
PROVIDERS: ATTEND Otolaryngology
DX: H90.41 Sensorineural hearing loss, unilateral, right ear, with unrestricted hearing on the contralateral side (principal)
CPT/HCPCS: 70553; A9585

== ENCOUNTER → 2023-01-04 | Outpatient (CLI) | payer MEDICARE ==
[2023-01-04 11:24] LABS: NT-Pro-B-Type Natriuretic Pept 185 pg/mL
[2023-01-04 11:43] LABS: ALT 26 U/L (4-49); AST 26 U/L (17-59); African American GFR (CKD) 88 (>60 ml/min/1.73 sqM); Albumin 3.8 g/dL (3.5-5.0); Albumin/Globulin Ratio 1.2; Alkaline Phosphatase 147 U/L (38-126); Anion Gap 9 mmol/L; Blood Urea Nitrogen 21 mg/dL (9-20); Calcium 8.9 mg/dL (8.4-10.2); Carbon Dioxide 30 mmol/L (22-30); Chloride 99 mmol/L (98-107); Globulin 3.3 g/dL; Glucose 169 mg/dL (74-99); Non-African American GFR(CKD) 76 (>60 ml/min/1.73 sqM); Potassium 4.1 mmol/L (3.5-5.1); Sodium 138 mmol/L (137-145); Total Bilirubin 0.5 mg/dL (0.2-1.3); Total Protein 7.1 g/dL (6.3-8.2)
== END | disposition home or self-care (01) ==
LOC: LABWHC1 10:33
PROVIDERS: ATTEND Internal Medicine Interventional Cardiology
DX: R06.02 Shortness of breath (principal)
CPT/HCPCS: 36415; 80053; 83880

== ENCOUNTER → 2023-03-16 | Outpatient (CLI) | payer MEDICARE ==
--- NOTE | 2023-03-16 23:14 | XR ---
EXAMINATION TYPE: XR ribs RT DATE OF EXAM: 03/16/2023 COMPARISON: None HISTORY: Right shoulder pain, fall TECHNIQUE: Two-view right ribs FINDINGS: Right ribs appear intact. No displaced rib fractures are identified. No pneumothorax is tanner dent. IMPRESSION: 1. No acute osseous abnormality right ribs.
== END | disposition home or self-care (01) ==
LOC: RADXRMAIN 14:15
PROVIDERS: ATTEND Internal Medicine
DX: M25.511 Pain in right shoulder (principal); W19.XXXA Unspecified fall, initial encounter

== ENCOUNTER 2024-03-14 17:31 | Inpatient (IN) | payer MEDICARE ==
--- NOTE | 2024-03-14 17:45 | ED ---
General Adult HPI - General Source: patient Mode of arrival: ambulatory Limitations: no limitations <Getachew Woo - Last Filed: 03/14/24 17:44> - General Source: patient, RN notes reviewed Mode of arrival: ambulatory Limitations: no limitations <Tiffany Curtis - Last Filed: 03/14/24 23:48> - General Stated complaint: lower ext problem Time Seen by Provider: 03/14/24 17:44 - History of Present Illness Initial comments: 78-year-old male presenting with chief complaint of increased redness and swelling to the left lower extremity. (Getachew Woo) Patient is a 75-year-old male presented to the ER for evaluation of left lower leg edema and redness. He states he has noticed the swelling for about 6 months and has been following up with his PCP, Dr. Lynch. He states 3 to [address] Lynch noticed erythema and patient was started on Keflex. Patient completed full course and reported mild improvement. He states redness has continued and he now has noticed wounds to his anterior left calf. He also notes ridges to his feet. Patient is diabetic but denies smoking. He denies any fevers, chills, nausea, vomiting, chest pain, shortness of breath, abdominal pain, constipation/diarrhea, urinary complaints. (Tiffany Curtis) - Related Data Home Medications Medication Instructions Recorded Confirmed Atorvastatin [Lipitor] 40 mg PO HS 02/23/18 06/01/22 Pramipexole [Mirapex] 0.5 mg PO BID@0900,1700 02/23/18 06/01/22 Pramipexole [Mirapex] 1 mg PO HS 02/23/18 06/01/22 Sertraline [Zoloft] 100 mg PO DAILY 02/23/18 06/01/22 lisinopriL 20 mg PO DAILY 02/23/18 06/01/22 Metoprolol Tartrate 25 mg PO BID 02/28/18 06/01/22 Gabapentin [Neurontin] 400 mg PO TID 10/09/18 06/01/22 Triamterene-Hctz 37.5-25Mg 1 cap PO DAILY 10/12/18 06/01/22 [Dyazide 37.5-25 Capsule] Cholecalciferol [Vitamin D3 (25 25 mcg PO DAILY 06/01/22 06/01/22 Mcg = 1000 Iu)] Insulin Aspart [NovoLOG Flexpen] 17 units SQ AC-TID 06/01/22 06/01/22 Insulin Glargine,Hum.rec.anlog 100 units SQ DAILY 06/01/22 06/01/22 [Touchristopher Grewal Solostar] Previous Rx's Medication Instructions Recorded Pantoprazole [Protonix] 40 mg PO BID tab 06/07/22 Allergies Allergy/AdvReac Type Severity Reaction Status Date / Time Mushroom Allergy Diarrhea Verified 03/14/24 18:11 Review of Systems ROS Other: All systems not noted in ROS Statement are negative. <Getachew Woo - Last Filed: 03/14/24 17:44> ROS Other: All systems not noted in ROS Statement are negative. <Tiffany Curtis - Last Filed: 03/14/24 23:48> ROS Statement: Those systems with pertinent positive or pertinent negative responses have been documented in the HPI. Past Medical History Past Medical History: Coronary Artery Disease (CAD), Cancer, COPD, Diabetes Mellitus, GERD/Reflux, Hyperlipidemia, Hypertension, Myocardial Infarction (NV), Pneumonia, Prostate Disorder Additional Past Medical History / Comment(s): RLS. 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 BPH Last Myocardial Infarction Date:: 2002 History of Any Multi-Drug Resistant Organisms: None Reported Past Surgical History: Appendectomy, Heart Catheterization With Stent, Orthopedic Surgery Additional Past Surgical History / Comment(s): COLONOSCOPY, BILAT CATARACTS, RT ROTATOR CUFF REPAIR, RT EYE SX, BOWEL SX AT AGE 6, RT FOOT FUSION, CERVICAL FUSION X 2, SKIN CANCER ON BACK REMOVED. heart cath twice with 4 stents Past Anesthesia/Blood Transfusion Reactions: Motion Sickness Date of Last Stent Placement:: 2002, 2012 Past Psychological History: Anxiety, Depression Additional Psychological History / Comment(s): and lives with his who he takes care of. Is not a current tobacco smokerand alcohol use. Retired software engineering associate manager. No recent international travel. No illnesses while in service. No animals in the home Smoking Status: Former smoker Past Alcohol Use History: None Reported Past Drug Use History: None Reported - Past Family History Father Family Medical History: Cancer Sister(s) Family Medical History: Cancer <Getachew Woo - Last Filed: 03/14/24 17:44> General Exam <Getachew Woo - Last Filed: 03/14/24 17:44> Limitations: no limitations General appearance: alert, in no apparent distress Respiratory exam: Present: normal lung sounds bilaterally. Absent: respiratory distress, wheezes, rales, rhonchi, stridor Cardiovascular Exam: Present: regular rate, normal rhythm, normal heart sounds. Absent: systolic murmur, diastolic murmur, rubs, gallop, clicks Extremities exam: Present: other (Erythema to left calf. There is a draining wound noted to anterior aspect. Area is warm and tender to touch. Brisk cap refill. No palpable pulses on the left. 2+ DP pulse on the right.) Neurological exam: Present: alert, oriented X3, CN II-XII intact Skin exam: Present: warm, dry, intact, normal color. Absent: rash <Tiffany Curtis - Last Filed: 03/14/24 23:48> - General Exam Comments Initial Comments: Visual Physical Exam Vital signs reviewed General: Well-appearing, nontoxic, no acute distress. Head: Normocephalic, atraumatic Eyes: PERRLA, EOMI ENT: Airway patent Chest: Nonlabored breathing Skin: No visual rash, normal skin tone Neuro: Alert and oriented 3 Musculoskeletal: No gross abnormalities (Getachew Woo) Course <Tiffany Curtis - Last Filed: 03/14/24 23:48> Vital Signs 03/14/24 03/14/24 03/14/24 18:08 20:32 23:00 Temperature 97.7 F 97.2 F L Pulse Rate 94 72 95 Respiratory 18 18 18 Rate Blood Pressure 161/85 156/84 153/94 O2 Sat by Pulse 96 95 94 L Oximetry - Reevaluation(s) Reevaluation #1: 03/14/24 21:[address] Lynch for admission. (Tiffany Curtis) Medical Decision Making <Getachew Woo - Last Filed: 03/14/24 17:44> - Lab Data Result diagrams: 03/14/24 19:30 03/14/24 19:30 <Tiffany Curtis - Last Filed: 03/14/24 23:48> - Medical Decision Making I performed the quick note portion of this visit, electronically signed Getachew Woo PA-C (Getachew Woo) Was pt. sent in by a medical professional or institution (KAVYA Johnson, COMPRESSOR STATION CHIEF ENGINEER, urgent care, hospital, or prison...) When possible be specific @ -Patient was sent by PCP, Dr. Lynch for evaluation of left lower extremity erythema and edema. Did you speak to anyone other than the patient for history (EMS, parent, family, police, friend...)? What history was obtained from this source @ -No Did you review nursing and triage notes (agree or disagree)? Why? @ -I reviewed and agree with nursing and triage notes Were old charts reviewed (outside hosp., previous admission, EMS record, old EKG, old radiological studies, urgent care reports/EKG's, prison records)? Report findings @ -No old charts were reviewed Differential Diagnosis (chest pain, altered mental status, abdominal pain women, abdominal pain men, vaginal bleeding, weakness, fever, dyspnea, syncope, headache, dizziness, GI bleed, back pain, seizure, CVA, palpatations, mental health, musculoskeletal)? @ -Differential Musculoskeletal: Muscular strain, contusion, ligament sprain, fracture, arthritis, septic arthritis, bursitis, cellulitis, muscle spasm, nerve compression, DVT, arterial occlusion, herpes zoster, electrolyte abnormality, tumor.... This is not meant to be in all inclusive list EKG interpreted by me (3pts min.). @ -None done X-rays interpreted by me (1pt min.). @ -None done CT interpreted by me (1pt min.). @ -None done U/S interpreted by me (1pt. min.). @ -None done What testing was considered but not performed or refused? (CT, X-rays, U/S, labs)? Why? @ -None What meds were considered but not given or refused? Why? @ -None Did you discuss the management of the patient with other professionals (professionals i.e. KAVYA Johnson, COMPRESSOR STATION CHIEF ENGINEER, lab, RT, psych nurse, outreach and education social worker, sharepoint solutions architect, teacher, probation and parole officer, watch caser)? Give summary @ -Yes, case was discussed with Dr. Lynch for admission. Was smoking cessation discussed for >3mins.? @ -No Was critical care preformed (if so, how long)? @ -No Were there social determinants of health that impacted care today? How? (Homelessness, low income, unemployed, alcoholism, drug addiction, transportation, low edu. Level, literacy, decrease access to med. care, nursing home, rehab)? @ -No Was there de-escalation of care discussed even if they declined (Discuss DNR or withdrawal of care, Hospice)? DNR status @ -No What co-morbidities impacted this encounter? (DM, HTN, Smoking, COPD, CAD, Cancer, CVA, ARF, Chemo, Hep., AIDS, mental health diagnosis, sleep apnea, morbid obesity)? @ -Obese, diabetic Was patient admitted / discharged? Hospital course, mention meds given and route, prescriptions, significant lab abnormalities, going to OR and other pertinent info. @ -Admitted. 78-year-old male presented to the ER for evaluation of left lower extremity erythema and edema. Patient sent by Dr. Lynch for evaluation of this. Patient originally seen as a quick note where laboratory studies were ordered. Upon rooming, history and physical exam completed. Vitals within normal limits. On exam, patient resting comfortably on stretcher no signs of acute distress. There is erythema to left calf with a wound draining serosanguineous fluid. Area is warm and tender to touch. There is brisk cap refill on the left but no palpable pulse given edema. Laboratory studies obtained showing a WBC of 8.7, lactic 1.5, CRP 0.7. Viral swabs negative. Given patient's recent antibiotic use with failed outpatient treatment admission was considered and discussed with Dr. Lynch. Blood cultures obtained. Patient started on vancomycin and Zosyn. ID on consult. Patient is agreeable for admission. Strict return parameters discussed. Patient discharged in stable condition with follow-up to PCP. Patient verbally expressed understanding and agreement with care plan. Case discussed with ED attending, Dr. Stewart. Undiagnosed new problem with uncertain prognosis? @ -No Drug Therapy requiring intensive monitoring for toxicity (Heparin, Nitro, Insulin, Cardizem)? @ -No Were any procedures done? @ -No Diagnosis/symptom? @ -Cellulitis/failed outpatient treatment Acute, or Chronic, or Acute on Chronic? @ -Acute Uncomplicated (without systemic symptoms) or Complicated (systemic symptoms)? @ -Complicated Side effects of treatment? @ -No Exacerbation, Progression, or Severe Exacerbation? @ -No Poses a threat to life or bodily function? How? (Chest pain, USA, NV, pneumonia, PE, COPD, DKA, ARF, appy, cholecystitis, CVA, Diverticulitis, Homicidal, Suic idal, threat to staff... and all critical care pts) @ -Yes, cellulitis can lead to sepsis and/or end organ dysfunction. (Tiffany Curtis) - Lab Data Lab Results 03/14/24 03/14/24 03/14/24 Range/Units 19:30 19:30 19:30 WBC 8.7 (3.8-10.6) k/uL RBC 5.20 (4.30-5.90) m/uL Hgb 14.9 (13.0-17.5) gm/dL Hct 48.2 (39.0-53.0) % MCV 92.8 (80.0-100.0) fL MCH 28.6 (25.0-35.0) pg MCHC 30.8 L (31.0-37.0) g/dL RDW 14.9 (11.5-15.5) % Plt Count 168 (150-450) k/uL MPV 8.4 Neutrophils % 74 % Lymphocytes % 16 % Monocytes % 6 % Eosinophils % 2 % Basophils % 1 % Neutrophils # 6.4 (1.3-7.7) k/uL Lymphocytes # 1.4 (1.0-4.8) k/uL Monocytes # 0.5 (0-1.0) k/uL Eosinophils # 0.2 (0-0.7) k/uL Basophils # 0.0 (0-0.2) k/uL Hypochromasia Marked Sodium 140 (137-145) mmol/L Potassium 4.4 (3.5-5.1) mmol/L Chloride 99 (98-107) mmol/L Carbon Dioxide 35 H (22-30) mmol/L Anion Gap 6 mmol/L BUN 24 H (9-20) mg/dL Creatinine 0.98 (0.66-1.25) mg/dL Est GFR (CKD-EPI)AfAm 87 (>60 ml/min/1.73 sqM) Est GFR (CKD-EPI)NonAf 75 (>60 ml/min/1.73 sqM) Glucose 89 (74-99) mg/dL Plasma Lactic Acid Rafael 1.5 (0.7-2.0) mmol/L Calcium 9.3 (8.4-10.2) mg/dL Total Bilirubin 0.8 (0.2-1.3) mg/dL AST 35 (17-59) U/L ALT 37 (4-49) U/L Alkaline Phosphatase 98 (38-126) U/L C-Reactive Protein 0.7 (<1.0) mg/dL Total Protein 7.0 (6.3-8.2) g/dL Albumin 4.1 (3.5-5.0) g/dL Influenza Type A (PCR) (Not Detectd) Influenza Type B (PCR) (Not Detectd) RSV (PCR) (Not Detectd) SARS-CoV-2 (PCR) (Not Detectd) 03/14/24 Range/Units 22:44 WBC (3.8-10.6) k/uL RBC (4.30-5.90) m/uL Hgb (13.0-17.5) gm/dL Hct (39.0-53.0) % MCV (80.0-100.0) fL MCH (25.0-35.0) pg MCHC (31.0-37.0) g/dL RDW (11.5-15.5) % Plt Count (150-450) k/uL MPV Neutrophils % % Lymphocytes % % Monocytes % % Eosinophils % % Basophils % % Neutrophils # (1.3-7.7) k/uL Lymphocytes # (1.0-4.8) k/uL Monocytes # (0-1.0) k/uL Eosinophils # (0-0.7) k/uL Basophils # (0-0.2) k/uL Hypochromasia Sodium (137-145) mmol/L Potassium (3.5-5.1) mmol/L Chloride (98-107) mmol/L Carbon Dioxide (22-30) mmol/L Anion Gap mmol/L BUN (9-20) mg/dL Creatinine (0.66-1.25) mg/dL Est GFR (CKD-EPI)AfAm (>60 ml/min/1.73 sqM) Est GFR (CKD-EPI)NonAf (>60 ml/min/1.73 sqM) Glucose (74-99) mg/dL Plasma Lactic Acid Rafael (0.7-2.0) mmol/L Calcium (8.4-10.2) mg/dL Total Bilirubin (0.2-1.3) mg/dL AST (17-59) U/L ALT (4-49) U/L Alkaline Phosphatase (38-126) U/L C-Reactive Protein (<1.0) mg/dL Total Protein (6.3-8.2) g/dL Albumin (3.5-5.0) g/dL Influenza Type A (PCR) Not Detected (Not Detectd) Influenza Type B (PCR) Not Detected (Not Detectd) RSV (PCR) Not Detected (Not Detectd) SARS-CoV-2 (PCR) Not Detected (Not Detectd) Disposition <Getachew Woo - Last Filed: 03/14/24 17:44> Time of Disposition: 21:54 <Tiffany Curtis - Last Filed: 03/14/24 23:48> Clinical Impression: Cellulitis, Failure of outpatient treatment Disposition: ADMITTED IP TO THIS HOSP Condition: Stable
[2024-03-14 19:49] LABS: Basophils % (A) 1 %; Eosinophils # (A) 0.2 k/uL (0-0.7); Eosinophils % (A) 2 %; HCT 48.2 % (39.0-53.0); HGB 14.9 gm/dL (13.0-17.5); Hypochromasia Marked; Lymphocytes # (A) 1.4 k/uL (1.0-4.8); Lymphocytes % (A) 16 %; MCH 28.6 pg (25.0-35.0); MCHC 30.8 g/dL (31.0-37.0); MCV 92.8 fL (80.0-100.0); Mean Platelet Volume 8.4; Monocytes # (A) 0.5 k/uL (0-1.0); Monocytes % (A) 6 %; Neutrophils # (A) 6.4 k/uL (1.3-7.7); Neutrophils % (A) 74 %; Platelet Count 168 k/uL (150-450); RDW 14.9 % (11.5-15.5); WBC 8.7 k/uL (3.8-10.6)
[2024-03-14 20:03] LABS: ALT 37 U/L (4-49); AST 35 U/L (17-59); African American GFR (CKD) 87 (>60 ml/min/1.73 sqM); Albumin 4.1 g/dL (3.5-5.0); Alkaline Phosphatase 98 U/L (38-126); Anion Gap 6 mmol/L; Blood Urea Nitrogen 24 mg/dL (9-20); C Reactive Protein 0.7 mg/dL (<1.0); Calcium 9.3 mg/dL (8.4-10.2); Carbon Dioxide 35 mmol/L (22-30); Chloride 99 mmol/L (98-107); Glucose 89 mg/dL (74-99); Non-African American GFR(CKD) 75 (>60 ml/min/1.73 sqM); Potassium 4.4 mmol/L (3.5-5.1); Sodium 140 mmol/L (137-145); Total Bilirubin 0.8 mg/dL (0.2-1.3)
[2024-03-14] MEDS ORDERED: VANCOMYCIN IV PER PHARMACY 1 EACH MISC MISCELLANE PRN (21:32)
[2024-03-14] MEDS ORDERED: NALOXONE 0.4 MG/ML 1 ML VIAL IV PRN (21:50)
[2024-03-14] MEDS ORDERED: ONDANSETRON 4 MG/2 ML VIAL IVP PRN (21:50)
[2024-03-14] MEDS: PIPERACILLIN-TAZOBACTAM 3.375 GM in SODIUM CHLORIDE 0.9% 100 ML IVPB STA (22:12)
[2024-03-14] MEDS: SODIUM CHLORIDE 0.9% 1,000 ML IV SCH (22:12)
[2024-03-14] MEDS: VANCOMYCIN 2,000 MG in SODIUM CHLORIDE 0.9% 500 ML 500 ML IVPB ONE (23:21)
[2024-03-15] MEDS ORDERED: DEXTROSE 50% SYRINGE 50 ML IVP PRN ×2 (03:19)
[2024-03-15 06:44] LABS: Glucose,Whole Blood 60 mg/dL (70-110)
[2024-03-15] MEDS: INSULIN ASPART (NovoLOG) 100 UNIT/ML VIAL SQ SCH (08:33)
[2024-03-15] MEDS: GABAPENTIN 400 MG CAP PO SCH (08:38)
--- NOTE | 2024-03-15 09:55 | P.HPIM ---
History of Present Illness H&P Date: 03/15/24 Placido Cota is a 78-year-old male patient who presented with concerns of left lower extremity cellulitis with failed outpatient treatment patient reports he noticed the swelling about 6 months ago and was started on outpatient antibiotic Keflex patient showed minimum improvement and redness continued prompting him to come to ER for further evaluation. Patient has a past medical history of COPD, CAD, diabetes mellitus, GERD, hyperlipidemia, hypertension and prostate disorder. Patient's currently inpatient positive for COVID. Patient not showing any symptoms at this time COVID-19 negative. Influenza and RSV negative. Lactic acid 1.5. White blood cell 8.7. Patient was started on IV vancomycin and infectious disease services have been consulted current vital signs temp 98.2, heart rate 68, respiratory rate 16, blood pressure 138/77 with a pulse ox of 98% on room air. Patient denies chest pain or shortness of breath. Patient denies nausea vomiting or diarrhea. Patient denies any urinary burning or frequency. Review of Systems Please refer to HPI otherwise unremarkable Past Medical History Past Medical History: Coronary Artery Disease (CAD), Cancer, COPD, Diabetes Mellitus, GERD/Reflux, Hyperlipidemia, Hypertension, Myocardial Infarction (OR), Pneumonia, Prostate Disorder Additional Past Medical History / Comment(s): RLS. 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 BPH Last Myocardial Infarction Date:: 2002 History of Any Multi-Drug Resistant Organisms: None Reported Past Surgical History: Appendectomy, Heart Catheterization With Stent, Orthopedic Surgery Additional Past Surgical History / Comment(s): COLONOSCOPY, BILAT CATARACTS, RT ROTATOR CUFF REPAIR, RT EYE SX, BOWEL SX AT AGE 6, RT FOOT FUSION, CERVICAL FUSION X 2, SKIN CANCER ON BACK REMOVED. heart cath twice with 4 stents Past Anesthesia/Blood Transfusion Reactions: Motion Sickness Date of Last Stent Placement:: 2002, 2012 Past Psychological History: Anxiety, Depression Smoking Status: Former smoker Past Alcohol Use History: None Reported Past Drug Use History: None Reported - Past Family History Father Family Medical History: Cancer Sister(s) Family Medical History: Cancer Medications and Allergies Home Medications Medication Instructions Recorded Confirmed Type Atorvastatin [Lipitor] 40 mg PO HS 02/23/18 06/01/22 History Pramipexole [Mirapex] 0.5 mg PO BID@0900,1700 02/23/18 06/01/22 History Pramipexole [Mirapex] 1 mg PO HS 02/23/18 06/01/22 History Sertraline [Zoloft] 100 mg PO DAILY 02/23/18 06/01/22 History lisinopriL 20 mg PO DAILY 02/23/18 06/01/22 History Metoprolol Tartrate 25 mg PO BID 02/28/18 06/01/22 History Gabapentin [Neurontin] 400 mg PO TID 10/09/18 06/01/22 History Triamterene-Hctz 37.5-25Mg 1 cap PO DAILY 10/12/18 06/01/22 History [Dyazide 37.5-25 Capsule] Cholecalciferol [Vitamin D3 (25 25 mcg PO DAILY 06/01/22 06/01/22 History Mcg = 1000 Iu)] Insulin Aspart [NovoLOG Flexpen] 17 units SQ AC-TID 06/01/22 06/01/22 History Insulin Glargine,Hum.rec.anlog 100 units SQ DAILY 06/01/22 06/01/22 History [Toujeo Max Solostar] Pantoprazole [Protonix] 40 mg PO BID tab 06/07/22 Rx Allergies Allergy/AdvReac Type Severity Reaction Status Date / Time Mushroom Allergy Diarrhea Verified 03/14/24 18:11 Physical Exam Vitals: Vital Signs Temp Pulse Resp BP Pulse Ox 03/15/24 08:38 98 F 68 16 138/77 98 03/15/24 06:37 98.2 F 103 H 16 138/77 93 L 03/15/24 03:04 97.6 F 107 H 16 144/90 95 03/14/24 23:00 97.2 F L 95 18 153/94 94 L 03/14/24 20:32 72 18 156/84 95 03/14/24 18:08 97.7 F 94 18 161/85 96 Intake and Output 03/14/24 03/15/24 03/15/24 22:59 06:59 14:59 Other: Weight 133.81 kg Head normocephalic Neck supple Lungs clear to auscultation bilaterally no wheezing or crackles Heart regular rate and rhythm S1-S2, no rub or gallop Abdomen is soft nontender nondistended positive bowel sounds no hepatosplenomegaly Extremities no edema. Left lower extremity edematous with significant erythema with dime size opening on lower trevizo area Neuro alert and orientated to 3 Results CBC & Chem 7: 03/14/24 19:30 03/14/24 19:30 Labs: Abnormal Lab Results - Last 24 Hours (Table) 03/14/24 03/14/24 03/15/24 Range/Units 19:30 19:30 06:42 MCHC 30.8 L (31.0-37.0) g/dL Carbon Dioxide 35 H (22-30) mmol/L BUN 24 H (9-20) mg/dL POC Glucose (mg/dL) 60 L (70-110) mg/dL Assessment and Plan Assessment: 1. Left lower extremity cellulitis with failed outpatient treatment 2. History of diabetes mellitus type 2 3. History of essential hypertension 4. History of hyperlipidemia 5. History of coronary artery disease with previous heart catheterization and stent 6. History of GERD 7. History of COPD DVT prophylaxis Lovenox. GI prophylax Protonix Infectious disease services consulted Blood culture ordered Patient started on IV vancomycin Time with Patient: Greater than 30 (Greater than 60% of the total time spent in counseling and coordination of care)
[2024-03-15] MEDS: VANCOMYCIN 2,000 MG in SODIUM CHLORIDE 0.9% 500 ML 500 ML IVPB SCH (10:30)
[2024-03-15] MEDS: IPRATROPIUM-ALBUTEROL 3 ML NEB INHALATION SCH (11:50)
[2024-03-15 11:57] LABS: Glucose,Whole Blood 113 mg/dL (70-110)
--- NOTE | 2024-03-15 15:45 | US ---
EXAMINATION TYPE: US venous doppler duplex LE LT DATE OF EXAM: 03/15/2024 3:35 PM COMPARISON: NONE CLINICAL INDICATION: Male, 78 years old with history of Swelling; left leg edema., Pain TECHNIQUE: The lower extremity deep venous system is examined utilizing real time linear array sonog corazon with graded compression, color doppler sonography, and spectral doppler. SIDE PERFORMED: Left FINDINGS: VESSELS IMAGED: Common Femoral Vein Deep Femoral Vein Greater Saphenous Vein * Femoral Vein Popliteal Vein Small Saphenous Vein * Proximal Calf Veins (* superficial vessels) Left Leg: Negative for DVT, Color Doppler imaging shows patency of the vessels. Spectral waveforms a re within normal limits. IMPRESSION: No ultrasound evidence for deep venous thrombosis. [facility], , 03/15/2024 3:43 PM
[2024-03-15] MEDS: PANTOPRAZOLE 40 MG TABLET PO SCH (18:07)
[2024-03-15 18:12] LABS: Glucose,Whole Blood 146 mg/dL (70-110)
[2024-03-15] MEDS: PRAMIPEXOLE 0.5 MG TAB PO SCH (18:26)
[2024-03-15 21:14] LABS: Glucose,Whole Blood 236 mg/dL (70-110)
[2024-03-15] MEDS: ATORVASTATIN 40 MG TAB PO SCH (22:23)
[2024-03-15] MEDS: METOPROLOL TARTRATE 25 MG TAB PO SCH (22:23)
[2024-03-15] MEDS: PRAMIPEXOLE 1 MG TAB PO SCH (22:53)
[2024-03-16 06:29] LABS: Glucose,Whole Blood 118 mg/dL (70-110)
[2024-03-16 07:01] LABS: ALT 39 U/L (4-49); AST 37 U/L (17-59); African American GFR (CKD) >90 (>60 ml/min/1.73 sqM); Albumin 3.9 g/dL (3.5-5.0); Albumin/Globulin Ratio 1.3; Alkaline Phosphatase 96 U/L (38-126); Anion Gap 8 mmol/L; Blood Urea Nitrogen 22 mg/dL (9-20); Calcium 8.8 mg/dL (8.4-10.2); Carbon Dioxide 29 mmol/L (22-30); Chloride 99 mmol/L (98-107); Globulin 2.9 g/dL; Glucose 118 mg/dL (74-99); Non-African American GFR(CKD) 78 (>60 ml/min/1.73 sqM); Potassium 4.3 mmol/L (3.5-5.1); Sodium 136 mmol/L (137-145); Total Bilirubin 1.3 mg/dL (0.2-1.3); Total Protein 6.8 g/dL (6.3-8.2)
--- NOTE | 2024-03-16 07:13 | P.CONS ---
History of Present Illness - Reason for Consult Consult date: 03/15/24 Left leg cellulitis Requesting physician: Tiffany Curtis - Chief Complaint Left leg swelling and redness x days - History of Present Illness Patient is a 78-year-old male with a past medical history significant for diabetes mellitus hypertension hyperlipidemia reflux ME prostate disorder and coronary disease presenting to the hospital for evaluation of left lower extremity swelling and redness. The patient has been dealing with bilateral lower extremity swelling over the last 6 months and over the last 3 to 4 weeks ago the patient did have increasing swelling and redness to the left leg for the patient to be treated with oral Keflex however the patient did not have improvement patient noticed to have open wound on the left anterior leg from a ruptured blister with increasing pain swelling redness to the leg for the patient was in the hospital patient been complaining of pain as dull aching to throbbing mild to moderate intensity without radiation with associated diffuse swelling redness patient denies high-grade fever or any chills on presentation to hospital the patient was afebrile he was mildly tachycardic but not hypotensive or hypoxic patient did have white count of 8.7 creatinine 0.98 electrolyte has been normal liver enzymes are normal blood cultures obtained which are currently pending patient was started on vancomycin infectious disease was consulted for further management of antibiotic therapy Review of Systems Positive point and negatives has been mentioned in the HPI, complete review of systems was performed and all other systems are negative Past Medical History Past Medical History: Coronary Artery Disease (CAD), Cancer, COPD, Diabetes Mellitus, GERD/Reflux, Hyperlipidemia, Hypertension, Myocardial Infarction ([place]), Pneumonia, Prostate Disorder Additional Past Medical History / Comment(s): RLS. 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 BPH Last Myocardial Infarction Date:: 2002 History of Any Multi-Drug Resistant Organisms: None Reported Past Surgical History: Appendectomy, Heart Catheterization With Stent, Orthopedic Surgery Additional Past Surgical History / Comment(s): COLONOSCOPY, BILAT CATARACTS, RT ROTATOR CUFF REPAIR, RT EYE SX, BOWEL SX AT AGE 6, RT FOOT FUSION, CERVICAL FUSION X 2, SKIN CANCER ON BACK REMOVED. heart cath twice with 4 stents Past Anesthesia/Blood Transfusion Reactions: Motion Sickness Date of Last Stent Placement:: 2002, 2012 Past Psychological History: Anxiety, Depression Smoking Status: Former smoker Past Alcohol Use History: None Reported Past Drug Use History: None Reported - Past Family History Father Family Medical History: Cancer Sister(s) Family Medical History: Cancer Medications and Allergies Home Medications Medication Instructions Recorded Confirmed Type Atorvastatin [Lipitor] 40 mg PO HS 02/23/18 03/15/24 History Pramipexole [Mirapex] 0.5 mg PO BID@0900,1700 02/23/18 03/15/24 History Pramipexole [Mirapex] 1 mg PO HS 02/23/18 03/15/24 History Sertraline [Zoloft] 100 mg PO DAILY 02/23/18 03/15/24 History lisinopriL 20 mg PO DAILY 02/23/18 03/15/24 History Metoprolol Tartrate 25 mg PO BID 02/28/18 03/15/24 History Gabapentin [Neurontin] 400 mg PO TID 10/09/18 03/15/24 History Insulin Aspart [NovoLOG Flexpen] 17 units SQ AC-TID 06/01/22 03/15/24 History Insulin Glargine,Hum.rec.anlog 100 units SQ DAILY 06/01/22 03/15/24 History [Toujeo Max Solostar] Pantoprazole [Protonix] 40 mg PO BID tab 06/07/22 03/15/24 Rx Aspirin EC [Ecotrin Low Dose] 81 mg PO DAILY 03/15/24 03/15/24 History Dutasteride [Avodart] 0.5 mg PO DAILY 03/15/24 03/15/24 History Empagliflozin/Metformin HCl 1 tab PO DAILY 03/15/24 03/15/24 History [Synjardy Xr 12.5-1,000 mg Tab] Furosemide [Lasix] 20 mg PO DAILY 03/15/24 03/15/24 History Ipratropium-Albuterol Nebulize 3 ml INHALATION RT-QID 03/15/24 03/15/24 History [Duoneb 0.5 mg-3 mg/3 ml Soln] Potassium Chloride [Klor-Con M20] 20 meq PO DAILY 03/15/24 03/15/24 History Tamsulosin HCl [Flomax] 0.4 mg PO DAILY 03/15/24 03/15/24 History Allergies Allergy/AdvReac Type Severity Reaction Status Date / Time Mushroom Allergy Diarrhea Verified 03/15/24 09:57 Physical Exam Vitals: Vital Signs Temp Pulse Resp BP Pulse Ox 03/15/24 10:33 110 H 20 161/101 94 L 03/15/24 08:38 98 F 68 16 138/77 98 03/15/24 06:37 98.2 F 103 H 16 138/77 93 L 03/15/24 03:04 97.6 F 107 H 16 144/90 95 03/14/24 23:00 97.2 F L 95 18 153/94 94 L 03/14/24 20:32 72 18 156/84 95 03/14/24 18:08 97.7 F 94 18 161/85 96 Intake and Output 03/14/24 03/15/24 03/15/24 22:59 06:59 14:59 Other: Weight 133.81 kg GENERAL DESCRIPTION: Elderly male up in the chair, no distress. No tachypnea or accessory muscle of respiration use. HEENT: Shows Pallor , no scleral icterus. Oral mucous membrane is dry. NECK: Trachea central, no thyromegaly. LUNGS: Unlabored breathing. Clear to auscultation anteriorly. No wheeze or crackle. HEART: S1, S2, regular rate and rhythm. No loud murmur ABDOMEN: Soft, no tenderness EXTREMITIES: Diffuse swelling redness of the left lower extremity with a pustule on the trevizo which was cultured leg is warm to touch SKIN: No rash, no masses palpable. NEUROLOGICAL: The patient is awake, alert, oriented x3, mood and affect normal. Results CBC & Chem 7: 03/14/24 19:30 03/16/24 06:18 Labs: Abnormal Lab Results - Last 24 Hours (Table) 03/14/24 03/14/24 03/15/24 Range/Units 19:30 19:30 06:42 MCHC 30.8 L (31.0-37.0) g/dL Carbon Dioxide 35 H (22-30) mmol/L BUN 24 H (9-20) mg/dL POC Glucose (mg/dL) 60 L (70-110) mg/dL Assessment and Plan (1) Left leg cellulitis Current Visit: Yes Status: Acute Code(s): L03.116 - CELLULITIS OF LEFT LOWER LIMB SNOMED Code(s): 62768658959264006 (2) Failure of outpatient treatment Current Visit: Yes Status: Acute Code(s): Z78.9 - OTHER SPECIFIED HEALTH STATUS SNOMED Code(s): 671210867 Plan: 1patient presented to hospital with increasing pain swelling redness to the left lower extremity with evidence of cellulitis failing outpatient oral Keflex therapy patient did have a pustule to the left leg and a question of possible community associated MRSA 2local culture has been obtained that will guide further antibiotic therapy. 3check a Doppler ultrasound of the left leg if negative for DVT will benefit from compression dressing to the left leg to get some of the swelling down. 4vancomycin pharmacy to dose target trough of 15 while watching kidney function and Vanco trough closely. Question concern answered. We will follow on clinical condition and cultures to further adjust medication if needed Thank you for this consultation we will follow the patient along with you Dictation was produced using [employer] dictation software. please excuse any grammatical, word or spelling errors. Time with Patient: Greater than 30
[2024-03-16] MEDS: ASPIRIN 81 MG PO SCH (08:07)
[2024-03-16] MEDS: POTASSIUM CHLORIDE ER 20 MEQ TAB.ER PO SCH (08:07)
[2024-03-16] MEDS: SERTRALINE 100 MG TAB PO SCH (08:08)
[2024-03-16] MEDS: TAMSULOSIN 0.4 MG CAP.ER.24H PO SCH (08:08)
[2024-03-16] MEDS: FAMOTIDINE 20 MG TAB PO SCH (08:08)
[2024-03-16] MEDS: lisinopriL 20 MG TAB PO SCH ×2 (08:08→21:04)
[2024-03-16] MEDS: ENOXAPARIN 40 MG/0.4 ML SYRINGE SQ SCH (08:08)
[2024-03-16] MEDS ORDERED: INSULIN GLARGINE HUM REC ANLOG 300 UNIT/ML SQ SCH (09:00)
[2024-03-16] MEDS ORDERED: INSUL SQ SCH (09:00)
[2024-03-16] MEDS ORDERED: [UNRECOGNIZED DRUG - OTHER] SQ SCH (09:00)
[2024-03-16 11:14] LABS: Basophils # (A) 0.04 X 10*3/uL (0.00-0.10); Basophils % (A) 0.6 %; Eosinophils % (A) 3.2 %; HCT 46.9 % (39.6-50.0); HGB 13.7 g/dL (13.0-17.0); Lymphocytes # (A) 1.35 X 10*3/uL (0.90-5.00); Lymphocytes % (A) 21.4 %; MCH 27.3 pg (27.0-32.0); MCHC 29.2 g/dL (32.0-37.0); MCV 93.6 FL (80.0-97.0); Mean Platelet Volume 11.9 FL (9.5-12.2); Monocytes # (A) 0.59 X 10*3/uL (0.20-1.00); Monocytes % (A) 9.4 %; NRBC Per 100 WBC 0 X 10*3/uL (0.00-0.01); Neutrophils # (A) 4.09 X 10*3/uL (1.80-7.70); Neutrophils % (A) 64.9 %; Platelet Count 155 X 10*3/uL (140-440); RBC 5.01 X 10*6/uL (4.40-5.60); RDW 14.9 % (11.5-14.5)
[2024-03-16 11:18] LABS: Glucose,Whole Blood 184 mg/dL (70-110)
--- NOTE | 2024-03-16 11:37 | P.PN ---
Subjective Progress Note Date: 03/16/24 Placido Cota is a 78-year-old male patient who presented with concerns of left lower extremity cellulitis with failed outpatient treatment patient reports he noticed the swelling about 6 months ago and was started on outpatient antibiotic Keflex patient showed minimum improvement and redness continued prompting him to come to ER for further evaluation. Patient has a past medical history of COPD, CAD, diabetes mellitus, GERD, hyperlipidemia, hypertension and prostate disorder. Patient's currently inpatient positive for COVID. Patient not showing any symptoms at this time COVID-19 negative. Influenza and RSV negative. Lactic acid 1.5. White blood cell 8.7. Patient was started on IV vancomycin and infectious disease services have been consulted current vital signs temp 98.2, heart rate 68, respiratory rate 16, blood pressure 138/77 with a pulse ox of 98% on room air. Patient denies chest pain or shortness of breath. Patient denies nausea vomiting or diarrhea. Patient denies any urinary burning or frequency. On 03/16/2024 patient was seen and examined on the medical floor he is alert and oriented x 3 in no apparent distress there is no fever or chills no headache or dizziness, he is complaining of occasional cough and shortness of breath no chest pain no nausea or vomiting no abdominal pain no diarrhea and no urinary symptoms. Patient still has significant bilateral lower extremity edema and significant cellulitis on the left lower extremity, he was evaluated by inf ectious disease and started on IV vancomycin, at this time will add IV Lasix will check echocardiogram and consult cardiology in regard to shortness of breath and bilateral lower extremity edema. Objective - Vital Signs Vital signs: Vital Signs Temp 98.1 F 03/16/24 07:50 Pulse 92 03/16/24 09:13 Resp 20 03/16/24 08:00 BP 165/101 03/16/24 07:50 Pulse Ox 96 03/16/24 09:03 FiO2 Intake & Output 03/15/24 03/16/24 03/16/24 18:59 06:59 18:59 Weight 133.81 kg Other: Voiding Method Toilet Toilet Urinal Urinal # Voids 1 # Bowel Movements 1 - Exam In general patient is alert and oriented in no apparent distress Head normocephalic and atraumatic Neck supple no JVD no goiter Lungs clear to auscultation bilaterally no wheezing or crackles Heart regular rate and rhythm S1-S2, no rub or gallop Abdomen is soft nontender nondistended positive bowel sounds no hepatosplenomegaly Extremities no edema. Left lower extremity edematous with significant erythema with dime size opening on lower trevizo area Neuro no gross focal deficit - Labs CBC & Chem 7: 03/16/24 06:18 03/16/24 06:18 Labs: Abnormal Lab Results - Last 24 Hours (Table) 03/15/24 03/15/24 03/15/24 Range/Units 11:56 18:11 21:13 Sodium (137-145) mmol/L BUN (9-20) mg/dL Glucose (74-99) mg/dL POC Glucose (mg/dL) 113 H 146 H 236 H (70-110) mg/dL Hemoglobin A1c (<=6.0) % 03/16/24 03/16/24 03/16/24 Range/Units 06:18 06:18 06:28 Sodium 136 L (137-145) mmol/L BUN 22 H (9-20) mg/dL Glucose 118 H (74-99) mg/dL POC Glucose (mg/dL) 118 H (70-110) mg/dL Hemoglobin A1c 8.0 H (<=6.0) % Microbiology - Last 24 Hours (Table) 03/14/24 22:07 Blood Culture - Preliminary Blood Assessment and Plan Assessment: 1. Left lower extremity cellulitis with failed outpatient treatment 2. History of diabetes mellitus type 2 3. History of essential hypertension 4. History of hyperlipidemia 5. History of coronary artery disease with previous heart catheterization and stent 6. History of GERD 7. History of COPD 8. Bilateral lower extremity edema and shortness of breath will add IV Lasix check echocardiogram and consult cardiology DVT prophylaxis Lovenox. GI prophylax Protonix Infectious disease services consulted Blood culture ordered Patient started on IV vancomycin
--- NOTE | 2024-03-16 12:19 | P.CRDCN ---
History of Present Illness Consult date: 03/16/24 Requesting physician: Akiko Lynch Reason for Consult (text): Shortness of breath and bilateral lower extremity edema Chief complaint: Shortness of breath and edema History of present illness: This is a pleasant 78-year-old male patient of Dr. An with past medical history of CAD with prior stenting of the RCA x 2, hypertension, hyperlipidemia, obstructive sleep apnea who was previously noncompliant with the use of CPAP, diabetes mellitus type 2. He was last seen in the office in December 2022 and started on Jardiance at that time however had issues with affordability and has not recently been taking it. Presented to the hospital with complaints of edema and left lower extremity cellulitis as well as shortness of breath somewhat worse from his baseline. He has had edema for quite some time. Over the last 6 months it has worsened. He is being followed by infectious disease and on IV antibiotics. He was started on IV Lasix this morning by primary.. Diagnostics -EKG: Not available from this admission -Chest x-ray: N/A -Venous duplex left lower extremity with no evidence for DVT -Laboratory studies: Sodium 136, potassium 4.3, BUN 22, creatinine 0.95, hemoglobin A1c 8.0 -Home cardiac medications: Lisinopril 20 mg p.o. daily, metoprolol tartrate 25 mg p.o. twice daily, Lasix 20 mg daily, atorvastatin 40 mg p.o. nightly and aspirin 80 mg p.o. daily -Prior stress test: December 19, 2022 no evidence of ischemia -Echocardiogram: 11/21/2022 normal LV systolic function, mild to moderate MR, moderate to severe TR and PA pressure 46 mmHg -Cardiac catheterization: Mid RCA PCI 07/2002 and subsequent PCI of the distal RCA 07/2012 Review Of Systems: At the time of my exam: CONSTITUTIONAL: Denies fever or chills. HEENT: Denies blurred vision, vision changes. CARDIOVASCULAR: Denies chest pain. Denies orthopnea. Denies PND. Denies palpitations, dizziness, or syncope. Positive lower extremity edema, most noticeable in the left RESPIRATORY: Positive for shortness of breath and cough. Denies hemoptysis. GASTROINTESTINAL: Denies abdominal pain. Denies nausea or vomiting. Denies bleeding. HEMATOLOGIC: Denies bleeding disorders. GENITOURINARY: Denies hematuria. SKIN: Denies puritis. Denies rash. PHYSICAL EXAMINATION: This is a 78-year-old male in no apparent distress at the time of my examination. VITAL SIGNS: Reviewed. HEENT: Head is atraumatic, normocephalic. Pupils are equal, round. Sclerae anicteric. Conjunctivae are clear. Mucous membranes of the mouth are moist. Neck is supple. There is no elevated jugular venous pressure. No carotid bruit is heard. CHEST EXAMINATION: Clear to auscultation bilaterally. No wheezes rales or rhonchi. Respirations even and nonlabored. HEART EXAMINATION: Heart regular, positive S1 and S2. No S3. No S4. Solid murmur. ABDOMEN: Soft, nontender, obese. Bowel sounds are heard. No organomegaly noted. EXTREMITIES: Evidence of bilateral lower extremity edema, 2+, worse on the left, dressing and Mario wrap in place to the left lower extremity. NEUROLOGIC EXAMINATION: Patient is awake, alert and oriented x3. Assessment: 1. Left lower extremity cellulitis 2. Shortness of breath 3. CAD with prior PCI to the RCA 4. Hypertension, uncontrolled 5. Hyperlipidemia 6. GE previously noncompliant with CPAP Plan: Cardiology's perspective we will increase lisinopril. We will add Farxiga. We obtain an NT proBNP. Review echocardiogram ordered by primary. Continue IV Lasix. We will continue to follow the patient and provide further recommendations accordingly. Thank you kindly for this consultation. Nurse practitioner note has been reviewed, I agree with documented findings and plan of care. Patient was seen and examined. Past Medical History Past Medical History: Coronary Artery Disease (CAD), Cancer, COPD, Diabetes Mellitus, GERD/Reflux, Hyperlipidemia, Hypertension, Myocardial Infarction ([place]), Pneumonia, Prostate Disorder Additional Past Medical History / Comment(s): RLS. 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 BPH Last Myocardial Infarction Date:: 2002 History of Any Multi-Drug Resistant Organisms: None Reported Past Surgical History: Appendectomy, Heart Catheterization With Stent, Orthopedic Surgery Additional Past Surgical History / Comment(s): COLONOSCOPY, BILAT CATARACTS, RT ROTATOR CUFF REPAIR, RT EYE SX, BOWEL SX AT AGE 6, RT FOOT FUSION, CERVICAL FUSION X 2, SKIN CANCER ON BACK REMOVED. heart cath twice with 4 stents Past Anesthesia/Blood Transfusion Reactions: Motion Sickness Date of Last Stent Placement:: 2002, 2012 Past Psychological History: Anxiety, Depression Smoking Status: Former smoker Past Alcohol Use History: None Reported Past Drug Use History: None Reported - Past Family History Father Family Medical History: Cancer Sister(s) Family Medical History: Cancer Medications and Allergies Home Medications Medication Instructions Recorded Confirmed Type Atorvastatin [Lipitor] 40 mg PO HS 02/23/18 03/15/24 History Pramipexole [Mirapex] 0.5 mg PO BID@0900,1700 02/23/18 03/15/24 History Pramipexole [Mirapex] 1 mg PO HS 02/23/18 03/15/24 History Sertraline [Zoloft] 100 mg PO DAILY 02/23/18 03/15/24 History lisinopriL 20 mg PO DAILY 02/23/18 03/15/24 History Metoprolol Tartrate 25 mg PO BID 02/28/18 03/15/24 History Gabapentin [Neurontin] 400 mg PO TID 10/09/18 03/15/24 History Insulin Aspart [NovoLOG Flexpen] 17 units SQ AC-TID 06/01/22 03/15/24 History Insulin Glargine,Hum.rec.anlog 100 units SQ DAILY 06/01/22 03/15/24 History [Toujeo Max Solostar] Pantoprazole [Protonix] 40 mg PO BID tab 06/07/22 03/15/24 Rx Aspirin EC [Ecotrin Low Dose] 81 mg PO DAILY 03/15/24 03/15/24 History Dutasteride [Avodart] 0.5 mg PO DAILY 03/15/24 03/15/24 History Empagliflozin/Metformin HCl 1 tab PO DAILY 03/15/24 03/15/24 History [Synjardy Xr 12.5-1,000 mg Tab] Furosemide [Lasix] 20 mg PO DAILY 03/15/24 03/15/24 History Ipratropium-Albuterol Nebulize 3 ml INHALATION RT-QID 03/15/24 03/15/24 History [Duoneb 0.5 mg-3 mg/3 ml Soln] Potassium Chloride [Klor-Con M20] 20 meq PO DAILY 03/15/24 03/15/24 History Tamsulosin HCl [Flomax] 0.4 mg PO DAILY 03/15/24 03/15/24 History Allergies Allergy/AdvReac Type Severity Reaction Status Date / Time Mushroom Allergy Diarrhea Verified 03/15/24 09:57 Physical Exam Vitals: Vital Signs Temp Pulse Pulse Resp BP BP Pulse Ox 03/16/24 09:13 92 03/16/24 09:03 88 96 03/16/24 08:00 101 H 20 03/16/24 07:50 98.1 F 101 H 20 165/101 95 03/16/24 01:34 98.5 F 98 18 139/88 93 L 03/15/24 23:00 100 03/15/24 22:49 100 03/15/24 21:07 98.7 F 106 H 18 146/87 94 L 03/15/24 20:38 99.1 F 109 H 19 149/99 92 L 03/15/24 19:53 99.1 F 109 H 19 149/99 92 L 03/15/24 16:02 108 H 03/15/24 15:50 110 H 03/15/24 13:00 99 F 110 H 20 159/79 94 L Intake and Output 03/15/24 03/16/24 03/16/24 22:59 06:59 14:59 Other: Voiding Method Toilet Toilet Urinal Urinal # Voids 1 # Bowel Movements 1 Weight 133.81 kg Results 03/16/24 06:18 03/16/24 06:18 Cardiac Enzymes 03/16/24 Range/Units 06:18 AST 37 (17-59) U/L CBC 03/16/24 Range/Units 06:18 WBC 6.30 (4.50-10.00) X 10*3/uL RBC 5.01 (4.40-5.60) X 10*6/uL Hgb 13.7 (13.0-17.0) g/dL Hct 46.9 (39.6-50.0) % Plt Count 155 (140-440) X 10*3/uL Comprehensive Metabolic Panel 03/16/24 Range/Units 06:18 Sodium 136 L (137-145) mmol/L Potassium 4.3 (3.5-5.1) mmol/L Chloride 99 (98-107) mmol/L Carbon Dioxide 29 (22-30) mmol/L BUN 22 H (9-20) mg/dL Creatinine 0.95 (0.66-1.25) mg/dL Glucose 118 H (74-99) mg/dL Calcium 8.8 (8.4-10.2) mg/dL AST 37 (17-59) U/L ALT 39 (4-49) U/L Alkaline Phosphatase 96 (38-126) U/L Total Protein 6.8 (6.3-8.2) g/dL Albumin 3.9 (3.5-5.0) g/dL Current Medications Generic Name Dose Route Start Last Admin Trade Name Freq PRN Reason Stop Dose Admin Acetaminophen 650 mg 03/14/24 21:50 Acetaminophen Tab 325 Mg Tab PO Q6HR PRN Mild Pain or Fever > 100.5 Albuterol/Ipratropium 3 ml 03/15/24 12:00 03/16/24 12:08 Ipratropium-Albuterol 3 Ml Neb INHALATION 3 ml RT-QID JAMSHID Administration Aspirin 81 mg 03/16/24 09:00 03/16/24 08:07 Aspirin 81 Mg PO 81 mg DAILY JAMSHID Administration Atorvastatin Calcium 40 mg 03/15/24 21:00 03/15/24 22:23 Atorvastatin 40 Mg Tab PO 40 mg HS JAMSHID Administration Dextrose/Water 25 ml 03/15/24 03:19 Dextrose 50% Syringe 50 Ml IVP PER PROTOCOL PRN Hypoglycemia Protocol Dextrose/Water 50 ml 03/15/24 03:19 Dextrose 50% Syringe 50 Ml IVP PER PROTOCOL PRN Hypoglycemia Protocol Enoxaparin Sodium 40 mg 03/16/24 09:00 03/16/24 08:08 Enoxaparin 40 Mg/0.4 Ml Syringe SQ 40 mg DAILY JAMSHID Administration Famotidine 40 mg 03/16/24 09:00 03/16/24 08:08 Famotidine 20 Mg Tab PO 40 mg DAILY JAMSHID Administration Furosemide 20 mg 03/16/24 16:00 Furosemide 10 Mg/Ml 2 Ml Vial IV Q8HR JAMSHID Gabapentin 400 mg 03/15/24 09:00 03/16/24 08:07 Gabapentin 400 Mg Cap PO 400 mg TID JAMSHID Administration Sodium Chloride 1,000 mls @ 75 mls/hr 03/14/24 22:00 03/15/24 22:24 Saline 0.9% IV 75 mls/hr .[id number] JAMSHID Administration Vancomycin HCl 2,000 mg/ 500 mls @ 167 mls/hr 03/15/24 11:00 03/15/24 22:24 Sodium Chloride IVPB 167 mls/hr Q12H JAMSHID Administration Insulin Aspart 0 unit 03/15/24 07:30 03/16/24 06:33 Insulin Aspart (Novolog) 100 Unit/Ml Vial SQ Not Given ACHS PENDING SALE TO [facility] Protocol Lisinopril 20 mg 03/16/24 09:00 03/16/24 08:08 Lisinopril 20 Mg Tab PO 20 mg DAILY JAMSHID Administration Metoprolol Tartrate 25 mg 03/15/24 21:00 03/16/24 08:07 Metoprolol Tartrate 25 Mg Tab PO 25 mg BID JAMSHID Administration Miscellaneous Information 1 each 03/17/24 10:00 Vancomycin Trough Due 1 Each Misc MISCELLANE 03/17/24 10:01 ONCE ONE Naloxone HCl 0.2 mg 03/14/24 21:50 Naloxone 0.4 Mg/Ml 1 Ml Vial IV Q2M PRN Opioid Reversal Ondansetron HCl 4 mg 03/14/24 21:50 Ondansetron 4 Mg/2 Ml Vial IVP Q8HR PRN Nausea And Vomiting Pantoprazole Sodium 40 mg 03/15/24 17:30 03/16/24 06:38 Pantoprazole 40 Mg Tablet PO 40 mg AC-BID JAMSHID Administration Potassium Chloride 20 meq 03/16/24 09:00 03/16/24 08:07 Potassium Chloride Er 20 Meq Tab.Er PO 20 meq DAILY JAMSHID Administration Pramipexole Dihydrochloride 0.5 mg 03/15/24 17:00 03/16/24 08:09 Pramipexole 0.5 Mg Tab PO 0.5 mg BID@0900,1700 JAMSHID Administration Pramipexole Dihydrochloride 1 mg 03/15/24 21:00 03/15/24 22:53 Pramipexole 1 Mg Tab PO 1 mg HS JAMSHID Administration Sertraline HCl 100 mg 03/16/24 09:00 03/16/24 08:08 Sertraline 100 Mg Tab PO 100 mg DAILY JAMSHID Administration Tamsulosin HCl 0.4 mg 03/16/24 09:00 03/16/24 08:08 Tamsulosin 0.4 Mg Cap.Er.24h PO 0.4 mg DAILY JAMSHID Administration Intake and Output 03/15/24 03/16/24 03/16/24 22:59 06:59 14:59 Other: Voiding Method Toilet Toilet Urinal Urinal # Voids 1 # Bowel Movements 1 Weight 133.81 kg 03/16/24 06:18 03/16/24 06:18
[2024-03-16 12:21] VITALS: BMI 42.3
[2024-03-16] MEDS: DAPAGLIFLOZIN PROPANEDIOL 10 MG TABLET PO SCH (12:42)
--- NOTE | 2024-03-16 16:22 | CA ---
Transthoracic Echo Report Name: Placido Cota Age: 78 Gender: M : 1945 Exam Date: 03/16/2024 13:38 Exam Location: [place] [facility] Ht (in): 70 Wt (lb): 295 Ordering Physician: Akiko Lynch MD Attending/Referring Phys: Solder Cream Maker Jenelle Maddox RDCS Procedure CPT: Indications: Shortness of breath, bilateral lower extremity arslan Cardiac Hx: Technical Quality: Poor, Technically difficult study Contrast 1: Definity Total Dose (mL): 2 Contrast 2: Total Dose (mL): MEASUREMENTS (Male / Female) Normal Values 2D ECHO LV Diastolic Diameter PLAX 4.0 cm 4.2 - 5.9 / 3.9 - 5.3 cm LV Systolic Diameter PLAX 3.0 cm IVS Diastolic Thickness 1.1 cm 0.6 - 1.0 / 0.6 - 0.9 cm LVPW Diastolic Thickness 1.1 cm 0.6 - 1.0 / 0.6 - 0.9 cm LV Relative Wall Thickness 0.6 RV Internal Dim ED PLAX 3.9 cm LA Systolic Diameter LX 4.1 cm 3.0 - 4.0 / 2.7 - 3.8 cm M-MODE Aortic Root Diameter MM 3.2 cm LA Systolic Diameter MM 4.0 cm LA Ao Ratio MM 1.3 AV Cusp Separation MM 2.1 cm DOPPLER Mitral E Point Velocity 120.0 cm/s Mitral A Point Velocity 2.5 cm/s Mitral E to A Ratio 47.2 MV Deceleration Time 259.2 ms MV E' Velocity 9.6 cm/s Mitral E to MV E' Ratio 12.5 TR Peak Velocity 283.9 cm/s TR Peak Gradient 42.3 mmHg Right Atrial Pressure 20.0 mmHg Pulmonary Artery Systolic Pressu 52.2 mmHg Right Ventricular Systolic Press 62.3 mmHg FINDINGS Left Ventricle Left ventricular ejection fraction is estimated at 55-60 %. Normal left ventricular systolic function with no obvious regional wall motion abnormalities. Left ventricular cavity size normal.Mildly increased left ventricular wall thickness. Right Ventricle Severe right ventricular dilatation. Reduced right ventricular global systolic function. Severe pulmonary hypertension. Right Atrium Moderate right atrial dilatation. Left Atrium Mildly increased left atrial diameter. Mitral Valve Structurally normal mitral valve. Mild mitral regurgitation. No mitral stenosis. Aortic Valve Trileaflet aortic valve. Diffuse thickening (sclerosis) of the aortic valve cusps without reduced excursion. No aortic regurgitation. Tricuspid Valve Structurally normal tricuspid valve. Mild tricuspid regurgitation. No tricuspid stenosis. Pulmonic Valve Pulmonic valve not well visualized. Pericardium No pericardial or pleural effusion. Aorta Normal size aortic root and proximal ascending aorta. CONCLUSIONS Technically difficult study. Definity ECHO contrast used for improved visualization of the endocardial borders (inadequate visualization of two or more contiguous segments). Normal left ventricular size and systolic function Dilated right ventricle with global hypokinesis and severe pulmonary hypertension Limited Doppler study with mild mitral and tricuspid regurgitation Previewed by: Dr. Jewels An MD (Electronically Signed) Final Date: 16 March 2024 16:22
[2024-03-16 16:29] LABS: Glucose,Whole Blood 154 mg/dL (70-110)
[2024-03-16] MEDS: FUROSEMIDE 10 MG/ML 2 ML VIAL IV SCH (17:21)
[2024-03-16 20:34] LABS: Glucose,Whole Blood 189 mg/dL (70-110)
[2024-03-16] MEDS: CEFEPIME 2 GM in SODIUM CHLORIDE 0.9% 100 ML IVPB SCH (21:22)
--- NOTE | 2024-03-16 22:05 | P.PN ---
Subjective Progress Note Date: 03/16/24 Principal diagnosis: Reason for follow-up is left lower extremity cellulitis Patient is a 78-year-old male with a past medical history significant for diabetes mellitus hypertension hyperlipidemia reflux IN prostate disorder and coronary disease presenting to the hospital for evaluation of left lower extremity swelling and redness Failing outpatient oral Keflex therapy did have a pustule on the left leg which grew Enterobacter and Enterococcus. On today's evaluation that is 03/16/2024, patient did not have any fever and denies any chills, patient is breathing comfortably on room air, patient with no chest pain or cough patient did not have any abdominal pain nausea vomiting or any loose stools and denies any worsening pain to the left lower extremity mention swelling is slightly decreased. Patient white count 6.30, creatinine 0.95 local cultures with Enterobacter Enterococcus blood cultures are pending Objective - Vital Signs Vital signs: Vital Signs Temp 98.1 F 03/16/24 14:35 Pulse 103 H 03/16/24 14:35 Resp 19 03/16/24 14:35 BP 159/108 03/16/24 14:35 Pulse Ox 92 L 03/16/24 14:35 FiO2 Intake & Output 03/15/24 03/16/24 03/16/24 18:59 06:59 18:59 Weight 133.81 kg 133.81 kg Other: Voiding Method Toilet Toilet Urinal Urinal # Voids 1 # Bowel Movements 1 - Exam GENERAL DESCRIPTION: An elderly male up in the chair in no distress RESPIRATORY SYSTEM: Unlabored breathing , decreased breath sounds at bases HEART: S1 S2 regular rate and rhythm , ABDOMEN: Soft , no tenderness EXTREMITIES: Left leg is currently dressed redness slightly decreased no drainage - Labs CBC & Chem 7: 03/16/24 06:18 03/16/24 06:18 Labs: Abnormal Lab Results - Last 24 Hours (Table) 03/15/24 03/15/24 03/16/24 Range/Units 18:11 21:13 06:18 MCHC (32.0-37.0) g/dL RDW (11.5-14.5) % Sodium (137-145) mmol/L BUN (9-20) mg/dL Glucose (74-99) mg/dL POC Glucose (mg/dL) 146 H 236 H (70-110) mg/dL Hemoglobin A1c 8.0 H (<=6.0) % 03/16/24 03/16/24 03/16/24 Range/Units 06:18 06:18 06:28 MCHC 29.2 L (32.0-37.0) g/dL RDW 14.9 H (11.5-14.5) % Sodium 136 L (137-145) mmol/L BUN 22 H (9-20) mg/dL Glucose 118 H (74-99) mg/dL POC Glucose (mg/dL) 118 H (70-110) mg/dL Hemoglobin A1c (<=6.0) % 03/16/24 Range/Units 11:16 MCHC (32.0-37.0) g/dL RDW (11.5-14.5) % Sodium (137-145) mmol/L BUN (9-20) mg/dL Glucose (74-99) mg/dL POC Glucose (mg/dL) 184 H (70-110) mg/dL Hemoglobin A1c (<=6.0) % Microbiology - Last 24 Hours (Table) 03/15/24 13:25 Gram Stain - Preliminary Foot - Left Wound Culture - Preliminary Enterobacter cloacae Complex Enterococcus faecalis 03/14/24 22:07 Blood Culture - Preliminary Blood Assessment and Plan (1) Left leg cellulitis Current Visit: Yes Status: Acute Code(s): L03.116 - CELLULITIS OF LEFT LOWER LIMB SNOMED Code(s): 33997614018390045 (2) Failure of outpatient treatment Current Visit: Yes Status: Acute Code(s): Z78.9 - OTHER SPECIFIED HEALTH STATUS SNOMED Code(s): 025864666 Plan: 1patient presented to hospital with increasing pain swelling redness to the left lower extremity with evidence of cellulitis failing outpatient oral Keflex therapy patient did have a pustule to the left leg and a question of possible community associated MRSA 2local culture currently growing Enterobacter and Enterococcus with sens itivities pending 3 Doppler ultrasound of the left leg has been negative for DVT, continue with compression dressing to the left leg to get some of the swelling down. 4patient to continue with vancomycin pharmacy to dose target trough of 15 and cefepime to cover for the Enterobacter while waiting for sensitivity to finalize Dictation was produced using Power[employer] dictation software. please excuse any grammatical, word or spelling errors. Time with Patient: Less than 30
[2024-03-17 06:17] LABS: Glucose,Whole Blood 125 mg/dL (70-110)
--- NOTE | 2024-03-17 10:22 | P.PN ---
Subjective Progress Note Date: 03/17/24 Placido Cota is a 78-year-old male patient who presented with concerns of left lower extremity cellulitis with failed outpatient treatment patient reports he noticed the swelling about 6 months ago and was started on outpatient antibiotic Keflex patient showed minimum improvement and redness continued prompting him to come to ER for further evaluation. Patient has a past medical history of COPD, CAD, diabetes mellitus, GERD, hyperlipidemia, hypertension and prostate disorder. Patient's currently inpatient positive for COVID. Patient not showing any symptoms at this time COVID-19 negative. Influenza and RSV negative. Lactic acid 1.5. White blood cell 8.7. Patient was started on IV vancomycin and infectious disease services have been consulted current vital signs temp 98.2, heart rate 68, respiratory rate 16, blood pressure 138/77 with a pulse ox of 98% on room air. Patient denies chest pain or shortness of breath. Patient denies nausea vomiting or diarrhea. Patient denies any urinary burning or frequency. On 03/16/2024 patient was seen and examined on the medical floor he is alert and oriented x 3 in no apparent distress there is no fever or chills no headache or dizziness, he is complaining of occasional cough and shortness of breath no chest pain no nausea or vomiting no abdominal pain no diarrhea and no urinary symptoms. Patient still has significant bilateral lower extremity edema and significant cellulitis on the left lower extremity, he was evaluated by inf ectious disease and started on IV vancomycin, at this time will add IV Lasix will check echocardiogram and consult cardiology in regard to shortness of breath and bilateral lower extremity edema. On 03/17/2024 patient is alert and oriented x 3. Patient reports improvement with lower extremity edema and cellulitis. Patient remains on IV vancomycin and Maxipime. Current vital signs temp 98.1, heart rate 57, respiratory rate 18, blood pressure 116/74 with a pulse ox of 97% on 3 L. Patient denies chest pain or shortness of breath. Patient denies nausea vomiting or diarrhea. Patient denies any urinary burning or frequency. 2D echo was completed showing an EF of 55 to 60%. Patient remains on IV Lasix per cardiology Objective - Vital Signs Vital signs: Vital Signs Temp 98.1 F 03/17/24 07:09 Pulse 57 L 03/17/24 07:45 Resp 18 03/17/24 07:45 BP 116/74 03/17/24 07:09 Pulse Ox 97 03/17/24 07:09 FiO2 Intake & Output 03/16/24 03/17/24 03/17/24 18:59 06:59 18:59 Weight 133.81 kg Other: Voiding Method Toilet Toilet Toilet Urinal Urinal Urinal # Voids 3 2 # Bowel Movements 1 - Exam In general patient is alert and oriented in no apparent distress Head normocephalic and atraumatic Neck supple no JVD no goiter Lungs clear to auscultation bilaterally no wheezing or crackles Heart regular rate and rhythm S1-S2, no rub or gallop Abdomen is soft nontender nondistended positive bowel sounds no hepatosplenomegaly Extremities no edema. Left lower extremity edematous with significant erythema with dime size opening on lower trevizo area Neuro no gross focal deficit - Labs CBC & Chem 7: 03/16/24 06:18 03/16/24 06:18 Labs: Abnormal Lab Results - Last 24 Hours (Table) 03/16/24 03/16/24 03/16/24 Range/Units 06:18 06:18 11:16 MCHC 29.2 L (32.0-37.0) g/dL RDW 14.9 H (11.5-14.5) % POC Glucose (mg/dL) 184 H (70-110) mg/dL NT-Pro-B Natriuret Pep 1755 H (0-450) pg/mL 03/16/24 03/16/24 03/17/24 Range/Units 16:26 20:32 06:15 MCHC (32.0-37.0) g/dL RDW (11.5-14.5) % POC Glucose (mg/dL) 154 H 189 H 125 H (70-110) mg/dL NT-Pro-B Natriuret Pep (0-450) pg/mL Microbiology - Last 24 Hours (Table) 03/15/24 13:25 Gram Stain - Preliminary Foot - Left Wound Culture - Preliminary Enterobacter cloacae Complex Enterococcus faecalis 03/14/24 22:07 Blood Culture - Preliminary Blood Assessment and Plan Assessment: 1. Left lower extremity cellulitis with failed outpatient treatment 2. History of diabetes mellitus type 2 3. History of essential hypertension 4. History of hyperlipidemia 5. History of coronary artery disease with previous heart catheterization and stent 6. History of GERD 7. History of COPD 8. Bilateral lower extremity edema and shortness of breath will add IV Lasix check echocardiogram and consult cardiology DVT prophylaxis Lovenox. GI prophylax Protonix Infectious disease services consulted Blood culture ordered Patient started on IV vancomycin
[2024-03-17 10:52] LABS: BUN/Creat Ratio 17.62 Ratio (12.00-20.00); Blood Urea Nitrogen 22.9 mg/dL (9.0-27.0); Calcium 8.9 mg/dL (8.7-10.3); Carbon Dioxide 29.8 mmol/L (21.6-31.8); Chloride 100 mmol/L (96-109); Glucose 133 mg/dL (70-110); Potassium 4.2 mmol/L (3.5-5.5); Sodium 141 mmol/L (135-145)
[2024-03-17] MEDS: ACETAMINOPHEN TAB 325 MG TAB PO PRN (11:28)
[2024-03-17 11:32] LABS: Glucose,Whole Blood 128 mg/dL (70-110)
[2024-03-17] MEDS: VANCOMYCIN TROUGH DUE 1 EACH MISC MISCELLANE ONE (11:38)
--- NOTE | 2024-03-17 12:25 | P.PN ---
Subjective Progress Note Date: 03/17/24 This is a pleasant 78-year-old male patient of Dr. An with past medical history of CAD with prior stenting of the RCA x 2, hypertension, hyperlipidemia, obstructive sleep apnea who was previously noncompliant with the use of CPAP, diabetes mellitus type 2. He was last seen in the office in December 2022 and started on Jardiance at that time however had issues with affordability and has not recently been taking it. Presented to the hospital with complaints of edema and left lower extremity cellulitis as well as shortness of breath somewhat worse from his baseline. He has had edema for quite some time. Over the last 6 months it has worsened. He is being followed by infectious disease and on IV antibiotics. He was started on IV Lasix this morning by primary.. Diagnostics -EKG: Not available from this admission -Chest x-ray: N/A -Venous duplex left lower extremity with no evidence for DVT -Laboratory studies: Sodium 136, potassium 4.3, BUN 22, creatinine 0.95, hemoglobin A1c 8.0 -Home cardiac medications: Lisinopril 20 mg p.o. daily, metoprolol tartrate 25 mg p.o. twice daily, Lasix 20 mg daily, atorvastatin 40 mg p.o. nightly and aspirin 80 mg p.o. daily -Prior stress test: December 19, 2022 no evidence of ischemia -Echocardiogram: 11/21/2022 normal LV systolic function, mild to moderate MR, moderate to severe TR and PA pressure 46 mmHg -Cardiac catheterization: Mid RCA PCI 07/2002 and subsequent PCI of the distal RCA 07/201203/17/2024 Was seen and examined sitting up in a chair. He feels the swelling is minimally better and his breathing has improved some. Complains of some incontinence due to diuresis. Echocardiogram with Doppler study showed normal LV systolic function with severe RV dilatation, reduced right ventricular global systolic function and severe pulmonary hypertension with a RVSP 62.3 mmHg, mild MR and mild TR. NT proBNP came back at 1755. Labs this morning showed a BUN of 22.9 and creatinine 1.3. PHYSICAL EXAMINATION: This is a 78-year-old male in no apparent distress at the time of my examination. VITAL SIGNS: Reviewed. HEENT: Head is atraumatic, normocephalic. Pupils are equal, round. Sclerae anicteric. Conjunctivae are clear. Mucous membranes of the mouth are moist. Neck is supple. There is no elevated jugular venous pressure. No carotid bruit is heard. CHEST EXAMINATION: Clear to auscultation bilaterally. No wheezes rales or rhonchi. Respirations even and nonlabored. HEART EXAMINATION: Heart irregular with tachycardia noted, positive S1 and S2. No S3. No S4. Systolic murmur. ABDOMEN: Soft, nontender, obese. Bowel sounds are heard. No organomegaly noted. EXTREMITIES: Evidence of bilateral lower extremity edema, 2+, worse on the left, dressing and Mario wrap in place to the left lower extremity. NEUROLOGIC EXAMINATION: Patient is awake, alert and oriented x3. Assessment: 1. Left lower extremity cellulitis 2. Shortness of breath 3. CAD with prior PCI to the RCA 4. Hypertension, uncontrolled 5. Hyperlipidemia 6. GE,noncompliant with CPAP 7. RV dilatation with RV systolic dysfunction and severe pulmonary hypertension Plan: From cardiology's perspective we will continue IV Lasix. Continues to monitor renal function and electrolytes. Discussed with the patient the importance of compliance with treatment of sleep apnea. We will obtain an EKG. We will continue to follow the patient and provide further recommendations accordingly. Nurse practitioner note has been reviewed, I agree with documented findings and plan of care. Patient was seen and examined. Objective - Vital Signs Vital signs: Vital Signs Temp 98.1 F 03/17/24 07:09 Pulse 57 L 03/17/24 07:45 Resp 18 03/17/24 07:45 BP 116/74 03/17/24 07:09 Pulse Ox 97 03/17/24 07:09 FiO2 Intake & Output 03/16/24 03/17/24 03/17/24 18:59 06:59 18:59 Weight 133.81 kg Other: Voiding Method Toilet Toilet Toilet Urinal Urinal Urinal # Voids 3 2 # Bowel Movements 1 - Labs CBC & Chem 7: 03/16/24 06:18 03/17/24 02:26 Labs: Abnormal Lab Results - Last 24 Hours (Table) 03/16/24 03/16/24 03/16/24 Range/Units 06:18 16:26 20:32 Est GFR (CKD-EPI) (>=60) Glucose (70-110) mg/dL POC Glucose (mg/dL) 154 H 189 H (70-110) mg/dL NT-Pro-B Natriuret Pep 1755 H (0-450) pg/mL 03/17/24 03/17/24 Range/Units 02:26 06:15 Est GFR (CKD-EPI) 57 L (>=60) Glucose 133 H (70-110) mg/dL POC Glucose (mg/dL) 125 H (70-110) mg/dL NT-Pro-B Natriuret Pep (0-450) pg/mL Microbiology - Last 24 Hours (Table) 03/15/24 13:25 Gram Stain - Preliminary Foot - Left Wound Culture - Preliminary Enterobacter cloacae Complex Enterococcus faecalis 03/14/24 22:07 Blood Culture - Preliminary Blood
--- NOTE | 2024-03-17 14:03 | P.PN ---
Subjective Progress Note Date: 03/17/24 Principal diagnosis: Reason for follow-up is left lower extremity cellulitis Patient is a 78-year-old male with a past medical history significant for diabetes mellitus hypertension hyperlipidemia reflux CO prostate disorder and coronary disease presenting to the hospital for evaluation of left lower extremity swelling and redness Failing outpatient oral Keflex therapy did have a pustule on the left leg which grew Enterobacter and Enterococcus. On today's evaluation that is 03/17/2024, Patient is afebrile patient is currently on 3 L nasal oxygen and denies having any shortness of breath, the patient denies any chest pain or cough, the patient denies any nausea vomiting did not have any abdominal pain and no diarrhea pain and swelling to the left leg is slightly decreased intensity. Patient did have a creatinine 1.3 local culture growing Enterobacter and En terococcus faecalis Objective - Vital Signs Vital signs: Vital Signs Temp 98.1 F 03/17/24 07:09 Pulse 84 03/17/24 11:59 Resp 18 03/17/24 07:45 BP 116/74 03/17/24 07:09 Pulse Ox 97 03/17/24 07:09 FiO2 Intake & Output 03/16/24 03/17/24 03/17/24 18:59 06:59 18:59 Weight 133.81 kg Other: Voiding Method Toilet Toilet Toilet Urinal Urinal Urinal # Voids 3 2 # Bowel Movements 1 - Exam GENERAL DESCRIPTION: An elderly male up in the chair in no distress RESPIRATORY SYSTEM: Unlabored breathing , decreased breath sounds at bases HEART: S1 S2 regular rate and rhythm , ABDOMEN: Soft , no tenderness EXTREMITIES: Left leg swelling and redness has decreased - Labs CBC & Chem 7: 03/16/24 06:18 03/17/24 02:26 Labs: Abnormal Lab Results - Last 24 Hours (Table) 03/16/24 03/16/24 03/16/24 Range/Units 06:18 16:26 20:32 Est GFR (CKD-EPI) (>=60) Glucose (70-110) mg/dL POC Glucose (mg/dL) 154 H 189 H (70-110) mg/dL NT-Pro-B Natriuret Pep 1755 H (0-450) pg/mL 03/17/24 03/17/24 03/17/24 Range/Units 02:26 06:15 11:29 Est GFR (CKD-EPI) 57 L (>=60) Glucose 133 H (70-110) mg/dL POC Glucose (mg/dL) 125 H 128 H (70-110) mg/dL NT-Pro-B Natriuret Pep (0-450) pg/mL Microbiology - Last 24 Hours (Table) 03/15/24 13:25 Gram Stain - Final Foot - Left Wound Culture - Final Enterobacter cloacae Complex Enterococcus faecalis 03/14/24 22:07 Blood Culture - Preliminary Blood Assessment and Plan (1) Left leg cellulitis Current Visit: Yes Status: Acute Code(s): L03.116 - CELLULITIS OF LEFT LOWER LIMB SNOMED Code(s): 98802017047210123 (2) Failure of outpatient treatment Current Visit: Yes Status: Acute Code(s): Z78.9 - OTHER SPECIFIED HEALTH STATUS SNOMED Code(s): 680447813 Plan: 1patient presented to hospital with increasing pain swelling redness to the left lower extremity with evidence of cellulitis failing outpatient oral Keflex therapy patient did have a pustule to the left leg and a question of possible community associated MRSA 2local culture currently growing Enterobacter and Enterococcus 3 Doppler ultrasound of the left leg has been negative for DVT, continue with compression dressing to the left leg to get some of the swelling down. 4we will discontinue vancomycin and cefepime start the patient on Zosyn should cover for both Enterobacter and Enterococcus finishing therapy with oral antibiotics Dictation was produced using [employer] dictation software. please excuse any grammatical, word or spelling errors. Time with Patient: Less than 30
[2024-03-17] MEDS: PIPERACILLIN-TAZOBACTAM 3.375 GM in SODIUM CHLORIDE 0.9% 100 ML IVPB SCH (15:24)
[2024-03-17 16:55] LABS: Glucose,Whole Blood 144 mg/dL (70-110)
[2024-03-17 20:50] LABS: Glucose,Whole Blood 196 mg/dL (70-110)
[2024-03-17] MEDS ORDERED: CEFEPIME 2 GM in SODIUM CHLORIDE 0.9% 100 ML IVPB SCH (21:00)
[2024-03-18 04:17] LABS: ALT 37 U/L (4-49); African American GFR (CKD) 69 (>60 ml/min/1.73 sqM); Albumin 3.7 g/dL (3.5-5.0); Albumin/Globulin Ratio 1.3; Anion Gap 10 mmol/L; Blood Urea Nitrogen 31 mg/dL (9-20); Calcium 8.6 mg/dL (8.4-10.2); Carbon Dioxide 28 mmol/L (22-30); Chloride 98 mmol/L (98-107); Globulin 2.9 g/dL; Glucose 157 mg/dL (74-99); Non-African American GFR(CKD) 60 (>60 ml/min/1.73 sqM); Sodium 136 mmol/L (137-145); Total Bilirubin 1.1 mg/dL (0.2-1.3); Total Protein 6.6 g/dL (6.3-8.2)
[2024-03-18 04:43] LABS: AST 40 U/L (17-59); Alkaline Phosphatase 96 U/L (38-126); Potassium 4.3 mmol/L (3.5-5.1)
[2024-03-18 06:49] LABS: Glucose,Whole Blood 184 mg/dL (70-110)
[2024-03-18] MEDS ORDERED: VANCOMYCIN 2,000 MG in SODIUM CHLORIDE 0.9% 500 ML 500 ML IVPB SCH (09:00)
[2024-03-18] MEDS: METOPROLOL TARTRATE 25 MG TAB PO STA (10:28)
[2024-03-18 12:24] LABS: Glucose,Whole Blood 148 mg/dL (70-110)
--- NOTE | 2024-03-18 12:38 | P.PN ---
Subjective Progress Note Date: 03/18/24 This is a pleasant 78-year-old male patient of Dr. An with past medical history of CAD with prior stenting of the RCA x 2, hypertension, hyperlipidemia, obstructive sleep apnea who was previously noncompliant with the use of CPAP, diabetes mellitus type 2. He was last seen in the office in December 2022 and started on Jardiance at that time however had issues with affordability and has not recently been taking it. Presented to the hospital with complaints of edema and left lower extremity cellulitis as well as shortness of breath somewhat worse from his baseline. He has had edema for quite some time. Over the last 6 months it has worsened. He is being followed by infectious disease and on IV antibiotics. He was started on IV Lasix this morning by primary.. Diagnostics -EKG: Not available from this admission -Chest x-ray: N/A -Venous duplex left lower extremity with no evidence for DVT -Laboratory studies: Sodium 136, potassium 4.3, BUN 22, creatinine 0.95, hemoglobin A1c 8.0 -Home cardiac medications: Lisinopril 20 mg p.o. daily, metoprolol tartrate 25 mg p.o. twice daily, Lasix 20 mg daily, atorvastatin 40 mg p.o. nightly and aspirin 80 mg p.o. daily -Prior stress test: December 19, 2022 no evidence of ischemia -Echocardiogram: 11/21/2022 normal LV systolic function, mild to moderate MR, moderate to severe TR and PA pressure 46 mmHg -Cardiac catheterization: Mid RCA PCI 07/2002 and subsequent PCI of the distal RCA 07/201203/17/2024 Was seen and examined sitting up in a chair. He feels the swelling is minimally better and his breathing has improved some. Complains of some incontinence due to diuresis. Echocardiogram with Doppler study showed normal LV systolic function with severe RV dilatation, reduced right ventricular global systolic function and severe pulmonary hypertension with a RVSP 62.3 mmHg, mild MR and mild TR. NT proBNP came back at 1755. Labs this morning showed a BUN of 22.9 and creatinine 1.3. 03/18/24 Patient seen and examined. Patient remains in atrial fibrillation on EKG done this morning. Patient has had good urine output and has been maintained on IV Lasix 20 mg every 8 hours. Blood pressure 131/80, heart rate 101-114, pulse ox 96% on 2 L nasal cannula. Repeat blood work reveals sodium 136, potassium 4.3, BUN 31 creatinine 1.18. PHYSICAL EXAMINATION: This is a 78-year-old male in no apparent distress at the time of my examination . VITAL SIGNS: Reviewed. HEENT: Head is atraumatic, normocephalic. Pupils are equal, round. Sclerae anicteric. Conjunctivae are clear. Mucous membranes of the mouth are moist. Neck is supple. There is no elevated jugular venous pressure. No carotid bruit is heard. CHEST EXAMINATION: Clear to auscultation bilaterally. No wheezes rales or rhonchi. Respirations even and nonlabored. HEART EXAMINATION: Heart irregular with tachycardia noted, positive S1 and S2. No S3. No S4. Systolic murmur. ABDOMEN: Soft, nontender, obese. Bowel sounds are heard. No organomegaly noted. EXTREMITIES: Evidence of bilateral lower extremity edema, 2+, worse on the left, dressing and Mario wrap in place to the left lower extremity. NEUROLOGIC EXAMINATION: Patient is awake, alert and oriented x3. Assessment: 1. Left lower extremity cellulitis 2. Shortness of breath 3. CAD with prior PCI to the RCA 4. Hypertension, uncontrolled 5. Hyperlipidemia 6. GE,noncompliant with CPAP 7. RV dilatation with RV systolic dysfunction and severe pulmonary hypertension Plan: Transition IV Lasix to oral Bumex 1 mg twice daily Increase metoprolol to 50 mg twice daily for better rate control Continue patient on aspirin 81 mg daily, atorvastatin, lisinopril Continues to monitor renal function and electrolytes. Discussed with the patient the importance of compliance with treatment of sleep apnea. We will continue to follow the patient and provide further recommendations accordingly. Nurse practitioner note has been reviewed, I agree with documented findings and plan of care. Patient was seen and examined. Objective - Vital Signs Vital signs: Vital Signs Temp 97.9 F 03/18/24 07:47 Pulse 96 03/18/24 09:05 Resp 18 03/18/24 07:47 BP 131/80 03/18/24 07:47 Pulse Ox 96 03/18/24 09:05 FiO2 Intake & Output 03/17/24 03/18/24 03/18/24 18:59 06:59 18:59 Output Total 950 1000 Balance -950 -1000 Output: Urine 950 1000 Other: Voiding Method Toilet Toilet Toilet Urinal Urinal Urinal # Voids 1 1 # Bowel Movements 1 - Labs CBC & Chem 7: 03/16/24 06:18 03/18/24 03:11 Labs: Abnormal Lab Results - Last 24 Hours (Table) 03/17/24 03/17/24 03/18/24 Range/Units 16:50 20:48 03:11 Sodium 136 L (137-145) mmol/L BUN 31 H (9-20) mg/dL Glucose 157 H (74-99) mg/dL POC Glucose (mg/dL) 144 H 196 H (70-110) mg/dL 03/18/24 03/18/24 Range/Units 06:47 12:22 Sodium (137-145) mmol/L BUN (9-20) mg/dL Glucose (74-99) mg/dL POC Glucose (mg/dL) 184 H 148 H (70-110) mg/dL Microbiology - Last 24 Hours (Table) 03/14/24 22:07 Blood Culture - Preliminary Blood 03/15/24 13:25 Gram Stain - Final Foot - Left Wound Culture - Final Enterobacter cloacae Complex Enterococcus faecalis
[2024-03-18] MEDS: BUMETANIDE 1 MG TAB PO SCH (16:02)
[2024-03-18 17:09] LABS: Glucose,Whole Blood 181 mg/dL (70-110)
--- NOTE | 2024-03-18 17:36 | P.PN ---
Subjective Progress Note Date: 03/18/24 Placido Cota is a 78-year-old male patient who presented with concerns of left lower extremity cellulitis with failed outpatient treatment patient reports he noticed the swelling about 6 months ago and was started on outpatient antibiotic Keflex patient showed minimum improvement and redness continued prompting him to come to ER for further evaluation. Patient has a past medical history of COPD, CAD, diabetes mellitus, GERD, hyperlipidemia, hypertension and prostate disorder. Patient's currently inpatient positive for COVID. Patient not showing any symptoms at this time COVID-19 negative. Influenza and RSV negative. Lactic acid 1.5. White blood cell 8.7. Patient was started on IV vancomycin and infectious disease services have been consulted current vital signs temp 98.2, heart rate 68, respiratory rate 16, blood pressure 138/77 with a pulse ox of 98% on room air. Patient denies chest pain or shortness of breath. Patient denies nausea vomiting or diarrhea. Patient denies any urinary burning or frequency. On 03/16/2024 patient was seen and examined on the medical floor he is alert and oriented x 3 in no apparent distress there is no fever or chills no headache or dizziness, he is complaining of occasional cough and shortness of breath no chest pain no nausea or vomiting no abdominal pain no diarrhea and no urinary symptoms. Patient still has significant bilateral lower extremity edema and significant cellulitis on the left lower extremity, he was evaluated by inf ectious disease and started on IV vancomycin, at this time will add IV Lasix will check echocardiogram and consult cardiology in regard to shortness of breath and bilateral lower extremity edema. On 03/17/2024 patient is alert and oriented x 3. Patient reports improvement with lower extremity edema and cellulitis. Patient remains on IV vancomycin and Maxipime. Current vital signs temp 98.1, heart rate 57, respiratory rate 18, blood pressure 116/74 with a pulse ox of 97% on 3 L. Patient denies chest pain or shortness of breath. Patient denies nausea vomiting or diarrhea. Patient denies any urinary burning or frequency. 2D echo was completed showing an EF of 55 to 60%. Patient remains on IV Lasix per cardiology On 03/18/2024 patient was seen and examined on the medical floor he is alert and oriented x 3 in no apparent distress there is some improvement in lower extremity erythema swelling and tenderness patient remains on IV Lasix and IV antibiotics, patient is having difficulty urinating due to possible urethral stricture, will consult urology to evaluate Objective - Vital Signs Vital signs: Vital Signs Temp 97.9 F 03/18/24 07:47 Pulse 96 03/18/24 09:05 Resp 18 03/18/24 07:47 BP 131/80 03/18/24 07:47 Pulse Ox 96 03/18/24 09:05 FiO2 Intake & Output 03/17/24 03/18/24 03/18/24 18:59 06:59 18:59 Output Total 950 1000 Balance -950 -1000 Output: Urine 950 1000 Other: Voiding Method Toilet Toilet Toilet Urinal Urinal Urinal # Voids 1 1 # Bowel Movements 1 - Exam In general patient is alert and oriented in no apparent distress Head normocephalic and atraumatic Neck supple no JVD no goiter Lungs clear to auscultation bilaterally no wheezing or crackles Heart regular rate and rhythm S1-S2, no rub or gallop Abdomen is soft nontender nondistended positive bowel sounds no hepatosplenomegaly Extremities no edema. Left lower extremity edematous with significant erythema with dime size opening on lower trevizo area Neuro no gross focal deficit - Labs CBC & Chem 7: 03/16/24 06:18 03/18/24 03:11 Labs: Abnormal Lab Results - Last 24 Hours (Table) 03/17/24 03/17/24 03/18/24 Range/Units 16:50 20:48 03:11 Sodium 136 L (137-145) mmol/L BUN 31 H (9-20) mg/dL Glucose 157 H (74-99) mg/dL POC Glucose (mg/dL) 144 H 196 H (70-110) mg/dL 03/18/24 03/18/24 Range/Units 06:47 12:22 Sodium (137-145) mmol/L BUN (9-20) mg/dL Glucose (74-99) mg/dL POC Glucose (mg/dL) 184 H 148 H (70-110) mg/dL Microbiology - Last 24 Hours (Table) 03/14/24 22:07 Blood Culture - Preliminary Blood 03/15/24 13:25 Gram Stain - Final Foot - Left Wound Culture - Final Enterobacter cloacae Complex Enterococcus faecalis Assessment and Plan Assessment: 1. Left lower extremity cellulitis with failed outpatient treatment 2. History of diabetes mellitus type 2 3. History of essential hypertension 4. History of hyperlipidemia 5. History of coronary artery disease with previous heart catheterization and stent 6. History of GERD 7. History of COPD 8. Bilateral lower extremity edema and shortness of breath will add IV Lasix check echocardiogram and consult cardiology DVT prophylaxis Lovenox. GI prophylax Protonix Infectious disease services consulted Blood culture ordered Patient started on IV vancomycin
[2024-03-18 20:54] LABS: Glucose,Whole Blood 187 mg/dL (70-110)
[2024-03-18] MEDS: METOPROLOL TARTRATE 50 MG TAB PO SCH (21:39)
[2024-03-19] MEDS: BENZOCAINE 20 % GEL 11.9 GM TUBE MM ONE (03:02)
[2024-03-19 06:30] LABS: Glucose,Whole Blood 182 mg/dL (70-110)
[2024-03-19 08:52] LABS: Blood Urea Nitrogen 29.4 mg/dL (9.0-27.0); Calcium 8.9 mg/dL (8.7-10.3); Chloride 98 mmol/L (96-109); Glucose 165 mg/dL (70-110); Potassium 4.2 mmol/L (3.5-5.5); Sodium 141 mmol/L (135-145)
--- NOTE | 2024-03-19 09:24 | P.GSCN ---
History of Present Illness Consult date: 03/19/24 History of present illness: 78 yo male admitted to the hospital with worsening of lower leg cellulitis. He stated to Dr Lynch that he had been having difficulty with urination and Dr Lynch has asked us to see the patient for a possible urethral stricture. There are no urinalysis nor bladder scans noted. The patient was just started of tamsulosin on 03/16/24. psa was 2.1 on 11/23/22. the patient has been on dutasteride. The patient actually states to me that he is voiding ok. He is concerned about "recession" of his penis into his prepubic fat. He is morbidly obese. He was circumcised as an infant. He denies uti. He denies incontinence but his urine does spray. Review of Systems All systems: negative - Constitutional Denies fever, Denies weight loss - EENT Eyes: denies blurred vision Ears, nose, mouth and throat: Denies dysphagia - Cardiovascular Denies chest pain, Denies shortness of breath - Respiratory Denies cough, Denies 7 - Gastrointestinal Reports as per HPI - Genitourinary Denies dysuria, Denies hematuria - Integumentary Denies rash, Denies unusual bruising - Neurological Denies headaches, Denies syncope - Hematologic/Lymphatic Denies easy bleeding, Denies easy bruising Past Medical History Past Medical History: Coronary Artery Disease (CAD), Cancer, COPD, Diabetes Mellitus, GERD/Reflux, Hyperlipidemia, Hypertension, Myocardial Infarction (ID), Pneumonia, Prostate Disorder Additional Past Medical History / Comment(s): RLS. 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 BPH Last Myocardial Infarction Date:: 2002 History of Any Multi-Drug Resistant Organisms: None Reported Past Surgical History: Appendectomy, Heart Catheterization With Stent, Orthopedic Surgery Additional Past Surgical History / Comment(s): COLONOSCOPY, BILAT CATARACTS, RT ROTATOR CUFF REPAIR, RT EYE SX, BOWEL SX AT AGE 6, RT FOOT FUSION, CERVICAL FUSION X 2, SKIN CANCER ON BACK REMOVED. heart cath twice with 4 stents Past Anesthesia/Blood Transfusion Reactions: Motion Sickness Date of Last Stent Placement:: 2002, 2012 Past Psychological History: Anxiety, Depression Smoking Status: Former smoker Past Alcohol Use History: None Reported Past Drug Use History: None Reported - Past Family History Father Family Medical History: Cancer Sister(s) Family Medical History: Cancer Medications and Allergies Home Medications Medication Instructions Recorded Confirmed Type Atorvastatin [Lipitor] 40 mg PO HS 02/23/18 03/15/24 History Pramipexole [Mirapex] 0.5 mg PO BID@0900,1700 02/23/18 03/15/24 History Pramipexole [Mirapex] 1 mg PO HS 02/23/18 03/15/24 History Sertraline [Zoloft] 100 mg PO DAILY 02/23/18 03/15/24 History lisinopriL 20 mg PO DAILY 02/23/18 03/15/24 History Metoprolol Tartrate 25 mg PO BID 02/28/18 03/15/24 History Gabapentin [Neurontin] 400 mg PO TID 10/09/18 03/15/24 History Insulin Aspart [NovoLOG Flexpen] 17 units SQ AC-TID 06/01/22 03/15/24 History Insulin Glargine,Hum.rec.anlog 100 units SQ DAILY 06/01/22 03/15/24 History [Toujeo Max Solostar] Pantoprazole [Protonix] 40 mg PO BID tab 06/07/22 03/15/24 Rx Aspirin EC [Ecotrin Low Dose] 81 mg PO DAILY 03/15/24 03/15/24 History Dutasteride [Avodart] 0.5 mg PO DAILY 03/15/24 03/15/24 History Empagliflozin/Metformin HCl 1 tab PO DAILY 03/15/24 03/15/24 History [Synjardy Xr 12.5-1,000 mg Tab] Furosemide [Lasix] 20 mg PO DAILY 03/15/24 03/15/24 History Ipratropium-Albuterol Nebulize 3 ml INHALATION RT-QID 03/15/24 03/15/24 History [Duoneb 0.5 mg-3 mg/3 ml Soln] Potassium Chloride [Klor-Con M20] 20 meq PO DAILY 03/15/24 03/15/24 History Tamsulosin HCl [Flomax] 0.4 mg PO DAILY 03/15/24 03/15/24 History Allergies Allergy/AdvReac Type Severity Reaction Status Date / Time Mushroom Allergy Diarrhea Verified 03/15/24 09:57 Surgical - Exam Vital Signs Temp Pulse Resp BP Pulse Ox 97.7 F 94 18 161/85 96 03/14/24 18:08 03/14/24 18:08 03/14/24 18:08 03/14/24 18:08 03/14/24 18:08 - General obese - Genitourinary marked amount prepubic fat enveloping the penis. circumcised penis. 30 gm benign prostate. Results - Labs 03/16/24 06:18 03/19/24 04:01 Abnormal Lab Results - Last 24 Hours (Table) 03/18/24 03/18/24 03/18/24 Range/Units 06:47 12:22 17:08 POC Glucose (mg/dL) 184 H 148 H 181 H (70-110) mg/dL 03/18/24 Range/Units 20:52 POC Glucose (mg/dL) 187 H (70-110) mg/dL Microbiology - Last 24 Hours (Table) 03/14/24 22:07 Blood Culture - Preliminary Blood Assessment and Plan Assessment: Imp: "penile issues" secondary to obesity . Lower extremity cellulitis Recommedations: I will obtain a pvr, psa. Urethral stricture is unlikely. The patient states that he is actually voiding ok. WHat he is mostly concerned about is the "hiding" or "recession" of his penis. This is because of his obesity. He had heard recircumcision would help. It will not. The only thing that would help would be to lose weight and reduce the amount of prebubic and belly fat that is covering his penis.. I will obtain a psa and do a pvr just to make sure that there arent any hidden problems
[2024-03-19 12:02] LABS: Glucose,Whole Blood 137 mg/dL (70-110)
--- NOTE | 2024-03-19 12:53 | P.DS ---
Providers Date of admission: 03/14/24 23:08 Expected date of discharge: 03/19/24 Attending physician: Akiko Lynch Consults: 03/14/24 21:50 Consult Physician Urgent Consulting Provider: Dustin Cuevas Consult Reason/Comments: cellulitis/failed outpt tx Do you want consulting provider notified?: Yes, Notify in am 03/16/24 11:33 Consult Physician Routine Consulting Provider: Jewels An Consult Reason/Comments: Shortness of breath bilateral lower extremity edema Do you want consulting provider notified?: Yes 03/18/24 17:36 Consult Physician Routine Consulting Provider: Liam Ramirez Consult Reason/Comments: Possible urethral stricture Do you want consulting provider notified?: Yes Primary care physician: Akiko Lynch [facility] Course: Discharge diagnosis Left lower extremity cellulitis with failed outpatient treatment 2. History of diabetes mellitus type 2 3. History of essential hypertension 4. History of hyperlipidemia 5. History of coronary artery disease with previous heart catheterization and stent 6. History of GERD 7. History of COPD 8. Bilateral lower extremity edema and shortness of breath will add IV Lasix check echocardiogram and consult cardiology Hospital course Placido Cota is a 78-year-old male patient who presented with concerns of left lower extremity cellulitis with failed outpatient treatment patient reports he noticed the swelling about 6 months ago and was started on outpatient antibiotic Keflex patient showed minimum improvement and redness continued prompting him to come to ER for further evaluation. Patient has a past medical history of COPD, CAD, diabetes mellitus, GERD, hyperlipidemia, hypertension and prostate disorder. Patient's currently inpatient positive for COVID. Patient not showing any symptoms at this time COVID-19 negative. Influenza and RSV negative. Lactic acid 1.5. White blood cell 8.7. Patient was started on IV vancomycin and infectious disease services have been consulted current vital signs temp 98.2, heart rate 68, respiratory rate 16, blood pressure 138/77 with a pulse ox of 98% on room air. Patient denies chest pain or shortness of breath. Patient denies nausea vomiting or diarrhea. Patient denies any urinary burning or frequency. On 03/16/2024 patient was seen and examined on the medical floor he is alert and oriented x 3 in no apparent distress there is no fever or chills no headache or dizziness, he is complaining of occasional cough and shortness of breath no chest pain no nausea or vomiting no abdominal pain no diarrhea and no urinary symptoms. Patient still has significant bilateral lower extremity edema and significant cellulitis on the left lower extremity, he was evaluated by infectious disease and started on IV vancomycin, at this time will add IV Lasix will check echocardiogram and consult cardiology in regard to shortness of breath and bilateral lower extremity edema. On 03/17/2024 patient is alert and oriented x 3. Patient reports improvement with lower extremity edema and cellulitis. Patient remains on IV vancomycin and Maxipime. Current vital signs temp 98.1, heart rate 57, respiratory rate 18, blood pressure 116/74 with a pulse ox of 97% on 3 L. Patient denies chest pain or shortness of breath. Patient denies nausea vomiting or diarrhea. Patient denies any urinary burning or frequency. 2D echo was completed showing an EF of 55 to 60%. Patient remains on IV Lasix per cardiology On 03/18/2024 patient was seen and examined on the medical floor he is alert and oriented x 3 in no apparent distress there is some improvement in lower extremity erythema swelling and tenderness patient remains on IV Lasix and IV antibiotics, patient is having difficulty urinating due to possible urethral stricture, will consult urology to evaluate On 03/19/2024 patient is alert and oriented x 3. Patient has been transitioned to p.o. Bumex. Antibiotics Cipro and Augmentin per ID. Patient was evaluated by urology services. Postvoid residual completed. Patient will be discharged home and follow-up with PCP and consulting providers for further management Patient Condition at Discharge: Stable Plan - Discharge Summary Discharge Rx Participant: Yes New Discharge Prescriptions: New Bumetanide [BUMEX] 1 mg PO BID@0900,1600 30 Days #60 tab Dapagliflozin Propanediol [Farxiga] 10 mg PO DAILY 30 Days #30 tab Amoxic-Pot Clav 875-125Mg [Augmentin 875-125] 1 tab PO Q12HR 10 Days #20 tab Ciprofloxacin HCl [Cipro] 500 mg PO Q12HR 10 Days #20 tab Continue Sertraline [Zoloft] 100 mg PO DAILY Pramipexole [Mirapex] 0.5 mg PO BID@0900,1700 Pramipexole [Mirapex] 1 mg PO HS lisinopriL 20 mg PO DAILY Atorvastatin [Lipitor] 40 mg PO HS Metoprolol Tartrate 25 mg PO BID Gabapentin [Neurontin] 400 mg PO TID Pantoprazole [Protonix] 40 mg PO BID tab Tamsulosin HCl [Flomax] 0.4 mg PO DAILY Dutasteride [Avodart] 0.5 mg PO DAILY Aspirin EC [Ecotrin Low Dose] 81 mg PO DAILY Insulin Glargine,Hum.rec.anlog [Toujeo Max Solostar] 100 units SQ DAILY Insulin Aspart [NovoLOG Flexpen] 17 units SQ AC-TID Ipratropium-Albuterol Nebulize [Duoneb 0.5 mg-3 mg/3 ml Soln] 3 ml INHALATION RT-QID Empagliflozin/Metformin HCl [Synjardy Xr 12.5-1,000 mg Tab] 1 tab PO DAILY Potassium Chloride [Klor-Con M20] 20 meq PO DAILY Discontinued Furosemide [Lasix] 20 mg PO DAILY Discharge Medication List Atorvastatin [Lipitor] 40 mg PO HS 02/23/18 [History] Pramipexole [Mirapex] 0.5 mg PO BID@0900,1700 02/23/18 [History] Pramipexole [Mirapex] 1 mg PO HS 02/23/18 [History] Sertraline [Zoloft] 100 mg PO DAILY 02/23/18 [History] lisinopriL 20 mg PO DAILY 02/23/18 [History] Metoprolol Tartrate 25 mg PO BID 02/28/18 [History] Gabapentin [Neurontin] 400 mg PO TID 10/09/18 [History] Insulin Aspart [NovoLOG Flexpen] 17 units SQ AC-TID 06/01/22 [History] Insulin Glargine,Hum.rec.anlog [Toujeo Max Solostar] 100 units SQ DAILY 06/01/22 [History] Pantoprazole [Protonix] 40 mg PO BID tab 06/07/22 [Rx] Aspirin EC [Ecotrin Low Dose] 81 mg PO DAILY 03/15/24 [History] Dutasteride [Avodart] 0.5 mg PO DAILY 03/15/24 [History] Empagliflozin/Metformin HCl [Synjardy Xr 12.5-1,000 mg Tab] 1 tab PO DAILY 03/15/24 [History] Ipratropium-Albuterol Nebulize [Duoneb 0.5 mg-3 mg/3 ml Soln] 3 ml INHALATION RT-QID 03/15/24 [History] Potassium Chloride [Klor-Con M20] 20 meq PO DAILY 03/15/24 [History] Tamsulosin HCl [Flomax] 0.4 mg PO DAILY 03/15/24 [History] Amoxic-Pot Clav 875-125Mg [Augmentin 875-125] 1 tab PO Q12HR 10 Days #20 tab 03/19/24 [Rx] Bumetanide [BUMEX] 1 mg PO BID@0900,1600 30 Days #60 tab 03/19/24 [Rx] Ciprofloxacin HCl [Cipro] 500 mg PO Q12HR 10 Days #20 tab 03/19/24 [Rx] Dapagliflozin Propanediol [Farxiga] 10 mg PO DAILY 30 Days #30 tab 03/19/24 [Rx] Follow up Appointment(s)/Referral(s): [facility], [NON-STAFF] - 1 Week Akiko Lynch MD [Primary Care Provider] - 1-2 days Activity/Diet/Wound Care/Special Instructions: consitent carb Discharge Disposition: HOME SELF-CARE
--- NOTE | 2024-03-19 13:56 | P.PN ---
Subjective Progress Note Date: 03/19/24 This is a pleasant 78-year-old male patient of Dr. An with past medical history of CAD with prior stenting of the RCA x 2, hypertension, hyperlipidemia, obstructive sleep apnea who was previously noncompliant with the use of CPAP, diabetes mellitus type 2. He was last seen in the office in December 2022 and started on Jardiance at that time however had issues with affordability and has not recently been taking it. Presented to the hospital with complaints of edema and left lower extremity cellulitis as well as shortness of breath somewhat worse from his baseline. He has had edema for quite some time. Over the last 6 months it has worsened. He is being followed by infectious disease and on IV antibiotics. He was started on IV Lasix this morning by primary.. Diagnostics -EKG: Not available from this admission -Chest x-ray: N/A -Venous duplex left lower extremity with no evidence for DVT -Laboratory studies: Sodium 136, potassium 4.3, BUN 22, creatinine 0.95, hemoglobin A1c 8.0 -Home cardiac medications: Lisinopril 20 mg p.o. daily, metoprolol tartrate 25 mg p.o. twice daily, Lasix 20 mg daily, atorvastatin 40 mg p.o. nightly and aspirin 80 mg p.o. daily -Prior stress test: December 19, 2022 no evidence of ischemia -Echocardiogram: 11/21/2022 normal LV systolic function, mild to moderate MR, moderate to severe TR and PA pressure 46 mmHg -Cardiac catheterization: Mid RCA PCI 07/2002 and subsequent PCI of the distal RCA 07/201203/17/2024 Was seen and examined sitting up in a chair. He feels the swelling is minimally better and his breathing has improved some. Complains of some incontinence due to diuresis. Echocardiogram with Doppler study showed normal LV systolic function with severe RV dilatation, reduced right ventricular global systolic function and severe pulmonary hypertension with a RVSP 62.3 mmHg, mild MR and mild TR. NT proBNP came back at 1755. Labs this morning showed a BUN of 22.9 and creatinine 1.3. 03/18/24 Patient seen and examined. Patient remains in atrial fibrillation on EKG done this morning. Patient has had good urine output and has been maintained on IV Lasix 20 mg every 8 hours. Blood pressure 131/80, heart rate 101-114, pulse ox 96% on 2 L nasal cannula. Repeat blood work reveals sodium 136, potassium 4.3, BUN 31 creatinine 1.18. 03/19/2024 Patient seen and examined. Patient states his shortness of breath is improved. Lower extremity edema is slowly improving. Yesterday, IV Lasix was transitioned to oral Bumex. Also metoprolol was increased to improve rate control. Blood pressure 144/95, heart rate 80, pulse ox 100% on 2 L nasal cannula. Repeat blood work reveals potassium 4.2, BUN 29 and creatinine 1.4. Patient had no pr evious history of atrial fibrillation. Repeat EKG was ordered which did confirm atrial fibrillation. PHYSICAL EXAMINATION: This is a 78-year-old male in no apparent distress at the time of my exami nation. VITAL SIGNS: Reviewed. HEENT: Head is atraumatic, normocephalic. Pupils are equal, round. Sclerae anicteric. Conjunctivae are clear. Mucous membranes of the mouth are moist. Neck is supple. There is no elevated jugular venous pressure. No carotid bruit is heard. CHEST EXAMINATION: Clear to auscultation bilaterally. No wheezes rales or rhonchi. Respirations even and nonlabored. HEART EXAMINATION: Heart irregular with tachycardia noted, positive S1 and S2. No S3. No S4. Systolic murmur. ABDOMEN: Soft, nontender, obese. Bowel sounds are heard. No organomegaly noted. EXTREMITIES: Evidence of bilateral lower extremity edema, 2+, worse on the left, dressing and Mario wrap in place to the left lower extremity. NEUROLOGIC EXAMINATION: Patient is awake, alert and oriented x3. Assessment: 1. Left lower extremity cellulitis 2. Shortness of breath 3. CAD with prior PCI to the RCA 4. Hypertension, uncontrolled 5. Hyperlipidemia 6. GE,noncompliant with CPAP 7. RV dilatation with RV systolic dysfunction and severe pulmonary hypertension 8. Paroxysmal atrial fibrillation, new onset, rate controlled Plan: Continue Bumex 1 mg twice daily Continue increased metoprolol 50 mg twice daily Start patient on Eliquis 5 mg twice daily Continue patient on aspirin 81 mg daily, atorvastatin, lisinopril Patient is cleared for discharge from cardiology. New prescriptions for Eliquis and metoprolol sent to patient's pharmacy. Patient will follow-up with Dr. An in 1 week. Nurse practitioner note has been reviewed, I agree with documented findings and plan of care. Patient was seen and examined. Objective - Vital Signs Vital signs: Vital Signs Temp 97.9 F 03/19/24 08:11 Pulse 92 03/19/24 08:53 Resp 16 03/19/24 08:53 BP 144/95 03/19/24 08:11 Pulse Ox 90 L 03/19/24 08:37 FiO2 Intake & Output 03/18/24 03/19/24 03/19/24 18:59 06:59 18:59 Intake Total 2700 Output Total 1000 0 Balance -1000 650 Intake: Oral 2700 Output: Urine 1000 2049 Other: Voiding Method Toilet Urinal Urinal # Voids 2 3 - Labs CBC & Chem 7: 03/16/24 06:18 03/19/24 04:01 Labs: Abnormal Lab Results - Last 24 Hours (Table) 03/18/24 03/18/24 03/18/24 Range/Units 12:22 17:08 20:52 Carbon Dioxide (21.6-31.8) mmol/L BUN (9.0-27.0) mg/dL Est GFR (CKD-EPI) (>=60) BUN/Creatinine Ratio (12.00-20.00) Ratio Glucose (70-110) mg/dL POC Glucose (mg/dL) 148 H 181 H 187 H (70-110) mg/dL 03/19/24 03/19/24 Range/Units 04:01 06:28 Carbon Dioxide 32.0 H (21.6-31.8) mmol/L BUN 29.4 H (9.0-27.0) mg/dL Est GFR (CKD-EPI) 52 L (>=60) BUN/Creatinine Ratio 21.00 H (12.00-20.00) Ratio Glucose 165 H (70-110) mg/dL POC Glucose (mg/dL) 182 H (70-110) mg/dL Microbiology - Last 24 Hours (Table) 03/14/24 22:07 Blood Culture - Preliminary Blood
[2024-03-19 14:30] VITALS: BP 142/92; PULSE 105; RESP 17; TEMP 97.7
--- NOTE | 2024-03-19 14:32 | P.PN ---
Subjective Progress Note Date: 03/18/24 Principal diagnosis: Reason for follow-up is left lower extremity cellulitis Patient is a 78-year-old male with a past medical history significant for diabetes mellitus hypertension hyperlipidemia reflux [place] prostate disorder and coronary disease presenting to the hospital for evaluation of left lower extremity swelling and redness Failing outpatient oral Keflex therapy did have a pustule on the left leg which grew Enterobacter and Enterococcus. On today's evaluation that is 03/18/2023, patient has been afebrile, patient is breathing comfortably and is currently on room air, patient denies having any significant cough no chest pain, patient denies nausea vomiting or diarrhea and no abdominal pain, the patient left lower extremity pain and swelling has decreased still having some drainage. Patient did have a creatinine 1.18 no CBC was done today cultures are growing Enterobacter and Enterococcus faecalis Objective - Vital Signs Vital signs: Vital Signs Temp 97.9 F 03/18/24 07:47 Pulse 96 03/18/24 09:05 Resp 18 03/18/24 07:47 BP 131/80 03/18/24 07:47 Pulse Ox 96 03/18/24 09:05 FiO2 Intake & Output 03/17/24 03/18/24 03/18/24 18:59 06:59 18:59 Output Total 950 1000 Balance -950 -1000 Output: Urine 950 1000 Other: Voiding Method Toilet Toilet Toilet Urinal Urinal Urinal # Voids 1 1 # Bowel Movements 1 - Exam GENERAL DESCRIPTION: An elderly male up in the chair in no distress RESPIRATORY SYSTEM: Unlabored breathing , decreased breath sounds at bases HEART: S1 S2 regular rate and rhythm , ABDOMEN: Soft , no tenderness EXTREMITIES: Left leg swelling and redness has decreased no purulent drainage - Labs CBC & Chem 7: 03/16/24 06:18 03/19/24 04:01 Labs: Abnormal Lab Results - Last 24 Hours (Table) 03/17/24 03/17/24 03/18/24 Range/Units 16:50 20:48 03:11 Sodium 136 L (137-145) mmol/L BUN 31 H (9-20) mg/dL Glucose 157 H (74-99) mg/dL POC Glucose (mg/dL) 144 H 196 H (70-110) mg/dL 03/18/24 03/18/24 Range/Units 06:47 12:22 Sodium (137-145) mmol/L BUN (9-20) mg/dL Glucose (74-99) mg/dL POC Glucose (mg/dL) 184 H 148 H (70-110) mg/dL Microbiology - Last 24 Hours (Table) 03/14/24 22:07 Blood Culture - Preliminary Blood 03/15/24 13:25 Gram Stain - Final Foot - Left Wound Culture - Final Enterobacter cloacae Complex Enterococcus faecalis Assessment and Plan (1) Left leg cellulitis Current Visit: Yes Status: Acute Code(s): L03.116 - CELLULITIS OF LEFT LOWER LIMB SNOMED Code(s): 57999763174146361 (2) Failure of outpatient treatment Current Visit: Yes Status: Acute Code(s): Z78.9 - OTHER SPECIFIED HEALTH STATUS SNOMED Code(s): 456856659 Plan: 1patient presented to hospital with increasing pain swelling redness to the left lower extremity with evidence of cellulitis failing outpatient oral Keflex therapy patient did have a pustule to the left leg and a question of possible community associated MRSA 2local culture currently growing Enterobacter and Enterococcus 3 Doppler ultrasound of the left leg has been negative for DVT, patient local care with a diagnosis of dressing followed by Mario wrap for compression to help with the swelling 4patient currently being treated with Zosyn should cover for both Enterobacter and Enterococcus finishing therapy with oral antibiotics Dictation was produced using [employer] dictation software. please excuse any grammatical, word or spelling errors. Time with Patient: Less than 30
--- NOTE | 2024-03-19 14:33 | P.PN ---
Subjective Progress Note Date: 03/19/24 Principal diagnosis: Reason for follow-up is left lower extremity cellulitis Patient is a 78-year-old male with a past medical history significant for diabetes mellitus hypertension hyperlipidemia reflux [place] prostate disorder and coronary disease presenting to the hospital for evaluation of left lower extremity swelling and redness Failing outpatient oral Keflex therapy did have a pustule on the left leg which grew Enterobacter and Enterococcus. On today's evaluation that is 03/19/2023, Patient is afebrile this morning patient denies having any chest pain shortness of breath or cough, the patient is currently on room air, patient denies any abdominal pain no diarrhea no nausea no vomiting, pain swelling redness to the left leg has decreased feeling better. Patient did have a creatinine of 1.4 no CBC was done blood culture negative local culture with Enterobacter and Enterococcus Objective - Vital Signs Vital signs: Vital Signs Temp 97.9 F 03/19/24 08:11 Pulse 92 03/19/24 08:53 Resp 16 03/19/24 08:53 BP 144/95 03/19/24 08:11 Pulse Ox 90 L 03/19/24 08:37 FiO2 Intake & Output 03/18/24 03/19/24 03/19/24 18:59 06:59 18:59 Intake Total 2700 Output Total 1000 2049 Balance -1000 650 Intake: Oral 2700 Output: Urine 1000 2049 Other: Voiding Method Toilet Urinal Urinal # Voids 2 3 - Exam GENERAL DESCRIPTION: An elderly male up in the chair in no distress RESPIRATORY SYSTEM: Unlabored breathing , decreased breath sounds at bases HEART: S1 S2 regular rate and rhythm , ABDOMEN: Soft , no tenderness EXTREMITIES: Left leg swelling and redness has decreased no purulent drainage - Labs CBC & Chem 7: 03/16/24 06:18 03/19/24 04:01 Labs: Abnormal Lab Results - Last 24 Hours (Table) 03/18/24 03/18/24 03/18/24 Range/Units 12:22 17:08 20:52 Carbon Dioxide (21.6-31.8) mmol/L BUN (9.0-27.0) mg/dL Est GFR (CKD-EPI) (>=60) BUN/Creatinine Ratio (12.00-20.00) Ratio Glucose (70-110) mg/dL POC Glucose (mg/dL) 148 H 181 H 187 H (70-110) mg/dL 03/19/24 03/19/24 Range/Units 04:01 06:28 Carbon Dioxide 32.0 H (21.6-31.8) mmol/L BUN 29.4 H (9.0-27.0) mg/dL Est GFR (CKD-EPI) 52 L (>=60) BUN/Creatinine Ratio 21.00 H (12.00-20.00) Ratio Glucose 165 H (70-110) mg/dL POC Glucose (mg/dL) 182 H (70-110) mg/dL Assessment and Plan (1) Left leg cellulitis Current Visit: Yes Status: Acute Code(s): L03.116 - CELLULITIS OF LEFT LOWER LIMB SNOMED Code(s): 95284839292868098 (2) Failure of outpatient treatment Current Visit: Yes Status: Acute Code(s): Z78.9 - OTHER SPECIFIED HEALTH STATUS SNOMED Code(s): 902233079 Plan: 1patient presented to hospital with increasing pain swelling redness to the left lower extremity with evidence of cellulitis failing outpatient oral Keflex therapy patient did have a pustule to the left leg and a question of possible community associated MRSA 2local culture currently growing Enterobacter and Enterococcus 3 Doppler ultrasound of the left leg has been negative for DVT, patient local care with a diagnosis of dressing followed by Mario wrap for compression to help with the swelling 4patient local culture with Enterobacter and Enterococcus, blood culture has been negative he will finish therapy with oral Cipro and Augmentin prescription sent to the pharmacy and close outpatient follow-up Dictation was produced using [employer] software. please excuse any grammatical, word or spelling errors.
--- NOTE | 2024-03-21 07:40 | CDI ---
Documentation Clarification Form Date: 03/21/2024 07:24:29 AM From: Maggi Calderón Admit Date: 03/14/2024 11:08:00 PM Patient Name: Placido Cota Visit Number: [id number] Discharge Date: 03/19/2024 04:38:00 PM ATTENTION: The Clinical Documentation Specialists (CDI) and [facility] Coding Staff appreciate your assistance in clarifying documentation. Please respond to the clarification below the line at the bottom and electronically sign. The CDI & [facility] Coding staff will review the response and follow-up if needed. Please note: Queries are made part of the Legal Health Record. If you have any questions, please contact the author of this message via ITS. Doctor/Provider: Akiko Lynch LLE cellulitis is documented throughout the entire chart and patient is noted to have diabetes. Please clarify if there is a relationship between the cellulitis and diabetes. History/Risk Factors: Diabetes type II, Failed outpatient treatment of oral Keflex therapy for left leg pustule growing Enterobacter and Enterococcus. Clinical Indicators: LLE cellulitis Treatment: Vancomycin and Insulin. Lasix Please clarify the relationship, if any, which is clinically appropriate for this patient: [ x ] LLE Cellulitis due to diabetes type II [ ] LLE Cellulitis is not due to diabetes type II [ ] Other explanation of clinical findings (please specify) [ ] Unable to determine (no explanation for clinical findings) MTDD
[2024-03-22 09:51] LABS: Glucose,Whole Blood 80 mg/dL (70-110)
== END 2024-03-19 16:38 | disposition home or self-care (01) | DRG 638 ==
LOC: EC 17:31 → 4SSUR 23:08
PROVIDERS: ADMIT Internal Medicine; ATTEND Internal Medicine
DX: E11.628 Type 2 diabetes mellitus with other skin complications (principal); L03.116 Cellulitis of left lower limb; Z68.41 Body mass index [BMI] 40.0-44.9, adult; I27.20 Pulmonary hypertension, unspecified; I48.0 Paroxysmal atrial fibrillation; E11.9 Type 2 diabetes mellitus without complications; E66.01 Morbid (severe) obesity due to excess calories; E78.5 Hyperlipidemia, unspecified; F32.A Depression, unspecified; F41.9 Anxiety disorder, unspecified; G25.81 Restless legs syndrome; G47.33 Obstructive sleep apnea (adult) (pediatric); D63.1 Anemia in chronic kidney disease; I10 Essential (primary) hypertension; I25.10 Atherosclerotic heart disease of native coronary artery without angina pectoris; I25.2 Old myocardial infarction; J44.9 Chronic obstructive pulmonary disease, unspecified; N40.0 Benign prostatic hyperplasia without lower urinary tract symptoms; Z79.4 Long term (current) use of insulin; Z79.82 Long term (current) use of aspirin; Z79.899 Other long term (current) drug therapy; Z85.828 Personal history of other malignant neoplasm of skin; Z87.891 Personal history of nicotine dependence; Z91.199 Patient's noncompliance with other medical treatment and regimen due to unspecified reason; Z95.5 Presence of coronary angioplasty implant and graft; Z88.5 Allergy status to narcotic agent; Z15.2 Genetic susceptibility to obesity; Z98.1 Arthrodesis status
CPT/HCPCS: 36415; 80048; 80053; 80202; 83036; 83605; 83880; 84153; 85025; 86140; 87040; 87070; 87077; 87186; 87205; 87636; 93306; 94640; 94760; 96361; 96365; 96366; 96367; 99285